=== PATIENT | female | born 1960 | race Caucasian/White ===

== ENCOUNTER → 2017-01-02 | Outpatient (POV) | payer MEDICARE, OTHER, SELFPAY | PROVIDERS: Visit Provider Podiatrist ==

== ENCOUNTER → 2017-01-30 | Outpatient (POV) | payer MEDICARE, OTHER, SELFPAY | PROVIDERS: Visit Provider Podiatrist ==

== ENCOUNTER → 2017-02-10 | Outpatient (CLI) | payer MEDICARE, OTHER, SELFPAY | PROVIDERS: Visit Provider Physician Assistant Medical | DX: K29.70 Gastritis, unspecified, without bleeding (principal) | CPT/HCPCS: 87338 ==

== ENCOUNTER → 2017-03-06 09:12 | Outpatient (REF) | payer MEDICARE, OTHER, SELFPAY ==
[2017-03-06 13:00] LABS: Amphetamine/Metha Screen,Urine Negative ng/mL (<1000); Barbiturates Screen,Urine Negative ng/mL (<200); Benzodiazepines Screen,Urine Negative ng/mL (200); Cannabinoid Screen,Urine Negative ng/mL (<50); Cocaine Screen,Urine Negative ng/g (<300); Methadone Screen,Urine Negative ng/mL (<300); Opiate Screen,Urine Negative ng/mL (<300); Phencyclidine Screen,Urine Negative ng/mL (<25)
[2017-03-22 08:11] LABS: Oxycodone (GC/MS) 667 ng/mL (Cutoff=100)
[2017-03-22 18:28] LABS: Opiates Negative (Cutoff=100); Oxymorphone (GC/MS) 788 ng/mL (Cutoff=100)
== END ==
LOC: LAB 09:12
PROVIDERS: Visit Provider Nurse Practitioner Family
DX: Z79.899 Other long term (current) drug therapy (principal)
CPT/HCPCS: 80305; 80361; G0480

== ENCOUNTER → 2017-03-18 08:38 | Outpatient (CLI) | payer MEDICARE, OTHER, SELFPAY ==
[2017-03-18 09:07] LABS: Alanine Aminotransferase 33 U/L (12-78); Albumin Level 3.9 gm/dL (3.4-5.0); Albumin/Globulin Ratio 0.8 (1.1-1.8); Alkaline Phosphatase 91 U/L (46-116); Bilirubin,Total 0.5 mg/dL (0.2-1.0); Blood Urea Nitrogen 14 mg/dL (7-18); Calcium 9.1 mg/dL (8.5-10.1); Carbon Dioxide 25 mmol/L (21.0-32.0); Chloride 103 mmol/L (98-107); Creatinine,Serum 0.72 mg/dL (0.55-1.02); Estimated Glomerular Filt Rate 84 ml/min (>60); GFR (African American) 102 ML/MIN (>60); Globulin 4.6 gm/dl (1.3-3.2); Glucose 104 mg/dL (74-106); Sodium 138 mmol/L (136-145); Total Protein,Serum 8.5 gm/dL (6.4-8.2)
[2017-03-18 09:10] LABS: Aspartate Amino Transferase 28 U/L (15-37)
--- NOTE | 2017-03-18 09:19 | CT_ITS ---
CT abdomen pelvis wo/w con CLINICAL INDICATION: ITS.REASON: ABDOMINAL PAIN,CHRONIC PANCREATITIS,ABNORMAL PANCREATIC DUCT ORDERING PHYSICIAN: Ulises Dhillon PATIENT AGE: 56 years COMPARISON: MRI 02/05/2017 TECHNIQUE: Axial images obtained with sagittal and coronal reformats. Pre and post enhanced three-phase imaging is performed PROCEDURE: Oral Contrast: None IV Contrast: 75 mL [id number]. FINDINGS: The lung bases are clear. Prior splenectomy. There are few coarse areas of calcification involving the pancreas at the region of the body of the pancreas consistent with chronic pancreatitis. The head of the pancreas is somewhat prominent as noted on the MRI. There are multiple air is seen is present along the head of the pancreas accounting for the abnormal signal intensity on the MRI. Collateral vessels are present in the portal rate. Suspect chronic portal venous thrombosis with varicosities in the periportal area. The superior mesenteric vein is not demonstrated. There has been prior hysterectomy. The liver, adrenal glands, and kidneys have an unremarkable appearance. No intestinal obstruction or free air. Prior hysterectomy. No pelvic mass or abnormal fluid collection or focal inflammatory change apparent. IMPRESSION: 1. There are varicosities in the region of the head of the pancreas accounting for the abnormality noted on MRI. No obvious pancreatic mass. There are scattered foci of calcifications of the body and tail of pancreas consistent with chronic pancreatitis. 2. Prior splenectomy. 3. 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
== END ==
PROVIDERS: Family Provider Emergency Medicine; PCP Emergency Medicine; Visit Provider Physician Assistant Medical
DX: R10.9 Unspecified abdominal pain (principal); K85.90 Acute pancreatitis without necrosis or infection, unspecified
CPT/HCPCS: 36415; 74170; 74178; 80053; Q9967

== ENCOUNTER → 2017-04-29 10:20 | Outpatient (REF) | payer MEDICARE, OTHER, SELFPAY ==
[2017-04-29 14:04] LABS: Amphetamine/Metha Screen,Urine Negative ng/mL (<1000); Barbiturates Screen,Urine Negative ng/mL (<200); Benzodiazepines Screen,Urine Negative ng/mL (200); Cannabinoid Screen,Urine Negative ng/mL (<50); Cocaine Screen,Urine Negative ng/g (<300); Methadone Screen,Urine Negative ng/mL (<300); Opiate Screen,Urine Positive ng/mL (<300); Phencyclidine Screen,Urine Negative ng/mL (<25)
== END ==
LOC: LAB 10:20
PROVIDERS: Visit Provider Emergency Medicine
DX: Z79.899 Other long term (current) drug therapy (principal)
CPT/HCPCS: 80305

== ENCOUNTER → 2017-05-13 09:34 | Outpatient (POV) | payer MEDICARE, OTHER, SELFPAY | PROVIDERS: Family Provider Emergency Medicine; PCP Emergency Medicine; Visit Provider Physician Assistant Medical | DX: Z00.00 Encounter for general adult medical examination without abnormal findings (principal) ==

== ENCOUNTER → 2017-06-01 08:54 | Outpatient (REF) | payer MEDICARE, OTHER, SELFPAY ==
[2017-06-01 13:46] LABS: Amphetamine/Metha Screen,Urine Negative ng/mL (<1000); Barbiturates Screen,Urine Negative ng/mL (<200); Benzodiazepines Screen,Urine Negative ng/mL (200); Cannabinoid Screen,Urine Negative ng/mL (<50); Cocaine Screen,Urine Negative ng/g (<300); Methadone Screen,Urine Negative ng/mL (<300); Opiate Screen,Urine Positive ng/mL (<300); Phencyclidine Screen,Urine Negative ng/mL (<25)
== END ==
LOC: LAB 08:54
PROVIDERS: Visit Provider Emergency Medicine
DX: Z79.899 Other long term (current) drug therapy (principal)
CPT/HCPCS: 80305

== ENCOUNTER → 2017-07-01 11:06 | Outpatient (REF) | payer MEDICARE, OTHER, SELFPAY ==
[2017-07-01 14:05] LABS: Amphetamine/Metha Screen,Urine Negative ng/mL (<1000); Barbiturates Screen,Urine Negative ng/mL (<200); Benzodiazepines Screen,Urine Negative ng/mL (200); Cannabinoid Screen,Urine Negative ng/mL (<50); Cocaine Screen,Urine Negative ng/g (<300); Methadone Screen,Urine Negative ng/mL (<300); Opiate Screen,Urine Negative ng/mL (<300); Phencyclidine Screen,Urine Negative ng/mL (<25)
== END ==
LOC: LAB 11:06
PROVIDERS: Visit Provider Emergency Medicine
DX: M51.16 Intervertebral disc disorders with radiculopathy, lumbar region (principal)
CPT/HCPCS: 80305

== ENCOUNTER → 2017-07-31 10:20 | Outpatient (CLI) | payer MEDICARE, OTHER, SELFPAY ==
[2017-07-31 14:30] LABS: Basophils # 0.1 K/mm3 (0-0.2); Basophils % 0.6 % (0.1-2.0); Eosinophils % 0.5 % (0.1-12.0); Hematocrit 44.8 % (37.0-47.0); Hemoglobin 14.6 g/dL (12.2-16.2); Lymphocytes # 4.9 K/mm3 (0.7-4.5); Lymphocytes % 51.7 K/mm3 (10-50); Mean Corpuscular HGB Conc 32.6 g/dL (31.8-35.4); Mean Corpuscular Hemoglobin 31.5 pg (27.0-31.2); Mean Corpuscular Volume 96.9 fl (81-99); Mean Platelet Volume 8.8 fl (7.4-10.4); Monocytes # 0.7 K/mm3 (0.1-1.0); Monocytes % 7.2 % (1.7-9.3); Neutrophils # 3.8 K/mm3 (1.8-7.8); Platelet Count 391 K/mm3 (142-424); Red Blood Count 4.63 M/mm3 (4.20-5.40); Red Cell Distribution Width 13.1 % (11.5-17.5); White Blood Count 9.5 K/mm3 (4.8-10.8)
[2017-07-31 14:32] LABS: MANUAL DIFFERENTIAL MANUAL DIFFERENTIAL (MANUAL DIFF)
[2017-07-31 14:58] LABS: Alanine Aminotransferase 26 U/L (12-78); Albumin Level 3.8 gm/dL (3.4-5.0); Alkaline Phosphatase 88 U/L (46-116); Anion Gap 11.9 mEq/L (5-15); Aspartate Amino Transferase 21 U/L (15-37); Bilirubin,Total 0.8 mg/dL (0.2-1.0); Blood Urea Nitrogen 15 mg/dL (7-18); Calcium 9.2 mg/dL (8.5-10.1); Carbon Dioxide 28 mmol/L (21.0-32.0); Chloride 106 mmol/L (98-107); Chol/HDL Ratio 5.3 (1-3.5); Cholesterol 200 mg/dL (140-200); Creatinine,Serum 0.71 mg/dL (0.55-1.02); Estimated Glomerular Filt Rate 85 ml/min (>60); GFR (African American) 103 ML/MIN (>60); Globulin 3.8 gm/dl (1.3-3.2); Glucose 94 mg/dL (74-106); HDL Cholesterol 38 mg/dL (29-89); LDL Cholesterol 139 mg/dL (0-130); Potassium 3.9 mmoL/L (3.5-5.1); Sodium 142 mmol/L (136-145); T4 (Thyroxine) 9.6 ug/dl (4.7-13.3); Thyroid Stimulating Hormone 2.29 uIU/ml (0.358-3.740); Total Protein,Serum 7.6 gm/dL (6.4-8.2); Triglycerides 113 mg/dL (30-200); VLDL Cholesterol 23 mg/dL (0-40)
[2017-07-31 15:06] LABS: Lymphocytes % 52 % (10-50); Monocytes % 9 % (2-9); Neutrophils % 38 % (42-76); Platelet Estimate Normal; RBC Morphology Normal; Total Cells Counted 100
[2017-07-31 16:28] LABS: Hemoglobin A1C 5.5 % (0.0-7.0)
[2017-07-31 19:26] LABS: Amphetamine/Metha Screen,Urine Negative ng/mL (<1000); Barbiturates Screen,Urine Negative ng/mL (<200); Benzodiazepines Screen,Urine Negative ng/mL (200); Cannabinoid Screen,Urine Negative ng/mL (<50); Cocaine Screen,Urine Negative ng/g (<300); Methadone Screen,Urine Negative ng/mL (<300); Opiate Screen,Urine Negative ng/mL (<300); Phencyclidine Screen,Urine Negative ng/mL (<25)
== END ==
PROVIDERS: Visit Provider Emergency Medicine
DX: E11.9 Type 2 diabetes mellitus without complications (principal); M51.16 Intervertebral disc disorders with radiculopathy, lumbar region; M54.9 Dorsalgia, unspecified
CPT/HCPCS: 80053; 80061; 80305; 82652; 83036; 84436; 84443; 85007; 85025

== ENCOUNTER → 2017-08-28 10:06 | Outpatient (CLI) | payer MEDICARE, OTHER, SELFPAY ==
[2017-08-28 17:26] LABS: Amphetamine/Metha Screen,Urine Negative ng/mL (<1000); Barbiturates Screen,Urine Negative ng/mL (<200); Benzodiazepines Screen,Urine Negative ng/mL (<200); Cannabinoid Screen,Urine Negative ng/mL (<50); Cocaine Screen,Urine Negative ng/mL (<300); Methadone Screen,Urine Negative ng/mL (<300); Opiate Screen,Urine Negative ng/mL (<300); Phencyclidine Screen,Urine Negative ng/mL (<25)
== END ==
PROVIDERS: Visit Provider Emergency Medicine
DX: M51.16 Intervertebral disc disorders with radiculopathy, lumbar region (principal)
CPT/HCPCS: 80305

== ENCOUNTER → 2017-10-02 10:22 | Outpatient (REF) | payer MEDICARE, OTHER, SELFPAY ==
[2017-10-02 14:26] LABS: Amphetamine/Metha Screen,Urine Negative ng/mL (<1000); Barbiturates Screen,Urine Negative ng/mL (<200); Benzodiazepines Screen,Urine Negative ng/mL (<200); Cannabinoid Screen,Urine Negative ng/mL (<50); Cocaine Screen,Urine Negative ng/mL (<300); Methadone Screen,Urine Negative ng/mL (<300); Opiate Screen,Urine Negative ng/mL (<300); Phencyclidine Screen,Urine Negative ng/mL (<25)
== END ==
LOC: LAB 10:22
PROVIDERS: Visit Provider Emergency Medicine
DX: M54.5 Low back pain (principal)
CPT/HCPCS: 80305

== ENCOUNTER → 2017-11-03 10:17 | Outpatient (REF) | payer MEDICARE, OTHER, SELFPAY ==
[2017-11-03 14:30] LABS: Amphetamine/Metha Screen,Urine Negative ng/mL (<1000); Barbiturates Screen,Urine Negative ng/mL (<200); Benzodiazepines Screen,Urine Negative ng/mL (<200); Cannabinoid Screen,Urine Negative ng/mL (<50); Cocaine Screen,Urine Negative ng/mL (<300); Methadone Screen,Urine Negative ng/mL (<300); Opiate Screen,Urine Negative ng/mL (<300); Phencyclidine Screen,Urine Negative ng/mL (<25)
== END ==
LOC: LAB 10:17
PROVIDERS: Visit Provider Emergency Medicine
DX: Z79.899 Other long term (current) drug therapy (principal)
CPT/HCPCS: 80305

== ENCOUNTER → 2017-12-02 09:42 | Outpatient (REF) | payer MEDICARE, OTHER, SELFPAY ==
[2017-12-02 14:20] LABS: Amphetamine/Metha Screen,Urine Negative ng/mL (<1000); Barbiturates Screen,Urine Negative ng/mL (<200); Benzodiazepines Screen,Urine Negative ng/mL (<200); Cannabinoid Screen,Urine Negative ng/mL (<50); Cocaine Screen,Urine Negative ng/mL (<300); Methadone Screen,Urine Negative ng/mL (<300); Opiate Screen,Urine Negative ng/mL (<300); Phencyclidine Screen,Urine Negative ng/mL (<25)
== END ==
LOC: LAB 09:42
PROVIDERS: Visit Provider Emergency Medicine
DX: Z79.899 Other long term (current) drug therapy (principal)
CPT/HCPCS: 80305

== ENCOUNTER → 2018-01-05 13:30 | Outpatient (CLI) | payer MEDICARE, OTHER, SELFPAY ==
[2018-01-09 06:15] LABS: Oxycodone Positive (.); Oxymorphone Negative (Cutoff=100)
[2018-01-11 11:13] LABS: Oxycodone Confirm 653 ng/mL (Cutoff=100)
== END ==
PROVIDERS: PCP Emergency Medicine; Visit Provider Emergency Medicine
DX: Z79.899 Other long term (current) drug therapy (principal)
CPT/HCPCS: 80365

== ENCOUNTER → 2018-02-03 14:17 | Outpatient (CLI) | payer MEDICARE, OTHER, SELFPAY ==
[2018-02-03 17:20] LABS: Amphetamine/Metha Screen,Urine Negative ng/mL (<1000); Barbiturates Screen,Urine Negative ng/mL (<200); Benzodiazepines Screen,Urine Negative ng/mL (<200); Cannabinoid Screen,Urine Negative ng/mL (<50); Cocaine Screen,Urine Negative ng/mL (<300); Methadone Screen,Urine Negative ng/mL (<300); Opiate Screen,Urine Negative ng/mL (<300); Phencyclidine Screen,Urine Negative ng/mL (<25)
[2018-02-11 08:46] LABS: Oxycodone (GC/MS) 501 ng/mL (Cutoff=100)
[2018-02-12 16:10] LABS: Opiates Negative (Cutoff=100); Oxymorphone (GC/MS) 166 ng/mL (Cutoff=100)
== END ==
PROVIDERS: Visit Provider Emergency Medicine
DX: Z79.899 Other long term (current) drug therapy (principal)
CPT/HCPCS: 80305; 80361; 80365; G0480

== ENCOUNTER → 2018-03-16 13:53 | Outpatient (CLI) | payer MEDICARE, OTHER, SELFPAY ==
--- NOTE | 2018-03-16 13:55 | MR_ITS ---
MR lumbar spine wo con, MR 3-d myelogram/MRCP HISTORY: Left hip and leg pain with numbness and tingling, left buttock pain, prior surgery ITS.REASON: back pain ORDERING PHYSICIAN: Hakan Steinberg PATIENT AGE: 57 years Comparison: 12/15/2014 TECHNIQUE: Standard multiplanar multiecho sequences are performed without contrast. 3-D MIP and myelographic images are also rendered and reviewed FINDINGS: There is normal alignment. Spinal cord ends at the L1 level. T11-L3 has an unremarkable appearance. L3-L4: Minimal bulging disc with small central disc protrusion which is less prominent on today's study than when compared to the previous exam. This is slightly eccentric toward the left with mild facet and ligamentum flavum hypertrophy and mild bilateral foraminal narrowing. No obvious neural impingement L4-L5: Small concentric bulging disc which is slightly eccentric toward the left. There is a small lobular area of increased T2 signal in the left lateral recess and along the posterior aspect of the disc at L4-L5 in the left foraminal region. As mentioned previously this could be due to an area of epidural fibrosis versus a small disc protrusion. Repeat exam without with contrast may be of further value. There are type II endplate changes at L4 inferiorly with some irregularity of the superior endplate of L5. There is left lateral recess narrowing as well as mild to moderate bilateral foraminal narrowing. Facet ligamentum flavum hypertrophy noted at this level as before. There may be a small laminotomy defect on the left at L4-L5. L5-S1: Mild degenerative disc disease with bulging disc and small broad-based central disc protrusion. There is decreased T1 and T2 signal along the anterior left aspect of the canal at this level abutting the left S1 nerve root as previously described and could be due to an area of epidural fibrosis or protruding disc. Slightly more apparent on today's exam compared to the previous study. There is laminotomy defect on the left at this level. IMPRESSION: 1. L3-L4: Minimal bulging disc with small central disc protrusion which is less prominent on today's study than when compared to the previous exam. This is slightly eccentric toward the left with mild facet and ligamentum flavum hypertrophy and mild bilateral foraminal narrowing. No obvious neural impingement 2. L4-L5: Small concentric bulging disc which is slightly eccentric toward the left. There is a small lobular area of increased T2 signal in the left lateral recess and along the posterior aspect of the disc at L4-L5 in the left foraminal region. As mentioned previously this could be due to an area of epidural fibrosis versus a small disc protrusion. Repeat exam without with contrast may be of further value. There are type II endplate changes at L4 inferiorly with some irregularity of the superior endplate of L5. There is left lateral recess narrowing as well as mild to moderate bilateral foraminal narrowing. Facet ligamentum flavum hypertrophy noted at this level as before. There may be a small laminotomy defect on the left at L4-L5. 3. L5-S1: Mild degenerative disc disease with bulging disc and small broad-based central disc protrusion. There is decreased T1 and T2 signal along the anterior left aspect of the canal at this level abutting the left S1 nerve root as previously described and could be due to an area of epidural fibrosis or protruding disc which is slightly more apparent on today's exam compared to the previous study. There is laminotomy defect on the left at this level. Consider repeating exam without with gadolinium enhancement for further evaluation to better determine possibility of epidural fibrosis versus disc material at L4-L5 and L5-S1
== END ==
PROVIDERS: PCP Emergency Medicine; Visit Provider Nurse Practitioner Family
DX: M51.16 Intervertebral disc disorders with radiculopathy, lumbar region (principal); M54.5 Low back pain
CPT/HCPCS: 72148; 76376

== ENCOUNTER → 2018-04-06 13:59 | Outpatient (CLI) | payer MEDICARE, OTHER, SELFPAY ==
[2018-04-06 15:27] LABS: Amphetamine/Metha Screen,Urine Negative ng/mL (<1000); Barbiturates Screen,Urine Negative ng/mL (<200); Benzodiazepines Screen,Urine Negative ng/mL (<200); Cannabinoid Screen,Urine Negative ng/mL (<50); Cocaine Screen,Urine Negative ng/mL (<300); Methadone Screen,Urine Negative ng/mL (<300); Opiate Screen,Urine Positive ng/mL (<300); Phencyclidine Screen,Urine Negative ng/mL (<25)
== END ==
PROVIDERS: Visit Provider Emergency Medicine
DX: Z79.899 Other long term (current) drug therapy (principal)
CPT/HCPCS: 80305

== ENCOUNTER → 2018-05-13 13:23 | Outpatient (POV) | payer MEDICARE, OTHER, SELFPAY | PROVIDERS: Visit Provider Neurological Surgery | DX: Z00.00 Encounter for general adult medical examination without abnormal findings (principal) ==

== ENCOUNTER → 2018-05-24 10:48 | Outpatient (POV) | payer MEDICARE, OTHER, SELFPAY ==
[2018-05-24 11:21] VITALS: BP 118/88; PULSE 78; RESP 18; O2SAT 98
--- NOTE | 2018-05-24 14:00 | HMH.PMCON ---
Assessment and Plan (1) Lumbar disc disease with radiculopathy Current visit: No Status: Chronic Category: Medical Code(s): M51.16 - Intervertebral disc disorders with radiculopathy, lumbar region - Assessment and plan all Dx Assessment and Plan for all problems:: We will set the patient for an L5-S1 lumbar epidural steroid injection. Patient is not on any anticoagulation therapy at this time. Patient has tried and failed conservative measures such as exercises and medications. I will follow-up with the patient after injection reassess her symptoms at that time. Dr. Ventura has reviewed this note and agrees with this plan of care. This note was dictated using voice recognition software and may contain errors or omissions HPI - Data of Consult Consult date: 05/24/18 Requesting Physician: Yolis Sexton APRN Primary Care Provider: Allan Hightower MD - Consult Narrative Reason for consult: Back pain History of present illness: Ms. Rivera is a 57 year old female who presents today for consultation in regards to her low back and leg pain. Patient was seen by Dr. Burns and it was suggested that she try epidural injections prior to considering surgery. Patient rates her pain a 5 out of 10. Patient states that she had pain beginning in January. She has left leg numbness and tingling. Patient does have an MRI showing degenerative changes. Patient has had surgery in the past. She is currently on Percocet from her primary care physician. She is not on any blood thinner and she does not take any insulin. Is interested in epidural injections she is continuing a home stretching program. She is on anti-inflammatories. CC: Yolis Sexton APRN [facility] History I have reviewed the patient's past medical history: Yes Medical History: Reports:: Anxiety, Chronic Obstructive Pulmonary Disease (COPD), Depression, Diabetes Mellitus Type 2, Hyperlipidemia *Have you ever received a pneumonia vaccine?: No *Have you received a flu vaccine this season?: Yes Other Medical History: Reports: HIV Other Surgeries: Yes: Colonoscopy, , EGD, Hysterectomy-Total, Splenectomy, Thyroidectomy Amputation: No Fractures: No - *Social History Smoking Status: Unknown if ever smoked Alcohol Intake: never Alcohol Intake Frequency:: other Substance Use Type: denies use *Occupational Status:: retired Housing: house Household Members: family *Travel in the last 8 weeks: None - Psychiatric History Expresses thoughts of harming self/others: None Suicide Plan Description: No Plan Pschychiatric History:: Reports:: Anxiety, Depression Family Hx:: Heart Attack, Kidney Disease Review of Systems - Review of Systems ROS General: no recent weight change, no fever, no sleep disturbances Respiratory: no cough, no shortness of air, no recurring pulmonary infections Cardiovascular/Peripheral Vascular: No chest pain, No palpitations, no edema, no shortness of breath. Gastrointestinal: no incontinence, normal bowel movements reported Genitourinary: no incontinence Musculoskeletal: Back pain, left leg pain Psychiatric: normal mood/ affect, Neurological: [denies weakness in extremities], [denies balance issues] Meds Home Medications Medication Instructions Recorded Confirmed Type niacin ER 500 mg tablet,extended 1,500 mg PO QHS 03/05/17 04/27/18 History release 24 hr dolutegravir 50 mg tablet 50 mg PO DAILY 30 Days #30 tab 01/05/18 04/27/18 History emtricitabine 200 mg-tenofovir 200 mg PO DAILY 30 Days #30 tab 01/05/18 04/27/18 History alafenamide fumarate 25 mg tablet promethazine 25 mg tablet 25 mg PO QHS 20 Days #60 tab 01/05/18 04/27/18 History diclofenac 1 % topical gel 4 g TOPICAL QID #30 g 02/08/18 04/27/18 Rx urea 40 % topical cream 1 applic TOPICAL BID #60 applic 02/08/18 04/27/18 Rx Blood Sugar Diagnostic [FreeStyle 0 strip .ROUTE .MEDSUPPLY 02/28/18 04/27/18 History Lite Strips] Cholecalciferol (Vitamin D3)
--- NOTE | 2018-05-24 14:03 | P.CONS_ITS ---
Assessment and Plan (1) Lumbar disc disease with radiculopathy Current visit: No Status: Chronic Category: Medical Code(s): M51.16 - Intervertebral disc disorders with radiculopathy, lumbar region - Assessment and plan all Dx Assessment and Plan for all problems:: We will set the patient for an L5-S1 lumbar epidural steroid injection. Patient is not on any anticoagulation therapy at this time. Patient has tried and failed conservative measures such as exercises and medications. I will follow- up with the patient after injection reassess her symptoms at that time. Dr. Ventura has reviewed this note and agrees with this plan of care. This note was dictated using voice recognition software and may contain errors or omissions HPI - Data of Consult Consult date: 05/24/18 Requesting Physician: Yolis Sexton APRN Primary Care Provider: Allan Hightower MD - Consult Narrative Reason for consult: Back pain History of present illness: Ms. Rivera is a 57 year old female who presents today for consultation in regards to her low back and leg pain. Patient was seen by Dr. Burns and it was suggested that she try epidural injections prior to considering surgery. Patient rates her pain a 5 out of 10. Patient states that she had pain beginning in January. She has left leg numbness and tingling. Patient does have an MRI showing degenerative changes. Patient has had surgery in the past. She is currently on Percocet from her primary care physician. She is not on any blood thinner and she does not take any insulin. Is interested in epidural injections she is continuing a home stretching program. She is on anti- inflammatories. CC: Yolis Sexton APRN [facility] History I have reviewed the patient's past medical history: Yes Medical History: Reports:: Anxiety, Chronic Obstructive Pulmonary Disease (COPD), Depression, Diabetes Mellitus Type 2, Hyperlipidemia *Have you ever received a pneumonia vaccine?: No *Have you received a flu vaccine this season?: Yes Other Medical History: Reports: HIV Other Surgeries: Yes: Colonoscopy, , EGD, Hysterectomy-Total, Splenectomy, Thyroidectomy Amputation: No Fractures: No - *Social History Smoking Status: Unknown if ever smoked Alcohol Intake: never Alcohol Intake Frequency:: other Substance Use Type: denies use *Occupational Status:: retired Housing: house Household Members: family *Travel in the last 8 weeks: None - Psychiatric History Expresses thoughts of harming self/others: None Suicide Plan Description: No Plan Pschychiatric History:: Reports:: Anxiety, Depression Family Hx:: Heart Attack, Kidney Disease Review of Systems - Review of Systems ROS General: no recent weight change, no fever, no sleep disturbances Respiratory: no cough, no shortness of air, no recurring pulmonary infections Cardiovascular/Peripheral Vascular: No chest pain, No palpitations, no edema, no shortness of breath. Gastrointestinal: no incontinence, normal bowel movements reported Genitourinary: no incontinence Musculoskeletal: Back pain, left leg pain Psychiatric: normal mood/ affect, Neurological: [denies weakness in extremities], [denies balance issues] Meds Home Medications Medication Instructions Recorded Confirmed Type niacin ER 500 mg tablet,extended 1,500 mg PO QHS 03/05/17 04/27/18 History release 24 hr dolutegravir 50 mg tablet 50 mg PO DAILY 30 Days #30 tab 01/05/18 04/27/18 Rosa richardson
== END ==
PROVIDERS: PCP Emergency Medicine; Visit Provider Clinical Nurse Specialist Family Health
DX: M51.16 Intervertebral disc disorders with radiculopathy, lumbar region (principal)
CPT/HCPCS: 99202

== ENCOUNTER → 2018-06-02 14:13 | Outpatient (CLI) | payer MEDICARE, OTHER, SELFPAY ==
[2018-06-02 15:02] LABS: Amphetamine/Metha Screen,Urine Negative ng/mL (<1000); Barbiturates Screen,Urine Negative ng/mL (<200); Benzodiazepines Screen,Urine Negative ng/mL (<200); Cannabinoid Screen,Urine Negative ng/mL (<50); Cocaine Screen,Urine Negative ng/mL (<300); Methadone Screen,Urine Negative ng/mL (<300); Opiate Screen,Urine Positive ng/mL (<300); Phencyclidine Screen,Urine Negative ng/mL (<25)
== END ==
PROVIDERS: Visit Provider Emergency Medicine
DX: M54.2 Cervicalgia (principal)
CPT/HCPCS: 80305

== ENCOUNTER → 2018-07-06 09:42 | Outpatient (POV) | payer MEDICARE, OTHER, SELFPAY ==
[2018-07-06 09:53] VITALS: BP 139/90; PULSE 75; RESP 18; O2SAT 98; BMI 35.5
--- NOTE | 2018-07-06 10:11 | HMH.PAINSOAP ---
[facility] Pain Management SOAP Note Subjective:: Patient is a pleasant 57-year-old white female who presents today for follow-up after lumbar epidural steroid injection. Patient did extremely well getting 80% relief of her symptoms. She does rate her pain an 8 out of 10 however is more muscular today. She would like to continue her set of 3 epidurals per the recommendation of Dr. Burns. We will move forward with this. Patient is having some muscle cramps we will call her in Zanaflex 4 mg 1 p.o. twice daily. ROS General: no recent weight change, no fever, no sleep disturbances Respiratory: no cough, no shortness of air, no recurring pulmonary infections Cardiovascular/Peripheral Vascular: No chest pain, No palpitations, no edema, no shortness of breath. Gastrointestinal: no incontinence, normal bowel movements reported Genitourinary: no incontinence Musculoskeletal: Back pain, leg pain Psychiatric: normal mood/ affect Neurological: [denies weakness in extremities], [denies balance issues] Objective:: Physical Exam General: Alert and oriented x3, no acute distress, pleasant and cooperative, [on room air] Lungs: Resps E/U, Symmetrical chest expansion, Eyes: PERRL Musculoskeletal: Flexion and extension of lumbar spine somewhat guarded secondary to pain, deep tendon reflexes normal, strength in upper and lower extremities [5/5], [abnormal gait noted] Neurological: speech clear, packager and strapper equal, no gross sensory deficits Assessment:: Degenerative disc disease lumbar spine with lumbar radiculopathy Plan:: We will schedule repeat L4-L5 lumbar epidural steroid injection given the efficacy of this in the past. We will then repeated once more in 4 weeks post. Patient is not on any anticoagulation therapy she is continuing with anti-inflammatories. We will also call in Zanaflex 4 mg 1 p.o. twice daily.. I will follow-up with the patient after her injections and reassess her at that time. She is been instructed to call the office if she has any issues prior to her next appointment. Dr. Ventura has reviewed this note and agrees with this plan of care. This note was dictated using voice recognition software and may contain errors or omissions
== END ==
PROVIDERS: PCP Emergency Medicine; Visit Provider Clinical Nurse Specialist Family Health
DX: M51.16 Intervertebral disc disorders with radiculopathy, lumbar region (principal)
CPT/HCPCS: 99212

== ENCOUNTER 2018-07-23 08:36 | Day surgery (SDC) | payer MEDICARE, OTHER, SELFPAY ==
[2018-07-23 09:05] VITALS: BP 123/68; PULSE 65; RESP 18; TEMP 36.9; O2SAT 95; BMI 35.3
[2018-07-23 09:21] VITALS: BP 149/84; PULSE 69; RESP 18; O2SAT 98
[2018-07-23 09:22] VITALS: BP 150/85; PULSE 70; RESP 18; O2SAT 98
[2018-07-23 09:30] VITALS: BP 124/78; PULSE 70; RESP 18; TEMP 36.6; O2SAT 93
--- NOTE | 2018-07-23 09:41 | HMH.PMPROC ---
- Procedure Date: 07/23/18 Time: 09:41 Anesthesiologist:: Kai Ventura MD Complications:: None Pre-procedure Diagnosis:: Degenerative disc disease of lumbar spine with lumbar radiculopathy symptoms Post-procedure Diagnosis:: Same Indications for Procedure:: This patient is a pleasant 57-year-old white female who we are treating for low back pain with lumbar radicular symptoms. She did very well with her previous lumbar epidural steroid injection. She was 80 to 90% better. Her pain is starting to return. She did have some muscle spasms after her last procedure. She is started Zanaflex 4 mg twice daily which is helping. She presents for repeat lumbar pleural steroid injection under fluoroscopy today. Procedure Details:: Lumbar epidural steroid injection under fluoroscopy Informed consent was obtained and the risk and benefits of the procedure was explained to the patient. The patient was taken to the procedure room. The patient was placed prone on the procedure table. The patient was prepped and draped in sterile fashion. C-arm fluoroscopy was used to view the lumbar spine. Skin and subcutaneous tissues were anesthetized using lidocaine. I placed an 18-gauge epidural needle and advanced into the L4-L5 interspace using fluoroscopic guidance and [id number] to air. After confirmation of needle placement in the epidural space with dye I injected 2 mL of lidocaine 1.5% with Depo-Medrol 80 mg. Patient tolerated the procedure well with no complications. Plan and Disposition:: We will follow-up with her in 2 weeks. We will reevaluate her symptoms at that time. She is scheduled to see Dr. Burns in August.
== END 2018-07-23 09:32 | disposition home or self-care (01) ==
LOC: SC.PAINP 08:37
PROVIDERS: PCP Emergency Medicine; Visit Provider Anesthesiology
DX: M51.16 Intervertebral disc disorders with radiculopathy, lumbar region (principal)
CPT/HCPCS: 62323; J1040; Q9966

== ENCOUNTER → 2018-08-02 11:57 | Outpatient (CLI) | payer MEDICARE, OTHER, SELFPAY ==
[2018-08-02 14:49] LABS: Amphetamine/Metha Screen,Urine Negative ng/mL (<1000); Barbiturates Screen,Urine Negative ng/mL (<200); Benzodiazepines Screen,Urine Negative ng/mL (<200); Cannabinoid Screen,Urine Negative ng/mL (<50); Cocaine Screen,Urine Negative ng/mL (<300); Methadone Screen,Urine Negative ng/mL (<300); Opiate Screen,Urine Negative ng/mL (<300); Phencyclidine Screen,Urine Negative ng/mL (<25)
== END ==
PROVIDERS: Visit Provider Emergency Medicine
DX: Z79.899 Other long term (current) drug therapy (principal); R82.998 Other abnormal findings in urine
CPT/HCPCS: 80305; 87086

== ENCOUNTER → 2018-09-09 12:52 | Outpatient (POV) | payer MEDICARE, OTHER, SELFPAY | PROVIDERS: Visit Provider Neurological Surgery | DX: Z00.00 Encounter for general adult medical examination without abnormal findings (principal) ==

== ENCOUNTER → 2018-09-13 11:02 | Outpatient (CLI) | payer MEDICARE, OTHER, SELFPAY ==
--- NOTE | 2018-09-13 11:05 | XR_ITS ---
XR chest 2V HISTORY: ITS.REASON: cough ORDERING PHYSICIAN: Allan Hightower MD PATIENT AGE: 57 years COMPARISON: 02/28/2018. FINDINGS: The cardiomediastinal silhouette and pulmonary vascularity are within normal limits. Bilaterally there are a few punctate benign calcific granulomas. Lung carbajal are otherwise clear.. There are postoperative clips in the upper abdomen. No acute bony abnormalities. IMPRESSION: No acute abnormality and no significant change.
== END ==
PROVIDERS: PCP Emergency Medicine; Visit Provider Emergency Medicine
DX: R05 Cough (principal)
CPT/HCPCS: 71046

== ENCOUNTER → 2018-10-01 13:54 | Outpatient (CLI) | payer MEDICARE, OTHER, SELFPAY ==
[2018-10-01 14:34] LABS: Amphetamine/Metha Screen,Urine Negative ng/mL (<1000); Barbiturates Screen,Urine Negative ng/mL (<200); Benzodiazepines Screen,Urine Negative ng/mL (<200); Cannabinoid Screen,Urine Negative ng/mL (<50); Cocaine Screen,Urine Negative ng/mL (<300); Methadone Screen,Urine Negative ng/mL (<300); Opiate Screen,Urine Negative ng/mL (<300); Phencyclidine Screen,Urine Negative ng/mL (<25)
[2018-10-07 19:08] LABS: Oxycodone (GC/MS) 490 ng/mL (Cutoff=100)
[2018-10-08 17:59] LABS: Opiates Negative (Cutoff=100); Oxymorphone (GC/MS) 354 ng/mL (Cutoff=100)
== END ==
PROVIDERS: Visit Provider Emergency Medicine
DX: M54.2 Cervicalgia (principal); Z79.899 Other long term (current) drug therapy
CPT/HCPCS: 80305; 80361; 80365; G0480

== ENCOUNTER → 2018-10-05 09:22 | Outpatient (CLI) | payer MEDICARE, OTHER, SELFPAY ==
--- NOTE | 2018-10-05 09:23 | MM_ITS ---
PROCEDURE: MM DIG SCREENING MAMM BI W/CAD CLINICAL INDICATION: screening routine screening mammogram no hormones but no new complaints. Noncontributory family history. Previous stereotactic biopsy left breast noted COMPARISON: [facility] DIG MAMM-SCREEN GILLES from 07/12/2014 [facility] DIG MAMM-SCREEN GILLES from 01/24/2016 [facility] DIG MAMM-DX UNI-LT W/CAD from 07/23/2016 TECHNIQUE: Standard CC and MLO images were obtained. R2 CAD reviewed., additional nipple profile CC and MLO views bilateral FINDINGS: Moderate breast density bilaterally, but no suspicious/dominant mass or suspicious calcifications in either breast Left breast. Clip upper outer quadrant left breast reflecting previous stereotactic biopsy. Scattered calcifications similar to previous study. Follow-up 1 year recommended and encouraged Right breast stable architecture no new areas of concern IMPRESSION: Stable bilateral mammogram. Bilateral follow-up 1 year recommended and encouraged BI-RAD Category: 2 Benign Finding(s) FOLLOW-UP: 1YR 1 Year Follow-up (A letter has been sent to the patient regarding results of the study.) Dictated by: Erick Saxena MD 10/12/2018 12:30 Signed by: <Electronically signed by Erick Saxena MD in [place]> 10/13/2018 13:51
== END ==
PROVIDERS: PCP Emergency Medicine; Visit Provider Emergency Medicine
DX: Z12.31 Encounter for screening mammogram for malignant neoplasm of breast (principal)
CPT/HCPCS: 77067

== ENCOUNTER → 2018-10-13 07:58 | Outpatient (CLI) | payer MEDICARE, OTHER, SELFPAY ==
[2018-10-13 08:58] LABS: Basophils % 0.5 % (0.1-2.0); Eosinophils # 0.1 K/mm3 (0.0-0.4); Eosinophils % 1.7 % (0.1-12.0); Hematocrit 41.1 % (37.0-47.0); Hemoglobin 13.4 g/dL (12.2-16.2); Lymphocytes # 4.3 K/mm3 (0.7-4.5); Lymphocytes % 53.7 % (10-50); Mean Corpuscular HGB Conc 32.6 g/dL (31.8-35.4); Mean Corpuscular Hemoglobin 32.5 pg (27.0-31.2); Mean Corpuscular Volume 99.5 fl (81-99); Mean Platelet Volume 7.9 fl (7.4-10.4); Monocytes # 0.7 K/mm3 (0.1-1.0); Monocytes % 8.5 % (1.7-9.3); Neutrophils # 2.8 K/mm3 (1.8-7.8); Neutrophils % 35.5 % (37.0-80.0); Platelet Count 470 K/mm3 (142-424); Red Blood Count 4.13 M/mm3 (4.20-5.40); Red Cell Distribution Width 13.3 % (11.5-17.5)
[2018-10-13 09:06] LABS: MANUAL DIFFERENTIAL MANUAL DIFFERENTIAL (MANUAL DIFF)
[2018-10-13 09:41] LABS: Blood Urea Nitrogen 17 mg/dL (7-18); Calcium 9.3 mg/dL (8.5-10.1); Carbon Dioxide 28 mmol/L (21.0-32.0); Chloride 107 mmol/L (98-107); Creatinine,Serum 0.89 mg/dL (0.55-1.02); Estimated Glomerular Filt Rate 65 ml/min (>60); GFR (African American) 79 ML/MIN (>60); Glucose 113 mg/dL (74-106); Sodium 143 mmol/L (136-145)
[2018-10-13 12:54] LABS: Lymphocytes % 56 % (10-50); Monocytes % 7 % (2-9); Neutrophils % 37 % (42-76); Platelet Estimate Normal; RBC Morphology Normal; Total Cells Counted 100
[2018-10-13 15:04] LABS: Activated Partial Thrombo Time 25.6 seconds (23.6-34.0); INR 1.03 (0.9-1.1); Prothrombin Time 10.7 seconds (9.4-11.8)
== END ==
PROVIDERS: Visit Provider Neurological Surgery
DX: M79.605 Pain in left leg (principal)
CPT/HCPCS: 36415; 80048; 85007; 85025; 85610; 85730

== ENCOUNTER → 2018-11-09 09:53 | Outpatient (POV) | payer MEDICARE, OTHER, SELFPAY ==
[2018-11-09 10:09] VITALS: BP 150/78; PULSE 61; RESP 18; O2SAT 98; BMI 35.5
--- NOTE | 2018-11-09 12:26 | HMH.PAINSOAP ---
[facility] Pain Management SOAP Note Subjective:: Patient is a pleasant 58-year-old white female who presents today to discuss a neurostimulator. Patient was seen by Dr. Burns who stated that she was not a candidate for surgery and recommended a potential neurostimulator. Patient I also briefly talked about intrathecal therapy however she does not know at this time if she would be able to come off of her Percocet. Patient wants and I discussed about the process of a neurostimulator. Patient thought it was something that could be done today. I discussed with her that we will need a psychological evaluation prior to scheduling. Patient is not on any anticoagulation therapy. Most of her pain is in her low back and legs. Patient got temporary relief from injections however it has not been long-lasting. She rates her pain an 8 out of 10 ROS General: no recent weight change, no fever, no sleep disturbances Respiratory: no cough, no shortness of air, no recurring pulmonary infections Cardiovascular/Peripheral Vascular: No chest pain, No palpitations, no edema, no shortness of breath. Gastrointestinal: no incontinence, normal bowel movements reported Genitourinary: no incontinence Musculoskeletal: Back pain, leg pain Psychiatric: normal mood/ affect Neurological: [denies weakness in extremities], [denies balance issues] Objective:: Physical Exam General: Alert and oriented x3, no acute distress, pleasant and cooperative, [on room air] Lungs: Resps E/U, Symmetrical chest expansion, Eyes: PERRL Musculoskeletal: Flexion and extension of lumbar spine somewhat guarded secondary to pain, deep tendon reflexes normal, strength in upper and lower extremities [5/5], [abnormal gait noted] Neurological: speech clear, cook helper pastry equal, no gross sensory deficits Assessment:: Degenerative disc disease lumbar spine with lumbar radiculopathy Plan:: We will send her for psychological evaluation to determine if she is a candidate for a neurostimulator. Patient is instructed to call the office if she has any issues prior to her next appointment. I will follow-up with her after her evaluation and set her up for spinal cord stimulation trial if she is appropriate. Dr. Ventura has reviewed this note and agrees with this plan of care. This note was dictated using voice recognition software and may contain errors or omissions [facility] History I have reviewed the patient's past medical history: Yes Medical History: Reports:: Anxiety, Cancer, Chronic Obstructive Pulmonary Disease (COPD), Depression, Diabetes Mellitus Type 2, Hyperlipidemia, Hypertension Denies:: Diabetes Mellitus Type 1, MRSA, Seizures *Have you ever received a pneumonia vaccine?: No *Have you received a flu vaccine this season?: No Other Medical History: Reports: HIV Laterality Cases: Other Surgeries: Yes: Cardiac Catheterization, Cholecystectomy, Colonoscopy, , EGD, Hysterectomy-Total, Splenectomy, Thyroidectomy, Other Amputation: No Fractures: No - *Social History Smoking Status: Never smoker Alcohol Intake: never Alcohol Intake Frequency:: other Substance Use Type: denies use *Occupational Status:: disabled Housing: house Household Members: family *Travel in the last 8 weeks: None - Psychiatric History Pschychiatric History:: Reports:: Anxiety, Depression Family Hx:: Heart Attack, Kidney Disease
--- NOTE | 2018-11-09 12:30 | P.CONS_ITS ---
[facility] Pain Management SOAP Note Subjective:: Patient is a pleasant 58-year-old white female who presents today to discuss a neurostimulator. Patient was seen by Dr. Burns who stated that she was not a candidate for surgery and recommended a potential neurostimulator. Patient I also briefly talked about intrathecal therapy however she does not know at this time if she would be able to come off of her Percocet. Patient wants and I discussed about the process of a neurostimulator. Patient thought it was something that could be done today. I discussed with her that we will need a psychological evaluation prior to scheduling. Patient is not on any anticoagulation therapy. Most of her pain is in her low back and legs. Patient got temporary relief from injections however it has not been long-lasting. She rates her pain an 8 out of 10 ROS General: no recent weight change, no fever, no sleep disturbances Respiratory: no cough, no shortness of air, no recurring pulmonary infections Cardiovascular/Peripheral Vascular: No chest pain, No palpitations, no edema, no shortness of breath. Gastrointestinal: no incontinence, normal bowel movements reported Genitourinary: no incontinence Musculoskeletal: Back pain, leg pain Psychiatric: normal mood/ affect Neurological: [denies weakness in extremities], [denies balance issues] Objective:: Physical Exam General: Alert and oriented x3, no acute distress, pleasant and cooperative, [on room air] Lungs: Resps E/U, Symmetrical chest expansion, Eyes: PERRL Musculoskeletal: Flexion and extension of lumbar spine somewhat guarded secondary to pain, deep tendon reflexes normal, strength in upper and lower extremities [5/5], [abnormal gait noted] Neurological: speech clear, electric operator equal, no gross sensory deficits Assessment:: Degenerative disc disease lumbar spine with lumbar radiculopathy Plan:: We will send her for psychological evaluation to determine if she is a candidate for a neurostimulator. Patient is instructed to call the office if she has any issues prior to her next appointment. I will follow-up with her after her evaluation and set her up for spinal cord stimulation trial if she is appropriate. Dr. Ventura has reviewed this note and agrees with this plan of care. This note was dictated using voice recognition software and may contain errors or omissions [facility] History I have reviewed the patient's past medical history: Yes Medical History: Reports:: Anxiety, Cancer, Chronic Obstructive Pulmonary Disease (COPD), Depression, Diabetes Mellitus Type 2, Hyperlipidemia, Hypertension Denies:: Diabetes Mellitus Type 1, MRSA, Seizures *Have you ever received a pneumonia vaccine?: No *Have you received a flu vaccine this season?: No Other Medical History: Reports: HIV Laterality Cases: Other Surgeries: Yes: Cardiac Catheterization, Cholecystectomy, Colonoscopy, C- section, EGD, Hysterectomy-Total, Splenectomy, Thyroidectomy, Other Amputation: No Fractures: No - *Social History Smoking Status: Never smoker Alcohol Intake: never Alcohol Intake Frequency:: other Substance Use Type: denies use *Occupational Status:: disabled Housing: house Household Members: family *Travel in the last 8 weeks: None - Psychiatric History Pschychiatric History:: Reports:: Anxiety, Depression Family Hx:: Heart Attack, Kidney Disease
== END ==
PROVIDERS: PCP Emergency Medicine; Visit Provider Clinical Nurse Specialist Family Health
DX: M51.16 Intervertebral disc disorders with radiculopathy, lumbar region (principal)
CPT/HCPCS: 99212

== ENCOUNTER → 2018-11-26 14:10 | Outpatient (CLI) | payer MEDICARE, OTHER, SELFPAY ==
[2018-11-26 16:16] LABS: Amphetamine/Metha Screen,Urine Negative ng/mL (<1000); Barbiturates Screen,Urine Negative ng/mL (<200); Benzodiazepines Screen,Urine Negative ng/mL (<200); Cannabinoid Screen,Urine Negative ng/mL (<50); Cocaine Screen,Urine Negative ng/mL (<300); Methadone Screen,Urine Negative ng/mL (<300); Opiate Screen,Urine Negative ng/mL (<300); Phencyclidine Screen,Urine Negative ng/mL (<25)
[2018-12-05 19:19] LABS: Oxycodone Positive (.); Oxymorphone Positive (.)
[2018-12-06 00:18] LABS: Oxycodone Confirm 598 ng/mL (Cutoff=100); Oxymorphone Confirm 231 ng/mL (Cutoff=100)
== END ==
PROVIDERS: Visit Provider Emergency Medicine
DX: M54.2 Cervicalgia (principal); Z79.891 Long term (current) use of opiate analgesic
CPT/HCPCS: 80305; 80365

== ENCOUNTER → 2019-01-31 14:52 | Outpatient (CLI) | payer MEDICARE, OTHER, SELFPAY ==
[2019-01-31 16:21] LABS: Anion Gap 17.5 mEq/L (5-15); Blood Urea Nitrogen 26 mg/dL (7-18); Calcium 9.3 mg/dL (8.5-10.1); Carbon Dioxide 24 mmol/L (21.0-32.0); Chloride 106 mmol/L (98-107); Creatinine,Serum 0.86 mg/dL (0.55-1.02); Estimated Glomerular Filt Rate 68 ml/min (>60); GFR (African American) 82 ML/MIN (>60); Glucose 108 mg/dL (74-106); Potassium 4.5 mmoL/L (3.5-5.1); Sodium 143 mmol/L (136-145)
[2019-01-31 19:12] LABS: Amphetamine/Metha Screen,Urine Negative ng/mL (<1000); Barbiturates Screen,Urine Negative ng/mL (<200); Benzodiazepines Screen,Urine Negative ng/mL (<200); Cannabinoid Screen,Urine Negative ng/mL (<50); Cocaine Screen,Urine Negative ng/mL (<300); Methadone Screen,Urine Negative ng/mL (<300); Opiate Screen,Urine Negative ng/mL (<300); Phencyclidine Screen,Urine Negative ng/mL (<25)
[2019-01-31 20:21] LABS: Hemoglobin A1C 5.9 % (0.0-7.0)
[2019-02-02 12:10] LABS: Creatinine, Urine 64.9 mg/dL (Not Estab.); Microalbumin, Urine <3.0 ug/mL (Not Estab.)
[2019-02-10 22:04] LABS: Oxycodone NEGATIVE; Oxycodone Confirm NEGATIVE; Oxymorphone NEGATIVE; Oxymorphone Confirm NEGATIVE
== END ==
PROVIDERS: Visit Provider Emergency Medicine
DX: E11.9 Type 2 diabetes mellitus without complications (principal); M54.2 Cervicalgia; Z79.84 Long term (current) use of oral hypoglycemic drugs; Z79.899 Other long term (current) drug therapy
CPT/HCPCS: 80048; 80305; 80365; 82043; 82570; 83036

== ENCOUNTER → 2019-03-08 08:56 | Outpatient (POV) | payer MEDICARE, OTHER, SELFPAY ==
[2019-03-08 09:20] VITALS: BP 128/74; PULSE 67; RESP 18; O2SAT 98; BMI 35.5
--- NOTE | 2019-03-08 09:35 | HMH.PAINSOAP ---
[facility] Pain Management SOAP Note Subjective:: Patient is a pleasant 58-year-old white female who presents today for follow-up and neurostimulator trial lead removal. Patient is doing extremely well stating that she has 0 pain at this time she is had 90% relief of her symptomology. Patient stimulator was at T7-T8-T9. Patient had extremely good relief with this. Patient was seen by Dr. Burns who states she is not a candidate for serial jury and a curvature to look into a neurostimulator. Patient had an appropriate psychological evaluation. She is not on any anticoagulation therapy. Most of her pain is in her low back and legs. She is tried and failed injection therapy along with medications. Patient's tried and failed anti-inflammatories. She is had over a year of conservative therapy with no real relief. Patient has pain in her bilateral lower extremities along with autonomic changes including swelling and color changes. ROS General: no recent weight change, no fever, no sleep disturbances Respiratory: no cough, no shortness of air, no recurring pulmonary infections Cardiovascular/Peripheral Vascular: No chest pain, No palpitations, no edema, no shortness of breath. Gastrointestinal: no new onset incontinence, normal bowel movements reported Genitourinary: no new onset incontinence Musculoskeletal: Back pain, leg pain Psychiatric: normal mood/ affect Neurological: [denies new onset weakness in extremities], [denies new onset balance issues] Objective:: Physical Exam General: Alert and oriented x3, no acute distress, pleasant and cooperative, [on room air] Lungs: Resps E/U, Symmetrical chest expansion, Eyes: PERRL Musculoskeletal: Flexion and extension of lumbar spine somewhat guarded secondary to pain, deep tendon reflexes normal, strength in upper and lower extremities [5/5], [abnormal gait noted] Neurological: speech clear, greens laborer equal, no gross sensory deficits Assessment:: Degenerative disc disease lumbar spine with lumbar radiculopathy, postlaminectomy syndrome, CRPS type II Plan:: We will plan on a [employer] permanent implant. Patient is instructed to call the office if she has any issues prior to her next appointment. I discussed with her risk and benefits of the procedure along with expectations and realistic goal setting. Dr. Ventura has reviewed this note and agrees with this plan of care. This note was dictated using voice recognition software and may contain errors or omissions [facility] History I have reviewed the patient's past medical history: Yes Medical History: Reports:: Anxiety, Cancer, Chronic Obstructive Pulmonary Disease (COPD), Depression, Diabetes Mellitus Type 2, Hyperlipidemia, Hypertension Denies:: Diabetes Mellitus Type 1, Internal Pacemaker, MRSA, Seizures *Have you ever received a pneumonia vaccine?: Yes *Have you received a flu vaccine this season?: Yes Other Medical History: Reports: HIV. Denies: Blood Transfusion Reaction Laterality Cases: Bilateral: Arthroscopy Shoulder, Carpal Tunnel Release Other Surgeries: Yes: Cardiac Catheterization, Cholecystectomy, Colonoscopy, , EGD, Hysterectomy-Total, Splenectomy, Thyroidectomy, Other. No: Pacemaker Amputation: No Fractures: No - *Social History Smoking Status: Never smoker Alcohol Intake: never Alcohol Intake Frequency:: other Substance Use Type: denies use *Occupational Status:: other Housing: house Household Members: family *Travel in the last 8 weeks: None - Psychiatric History Pschychiatric History:: Reports:: Anxiety, Depression Family Hx:: Coronary Artery Disease, Heart Attack, Hyperlipidemia, Hypertension, Kidney Disease, Stroke
== END ==
PROVIDERS: PCP Emergency Medicine; Visit Provider Clinical Nurse Specialist Family Health
DX: M51.16 Intervertebral disc disorders with radiculopathy, lumbar region (principal); M96.1 Postlaminectomy syndrome, not elsewhere classified; E11.9 Type 2 diabetes mellitus without complications; E78.5 Hyperlipidemia, unspecified; I10 Essential (primary) hypertension; J44.9 Chronic obstructive pulmonary disease, unspecified; F41.9 Anxiety disorder, unspecified
CPT/HCPCS: 99212

== ENCOUNTER → 2019-03-24 08:56 | Outpatient (POV) | payer MEDICARE, OTHER, SELFPAY ==
[2019-03-24 09:17] VITALS: BP 119/67; PULSE 66; RESP 18; O2SAT 99; BMI 35.5
--- NOTE | 2019-03-24 09:31 | HMH.PAINSOAP ---
[facility] Pain Management SOAP Note Subjective:: Patient is a pleasant 58-year-old white female who presents today for follow-up after spinal cord stimulator placement. She is being treated for degenerative disc disease lumbar spine with lumbar radiculopathy symptoms. Patient failed all conservative therapies including injective therapy, physical therapy, oral medications, and nonsurgical candidate. Patient says that she has had some difficulty charging the stimulator since placement. She also says that she accidentally removed the [employer] wound VAC tubing and as a result did contact the company. A underwriting account representative did come out to help the patient with the wound VAC. Patient did have a reaction in the OR to the tape. She is here today and following removal of the wound VAC she does appear to have a rash around the incision site. Patient says she has been itching from head to toe . She says she is gotten little to no relief with itching. She does rate her pain a 7 out of 10 today. She is here to meet with the spinal cord stimulator underwriting account representative to discuss charging of the device. Review of Systems General: No recent weight changes, no fever, no sleep disturbances Respiratory: No cough, no shortness of air, no recurring pulmonary infections Cardiovascular/peripheral vascular: No chest pain, no palpitations, no edema, no shortness of breath Gastrointestinal: No new onset incontinence, normal bowel movements reported Genitourinary: No new onset incontinence Musculoskeletal: Low back pain, bilateral leg pain Psychiatric: Normal mood/affect Neurological: [Denies weakness in extremities], [denies balance issues] Objective:: Physical exam General: Alert and oriented x3, no acute distress, pleasant and cooperative, [on room air] Lungs: Respirations even and unlabored, symmetrical chest expansion Eyes: PERRL Musculoskeletal: Flexion and extension of lumbar spine somewhat guarded secondary to pain, deep tendon reflexes normal, strength in upper and lower extremities [5/5], [abnormal gait noted] Neurological: Speech clear, skilled nursing facilities professional equal, no gross sensory deficit Assessment:: Degenerative disc disease lumbar spine with lumbar radiculopathy symptoms Plan:: We will plan to see the patient back in 2 weeks to remove her sutures. Her incision is well approximated, with sutures intact. She does not have any drainage or edema noted to her incision site. She does have redness with a rash noted to the surrounding skin of her incision site. Patient says she has been itching from head to toe since having the tape on with the wound VAC. Per the spinal cord stimulator underwriting account representative, the patient did have a reaction to some other type: OR. Patient did have to go to the emergency room due to systemic itching over the past week. We will order the patient Vistaril 25 mg 1 tablet p.o. every 8 hours as needed for itching. She did meet with the underwriting account representative who did discuss reprogramming and charging of the device with the patient. We will see her back in the clinic in 2 weeks to reassess her symptoms and remove her sutures. The patient has been instructed to contact the clinic if she has any concerns before next appointment. Dr. Ventura has reviewed this note and agrees with this plan of care. This note was dictated using voice recognition software and make contain errors or omissions. [facility] History I have reviewed the patient's past medical history: Yes Medical History: Reports:: Anxiety, Asthma, Cancer, Chronic Obstructive Pulmonary Disease (COPD), Depression, Diabetes Mellitus Type 2, Gastroesophageal Reflux Disease(GERD), Hyperlipidemia, Hypertension Denies:: Diabetes Mellitus Type 1, Internal Pacemaker, MRSA, Seizures *Have you ever received a pneumonia vaccine?: Yes *Have you received a flu vaccine this season?: Yes Other Medical History: Reports: HIV. Denies: Blood Transfusion Reaction Laterality Cases: Bilateral: Arthroscopy Shoulder, Carpal Tunnel
== END ==
PROVIDERS: PCP Emergency Medicine; Visit Provider Clinical Nurse Specialist Family Health
DX: Z09 Encounter for follow-up examination after completed treatment for conditions other than malignant neoplasm (principal); M51.16 Intervertebral disc disorders with radiculopathy, lumbar region
CPT/HCPCS: 99212

== ENCOUNTER → 2019-04-12 08:41 | Outpatient (POV) | payer MEDICARE, OTHER, SELFPAY ==
[2019-04-12 08:55] VITALS: BP 139/61; PULSE 75; RESP 18; O2SAT 98; BMI 35.2
--- NOTE | 2019-04-12 10:15 | HMH.PAINSOAP ---
[facility] Pain Management SOAP Note Subjective:: Patient is a pleasant 58-year-old white female who presents today for follow-up after neurostimulator placement she is doing extremely well. She rates her pain a 6 out of 10 however most of this is secondary to healing. Overall she is doing well she does not want any changes in her programming. Stitches have been removed she has well approximated incision edges its healing and there is no sign symptoms of infection. ROS General: no recent weight change, no fever, no sleep disturbances Respiratory: no cough, no shortness of air, no recurring pulmonary infections Cardiovascular/Peripheral Vascular: No chest pain, No palpitations, no edema, no shortness of breath. Gastrointestinal: no new onset incontinence, normal bowel movements reported Genitourinary: no new onset incontinence Musculoskeletal: Back pain, leg pain Psychiatric: normal mood/ affect Neurological: [denies new onset weakness in extremities], [denies new onset balance issues] Objective:: Physical Exam General: Alert and oriented x3, no acute distress, pleasant and cooperative, [on room air] Lungs: Resps E/U, Symmetrical chest expansion, Eyes: PERRL Musculoskeletal: Flexion and extension of lumbar spine somewhat guarded secondary to pain, deep tendon reflexes normal, strength in upper and lower extremities [5/5], slightly antalgic gait noted Neurological: speech clear, prevention coordinator equal, no gross sensory deficits Assessment:: Degenerative disc disease lumbar spine with lumbar radiculopathy along with CRPS type II Plan:: We will see the patient back in 1 month reassess her at that time she is been instructed to call the office if she has any issues prior to her next appointment. Dr. Ventura has reviewed this note and agrees with this plan of care. This note was dictated using voice recognition software and may contain errors or omissions [facility] History I have reviewed the patient's past medical history: Yes Medical History: Reports:: Anxiety, Asthma, Cancer, Chronic Obstructive Pulmonary Disease (COPD), Depression, Diabetes Mellitus Type 2, Gastroesophageal Reflux Disease(GERD), Hyperlipidemia, Hypertension Denies:: Diabetes Mellitus Type 1, Internal Pacemaker, MRSA, Seizures *Have you ever received a pneumonia vaccine?: Yes *Have you received a flu vaccine this season?: Yes Other Medical History: Reports: HIV. Denies: Blood Transfusion Reaction Laterality Cases: Bilateral: Arthroscopy Shoulder, Carpal Tunnel Release Other Surgeries: Yes: Cardiac Catheterization, Cholecystectomy, Colonoscopy, , EGD, Hysterectomy-Total, Splenectomy, Thyroidectomy, Other. No: Pacemaker Amputation: No Fractures: No - *Social History Smoking Status: Never smoker Alcohol Intake: never Alcohol Intake Frequency:: other Substance Use Type: denies use *Occupational Status:: other Housing: house Household Members: family *Travel in the last 8 weeks: None - Psychiatric History Pschychiatric History:: Reports:: Anxiety, Depression Family Hx:: Coronary Artery Disease, Heart Attack, Hyperlipidemia, Hypertension, Kidney Disease, Stroke
== END ==
PROVIDERS: PCP Emergency Medicine; Visit Provider Clinical Nurse Specialist Family Health
DX: M51.16 Intervertebral disc disorders with radiculopathy, lumbar region (principal); G57.70 Causalgia of unspecified lower limb
CPT/HCPCS: 99212; 99213

== ENCOUNTER → 2019-05-10 09:12 | Outpatient (POV) | payer MEDICARE, OTHER, SELFPAY ==
[2019-05-10 09:21] VITALS: BP 133/77; PULSE 63; RESP 18; O2SAT 99; BMI 35.5
--- NOTE | 2019-05-10 09:32 | P.CONS_ITS ---
[facility] Pain Management SOAP Note Subjective:: Patient is a pleasant 58-year-old white female who presents today for follow-up. Patient states that she is doing extremely well with her neurostimulator stating that her pain is a 6 out of 10 however this is due to previous surgery on her leg. Patient incisions are well-healed. She states she needs no adjustments. ROS General: no recent weight change, no fever, no sleep disturbances Respiratory: no cough, no shortness of air, no recurring pulmonary infections Cardiovascular/Peripheral Vascular: No chest pain, No palpitations, no edema, no shortness of breath. Gastrointestinal: no new onset incontinence, normal bowel movements reported Genitourinary: no new onset incontinence Musculoskeletal: Back pain, leg pain Psychiatric: normal mood/ affect Neurological: [denies new onset weakness in extremities], [denies new onset balance issues] Objective:: Physical Exam General: Alert and oriented x3, no acute distress, pleasant and cooperative, [on room air] Lungs: Resps E/U, Symmetrical chest expansion, Eyes: PERRL Musculoskeletal: Flexion and extension of lumbar spine somewhat guarded secondary to pain, deep tendon reflexes normal, strength in upper and lower extremities [5/5], [abnormal gait noted] Neurological: speech clear, director surgical equal, no gross sensory deficits Assessment:: Degenerative disc disease lumbar spine lumbar postlaminectomy syndrome Plan:: We will see the patient back in 3 months reassess her symptoms at that time she has been instructed to call the office if she has any issues prior to her next appointment. Dr. Ventura has reviewed this note and agrees with this plan of care. This note was dictated using voice recognition software and may contain errors or omissions [facility] History I have reviewed the patient's past medical history: Yes Medical History: Reports:: Anxiety, Asthma, Cancer, Chronic Obstructive Pulmonary Disease (COPD), Depression, Diabetes Mellitus Type 2, Gastroesophageal Reflux Disease(GERD), Hyperlipidemia, Hypertension Denies:: Diabetes Mellitus Type 1, Internal Pacemaker, MRSA, Seizures *Have you ever received a pneumonia vaccine?: Yes *Have you received a flu vaccine this season?: Yes Other Medical History: Reports: HIV. Denies: Blood Transfusion Reaction Laterality Cases: Bilateral: Arthroscopy Shoulder, Carpal Tunnel Release Other Surgeries: Yes: Cardiac Catheterization, Cholecystectomy, Colonoscopy, C- section, EGD, Hysterectomy-Total, Splenectomy, Thyroidectomy, Other. No: Pacemaker Amputation: No Fractures: No - *Social History Smoking Status: Never smoker Alcohol Intake: never Alcohol Intake Frequency:: other Substance Use Type: denies use *Occupational Status:: other Housing: house Household Members: family *Travel in the last 8 weeks: None - Psychiatric History Pschychiatric History:: Reports:: Anxiety, Depression Family Hx:: Coronary Artery Disease, Heart Attack, Hyperlipidemia, Hypertension, Kidney Disease, Stroke
== END ==
PROVIDERS: PCP Emergency Medicine; Visit Provider Clinical Nurse Specialist Family Health
DX: M51.36 Other intervertebral disc degeneration, lumbar region (principal); M96.1 Postlaminectomy syndrome, not elsewhere classified
CPT/HCPCS: 99212

== ENCOUNTER → 2019-06-21 14:12 | Outpatient (CLI) | payer MEDICARE, OTHER, SELFPAY ==
--- NOTE | 2019-06-21 14:17 | XR_ITS ---
PROCEDURE: XR ANKLE WT BEARING LT MIN 3V CLINICAL INDICATION: Ankle pain COMPARISON: [id number] KNEE-3 VIEWS-LT from 11/06/2015 FTL3 FOOT-LT-3 VIEWS from 12/01/2016 FINDINGS: No fracture or dislocation. The ankle mortise is well preserved and the talar dome has an unremarkable appearance. There is a well-circumscribed lucency through the mid to distal shaft of the tibia. This is etiology indeterminate. IMPRESSION: No acute finding. Small lucent defect of the mid to distal shaft of the tibia at approximately 4 mm etiology indeterminate. Follow-up may confirm stability Dictated by: Vinh Gutierrez MD 06/21/2019 15:17 Electronically signed by Vinh Gutierrez MD in [place] 06/21/2019 15:17
== END ==
PROVIDERS: PCP Emergency Medicine; Visit Provider Podiatrist
DX: M25.572 Pain in left ankle and joints of left foot (principal)
CPT/HCPCS: 73610

== ENCOUNTER → 2019-07-28 14:10 | Outpatient (CLI) | payer MEDICARE, OTHER, SELFPAY ==
--- NOTE | 2019-07-28 14:22 | CT_ITS ---
PROCEDURE: CT ANKLE LT WO CON CLINICAL HISTORY: Soft Tissue Mass Soft tissue mass/swelling along the left lateral distal tib fib COMPARISON: XR ANKLE WT BEARING LT MIN 3V from 06/21/2019 TECHNIQUE: Axial images obtained with sagittal and coronal reformats. All CT scans at the facility use one or more dose reduction, viz: automated exposure control, ma/kV adjustment per patient size (including targeted exams where dose is matched to indication, i.e. head), or iterative reconstruction technique. FINDINGS: A BB is placed along the anterior lateral aspect of the lower leg to vicente an area of palpable concern.. Just deep to this region there is some slight increase in subcutaneous soft tissue density. This is flat like in nature. No discrete mass is evident. This could represent small amount of fluid or could be due to some fibrotic change/scarring. There is no abnormal bony for tree branch at this region. No muscular mass is evident. Incidental note is made of a small bone island in the central aspect of the talus. There is a type 1 os navicularis. IMPRESSION: 1. No discrete mass apparent in the area of palpable concern. There is a flat like area of slight increased density which could be due to some scarring/fibrotic change 2. Otherwise negative Dictated by: Vinh Gutierrez MD 07/28/2019 16:33 Electronically signed by Vinh Gutierrez MD in [place] 07/28/2019 16:33
[2019-07-28 14:34] LABS: Basophils # 0.1 K/mm3 (0-0.2); Basophils % 0.8 % (0.1-2.0); Eosinophils # 0.1 K/mm3 (0.0-0.4); Eosinophils % 1.4 % (0.1-12.0); Hematocrit 44.1 % (37.0-47.0); Hemoglobin 14.8 g/dL (12.2-16.2); Lymphocytes # 3.9 K/mm3 (0.7-4.5); Lymphocytes % 39.4 % (10-50); Mean Corpuscular HGB Conc 33.6 g/dL (31.8-35.4); Mean Corpuscular Hemoglobin 33.5 pg (27.0-31.2); Mean Corpuscular Volume 99.7 fl (81-99); Mean Platelet Volume 7.8 fl (7.4-10.4); Monocytes # 0.6 K/mm3 (0.1-1.0); Monocytes % 5.7 % (1.7-9.3); Neutrophils # 5.1 K/mm3 (1.8-7.8); Neutrophils % 52.6 % (37.0-80.0); Platelet Count 429 K/mm3 (142-424); Red Blood Count 4.42 M/mm3 (4.20-5.40); Red Cell Distribution Width 13.3 % (11.5-17.5); White Blood Count 9.7 K/mm3 (4.8-10.8)
[2019-07-28 15:44] LABS: Alanine Aminotransferase 23 U/L (12-78); Albumin Level 4.7 g/dl (3.5-5.0); Albumin/Globulin Ratio 1.4 (1.1-1.8); Alkaline Phosphatase 87 U/L (38-126); Anion Gap 11.1 mEq/L (5-15); Aspartate Amino Transferase 33 U/L (14-36); Bilirubin,Total 0.5 mg/dl (0.2-1.3); Blood Urea Nitrogen 26 mg/dl (7-17); Calcium 10.3 mg/dl (8.4-10.2); Carbon Dioxide 25 mmol/L (22.0-30.0); Chloride 106 mmol/L (98-107); Estimated Glomerular Filt Rate 74 ml/min (>60); GFR (African American) 89 ML/MIN (>60); Globulin 3.4 g/dL (1.3-3.2); Glucose 102 mg/dl (74-100); Potassium 4.1 mmoL/L (3.5-5.1); Sodium 138 mmol/L (136-145); Total Protein,Serum 8.1 g/dl (6.3-8.2)
[2019-07-28 15:59] LABS: Erythrocyte Sedimentation Rate 23 mm/hr (0-30)
[2019-07-28 16:01] LABS: C-Reactive Protein 2.4 mg/L (0-4)
[2019-07-28 16:41] LABS: Hemoglobin A1C 5.8 % (4.0-6.0)
== END ==
PROVIDERS: PCP Emergency Medicine; Visit Provider Podiatrist
DX: R22.42 Localized swelling, mass and lump, left lower limb (principal); E11.42 Type 2 diabetes mellitus with diabetic polyneuropathy; M79.89 Other specified soft tissue disorders; Z79.84 Long term (current) use of oral hypoglycemic drugs
CPT/HCPCS: 36415; 73700; 80053; 83036; 85025; 85651; 86140

== ENCOUNTER → 2019-10-03 08:41 | Outpatient (POV) | payer MEDICARE, OTHER, SELFPAY ==
--- NOTE | 2019-10-03 10:05 | P.CONS_ITS ---
[facility] Pain Management SOAP Note Subjective:: Patient is a pleasant 58-year-old white female who presents today for follow-up and stimulator reprogram. Patient rates her pain a 10 out of 10 but after programming a 7 out of 10. Her main complaint is muscle spasms in her legs. She was put on tizanidine however that has not been beneficial for her. We will move forward with trying Robaxin. Patient states that she has spasms at least 4 times a day. It makes it very difficult for her to walk. ROS General: no recent weight change, no fever, no sleep disturbances Respiratory: no cough, no shortness of air, no recurring pulmonary infections Cardiovascular/Peripheral Vascular: No chest pain, No palpitations, no edema, no shortness of breath. Gastrointestinal: no new onset incontinence, normal bowel movements reported Genitourinary: no new onset incontinence Musculoskeletal: Bilateral leg cramping Psychiatric: normal mood/ affect Neurological: [denies new onset weakness in extremities], [denies new onset balance issues] Objective:: Physical Exam General: Alert and oriented x3, no acute distress, pleasant and cooperative, [on room air] Lungs: Resps E/U, Symmetrical chest expansion, Eyes: PERRL Musculoskeletal: Flexion and extension of lumbar spine somewhat guarded secondary to pain, deep tendon reflexes normal, strength in upper and lower extremities [5/5], [abnormal gait noted] Neurological: speech clear, affiliate marketing specialist equal, no gross sensory deficits Assessment:: Degenerative disc disease lumbar spine lumbar postlaminectomy syndrome, muscle spasms Plan:: Patient was reprogrammed by the [employer] manufacturers service representative. We will start her on Robaxin 500 mg as needed up to 3 times a day. Patient is been to follow-up in 1 month and be reassessed. She has been instructed to call the office if she has any issues prior to her next appointment. Dr. Ventura has reviewed this note and agrees with this plan of care. This note was dictated using voice recognition software and may contain errors or omissions [facility] History I have reviewed the patient's past medical history: Yes Medical History: Reports:: Anxiety, Asthma, Cancer, Chronic Obstructive Pulmonary Disease (COPD), Depression, Diabetes Mellitus Type 2, Gastroesophageal Reflux Disease(GERD), Hyperlipidemia, Hypertension Denies:: Diabetes Mellitus Type 1, Internal Pacemaker, MRSA, Seizures *Have you ever received a pneumonia vaccine?: No *Have you received a flu vaccine this season?: Yes Other Medical History: Reports: HIV. Denies: Blood Transfusion Reaction Laterality Cases: Bilateral: Arthroscopy Shoulder, Carpal Tunnel Release Other Surgeries: Yes: Cardiac Catheterization, Cholecystectomy, Colonoscopy, C- section, EGD, Hysterectomy-Total, Splenectomy, Thyroidectomy, Other. No: Pacemaker Amputation: No Fractures: No - *Social History Smoking Status: Never smoker Alcohol Intake: never Alcohol Intake Frequency:: other Substance Use Type: denies use *Occupational Status:: other Housing: house Household Members: family *Travel in the last 8 weeks: None - Psychiatric History Pschychiatric History:: Reports:: Anxiety, Depression Family Hx:: Coronary Artery Disease, Heart Attack, Hyperlipidemia, Hypertension, Kidney Disease, Stroke
== END ==
PROVIDERS: PCP Emergency Medicine; Visit Provider Clinical Nurse Specialist Family Health
DX: M51.36 Other intervertebral disc degeneration, lumbar region (principal); M96.1 Postlaminectomy syndrome, not elsewhere classified; M62.838 Other muscle spasm
CPT/HCPCS: 99212

== ENCOUNTER 2019-10-08 11:52 | Emergency (ER) | payer MEDICARE, OTHER, SELFPAY ==
[2019-10-08 11:53] VITALS: BP 154/68; PULSE 72; RESP 18; O2SAT 94
[2019-10-08 12:00] VITALS: BP 154/68; PULSE 73; RESP 17; TEMP 37.1; O2SAT 94; BMI 35.9
--- NOTE | 2019-10-08 12:00 | HMH.EDGENADL ---
ED Disposition Clinical Impression: Lumbar radiculopathy Low back pain with sciatica Qualifiers: Chronicity: acute Back pain laterality: left Sciatica laterality: sciatica of left side Qualified Code(s): M54.42 - Lumbago with sciatica, left side Disposition: Home, Self-Care Condition on Discharge: Good Instructions: DI for Back Pain With Sciatica, DI for Lumbar Radiculopathy Additional Instructions: Continue Percocet for pain. Prednisone as prescribed. Follow-up with Dr. Hightower next week, call Thursday. Prescriptions: predniSONE [Prednisone 20mg Tab] 20 mg PO BID #10 tab Transmission Status: Received by [facility] Referrals: Allan Hightower MD [Primary Care Provider] - - Critical Care Critical Care Time: No Attestation: On , the high probability of a clinically significant, sudden or life threatening deterioration of the following system(s) required my full and direct attention, intervention and personal management. The time I documented below is in addition to time spent performing reported procedures but includes the following listed in this critical care notation. Medical Decision Making - [place] Inquiry Pt receiving controlled substance: No Vital Signs: 10/08/19 11:53 10/08/19 12:00 10/08/19 12:19 Temperature 98.7 F 98 F Temperature Source Oral Oral Pulse Rate 85 Pulse Rate [Right Radial] 72 73 Respiratory Rate 18 17 16 Blood Pressure 154/87 H Blood Pressure [Right Arm] 154/68 H 154/68 H Blood Pressure Mean [Right Arm] 96 96 Blood Pressure Position Sitting 02 Sat by Pulse Oximetry 94 L 94 L Oxygen Delivery Method Room Air Room Air Room Air Orders (Tests/Meds): ED MEDICATIONS Discontinued Medications Generic Name Dose Route Start Last Admin Trade Name Freq PRN Reason Stop Dose Admin Dexamethasone Sodium Phosphate 10 mg 10/08/19 12:09 10/08/19 12:13 Decadron 4mg/Ml 1ml Vial IM 10/08/19 12:10 10 mg ONCE ONE Administration General Adult HPI - General Stated complaint: back and leg pain Time Seen by Provider: 10/08/19 12:00 - History of Present Illness HPI narrative: States that she has had pain from her left buttock all the way down her left leg to her foot for 2 weeks. She has a history of lumbar disc disease, status post 2 back surgeries and has had a nerve stimulator since February. She sees Dr. Ventura for pain management. She says that she is was seen in pain management office a week ago Thursday and told them about the symptoms because she thought maybe her nerve stimulator had come out of place. They told her her nerve stimulator was fine. She says her nerve stimulator has not really done anything for her pain since she had a placed in February. She says that she is on Percocet 10 mg for chronic pain and it also does not help. She has a sensation of numbness along the same distribution as her pain. No loss of bowel or bladder control. She says that she also sees Dr. Burns for surgery. She says that he has told her that she has scar tissue pressing on a nerve in her back. She does have a prior history of sciatica. - Related Data Home Medications Medication Instructions Recorded Confirmed niacin 500 mg tablet,extended 1,500 mg PO QHS 03/05/17 09/29/19 release 24 hr dolutegravir 50 mg tablet 50 mg PO DAILY 30 Days #30 tab 01/05/18 09/29/19 emtricitabine 200 mg-tenofovir 200 mg PO DAILY 30 Days #30 tab 01/05/18 09/29/19 alafenamide fumarate 25 mg tablet promethazine 25 mg tablet 25 mg PO QHS 20 Days #60 tab 01/05/18 09/29/19 tizanidine 4 mg tablet 4 mg PO BID #60 tab 08/02/18 09/29/19 pantoprazole 40 mg tablet,delayed 1 tab PO DAILY #30 tab 01/13/19 09/29/19 release hydroxyzine HCl 25 mg tablet 25 mg PO TID PRN 03/25/19 09/29/19 albuterol sulfate 90 mcg/actuation INHALATION 06/21/19 09/29/19 aerosol inhaler Previous Rx's Medication Instructions Recorded Cetirizine HCl [All Day Allergy 10 mg PO DAILY #7 tab 03/23/19
[2019-10-08 12:19] VITALS: BP 154/87; PULSE 85; RESP 16; TEMP 36.6; O2SAT 97
== END 2019-10-08 12:21 | disposition home or self-care (01) ==
LOC: ER 12:11
PROVIDERS: Emergency Provider Emergency Medicine; PCP Emergency Medicine
DX: M54.16 Radiculopathy, lumbar region (principal); M54.42 Lumbago with sciatica, left side; K21.9 Gastro-esophageal reflux disease without esophagitis; E78.5 Hyperlipidemia, unspecified; I10 Essential (primary) hypertension; F41.8 Other specified anxiety disorders; E11.9 Type 2 diabetes mellitus without complications; J44.9 Chronic obstructive pulmonary disease, unspecified; Z88.1 Allergy status to other antibiotic agents; Z88.5 Allergy status to narcotic agent; Z91.040 Latex allergy status; Z79.899 Other long term (current) drug therapy
CPT/HCPCS: 96372; 99282

== ENCOUNTER → 2019-11-03 09:05 | Outpatient (POV) | payer MEDICARE, OTHER, SELFPAY ==
--- NOTE | 2019-11-03 09:42 | HMH.PAINSOAP ---
[facility] Pain Management SOAP Note Subjective:: Patient is a pleasant 58-year-old white female who presents today for follow-up. She is being treated for chronic low back pain with lumbar radiculopathy symptoms. Patient's last visit, she was started on Robaxin. She is taken tendon splinting in the past, however, it did not give her any relief at that time. She does say Robaxin is not working. She says she felt like she got more relief with tizanidine. She says she is having worsening spasms in her legs. She says she has sharp shooting-like pains as well. She says that she does not know if her new [employer] spinal cord stimulator is working appropriately. She does not want to undergo any change out at this time. She and I did discuss a change out of the system if she continues to have worsening pain. Pain is 6 out of 10 today. Review of Systems General: No recent weight changes, no fever, no sleep disturbances Respiratory: No cough, no shortness of air, no recurring pulmonary infections Cardiovascular/peripheral vascular: No chest pain, no palpitations, no edema, no shortness of breath Gastrointestinal: No new onset incontinence, normal bowel movements reported Genitourinary: No new onset incontinence Musculoskeletal: Low back pain, bilateral lower extremity pain with muscle spasms and bilateral legs Psychiatric: Normal mood/affect Neurological: [Denies weakness in extremities], [denies balance issues] Objective:: Physical exam General: Alert and oriented x3, no acute distress, pleasant and cooperative, [on room air] Lungs: Respirations even and unlabored, symmetrical chest expansion Eyes: PERRL Musculoskeletal: Flexion and extension of lumbar spine somewhat guarded secondary to pain, deep tendon reflexes normal, strength in upper and lower extremities [5/5], [abnormal gait noted] Neurological: Speech clear, cardiac rn equal, no gross sensory deficit Assessment:: Degenerative disc disease lumbar spine with lumbar radiculopathy symptoms, postlaminectomy syndrome lumbar spine, muscle spasms bilateral legs Plan:: We will stop the Robaxin and start the patient back on tizanidine milligrams 1 tablet p.o. 3 times daily. We will see her back in the clinic in a month to reassess her symptoms. She has been instructed to contact clinic if she has any concerns before next appointment. The patient and I specifically discussed risk factors for COVID19. These risks include, but are not limited to age greater than 60, heart or lung disease, diabetes, immunosuppression, and travel. We also discussed NSAIDs may worsen COVID19 infection or symptoms. Patient should not use NSAIDs to treat COVID19 signs or symptoms. Patient was also informed that any type of corticosteroid of any form (oral or injection) will decrease the patient's immune system response and may increase the likelihood of COVID19 infection [address] symptoms[address] Ventura has reviewed this note and agrees with this plan of care. This note was dictated using voice recognition software and make contain errors or omissions. [facility] History I have reviewed the patient's past medical history: Yes Medical History: Reports:: Anxiety, Asthma, Cancer, Chronic Obstructive Pulmonary Disease (COPD), Depression, Diabetes Mellitus Type 2, Gastroesophageal Reflux Disease(GERD), Hyperlipidemia, Hypertension Denies:: Diabetes Mellitus Type 1, Internal Pacemaker, MRSA, Seizures *Have you ever received a pneumonia vaccine?: No *Have you received a flu vaccine this season?: Yes Other Medical History: Reports: HIV. Denies: Blood Transfusion Reaction Laterality Cases: Bilateral: Arthroscopy Shoulder, Carpal Tunnel Release Other Surgeries: Yes: Cardiac Catheterization, Cholecystectomy, Colonoscopy, , EGD, Hysterectomy-Total, Splenectomy, Thyroidectomy, Other. No: Pacemaker Amputation: No Fractures: No - *Social History Smoking Status: Never smoker Alcohol Intake: never Alcohol Intake Frequency:: other
[2019-11-03 09:51] VITALS: BP 155/81; PULSE 59; RESP 18; TEMP 36.8; O2SAT 98; BMI 35.5
== END ==
PROVIDERS: PCP Emergency Medicine; Visit Provider Clinical Nurse Specialist Family Health
DX: M51.16 Intervertebral disc disorders with radiculopathy, lumbar region (principal); M96.1 Postlaminectomy syndrome, not elsewhere classified; M62.838 Other muscle spasm
CPT/HCPCS: 99212

== ENCOUNTER → 2019-12-01 08:33 | Outpatient (POV) | payer MEDICARE, OTHER, SELFPAY ==
[2019-12-01 09:08] VITALS: BP 132/88; PULSE 74; RESP 18; TEMP 36.8; O2SAT 99; BMI 34.9
--- NOTE | 2019-12-01 09:26 | HMH.PAINSOAP ---
[facility] Pain Management SOAP Note Subjective:: Patient is a 59-year-old white female who presents today for follow-up. She has been treated for chronic low back pain with lumbar radiculopathy symptoms. Patient primarily has pain to her lower extremities. She does have a Medtronic spinal cord stimulator. Patient previously thought that she had a new Q [employer] spinal cord stimulator. She is currently having sharp shooting-like pains down her lower extremities and spasms in her legs. At her last visit we did stop her Robaxin and she was started on tizanidine. Patient says she is having difficulty charging her device and it feels like the device is fallen out of her back . She says that it does not work at all and she was not even sure that it was still in her back. She is requesting a change out of the system because it is no longer functional for her pain. Patient does rate her pain a 8 out of 10 today. Review of Systems General: No recent weight changes, no fever, no sleep disturbances Respiratory: No cough, no shortness of air, no recurring pulmonary infections Cardiovascular/peripheral vascular: No chest pain, no palpitations, no edema, no shortness of breath Gastrointestinal: No new onset incontinence, normal bowel movements reported Genitourinary: No new onset incontinence Musculoskeletal: Low back pain, bilateral lower extremity shooting pains Psychiatric: Normal mood/affect Neurological: [Denies weakness in extremities], [denies balance issues] Objective:: Physical exam General: Alert and oriented x3, no acute distress, pleasant and cooperative, [on room air] Lungs: Respirations even and unlabored, symmetrical chest expansion Eyes: PERRL Musculoskeletal: Flexion and extension of lumbar spine somewhat guarded secondary to pain, deep tendon reflexes normal, strength in upper and lower extremities [5/5], [abnormal gait noted] Neurological: Speech clear, hoop puncher equal, no gross sensory deficit Assessment:: Degenerative disc disease lumbar spine with lumbar radiculopathy symptoms, malfunctioning spinal cord stimulator Plan:: Unfortunately, the patient spinal cord stimulator is no longer functioning. We will schedule her for a change out of the system to a [employer] stimulator system. I did discuss this with Dr. JORDY Tim. He does feel that the system is no longer working for the patient and she would benefit from a change out of the system. We will schedule her for change out. Patient does report that she had a severe latex reaction at her last visit. She had a head to toe rash. In previous notes, was concerns of a reaction to the vancomycin. Patient reports that she is not on any anticoagulation therapy. We will see her back in the clinic after her change out of her stimulator. She has been instructed to contact clinic if she has any concerns for next appointment. The patient and I specifically discussed risk factors for COVID19. These risks include, but are not limited to age greater than 60, heart or lung disease, diabetes, immunosuppression, and travel. We also discussed NSAIDs may worsen COVID19 infection or symptoms. Patient should not use NSAIDs to treat COVID19 signs or symptoms. Patient was also informed that any type of corticosteroid of any form (oral or injection) will decrease the patient's immune system response and may increase the likelihood of COVID19 [address] Ventura has reviewed this note and agrees with this plan of care. This note was dictated using voice recognition software and make contain errors or omissions. [facility] History I have reviewed the patient's past medical history: Yes Medical History: Reports:: Anxiety, Asthma, Cancer, Chronic Obstructive Pulmonary Disease (COPD), Depression, Diabetes Mellitus Type 2, Gastroesophageal Reflux Disease(GERD), Hyperlipidemia, Hypertension Denies:: Diabetes Mellitus Type 1, Internal Pacemaker, MRSA, Seizures *Have you ever received a pneumo
== END ==
PROVIDERS: PCP Emergency Medicine; Visit Provider Clinical Nurse Specialist Family Health
DX: M51.16 Intervertebral disc disorders with radiculopathy, lumbar region (principal); T85.113A Breakdown (mechanical) of implanted electronic neurostimulator, generator, initial encounter
CPT/HCPCS: 99212

== ENCOUNTER → 2019-12-01 09:21 | Outpatient (CLI) | payer MEDICARE, OTHER, SELFPAY ==
--- NOTE | 2019-12-01 09:22 | MM_ITS ---
PROCEDURE: MM DIG SCREENING MAMM BI W/CAD Digital Breast Tomosynthesis Included CLINICAL INDICATION: yearly exam There is no personal or family history of breast cancer. There has been a previous biopsy left breast for benign disease. COMPARISON: MG DMSB DIG MAMM-SCREEN GILLES from 01/24/2016 MG DMDXUL DIG MAMM-DX UNI-LT W/CAD from 07/23/2016 MG MM DIG SCREENING MAMM BI W/CAD from 10/05/2018 TECHNIQUE: Standard CC and MLO images and 3D Tomosynthesis was obtained. R2 CAD reviewed. FINDINGS: Moderate diffuse fibroglandular densities are seen in the central portions of both breasts. There are couple of benign-appearing calcifications in each breast. There is a biopsy clip left breast. There is no suspicious lesion in either breast and no suspicious microcalcifications. IMPRESSION: Moderate breast density with no suspicious lesions seen BI-RAD Category: 2 Benign Finding(s) FOLLOW-UP: 1YR 1 Year Follow-up (A letter has been sent to the patient regarding results of the study.) Dictated by: Dr. Zechariah Rosario MD 12/06/2019 08:17 Dr. Zechariah Rosario MD in [place] 12/06/2019 08:17
== END ==
PROVIDERS: PCP Emergency Medicine; Visit Provider Physician Assistant
DX: Z12.31 Encounter for screening mammogram for malignant neoplasm of breast (principal)
CPT/HCPCS: 77063; 77067; 99212

== ENCOUNTER → 2020-01-09 09:01 | Outpatient (CLI) | payer MEDICARE, OTHER, SELFPAY ==
[2020-01-09 10:03] LABS: Basophils # 0.1 K/mm3 (0-0.2); Eosinophils # 0.1 K/mm3 (0.0-0.4); Eosinophils % 1.7 % (0.1-12.0); Hematocrit 45.7 % (37.0-47.0); Hemoglobin 15.3 g/dL (12.2-16.2); Lymphocytes # 3.2 K/mm3 (0.7-4.5); Lymphocytes % 43.4 % (10-50); Mean Corpuscular HGB Conc 33.6 g/dL (31.8-35.4); Mean Corpuscular Hemoglobin 33.3 pg (27.0-31.2); Mean Corpuscular Volume 99.2 fl (81-99); Mean Platelet Volume 9.2 fl (7.4-10.4); Monocytes # 0.6 K/mm3 (0.1-1.0); Monocytes % 7.5 % (1.7-9.3); Neutrophils # 3.4 K/mm3 (1.8-7.8); Neutrophils % 46.4 % (37.0-80.0); Platelet Count 485 K/mm3 (142-424); Red Cell Distribution Width 13.8 % (11.5-17.5); White Blood Count 7.3 K/mm3 (4.8-10.8)
[2020-01-09 11:50] LABS: Anion Gap 12.5 mEq/L (5-15); Blood Urea Nitrogen 16 mg/dl (7-17); Carbon Dioxide 27 mmol/L (22.0-30.0); Chloride 107 mmol/L (98-107); Estimated Glomerular Filt Rate 86 ml/min (>60); GFR (African American) 104 ML/MIN (>60); Glucose 105 mg/dl (74-100); Potassium 4.5 mmoL/L (3.5-5.1); Sodium 142 mmol/L (136-145)
[2020-01-09 14:28] LABS: Coronavirus 19 IgG Antibody Negative (Negative); Coronavirus 19 IgM Antibody Negative (Negative)
== END ==
PROVIDERS: PCP Emergency Medicine; Visit Provider Anesthesiology
DX: Z01.818 Encounter for other preprocedural examination (principal); M51.36 Other intervertebral disc degeneration, lumbar region
CPT/HCPCS: 36415; 80048; 85025; 86328

== ENCOUNTER 2020-01-11 11:31 | Day surgery (SDC) | payer MEDICARE, OTHER, SELFPAY ==
[2020-01-09 13:28] VITALS: BMI 35.7
[2020-01-11 12:28] VITALS: BP 153/73; PULSE 69; RESP 18; TEMP 37.1; O2SAT 94
[2020-01-11 12:48] LABS: POC Glucose,Bedside 90 (70-110)
--- NOTE | 2020-01-11 13:13 | HMH.PMCON ---
Assessment and Plan - Assessment and plan all Dx Assessment and Plan for all problems:: Impression-malfunctioning pain stimulator system Plan-removal and replacement of pain stimulator generator HPI - Data of Consult Patient: known to practice within the last 3 years Consult date: 01/11/20 Requesting Physician: Kai Ventrua MD Primary Care Provider: Allan Hightower MD - Consult Narrative History of present illness: Ms. Rivera is a 59 year old female who presents for she had one placed 11 months ago but is now malfunctioning and needs to be replaced with a [employer] system. CC: Kai Ventura MD Generative disc disease of the lumbar spine with radiculopathy [facility] History Medical History: Reports:: Anxiety, Asthma, Cancer (uterus), Chronic Obstructive Pulmonary Disease (COPD), Depression, Gastroesophageal Reflux Disease(GERD), Hyperlipidemia, Hypertension Denies:: Diabetes Mellitus Type 1, Diabetes Mellitus Type 2, Internal Pacemaker, MRSA, Seizures *Have you ever received a pneumonia vaccine?: Yes *Have you received a flu vaccine this season?: Yes Other Medical History: Reports: HIV. Denies: Blood Transfusion Reaction Comment:: Illnesses-history of closed head injury, arthritis, diabetes mellitus, hyperlipidemia, hypertension, depression, HIV positive, hep C positive Laterality Cases: Bilateral: Arthroscopy Hip, Arthroscopy Shoulder, Carpal Tunnel Release Other Surgeries: Yes: Cardiac Catheterization, Cholecystectomy, Colonoscopy, , EGD, Hysterectomy-Total, Splenectomy, Thyroidectomy, Other. No: Pacemaker Amputation: No Fractures: No Comment: Operations, bilateral shoulder surgery, bilateral carpal tunnel surgery, neuro stim implant - *Social History Last grade of school completed: 11th or 12th Smoking Status: Never smoker Alcohol Intake: never Alcohol Intake Frequency:: other Substance Use Type: former substance user *Occupational Status:: disabled Housing: house Household Members: family *Travel in the last 8 weeks: None - Psychiatric History Pschychiatric History:: Reports:: Anxiety, Depression Family Hx:: Coronary Artery Disease, Heart Attack, Hyperlipidemia, Hypertension, Kidney Disease, Stroke Review of Systems - Review of Systems Review of systems:: pertinent systems reviewed and negative unless documented below Meds Home Medications Medication Instructions Recorded Confirmed Type niacin 500 mg tablet,extended 1,500 mg PO QHS 03/05/17 01/11/20 History release 24 hr dolutegravir 50 mg tablet 50 mg PO DAILY 30 Days #30 tab 01/05/18 01/11/20 History emtricitabine 200 mg-tenofovir 200 mg PO DAILY 30 Days #30 tab 01/05/18 01/11/20 History alafenamide fumarate 25 mg tablet pantoprazole 40 mg tablet,delayed 1 tab PO DAILY #30 tab 01/13/19 01/11/20 History release hydroxyzine HCl 25 mg tablet 25 mg PO TID PRN 03/25/19 01/11/20 History albuterol sulfate 90 mcg/actuation 1 mcg INHALATION DAILY 06/21/19 01/11/20 History aerosol inhaler diclofenac sodium 1 % topical gel 4 g TOPICAL QID #30 g 07/11/19 01/11/20 Rx urea 40 % topical cream 1 applic TOPICAL BID #60 applic 07/11/19 01/11/20 Rx Methocarbamol [Robaxin 500mg Tab*] 500 mg PO TID PRN #90 tab 10/03/19 01/11/20 Rx albuterol sulfate 90 mcg/actuation 2 puff INHALATION Q6H PRN #8.5 g 12/09/19 01/11/20 Rx aerosol inhaler budesonide-formoterol HFA 80 2 puff INHALATION BID #10.2 g 12/09/19 01/11/20 Rx mcg-4.5 mcg/actuation aerosol inhaler cholecalciferol (vitamin D3) 25 25 mcg PO DAILY #90 cap 12/09/19 01/11/20 Rx mcg (1,000 unit) capsule ergocalciferol (vitamin D2) 1,250 1,250 mcg PO QWEEK #12 cap 12/09/19 01/11/20 Rx mcg (50,000 unit) capsule fenofibrate 54 mg tablet 54 mg PO DAILY #90 tab 12/09/19 01/11/20 Rx metformin 500 mg tablet 500 mg PO BID #180 tab 12/09/19 01/11/20 Rx oxycodone-acetaminophen 10 mg-325 1 tab PO QID PRN #120 tab 12/26/19 01/11/20 Rx mg tablet Acyclovir [Zovirax 400mg tablet] 400 mg PO TI
--- NOTE | 2020-01-11 14:29 | HMH.OPNOTE ---
Date of procedure: 01/11/20 Pre-op Diagnosis:: Malfunctioning pain stimulator system, degenerative disc disease of the lumbar spine Post-op Diagnosis:: Same Procedure performed:: Removal and replacement of pain stimulator generator Surgeon:: Kyle Najera MD WEB PROJECT MANAGER:: Himanshu Alcaraz, Nathan Laurent, Zac Enriquez, Brennan Barboza, Other Anesthesia: MAC Estimated blood loss (mL): 10 Operative findings:: Not applicable Operative note:: Once adequate IV sedation was obtained utilizing anesthesia the patient was placed prone on the operating table and her back and flank regions were prepped and draped in sterile fashion. Paraspinal incision opened and the old generator leads were removed through this incision without difficulty.. Likewise the old right flank incision was opened and the old generator and removed without difficulty. At this point through the parous spinal incision Dr. Petersen placed 2 epidural leads in the epidural space where he wanted them to be placed.. These were then fixed the paraspinal fascia with fixation devices and 2-0 Prolene sutures. Utilizing the tunneling device the leads were passed from the paraspinal incision to the pocket incision. Both incisions irrigated with antibiotic solution. Leads fix the generator which was placed in the pocket. Leads noted to be functioning properly. At this point the subcutaneous tissues were closed with interrupted stitches of 2-0 Vicryl and the skin closed with erupted stitches of 4-0 nylon. Wound VAC dressings and a binder applied to the wound. Patient taught procedure well was taken recovery room in stable condition. Upon recovery the patient will be discharged home will follow-up 1 week for removal of the wound VAC dressings and in 2 weeks for removal of the sutures. Antibiotic ointment x1 week per protocol. The patient tolerated the procedure well Condition: stable Disposition: PACU Complications:: None
--- NOTE | 2020-01-11 16:26 | HMH.OPNOTE ---
Date of procedure: 01/11/20 Pre-op Diagnosis:: Degenerative disc disease of lumbar spine with lumbar radiculopathy symptoms and malfunctioning spinal cord stimulator system Post-op Diagnosis:: Same Procedure performed:: Replacement spinal cord stimulator system because of malfunction Surgeon:: Kai Ventura MD DIRECTOR OF VOCATIONAL GUIDANCE:: Himanshu Alcaraz Anesthesia: MAC Estimated blood loss (mL): 5 Clinical Note:: The patient is a pleasant 59-year-old white female who we are treating for low back pain with lumbar radiculopathy symptoms. She has a Medtronic spinal cord stimulator system in place which initially was working very well now she is having shooting pains down her legs. This is only while the stimulator is on. The stimulator has been reprogrammed multiple times. Patient also is having difficulty charging her device. She does want her spinal cord stimulator replaced. We will replace it with a [employer] system will place the leads and generator today. Operative findings:: None Operative note:: Informed consent was obtained and the risk and benefits of the procedure was explained to the patient. Patient was taken to the procedure room. The back was prepped using ChloraPrep. Dr. Barry explanted the existing Medtronic spinal cord stimulator leads. I placed a 17-gauge epidural needle and advanced into the L2-L3 interspace. After confirmation of needle placement in the epidural space stimulating lead was inserted and advanced to the T7-T8 vertebral body. Lead placement is checked in AP and lateral views. A second needle was inserted and advanced into the L1-L2 interspace. After confirmation of needle placement in the epidural space a stimulating lead was inserted and advanced with some difficulty again to the T7-T8 vertebral body. Leads were checked in AP and lateral views. The needles were removed. The leads were secured to the fascia with anchoring devices and 2-0 Prolene. I tunneled the leads from the back to the generator pocket and attached the leads to the generator. Impedances were checked and found to be okay. Both incisions were irrigated with bacitracin solution. Both incisions were then closed with 2-0 Vicryl followed by 4-0 nylon. A wound VAC was placed over both incisions. Patient was placed in an abdominal binder and taken recovery in stable condition. The patient tolerated the procedure well with no complications. Patient was programmed by the [facility] regional sales representative she was placed on a paresthesia free fast program. Patient was discharged home neurologically intact with good relief of pain symptoms. Plan and disposition: We will follow-up with this patient in 1 week for wound check and reprogramming. We will follow-up in 2 weeks for suture removal. If patient has any problems or questions she is to call us back in the pain clinic. We will also not place her on Bactrim postoperatively as she had an allergy to Bactrim at her last operation. Condition: stable Disposition: PACU Complications:: None
[2020-01-11 16:40] VITALS: BP 176/113; PULSE 88; RESP 16; TEMP 37.1; O2SAT 93
[2020-01-11 16:55] VITALS: BP 149/80; PULSE 77; RESP 16; O2SAT 94
[2020-01-11 17:10] VITALS: BP 152/78; PULSE 77; RESP 16; O2SAT 95
[2020-01-11 17:32] VITALS: BP 158/91; PULSE 77; RESP 16; O2SAT 96
== END 2020-01-11 17:36 | disposition home or self-care (01) ==
LOC: OR 11:33
PROVIDERS: PCP Emergency Medicine; Visit Provider Anesthesiology
DX: T85.192A Other mechanical complication of implanted electronic neurostimulator of spinal cord electrode (lead), initial encounter (principal); M51.16 Intervertebral disc disorders with radiculopathy, lumbar region; E11.9 Type 2 diabetes mellitus without complications; I10 Essential (primary) hypertension; E78.5 Hyperlipidemia, unspecified; Z88.0 Allergy status to penicillin; Z88.1 Allergy status to other antibiotic agents
CPT/HCPCS: 63663; 63688; 82962; 96374; C1778; C1820

== ENCOUNTER → 2020-01-20 10:18 | Outpatient (POV) | payer MEDICARE, OTHER, SELFPAY ==
[2020-01-20 10:30] VITALS: BP 165/82; PULSE 62; RESP 20; TEMP 36.5; O2SAT 93; BMI 35.7
--- NOTE | 2020-01-20 12:08 | P.CONS_ITS ---
[facility] Pain Management SOAP Note Subjective:: Patient is a pleasant 59-year-old white female who we are treating for low back pain with lumbar radicular symptoms. She is 1 week status post replacement of her spinal cord stimulator. She was recently switched over to a [employer] spinal cord stimulator system which is working very well for her. This is much better than the previous [employer] system which was malfunctioning. Her incisions are healing very nicely. She has been reprogrammed today. However overall she is doing very well with her pain relief. Objective:: Alert and oriented x3 no acute distress. Patient does have an antalgic gait. Motor strength of lower extremities is 5/5. There is no gross sensory deficit. Incisions have healed very nicely. Sutures are still in place. The wound VAC was removed today. Assessment:: Degenerative disc disease of lumbar spine with lumbar radiculopathy symptoms and 1 week status post replacement of spinal cord stimulator system Plan:: We will follow-up with her in 1 week for suture removal. If she has any problems or questions or needs further reprogramming she is to call us back in the pain clinic. [facility] History Medical History: Reports:: Anxiety, Asthma, Cancer (uterus), Chronic Obstructive Pulmonary Disease (COPD), Depression, Gastroesophageal Reflux Disease(GERD), Hyperlipidemia, Hypertension Denies:: Diabetes Mellitus Type 1, Diabetes Mellitus Type 2, Internal Pacemaker, MRSA, Seizures *Have you ever received a pneumonia vaccine?: Yes *Have you received a flu vaccine this season?: Yes Other Medical History: Reports: HIV. Denies: Blood Transfusion Reaction Laterality Cases: Bilateral: Arthroscopy Hip, Arthroscopy Shoulder, Carpal Tunnel Release Other Surgeries: Yes: Cardiac Catheterization, Cholecystectomy, Colonoscopy, C- section, EGD, Hysterectomy-Total, Splenectomy, Thyroidectomy, Other. No: Pacemaker Amputation: No Fractures: No - *Social History Smoking Status: Never smoker Alcohol Intake: never Alcohol Intake Frequency:: other Substance Use Type: former substance user *Occupational Status:: unemployed Housing: house Household Members: family *Travel in the last 8 weeks: None - Psychiatric History Pschychiatric History:: Reports:: Anxiety, Depression Family Hx:: Coronary Artery Disease, Heart Attack, Hyperlipidemia, Hypertension, Kidney Disease, Stroke
== END ==
PROVIDERS: PCP Emergency Medicine; Visit Provider Anesthesiology
DX: M51.16 Intervertebral disc disorders with radiculopathy, lumbar region (principal); Z09 Encounter for follow-up examination after completed treatment for conditions other than malignant neoplasm; Z96.82 Presence of neurostimulator
CPT/HCPCS: 99212

== ENCOUNTER → 2020-02-02 08:09 | Outpatient (POV) | payer MEDICARE, OTHER, SELFPAY ==
--- NOTE | 2020-02-02 08:34 | HMH.PAINSOAP ---
[facility] Pain Management SOAP Note Subjective:: Patient is a pleasant 59-year-old white female who we are treating for low back pain with lumbar radiculopathy. She is status post 2 weeks spinal cord stimulator replacement. Her sutures have been removed. Her incisions have healed well. Glue and Steri-Strips were applied and aftercare instructions given to the patient. Patient states that she likes this neurostimulator much better than her previous one. Patient rates her pain a 7 out of 10 however she states that she is much more active and able to do her daily activity. Patient does have some muscle cramps she has been on Flexeril before she would like a refill of this.\ ROS General: no recent weight change, no fever, no sleep disturbances Respiratory: no cough, no shortness of air, no recurring pulmonary infections Cardiovascular/Peripheral Vascular: No chest pain, No palpitations, no edema, no shortness of breath. Gastrointestinal: no new onset incontinence, normal bowel movements reported Genitourinary: no new onset incontinence Musculoskeletal: Back pain, leg pain Psychiatric: normal mood/ affect Neurological: [denies new onset weakness in extremities], [denies new onset balance issues] Objective:: Physical Exam General: Alert and oriented x3, no acute distress, pleasant and cooperative, [on room air] Lungs: Resps E/U, Symmetrical chest expansion, Eyes: PERRL Musculoskeletal: Flexion and extension of lumbar spine somewhat guarded secondary to pain, deep tendon reflexes normal, strength in upper and lower extremities [5/5], [abnormal gait noted] Neurological: speech clear, excel vba developer equal, no gross sensory deficits Assessment:: Degenerative disc disease lumbar spine lumbar radiculopathy, status post neurostimulator placement Plan:: We will start her on Flexeril 10 mg 1 p.o. 3 times daily. She is had this in the past with good relief. We will also see her back in 1 month reassess her at that time. If she is doing well we can see her every 3 months. She has been instructed to call the office if she has any issues prior to her next appointment. Dr. Ventura has reviewed this note and agrees with this plan of care. This note was dictated using voice recognition software and may contain errors or omissions [facility] History I have reviewed the patient's past medical history: Yes Medical History: Reports:: Anxiety, Asthma, Cancer (uterus), Chronic Obstructive Pulmonary Disease (COPD), Depression, Gastroesophageal Reflux Disease(GERD), Hyperlipidemia, Hypertension Denies:: Diabetes Mellitus Type 1, Diabetes Mellitus Type 2, Internal Pacemaker, MRSA, Seizures *Have you ever received a pneumonia vaccine?: Yes *Have you received a flu vaccine this season?: Yes Other Medical History: Reports: HIV. Denies: Blood Transfusion Reaction Laterality Cases: Bilateral: Arthroscopy Hip, Arthroscopy Shoulder, Carpal Tunnel Release Other Surgeries: Yes: Cardiac Catheterization, Cholecystectomy, Colonoscopy, , EGD, Hysterectomy-Total, Splenectomy, Thyroidectomy, Other. No: Pacemaker Amputation: No Fractures: No - *Social History Smoking Status: Never smoker Alcohol Intake: never Alcohol Intake Frequency:: other Substance Use Type: former substance user *Occupational Status:: unemployed Housing: house Household Members: family *Travel in the last 8 weeks: None - Psychiatric History Pschychiatric History:: Reports:: Anxiety, Depression Family Hx:: Coronary Artery Disease, Heart Attack, Hyperlipidemia, Hypertension, Kidney Disease, Stroke
[2020-02-02 09:13] VITALS: BP 133/77; PULSE 82; RESP 18; TEMP 36.8; O2SAT 98; BMI 35.5
== END ==
PROVIDERS: PCP Emergency Medicine; Visit Provider Clinical Nurse Specialist Family Health
DX: M51.16 Intervertebral disc disorders with radiculopathy, lumbar region (principal); Z96.82 Presence of neurostimulator
CPT/HCPCS: 99212

== ENCOUNTER → 2020-02-10 12:15 | Outpatient (CLI) | payer MEDICARE, OTHER, SELFPAY ==
--- NOTE | 2020-02-10 12:18 | XR_ITS ---
PROCEDURE: XR KNEE LT 3V CLINICAL INDICATION: pt fell Posttraumatic pain COMPARISON: CR KNEE3R KNEE-3 VIEWS-RT from 11/06/2015 CR KNEE3L KNEE-3 VIEWS-LT from 11/06/2015 CR [id number] XR knee LT 3V from 12/19/2017 CR [id number] XR knee LT 3V from 02/28/2018 FINDINGS: Status post prior tibial plateau fracture repair with a lateral tibial bone plate with multiple screws with sclerosis of the proximal tibia laterally. Mild osteoarthritic changes are present at the knee joint and at the tibial fibular joint. No acute fracture or dislocation. IMPRESSION: Postsurgical and osteoarthritic changes, no acute finding Dictated by: Vinh Gutierrez MD 02/10/2020 13:56 Vinh Gutierrez MD in [place] 02/10/2020 13:56
== END ==
PROVIDERS: PCP Emergency Medicine; Visit Provider Emergency Medicine
DX: W19.XXXA Unspecified fall, initial encounter (principal); M25.562 Pain in left knee
CPT/HCPCS: 73562

== ENCOUNTER → 2020-03-01 08:17 | Outpatient (POV) | payer MEDICARE, OTHER, SELFPAY ==
--- NOTE | 2020-03-01 08:38 | P.CONS_ITS ---
[facility] Pain Management SOAP Note Subjective:: Patient is a pleasant 59-year-old white female who presents today for follow-up. She has a [employer] neurostimulator. It is been doing quite well for her however her tank charger has not been working. She has been in contact with the energy conservation representative. She has not heard back yet. I discussed with her that I will also reach out to the energy conservation representative to ensure that the patient receives a new tank charger. Overall doing well she does rate her pain an 8 out of 10 however when she is using her stimulator it goes down to a 5 out of 10. Patient is on Percocet from her primary care physician. She would like to start decreasing this. ROS General: no recent weight change, no fever, no sleep disturbances Respiratory: no cough, no shortness of air, no recurring pulmonary infections Cardiovascular/Peripheral Vascular: No chest pain, No palpitations, no edema, no shortness of breath. Gastrointestinal: no new onset incontinence, normal bowel movements reported Genitourinary: no new onset incontinence Musculoskeletal: Back pain, leg pain Psychiatric: normal mood/ affect Neurological: [denies new onset weakness in extremities], [denies new onset balance issues] Objective:: Physical Exam General: Alert and oriented x3, no acute distress, pleasant and cooperative, [on room air] Lungs: Resps E/U, Symmetrical chest expansion, Eyes: PERRL Musculoskeletal: Flexion and extension of lumbar spine somewhat guarded secondary to pain, deep tendon reflexes normal, strength in upper and lower extremities [5/5], [abnormal gait noted] Neurological: speech clear, underground production foreperson equal, no gross sensory deficits Assessment:: Degenerative disc disease lumbar spine lumbar radiculopathy Plan:: We will follow up with the patient in several months reassess her symptoms at that time. I have contacted the energy conservation representative to get the patient a new tank charger. Patient's been instructed to call the office if she has any issues prior to her next appointment. Dr. Ventura has reviewed this note and agrees with this plan of care. This note was dictated using voice recognition software and may contain errors or omissions [facility] History I have reviewed the patient's past medical history: Yes Medical History: Reports:: Anxiety, Asthma, Cancer, Chronic Obstructive Pulmonary Disease (COPD), Depression, Diabetes Mellitus Type 2, Gastroesophageal Reflux Disease(GERD), Hyperlipidemia, Hypertension Denies:: Diabetes Mellitus Type 1, Internal Pacemaker, MRSA, Seizures *Have you ever received a pneumonia vaccine?: Yes *Have you received a flu vaccine this season?: Yes Other Medical History: Reports: HIV. Denies: Blood Transfusion Reaction Laterality Cases: Bilateral: Arthroscopy Hip, Arthroscopy Shoulder, Carpal Tunnel Release Other Surgeries: Yes: Cardiac Catheterization, Cholecystectomy, Colonoscopy, C- section, EGD, Hysterectomy-Total, Splenectomy, Thyroidectomy, Other. No: Pacemaker Amputation: No Fractures: No - *Social History Smoking Status: Never smoker Alcohol Intake: never Alcohol Intake Frequency:: other Substance Use Type: former substance user *Occupational Status:: other Housing: house Household Members: family *Travel in the last 8 weeks: None - Psychiatric History Pschychiatric History:: Reports:: Anxiety, Depression Family Hx:: Coronary Artery Disease, Heart Attack, Hyperlipidemia, Hypertension, Kidney Disease, Stroke
[2020-03-01 08:51] VITALS: BP 135/88; PULSE 85; RESP 18; TEMP 36.8; O2SAT 98; BMI 35.7
== END ==
PROVIDERS: Visit Provider Clinical Nurse Specialist Family Health
DX: M51.16 Intervertebral disc disorders with radiculopathy, lumbar region (principal)
CPT/HCPCS: 99212; G0463

== ENCOUNTER 2020-03-12 15:28 | Emergency (ER) | payer MEDICARE, OTHER, SELFPAY ==
[2020-03-12 15:29] VITALS: BP 173/80; RESP 16; TEMP 36.9; O2SAT 98; BMI 35.7
--- NOTE | 2020-03-12 15:46 | XR_ITS ---
PROCEDURE: XR CHEST PORTABLE CLINICAL HISTORY: cough COMPARISON: CR CXR2 CHEST-AP VIEW ONLY from 09/11/2013 CR CXR2 CHEST-AP VIEW ONLY from 06/14/2015 CR CXR2V XR chest 2V from 02/28/2018 FINDINGS: The cardiomediastinal silhouette and pulmonary vascularity are within normal limits. The lungs are clear without infiltrates, suspicious nodules, or pleural effusions. No acute bony abnormalities. IMPRESSION: No acute findings. Dictated by: Vinh Gutierrez MD 03/12/2020 17:16 Vinh Guiterrez MD in [facility] 03/12/2020 17:16
--- NOTE | 2020-03-12 15:46 | CT_ITS ---
PROCEDURE: CT HEAD/BRAIN WO CON CLINICAL INDICATION: headache COMPARISON: CT HEADWO CT head/brain wo con from 12/19/2017 TECHNIQUE: Axial images obtained. All CT scans at the facility use one or more dose reduction, viz: automated exposure control, ma/kV adjustment per patient size (including targeted exams where dose is matched to indication, i.e. head), or iterative reconstruction technique. FINDINGS: No midline shift, mass effect, intracranial hemorrhage, hydrocephalus, or extra-axial fluid collection is evident. The calvarium has an unremarkable appearance. There is opacification left mastoid sinus. No sinus air-fluid level. IMPRESSION: No acute intracranial finding Left mastoid sinus Dictated by: Vinh Gutierrez MD 03/12/2020 16:59 Vinh Gutierrez MD in [facility] 03/12/2020 16:59
--- NOTE | 2020-03-12 16:35 | PC.NURSE ---
pt gone to rad
[2020-03-12 17:29] VITALS: BP 154/81; PULSE 81; O2SAT 96
[2020-03-12 17:30] VITALS: BP 171/78; PULSE 84; O2SAT 95
[2020-03-12 17:33] LABS: Basophils % 0.4 % (0.1-2.0); Eosinophils # 0.1 K/mm3 (0.0-0.4); Eosinophils % 1.1 % (0.1-12.0); Hemoglobin 15.7 g/dL (12.2-16.2); Lymphocytes # 1.5 K/mm3 (0.7-4.5); Mean Corpuscular HGB Conc 34.1 g/dL (31.8-35.4); Mean Corpuscular Hemoglobin 33.4 pg (27.0-31.2); Mean Platelet Volume 7.9 fl (7.4-10.4); Monocytes # 0.2 K/mm3 (0.1-1.0); Monocytes % 2.5 % (1.7-9.3); Platelet Count 363 K/mm3 (142-424); Red Blood Count 4.69 M/mm3 (4.20-5.40); Red Cell Distribution Width 13.3 % (11.5-17.5); White Blood Count 6.7 K/mm3 (4.8-10.8)
[2020-03-12 17:37] LABS: Chloride 106 mmol/L (98-107); Sodium 139 mmol/L (136-145)
[2020-03-12 17:39] LABS: Alanine Aminotransferase 28 U/L (12-78); Aspartate Amino Transferase 38 U/L (14-36); Blood Urea Nitrogen 14 mg/dl (7-17); Creatinine Clearance Estimated 115 mL/min (50-200); Estimated Glomerular Filt Rate 86 ml/min (>60); GFR (African American) 104 ML/MIN (>60)
[2020-03-12 17:40] LABS: Albumin Level 4.7 g/dl (3.5-5.0); Albumin/Globulin Ratio 1.2 (1.1-1.8); Alkaline Phosphatase 111 U/L (38-126); Bilirubin,Total 0.6 mg/dl (0.2-1.3); Calcium 9.7 mg/dl (8.4-10.2); Carbon Dioxide 25 mmol/L (22.0-30.0); Glucose 141 mg/dl (74-100); Total Protein,Serum 8.7 g/dl (6.3-8.2)
[2020-03-12 17:53] LABS: Troponin I < 0.01 ng/ml (0.00-0.034)
--- NOTE | 2020-03-12 17:59 | HMH.EDGENADL ---
ED Disposition Clinical Impression: Hypertension Qualifiers: Hypertension type: essential hypertension Qualified Code(s): I10 - Essential (primary) hypertension Headache Qualifiers: Headache type: tension-type Headache chronicity pattern: acute headache Intractability: not intractable Qualified Code(s): G44.209 - Tension-type headache, unspecified, not intractable Disposition: Home, Self-Care Condition on Discharge: Good Instructions: DI for Migraine Prescriptions: hydroCHLOROthiazide [HCTZ 12.5mg cap] 12.5 mg PO DAILY #10 cap Transmission Status: Pending to [facility] Referrals: Allan Hightower MD [Primary Care Provider] - - Critical Care Critical Care Time: No Attestation: On 03/12/20, the high probability of a clinically significant, sudden or life threatening deterioration of the following system(s) required my full and direct attention, intervention and personal management. The time I documented below is in addition to time spent performing reported procedures but includes the following listed in this critical care notation. Medical Decision Making - Medical Records Medical records reviewed: Yes: I reviewed the patient's medical records. - [place] Inquiry Pt receiving controlled substance: No Vital Signs: 03/12/20 15:29 03/12/20 17:29 03/12/20 17:30 Temperature 98.5 F Temperature Source Oral Pulse Rate [Right Radial] 81 84 Respiratory Rate 16 Blood Pressure [Right Arm] 173/80 H 154/81 H 171/78 H Blood Pressure Mean [Right Arm] 111 105 109 Blood Pressure Source [Right Arm] Automatic Cuff Automatic Cuff Automatic Cuff Blood Pressure Position [Right Arm] Sitting Sitting Sitting 02 Sat by Pulse Oximetry 98 96 95 Oxygen Delivery Method Room Air Room Air Room Air - Lab Data Lab Results 03/12/20 17:25: WBC 6.7, RBC 4.69, Hgb 15.7, Hct 46.0, MCV 98.0, MCH 33.4 H, MCHC 34.1, RDW 13.3, Plt Count 363, MPV 7.9, Neut % (Auto) 74.0, Lymph % (Auto) 22.0, [place] % (Auto) 2.5, Eos % (Auto) 1.1, Baso % (Auto) 0.4, Neut # (Auto) 5.0, Lymph # (Auto) 1.5, [place] # (Auto) 0.2, Eos # (Auto) 0.1, Baso # (Auto) 0.0 03/12/20 17:25: Sodium 139, Potassium 4.0, Chloride 106, Carbon Dioxide 25, Anion Gap 12.0, BUN 14, Creatinine 0.70, Estimated Creat Clear 115, Estimated GFR 86, Est GFR ( Amer) 104, Glucose 141 H, Calcium 9.7, Total Bilirubin 0.6, AST 38 H, ALT 28, Alkaline Phosphatase 111, Troponin I < 0.01, Total Protein 8.7 H, Albumin 4.7, Globulin 4.0 H, Albumin/Globulin Ratio 1.2, TSH 0.45 L Result diagrams: 03/12/20 17:25 03/12/20 17:25 Orders (Tests/Meds): ED MEDICATIONS Discontinued Medications Generic Name Dose Route Start Last Admin Trade Name Freq PRN Reason Stop Dose Admin Labetalol HCl 10 mg 03/12/20 17:59 Labetalol 5mg/Ml 20ml Mdv IV 03/12/20 18:00 ONCE ONE ORDERS Category Date Time Status Troponin I Q3H Lab 03/12/20 19:00 Ordered Troponin I Q3H Lab 03/12/20 22:00 Ordered - Radiology Data #1 Image(s): Chest Image Reviewed: Yes I reviewed the patient's radiology results, Yes I discussed the image results w/the radiologist, Yes I have reviewed radiologist's interpretation Preliminary Findings: Normal/NAD - CT Data CT Scan: Head Time Received: 18:[address] Reviewed: Yes: I have reviewed the patient's CT results, I have viewed the radiologist's interpretation Preliminary Findings: Normal/NAD - Reevaluation(s) Time: 18:33 Reevaluation #1: On reevaluation, the patient is feeling much better. Blood pressure is improved. I will place her on a short course of antihypertensives. Patient needs to follow-up with her PCP in 24 hours. Given strict return precautions. Verbalized understanding. Medical Decision Narrative: 59-year-old female presented to the emergency department with headache. Patient appears to be hypertensive. She states that she has no history of high blood pressure. Neurologic exam is normal. Work-up initiated. [facility]era
[2020-03-12 18:11] LABS: Thyroid Stimulating Hormone 0.45 uIU/mL (0.465-4.68)
[2020-03-12 19:25] VITALS: BP 171/78; PULSE 84; RESP 16; TEMP 36.9; O2SAT 95
== END 2020-03-12 19:27 | disposition home or self-care (01) ==
PROVIDERS: Emergency Provider Emergency Medicine; PCP Emergency Medicine
DX: G44.209 Tension-type headache, unspecified, not intractable (principal); I10 Essential (primary) hypertension; E11.9 Type 2 diabetes mellitus without complications; K21.9 Gastro-esophageal reflux disease without esophagitis; J44.9 Chronic obstructive pulmonary disease, unspecified; E78.5 Hyperlipidemia, unspecified; Z79.899 Other long term (current) drug therapy; Z91.040 Latex allergy status; Z88.5 Allergy status to narcotic agent
CPT/HCPCS: 70450; 71045; 80053; 84443; 84484; 85025; 99283

== ENCOUNTER → 2020-04-16 13:54 | Outpatient (CLI) | payer MEDICARE, OTHER, SELFPAY ==
[2020-04-16 16:18] LABS: Amphetamine/Metha Screen,Urine Negative ng/ml (<1000); Barbiturates Screen,Urine Negative ng/ml (<200)
[2020-04-16 16:19] LABS: Benzodiazepines Screen,Urine Negative ng/ml (<200)
[2020-04-16 16:20] LABS: Cannabinoid Screen,Urine Negative ng/ml (<50); Cocaine Screen,Urine Negative ng/ml (<300)
[2020-04-16 16:21] LABS: Methadone Screen,Urine Negative ng/ml (<300)
[2020-04-16 16:22] LABS: Opiate Screen,Urine Negative ng/ml (<300); Phencyclidine Screen,Urine Negative ng/ml (<25)
== END ==
PROVIDERS: Visit Provider Emergency Medicine
DX: M54.16 Radiculopathy, lumbar region (principal)
CPT/HCPCS: 80305

== ENCOUNTER → 2020-05-31 08:03 | Outpatient (POV) | payer MEDICARE, OTHER, SELFPAY ==
[2020-05-31 08:32] VITALS: BP 156/78; PULSE 102; RESP 20; TEMP 36.7; O2SAT 98; BMI 35.5
--- NOTE | 2020-05-31 08:44 | P.CONS_ITS ---
[facility] Pain Management SOAP Note Subjective:: Patient is a pleasant 59-year-old white female who presents today for follow-up. Patient rates her pain an 8 out of 10 she has a [employer] neurostimulator. She is doing well however she has not been reprogrammed. Patient and I discussed the need for reprogramming with the guest service representative. O caro patient is doing well she is healed well from her surgery. ROS General: no recent weight change, no fever, no sleep disturbances Respiratory: no cough, no shortness of air, no recurring pulmonary infections Cardiovascular/Peripheral Vascular: No chest pain, No palpitations, no edema, no shortness of breath. Gastrointestinal: no new onset incontinence, normal bowel movements reported Genitourinary: no new onset incontinence Musculoskeletal: Back pain, leg pain Psychiatric: normal mood/ affect Neurological: [denies new onset weakness in extremities], [denies new onset balance issues] Objective:: Physical Exam General: Alert and oriented x3, no acute distress, pleasant and cooperative, [on room air] Lungs: Resps E/U, Symmetrical chest expansion, Eyes: PERRL Musculoskeletal: Flexion and extension of lumbar spine somewhat guarded secondary to pain, deep tendon reflexes normal, strength in upper and lower extremities [5/5], [abnormal gait noted] Neurological: speech clear, quarter seamer equal, no gross sensory deficits Assessment:: Degenerative disc disease lumbar spine lumbar radiculopathy and back pain Plan:: We will follow up with the patient in several months reassess her symptoms at that time. Patient does need a refill on her methocarbamol. We will move forward with that. Patient is instructed to call the office if she has any issues prior to next appointment. Swimmer for [employer] has been reached out to you and will contact the patient. Dr. Ventura has reviewed this note and agrees with this plan of care. This note was dictated using voice recognition software and may contain errors or omissions [facility] History I have reviewed the patient's past medical history: Yes Medical History: Reports:: Anxiety, Asthma, Cancer, Chronic Obstructive Pulmonary Disease (COPD), Depression, Diabetes Mellitus Type 2, Gastroesophageal Reflux Disease(GERD), Hyperlipidemia, Hypertension Denies:: Diabetes Mellitus Type 1, Internal Pacemaker, MRSA, Seizures *Have you ever received a pneumonia vaccine?: Yes *Have you received a flu vaccine this season?: Yes Other Medical History: Reports: HIV. Denies: Blood Transfusion Reaction Laterality Cases: Bilateral: Arthroscopy Hip, Arthroscopy Shoulder, Carpal Tunnel Release Other Surgeries: Yes: Cardiac Catheterization, Cholecystectomy, Colonoscopy, C- section, EGD, Hysterectomy-Total, Splenectomy, Thyroidectomy, Other. No: Pacemaker Amputation: No Fractures: No - *Social History Smoking Status: Never smoker Alcohol Intake: never Alcohol Intake Frequency:: other Substance Use Type: former substance user *Occupational Status:: unemployed Housing: house Household Members: family *Travel in the last 8 weeks: None - Psychiatric History Pschychiatric History:: Reports:: Anxiety, Depression Family Hx:: Coronary Artery Disease, Heart Attack, Hyperlipidemia, Hypertension, Kidney Disease, Stroke
== END ==
PROVIDERS: Visit Provider Clinical Nurse Specialist Family Health
DX: M51.16 Intervertebral disc disorders with radiculopathy, lumbar region (principal)
CPT/HCPCS: 99212; G0463

== ENCOUNTER → 2020-06-13 14:15 | Outpatient (CLI) | payer MEDICARE, OTHER, SELFPAY ==
[2020-06-13 15:02] LABS: Amphetamine/Metha Screen,Urine Negative ng/ml (<1000); Barbiturates Screen,Urine Negative ng/ml (<200)
[2020-06-13 15:06] LABS: Benzodiazepines Screen,Urine Negative ng/ml (<200); Cannabinoid Screen,Urine Negative ng/ml (<50)
[2020-06-13 15:07] LABS: Cocaine Screen,Urine Negative ng/ml (<300); Methadone Screen,Urine Negative ng/ml (<300)
[2020-06-13 15:08] LABS: Opiate Screen,Urine Negative ng/ml (<300)
[2020-06-13 15:09] LABS: Phencyclidine Screen,Urine Negative ng/ml (<25)
== END ==
PROVIDERS: Visit Provider Emergency Medicine
DX: M54.16 Radiculopathy, lumbar region (principal)
CPT/HCPCS: 80305

== ENCOUNTER → 2020-07-05 10:47 | Outpatient (CLI) | payer MEDICARE, OTHER, SELFPAY ==
--- NOTE | 2020-07-05 10:52 | XR_ITS ---
PROCEDURE: XR ANKLE WT BEARING LT MIN 3V CLINICAL INDICATION: left ankle pain COMPARISON: CR XR ANKLE WT BEARING LT MIN 3V from 06/21/2019 FINDINGS: No fracture or dislocation. Focal lucent lesion in the distal tibial diaphysis is again noted, demonstrates no interval change. Mild generalized osteopenia is noted. The ankle mortise is congruent and the lateral clear space is preserved. Other findings: Calcaneal spurring is noted at the Achilles tendon insertion and the plantar fascia origin. No significant soft tissue swelling is noted. IMPRESSION: No acute findings. Unchanged lucent lesion in the left distal tibial diaphysis, likely a benign lesion. Dictated by: Nichole Cai 07/05/2020 14:17 Nichole Cai in [facility] 07/05/2020 14:17
== END ==
PROVIDERS: PCP Emergency Medicine; Visit Provider Podiatrist
DX: M25.579 Pain in unspecified ankle and joints of unspecified foot (principal)
CPT/HCPCS: 73610

== ENCOUNTER → 2020-08-13 13:44 | Outpatient (CLI) | payer MEDICARE, OTHER, SELFPAY ==
[2020-08-13 14:25] LABS: Amphetamine/Metha Screen,Urine Negative ng/ml (<1000)
[2020-08-13 14:26] LABS: Barbiturates Screen,Urine Negative ng/ml (<200); Benzodiazepines Screen,Urine Negative ng/ml (<200)
[2020-08-13 14:27] LABS: Cocaine Screen,Urine Negative ng/ml (<300)
[2020-08-13 14:28] LABS: Methadone Screen,Urine Negative ng/ml (<300)
[2020-08-13 14:29] LABS: Opiate Screen,Urine Negative ng/ml (<300); Phencyclidine Screen,Urine Negative ng/ml (<25)
[2020-08-13 14:41] LABS: Cannabinoid Screen,Urine Negative ng/ml (<50)
== END ==
PROVIDERS: Visit Provider Emergency Medicine
DX: M54.16 Radiculopathy, lumbar region (principal)
CPT/HCPCS: 80305

== ENCOUNTER → 2020-09-06 08:21 | Outpatient (POV) | payer MEDICARE, OTHER, SELFPAY ==
--- NOTE | 2020-09-06 08:33 | P.CONS_ITS ---
[facility] Pain Management SOAP Note Subjective:: Patient is a pleasant 59-year-old white female who presents today for follow-up. She is being treated for degenerative disc disease lumbar spine with lumbar radiculopathy symptoms and chronic low back pain. She is managed with a [employer] spinal cord stimulator. Patient's pain is a 6 out of 10. This is her baseline. She says she is doing well overall. She says that she had planned on meeting with the spinal cord stimulator chemical sales representative, however, she says she hit a button on her computer programmer analyst, and the pain is better . She is requesting refill on her tizanidine today. Overall she is doing well. Review of Systems General: No recent weight changes, no fever, no sleep disturbances Respiratory: No cough, no shortness of air, no recurring pulmonary infections Cardiovascular/peripheral vascular: No chest pain, no palpitations, no edema, no shortness of breath Gastrointestinal: No new onset incontinence, normal bowel movements reported Genitourinary: No new onset incontinence Musculoskeletal: Intermittent low back pain Psychiatric: Normal mood/affect Neurological: [Denies weakness in extremities], [denies balance issues] Objective:: Physical exam General: Alert and oriented x3, no acute distress, pleasant and cooperative, [on room air] Lungs: Respirations even and unlabored, symmetrical chest expansion Eyes: PERRL Musculoskeletal: Flexion and extension of [] lumbar spine somewhat guarded secondary to pain, deep tendon reflexes normal, strength in upper and lower extremities [5/5], [abnormal gait noted] Neurological: Speech clear, distribution systems serviceperson equal, no gross sensory deficit Assessment:: Degenerative disc disease lumbar spine with lumbar radiculopathy symptoms Plan:: Patient is doing well. She is not having any pain today. We will refill the patient's tizanidine 4 mg 1 tablet p.o. twice daily. We will see the patient back in 3 months for reevaluation of symptoms. Patient has been instructed to contact the clinic with any concerns before the next appointment. Dr. Ventura has reviewed this note and agrees with this plan of care. This note was dictated using voice recognition software and make contain errors or omissions. [facility] History I have reviewed the patient's past medical history: Yes Medical History: Reports:: Anxiety, Asthma, Cancer, Chronic Obstructive Pulmonary Disease (COPD), Depression, Diabetes Mellitus Type 2, Gastroesophageal Reflux Disease(GERD), Hyperlipidemia, Hypertension Denies:: Diabetes Mellitus Type 1, Internal Pacemaker, MRSA, Seizures *Have you ever received a pneumonia vaccine?: Yes *Have you received a flu vaccine this season?: Yes Other Medical History: Reports: HIV. Denies: Blood Transfusion Reaction Laterality Cases: Bilateral: Arthroscopy Hip, Arthroscopy Shoulder, Carpal Tunnel Release Other Surgeries: Yes: Cardiac Catheterization, Cholecystectomy, Colonoscopy, C- section, EGD, Hysterectomy-Total, Splenectomy, Thyroidectomy, Other. No: Pacemaker Amputation: No Fractures: No - *Social History Smoking Status: Never smoker Alcohol Intake: never Alcohol Intake Frequency:: other Substance Use Type: former substance user *Occupational Status:: unemployed Housing: house Household Members: family *Travel in the last 8 weeks: None - Psychiatric History Pschychiatric History:: Reports:: Anxiety, Depression Family Hx:: Coronary Artery Disease, Heart Attack, Hyperlipidemia, Hypertension, Kidney Disease, Stroke
[2020-09-06 08:47] VITALS: BP 155/80; PULSE 70; RESP 18; O2SAT 96; BMI 34.9
== END ==
PROVIDERS: Visit Provider Clinical Nurse Specialist Family Health
DX: M51.16 Intervertebral disc disorders with radiculopathy, lumbar region (principal)
CPT/HCPCS: 99212; G0463

== ENCOUNTER → 2020-10-10 13:41 | Outpatient (CLI) | payer MEDICARE, OTHER, SELFPAY ==
[2020-10-10 15:14] LABS: Amphetamine/Metha Screen,Urine Negative ng/ml (<1000)
[2020-10-10 15:15] LABS: Barbiturates Screen,Urine Negative ng/ml (<200)
[2020-10-10 15:16] LABS: Benzodiazepines Screen,Urine Negative ng/ml (<200); Cannabinoid Screen,Urine Negative ng/ml (<50)
[2020-10-10 15:17] LABS: Cocaine Screen,Urine Negative ng/ml (<300); Methadone Screen,Urine Negative ng/ml (<300)
[2020-10-10 15:18] LABS: Opiate Screen,Urine Negative ng/ml (<300)
[2020-10-10 15:19] LABS: Phencyclidine Screen,Urine Negative ng/ml (<25)
== END ==
PROVIDERS: Visit Provider Emergency Medicine
DX: M54.16 Radiculopathy, lumbar region (principal)
CPT/HCPCS: 80305

== ENCOUNTER 2020-11-06 14:24 | Emergency (ER) | payer MEDICARE, OTHER, SELFPAY ==
[2020-11-06 14:25] VITALS: BP 131/70; PULSE 65; RESP 18; TEMP 36.8; O2SAT 95; BMI 35.5
--- NOTE | 2020-11-06 14:30 | XR_ITS ---
PROCEDURE: XR ANKLE LT MIN 3V CLINICAL INDICATION: pain COMPARISON: CR XR ANKLE WT BEARING LT MIN 3V from 06/21/2019 CR XR ANKLE WT BEARING LT MIN 3V from 07/05/2020 FINDINGS: No fracture or dislocation. No lytic or blastic change. There is normal mineralization. The joint spaces are well-preserved. No significant degenerative/arthritic changes. No erosive changes evident. Other findings:None. IMPRESSION: No acute findings. Dictated by: Vinh Gutierrez MD 11/06/2020 15:10 Vinh Gutierrez MD in [facility] 11/06/2020 15:10
--- NOTE | 2020-11-06 14:59 | HMH.EDGENADL ---
ED Disposition Clinical Impression: Ankle sprain Qualifiers: Encounter type: initial encounter Involved ligament of ankle: other ligament Laterality: left Qualified Code(s): S93.492A - Sprain of other ligament of left ankle, initial encounter Disposition: Home, Self-Care Condition on Discharge: Good Referrals: Allan Hightower MD [Primary Care Provider] - 3 days Time of Disposition: 15:03 - Critical Care Critical Care Time: No Attestation: On , the high probability of a clinically significant, sudden or life threatening deterioration of the following system(s) required my full and direct attention, intervention and personal management. The time I documented below is in addition to time spent performing reported procedures but includes the following listed in this critical care notation. Medical Decision Making - Medical Records Medical records reviewed: Yes: I reviewed the patient's medical records. - [place] Inquiry Pt receiving controlled substance: No Orders (Tests/Meds): ORDERS Category Date Time Status Ankle XR - Left minimum 3 Views [XR ankle LT min 3V] Exams 11/06/20 14:30 Taken Stat - Radiology Data #1 Image(s): Ankle Image Reviewed: Yes I reviewed the patient's radiology image Preliminary Findings: Normal/NAD Medical Decision Narrative: 60yo F evaluated for left ankle pain. Patient no acute distress on initial evaluation. Patient ambulated into the emergency department in flip-flops. X-rays are obtained and show no acute finding on my wet read. Patient is minimally tender to palpate. There is no significant bruising or swelling. Counseled to continue with weightbearing and activity as tolerated. Wear good supportive shoes. Follow-up PCP in 1 to 2 days. General Adult HPI - General Stated complaint: AO [id number] left ankle, home injury Time Seen by Provider: 11/06/20 14:59 Mode of Arrival: Ambulatory - History of Present Illness HPI narrative: 60yo F presents the emergency department secondary to left ankle pain. Patient reports she twisted her ankle on Thursday. Reports she has had numerous ankle injuries but no surgery to the left ankle in the past. Patient has been tolerating weightbearing since that time but states it is tender. No other injury reported. - Related Data Home Medications Medication Instructions Recorded Confirmed Fenofibrate [Tricor 54mg tablet] 54 mg PO DAILY 01/09/20 10/10/20 Nystatin 1 applic TOPICAL BID 05/31/20 10/10/20 methocarbamoL [Methocarbamol 500mg 500 mg PO BID 05/31/20 10/10/20 Tablet] cimetidine 300 mg tablet 300 mg PO tab 09/10/20 10/10/20 tizanidine 4 mg capsule 4 mg PO BID PRN cap 10/10/20 10/10/20 Previous Rx's Medication Instructions Recorded diclofenac sodium 1 % topical gel 4 g TOPICAL QID #30 g 03/12/20 mupirocin 2 % topical ointment 1 applic TOPICAL BID #22 g 06/13/20 budesonide-formoterol HFA 80 See Rx Instructions .ROUTE 07/30/20 mcg-4.5 mcg/actuation aerosol .COMPLEX #10.2 g inhaler hydrochlorothiazide 12.5 mg capsule See Rx Instructions .ROUTE 08/02/20 .COMPLEX #90 cap metformin 500 mg tablet 500 mg PO BID #180 tab 08/22/20 blood sugar diagnostic See Rx Instructions .ROUTE 09/04/20 .COMPLEX #100 each pravastatin 40 mg tablet See Rx Instructions .ROUTE 09/04/20 .COMPLEX #90 tab meloxicam 7.5 mg tablet 7.5 mg PO ONCE 90 Days #90 tab 09/10/20 amlodipine 5 mg tablet See Rx Instructions .ROUTE 09/13/20 .COMPLEX #90 tab oxycodone-acetaminophen 10 mg-325 1 tab PO QID PRN #120 tab 10/10/20 mg tablet albuterol sulfate 90 mcg/actuation See Rx Instructions .ROUTE 11/02/20 aerosol inhaler .COMPLEX #8.5 g cholecalciferol (vitamin D3) 25 See Rx Instructions .ROUTE 11/02/20 mcg (1,000 unit) tablet .COMPLEX #30 cap rizatriptan 5 mg disintegrating See Rx Instructions .ROUTE 11/02/20 tablet .COMPLEX #18 tab sertraline 100 mg tablet See Rx Instructions .ROUTE 11/02/20 .COMPLEX #60 tab Allergies Allerg
[2020-11-06 15:57] VITALS: BP 131/70; PULSE 65; RESP 18; TEMP 36.8; O2SAT 95
[2020-11-06 15:58] VITALS: BP 131/79; PULSE 87; RESP 18; TEMP 36.9; O2SAT 98
== END 2020-11-06 16:01 | disposition home or self-care (01) ==
PROVIDERS: Emergency Provider Family Medicine; PCP Emergency Medicine
DX: S93.492A Sprain of other ligament of left ankle, initial encounter (principal); F41.8 Other specified anxiety disorders; K21.9 Gastro-esophageal reflux disease without esophagitis; E78.5 Hyperlipidemia, unspecified; I10 Essential (primary) hypertension; Z79.899 Other long term (current) drug therapy
CPT/HCPCS: 73610; 99282

== ENCOUNTER → 2020-12-12 09:22 | Outpatient (CLI) | payer MEDICARE, OTHER, SELFPAY ==
[2020-12-12 10:43] LABS: Uric Acid 4.5 mg/dl (2.5-6.2)
== END ==
PROVIDERS: Visit Provider Nurse Practitioner
DX: M10.9 Gout, unspecified (principal)
CPT/HCPCS: 36415; 84550

== ENCOUNTER → 2021-02-04 16:33 | Outpatient (CLI) | payer MEDICARE, OTHER, SELFPAY ==
[2021-02-04 17:01] LABS: Basophils # 0.1 K/mm3 (0-0.2); Basophils % 0.8 % (0.1-2.0); Eosinophils # 0.1 K/mm3 (0.0-0.4); Eosinophils % 1.1 % (0.1-12.0); Hematocrit 44.6 % (37.0-47.0); Hemoglobin 14.6 g/dL (12.2-16.2); Lymphocytes # 3.1 K/mm3 (0.7-4.5); Lymphocytes % 38.8 % (10-50); Mean Corpuscular HGB Conc 32.6 g/dL (31.8-35.4); Mean Corpuscular Hemoglobin 33.2 pg (27.0-31.2); Mean Corpuscular Volume 101.6 fl (81-99); Mean Platelet Volume 9.6 fl (7.4-10.4); Monocytes # 0.7 K/mm3 (0.1-1.0); Monocytes % 8.3 % (1.7-9.3); Platelet Count 512 K/mm3 (142-424); Red Blood Count 4.39 M/mm3 (4.20-5.40); Red Cell Distribution Width 12.9 % (11.5-17.5); White Blood Count 7.9 K/mm3 (4.8-10.8)
[2021-02-04 17:24] LABS: Chloride 106 mmol/L (98-107); Potassium 4.2 mmoL/L (3.5-5.1); Sodium 141 mmol/L (136-145)
[2021-02-04 17:26] LABS: Alanine Aminotransferase 25 U/L (12-78); Aspartate Amino Transferase 36 U/L (14-36); Blood Urea Nitrogen 17 mg/dl (7-17); Estimated Glomerular Filt Rate 102 ml/min (>60); GFR (African American) 124 ML/MIN (>60)
[2021-02-04 17:27] LABS: Albumin Level 4.2 g/dl (3.5-5.0); Albumin/Globulin Ratio 1.4 (1.1-1.8); Alkaline Phosphatase 79 U/L (38-126); Anion Gap 12.2 mEq/L (5-15); Bilirubin,Total 0.4 mg/dl (0.2-1.3); Calcium 9.3 mg/dl (8.4-10.2); Carbon Dioxide 27 mmol/L (22.0-30.0); Chol/HDL Ratio 6.2 (1-3.5); Cholesterol 192 mg/dl (140-200); Globulin 3.1 g/dL (1.3-3.2); Glucose 109 mg/dl (74-100); HDL Cholesterol 31 mg/dl (40-60); Total Protein,Serum 7.3 g/dl (6.3-8.2); Triglycerides 317 mg/dl (30-150); VLDL Cholesterol 63 mg/dL (0-40)
[2021-02-04 17:38] LABS: Direct LDL Cholesterol 92.41 mg/dL (100-129)
[2021-02-04 17:40] LABS: Free T4 (Free Thyroxine) 1.39 ng/dl (0.78-2.19)
[2021-02-04 17:41] LABS: 25-OH Vitamin D, Total 34.2 ng/mL (30-100)
[2021-02-04 17:58] LABS: Thyroid Stimulating Hormone 2.02 uIU/mL (0.465-4.68)
[2021-02-04 18:01] LABS: Hemoglobin A1C 5.4 % (4.0-6.0)
[2021-02-04 18:08] LABS: Amphetamine/Metha Screen,Urine Negative ng/ml (<1000)
[2021-02-04 18:09] LABS: Benzodiazepines Screen,Urine Negative ng/ml (<200); Cannabinoid Screen,Urine Negative ng/ml (<50)
[2021-02-04 18:10] LABS: Barbiturates Screen,Urine Negative ng/ml (<200)
[2021-02-04 18:11] LABS: Cocaine Screen,Urine Negative ng/ml (<300); Methadone Screen,Urine Negative ng/ml (<300)
[2021-02-04 18:12] LABS: Opiate Screen,Urine Negative ng/ml (<300); Phencyclidine Screen,Urine Negative ng/ml (<25)
== END ==
PROVIDERS: Visit Provider Emergency Medicine
DX: E11.42 Type 2 diabetes mellitus with diabetic polyneuropathy (principal); E55.9 Vitamin D deficiency, unspecified; M54.16 Radiculopathy, lumbar region; Z79.84 Long term (current) use of oral hypoglycemic drugs
CPT/HCPCS: 80053; 80061; 80305; 82306; 83036; 84439; 84443; 85025

== ENCOUNTER → 2021-04-05 16:28 | Outpatient (CLI) | payer MEDICARE, OTHER, SELFPAY ==
[2021-04-05 14:06] LABS: Amphetamine/Metha Screen,Urine Negative ng/ml (<1000); Barbiturates Screen,Urine Negative ng/ml (<200)
[2021-04-05 14:07] LABS: Benzodiazepines Screen,Urine Negative ng/ml (<200)
[2021-04-05 14:08] LABS: Cannabinoid Screen,Urine Negative ng/ml (<50)
[2021-04-05 14:09] LABS: Cocaine Screen,Urine Negative ng/ml (<300)
[2021-04-05 14:10] LABS: Methadone Screen,Urine Negative ng/ml (<300); Opiate Screen,Urine Negative ng/ml (<300)
[2021-04-05 14:12] LABS: Phencyclidine Screen,Urine Negative ng/ml (<25)
== END ==
PROVIDERS: Visit Provider Emergency Medicine
DX: M54.16 Radiculopathy, lumbar region (principal)
CPT/HCPCS: 80305

== ENCOUNTER 2021-04-24 06:40 | Inpatient (IN) | payer MEDICARE, OTHER, SELFPAY ==
[2021-04-24] VITALS (16 sets, daily range): BP systolic 101–131; BP diastolic 30–88; PULSE 72–110; RESP 16–30; TEMP 36.8–38.6; O2SAT 86–98; BMI 27.8; BMI 35.8
[2021-04-24 06:56] LABS: Coronavirus 19, PCR Not Detected (NotDetected); Influenza A, PCR Not Detected (NotDetected); Influenza B, PCR Not Detected (NotDetected)
--- NOTE | 2021-04-24 06:56 | XR_ITS ---
FINAL REPORT CLINICAL HISTORY: cough, FEVER COMPARISON: March 12, 2020 FINDINGS: PA and lateral views of the chest were obtained. The heart is normal in size. The mediastinum is unremarkable. There are bilateral pulmonary opacities consistent with pneumonia. No pneumothorax is identified. A spinal stimulator device is present. There is moderate degenerative change of the thoracic spine. IMPRESSION: Bilateral pneumonia. Reviewed, Interpreted and Dictated by Paul Padilla III, MD Transcribed by Noble Knight Authenticated by Paul Padilla III, MD on 04/24/2021 08:06:26 AM [facility]
--- NOTE | 2021-04-24 07:16 | HMH.EDURI ---
ED Disposition Clinical Impression: CAP (community acquired pneumonia) Qualifiers: Laterality: unspecified laterality Qualified Code(s): J18.9 - Pneumonia, unspecified organism Disposition: Admitted As Inpatient Condition on Discharge: Serious - Critical Care Critical Care Time: No Attestation: On 04/24/21, the high probability of a clinically significant, sudden or life threatening deterioration of the following system(s) required my full and direct attention, intervention and personal management. The time I documented below is in addition to time spent performing reported procedures but includes the following listed in this critical care notation. Medical Decision Making - Medical Records Medical records reviewed: Yes: I reviewed the patient's medical records. - [place] Inquiry Pt receiving controlled substance: No Vital Signs: 04/24/21 06:42 04/24/21 06:49 04/24/21 07:01 Temperature 101.4 F H Temperature Source Oral Pulse Rate 97 H 92 H Pulse Rate [Left Radial] 98 H Respiratory Rate 20 Blood Pressure 114/76 121/30 L Blood Pressure [Right Arm] 114/76 Blood Pressure Mean 89 60 Blood Pressure Mean [Right Arm] 88 Blood Pressure Source [Right Arm] Automatic Cuff Blood Pressure Position [Right Arm] Sitting 02 Sat by Pulse Oximetry 90 L 88 L 88 L Oxygen Delivery Method Room Air Oxygen Flow Rate (LPM) 04/24/21 07:15 04/24/21 08:06 Temperature 99.4 F Temperature Source Oral Pulse Rate 97 H 103 H Pulse Rate [Left Radial] Respiratory Rate 30 H Blood Pressure Blood Pressure [Right Arm] Blood Pressure Mean Blood Pressure Mean [Right Arm] Blood Pressure Source [Right Arm] Blood Pressure Position [Right Arm] 02 Sat by Pulse Oximetry 93 L 93 L Oxygen Delivery Method Room Air Nasal Cannula Oxygen Flow Rate (LPM) 4 - Lab Data Lab results reviewed: Yes: I reviewed the patient's lab results. Lab Results 04/24/21 06:50: SARS-CoV-2 (PCR) Not detected, Influenza A Untype (PCR) Not detected, Influenza Type B (PCR) Not detected Orders (Tests/Meds): ED MEDICATIONS Generic Name Dose Route Start Last Admin Trade Name Freq PRN Reason Stop Dose Admin Albuterol/Ipratropium 3 ml 04/24/21 13:00 Ipratropium/Albuterol 3 Ml Neb IH 05/24/21 12:59 TIDRT GENNARO Sodium Chloride 1,000 mls @ 100 mls/hr 04/24/21 08:30 Sod Chlor 0.9% 1000ml Bag IV 05/24/21 08:29 .Q10H [facility] Ceftriaxone Sodium 1 gm/ 50 mls @ 100 mls/hr 04/24/21 08:30 Sodium Chloride IV 05/08/21 08:29 Q24H [facility] Doxycycline Hyclate 100 mg/ 250 mls @ 166.667 mls/hr 04/24/21 08:30 Sodium Chloride IV 05/08/21 08:29 Q12H [facility] Methylprednisolone Sodium Succinate 40 mg 04/24/21 08:30 Methylprednisolone Sod Succ 40mg Vial IV 05/24/21 08:29 Q8H [facility] Sodium Chloride 3 ml 04/24/21 08:27 Sodium Chloride 3% 15ml [facility] 05/24/21 08:26 ONCE PRN INDUCE SPUTUM COLLECTION Discontinued Medications Generic Name Dose Route Start Last Admin Trade Name Freq PRN Reason Stop Dose Admin Acetaminophen 1,000 mg 04/24/21 07:02 04/24/21 07:04 Acetaminophen 500mg Tab PO 04/24/21 07:03 1,000 mg ONCE ONE Administration Albuterol/Ipratropium 3 ml 04/24/21 07:00 04/24/21 07:16 Ipratropium/Albuterol 3 Ml [facility] 04/24/21 07:01 3 ml ONCE ONE Administration Albuterol/Ipratropium 3 ml 04/24/21 07:54 04/24/21 07:55 Ipratropium/Albuterol 3 Ml [facility] 04/24/21 07:55 3 ml ONCE ONE Administration ORDERS Category Date Time Status CBC [Complete Blood Count Auto Diff] Stat Lab 04/24/21 08:14 Ordered CMP [Comprehensive Metabolic Panel] Stat Lab 04/24/21 08:14 Ordered Lactic Acid Stat Lab 04/24/21 08:16 Ordered Blood Culture Stat Micro 04/24/21 08:15 Ordered Sputum Culture & Gram Stain Stat Micro 04/24/21 08:27 Ordered URI/Sore Throat HPI - General Chief Complaint: Nausea/Vomiting/Diarrhea Stated Complaint: nausea,cough,body ache
--- NOTE | 2021-04-24 07:40 | PC.NURSE ---
PT WITH HYPERTUSSIVE VOMITING.
--- NOTE | 2021-04-24 07:56 | PC.NURSE ---
RESP AT BEDSIDE GIVING DUO-NEB TX O2 SATS 96%
[2021-04-24 08:47] LABS: Basophils # 0.2 K/mm3 (0-0.2); Basophils % 1.9 % (0.1-2.0); Eosinophils # 0.2 K/mm3 (0.0-0.4); Eosinophils % 1.8 % (0.1-12.0); Hematocrit 44.3 % (37.0-47.0); Hemoglobin 14.1 g/dL (12.2-16.2); Lymphocytes # 4.1 K/mm3 (0.7-4.5); Lymphocytes % 33.2 % (10-50); Mean Corpuscular HGB Conc 31.9 g/dL (31.8-35.4); Mean Corpuscular Hemoglobin 33.2 pg (27.0-31.2); Mean Corpuscular Volume 104.1 fl (81-99); Mean Platelet Volume 8.7 fl (7.4-10.4); Monocytes # 0.9 K/mm3 (0.1-1.0); Monocytes % 7.2 % (1.7-9.3); Neutrophils # 6.9 K/mm3 (1.8-7.8); Neutrophils % 55.8 % (37.0-80.0); Platelet Count 364 K/mm3 (142-424); Red Blood Count 4.26 M/mm3 (4.20-5.40); Red Cell Distribution Width 13.2 % (11.5-17.5); White Blood Count 12.3 K/mm3 (4.8-10.8)
[2021-04-24 09:14] LABS: Lactic Acid 1.5 mmol/L (0.7-2.1)
[2021-04-24 09:30] LABS: Chloride 101 mmol/L (98-107); Sodium 134 mmol/L (136-145)
[2021-04-24 09:31] LABS: Potassium 3.1 mmoL/L (3.5-5.1)
[2021-04-24 09:33] LABS: Alanine Aminotransferase 27 U/L (12-78); Alkaline Phosphatase 93 U/L (38-126); Anion Gap 13.1 mEq/L (5-15); Aspartate Amino Transferase 46 U/L (14-36); Bilirubin,Total 0.5 mg/dl (0.2-1.3); Blood Urea Nitrogen 13 mg/dl (7-17); Carbon Dioxide 23 mmol/L (22.0-30.0); Creatinine Clearance Estimated 113 mL/min (50-200); Estimated Glomerular Filt Rate 86 ml/min (>60); GFR (African American) 104 ML/MIN (>60)
[2021-04-24 09:34] LABS: Albumin/Globulin Ratio 1.1 (1.1-1.8); Calcium 7.9 mg/dl (8.4-10.2); Globulin 3.5 g/dL (1.3-3.2); Glucose 115 mg/dl (74-100); Total Protein,Serum 7.5 g/dl (6.3-8.2)
--- NOTE | 2021-04-24 10:11 | HMH.HP ---
*Admission Date: 04/24/21 *Chief complaint: sob *History of present illness: this patient presented to the ed this am with progressive sob and prod cough over the last few days despite otc meds - pt was found in the ed with low o2 sat and abn cxr and was admitted for eval and treatment [facility] History I have reviewed the patient's past medical history: Yes Medical History: Reports:: Anxiety, Asthma, Cancer, Chronic Obstructive Pulmonary Disease (COPD), Depression, Diabetes Mellitus Type 2, Gastroesophageal Reflux Disease(GERD), Hyperlipidemia, Hypertension Denies:: Diabetes Mellitus Type 1, Internal Pacemaker, MRSA, Seizures *Have you ever received a pneumonia vaccine?: Yes *Have you received a flu vaccine this season?: Yes Other Medical History: Reports: HIV. Denies: Blood Transfusion Reaction Laterality Cases: Bilateral: Arthroscopy Hip, Arthroscopy Shoulder, Carpal Tunnel Release Other Surgeries: Yes: Cardiac Catheterization, Cholecystectomy, Colonoscopy, , EGD, Hysterectomy-Total, Splenectomy, Thyroidectomy, Other. No: Pacemaker Amputation: No Fractures: No - *Social History Smoking Status: Never smoker Alcohol Intake: never Alcohol Intake Frequency:: other Substance Use Type: denies use *Occupational Status:: unemployed Housing: house Household Members: family *Travel in the last 8 weeks: None - Psychiatric History Pschychiatric History:: Reports:: Anxiety, Depression Family Hx:: Coronary Artery Disease, Heart Attack, Hyperlipidemia, Hypertension, Kidney Disease, Stroke Review of Systems - Review of Systems Review of systems:: pertinent systems reviewed and negative unless documented below - Constitutional Reports fatigue, Reports fever(s), Reports malaise - Eyes Denies change in vision - ENT Denies dizziness - *Cardiovascular Reports shortness of breath, Denies chest pain at rest - *Respiratory Reports cough, Reports shortness of breath, Reports wheezing, Denies coughing up blood, Denies pain with cough - *Gastrointestinal Denies abdominal pain - *Genitourinary Denies blood in urine - *Musculoskeletal Denies joint pain - Integumentary/Breasts Denies rash - *Neurologic Denies headache(s) - Psychiatric Denies behavioral changes Meds Home Medications Medication Instructions Recorded Confirmed Type Fenofibrate [Tricor 54mg tablet] 54 mg PO DAILY 01/09/20 04/24/21 History diclofenac sodium 1 % topical gel 4 g TOPICAL QID #30 g 03/12/20 04/24/21 Rx Nystatin 1 applic TOPICAL BID 05/31/20 04/24/21 History methocarbamoL [Methocarbamol 500mg 500 mg PO BID 05/31/20 04/24/21 History Tablet] cimetidine 300 mg tablet 300 mg PO DAILY tab 09/10/20 04/24/21 History tizanidine 4 mg capsule 4 mg PO BID PRN cap 10/10/20 04/24/21 History dolutegravir 50 mg tablet 50 mg PO DAILY tab 03/13/21 04/24/21 History emtricitabine 200 mg-tenofovir 1 tab PO DAILY tab 03/13/21 04/24/21 History alafenamide fumarate 25 mg tablet iqlwwc-argkmxtu-vvxqeot 1 cap PO DAILY 03/13/21 04/24/21 History 36,000-114,000-180,000 unit capsule,delay rel pantoprazole 40 mg tablet,delayed 40 mg PO DAILY tab 03/13/21 04/24/21 History release promethazine 25 mg tablet 25 mg PO Q6HP PRN tab 03/13/21 04/24/21 History oxycodone-acetaminophen 10 mg-325 1 tab PO QID PRN #120 tab 04/05/21 04/24/21 Rx mg tablet opbynhhjbxquyld-nsuxxskjgrsbood-HP 5 ml PO Q8H PRN 7 Days #105 ml 04/22/21 04/24/21 Rx 2 mg-30 mg-10 mg/5 mL oral syrup Albuterol Sulfate [Albuterol 2 puffs IH Q6 PRN 04/24/21 04/24/21 History Sulfate Hfa] Amlodipine Besylate 5 mg PO DAILY 04/24/21 04/24/21 History Benzonatate [Benzonatate 100mg 100 mg PO TID 04/24/21 04/24/21 History cap] Blood Sugar Diagnostic [FreeStyle See Rx Instructions .ROUTE .COMPLEX 04/24/21 04/24/21 History Lite Strips] Budesonide/Formoterol Fumarate 2 puffs IH BID 04/24/21 04/24/21 History [Budesonide-Formoterol 80-4.5] Cholecalciferol (Vitamin D3) 1
--- NOTE | 2021-04-24 10:11 | PC.NURSE ---
REPORT CALLED TO FLOOR
--- NOTE | 2021-04-24 11:55 | HMH.PHAVTE ---
[facility] Pharmacy VTE Monitoring - Patient Demographics Admission date: 04/24/21 Report Date: 04/24/21 Time: 11:56 Allergies/Adverse Reactions: Patient Allergies vancomycin Allergy (Intermediate, Verified 04/05/21 08:58) Redness of Skin morphine Allergy (Mild, Verified 04/05/21 08:58) Itching aspirin Allergy (Unknown, Verified 04/05/21 08:58) Unknown allergy reaction azithromycin [From ZITHROMAX Z-VINCENT] Allergy (Unknown, Verified 04/05/21 08:58) Unknown allergy reaction diphenhydramine [From BENADRYL] Allergy (Unknown, Verified 04/05/21 08:58) Unknown allergy reaction ibuprofen [IBUPROFEN] Allergy (Unknown, Verified 04/05/21 08:58) Unknown allergy reaction latex [LATEX] Allergy (Unknown, Verified 04/05/21 08:58) Unknown allergy reaction levofloxacin [From LEVAQUIN] Allergy (Unknown, Verified 04/05/21 08:58) Unknown allergy reaction shellfish derived Allergy (Verified 04/05/21 08:58) Unknown allergy reaction sulfamethoxazole [From Bactrim] Allergy (Verified 04/05/21 08:58) Rash trimethoprim [From Bactrim] Allergy (Verified 04/05/21 08:58) tape Allergy (Uncoded 04/05/21 08:58) Redness of Skin Height: 1.52 m Weight: 83.121 kg Patient Problems: Current Active Problems (Last Updated 18 @ 08:18 by OMA Grover) CAP (community acquired pneumonia) (Acute) - VTE Risk Labs: VTE Related Lab Results Hgb 14.1 g/dL (12.2-16.2) 04/24/21 08:30 Hct 44.3 % (37.0-47.0) 04/24/21 08:30 Plt Count 364 K/mm3 (142-424) 04/24/21 08:30 BUN 13 mg/dl (7-17) 04/24/21 09:14 Creatinine 0.70 mg/dl (0.52-1.04) 04/24/21 09:14 Estimated Creat Clear 113 mL/min (50-200) 04/24/21 09:14 Was VTE Risk Assessment Performed: Yes VTE Score: 3 VTE Risk Level: Low Risk Clinical Trial Participant: No - Prophylaxis VTE Prophylaxis Ordered?: Yes Types of VTE Prophylaxis: TEDS Knee High
--- NOTE | 2021-04-24 16:35 | PC.NURSE ---
[address] Hightower about pt requesting pain meds and meds for cough. new orders pt home oxycodone 10/325 qid prn mod pain, robitussin dm 10ml q6h prn cough
[2021-04-24 20:41] LABS: POC Glucose,Bedside 170 (70-110)
--- NOTE | 2021-04-24 21:00 | PC.NURSE ---
pt asked RN to check fsbs, fsbs 170 but no insulin or meds ordered, pt stated take metformin in the mornings daily, don't take insulin ; pt also asked about home med tizanidine, but tizanidine not ordered either notified MD Gail swanson that pt's home tizanidine and metformin are not ordered, stated to order tizanidine 4mg PO BID and metformin 500mg PO in the am, will do so and continue to monitor
--- NOTE | 2021-04-24 21:58 | PC.NURSE ---
pt stated have spinal stimulator, but no remote asked pt if family could possibly bring to her and pt stated if stay here longer than another day I'll ask them to bring it
[2021-04-25] VITALS (9 sets, daily range): BP systolic 100–128; BP diastolic 48–69; PULSE 67–85; RESP 17–24; TEMP 36.5–36.7; O2SAT 88–92; BMI 36.9; BMI 36.8
[2021-04-25 05:43] LABS: POC Glucose,Bedside 176 (70-110)
[2021-04-25 06:51] LABS: Basophils # 0.1 K/mm3 (0-0.2); Basophils % 0.7 % (0.1-2.0); Eosinophils % 0.3 % (0.1-12.0); Hematocrit 42.1 % (37.0-47.0); Hemoglobin 13.2 g/dL (12.2-16.2); Lymphocytes % 22.2 % (10-50); Mean Corpuscular HGB Conc 31.4 g/dL (31.8-35.4); Mean Corpuscular Hemoglobin 33.2 pg (27.0-31.2); Mean Corpuscular Volume 105.7 fl (81-99); Mean Platelet Volume 8.4 fl (7.4-10.4); Monocytes # 0.4 K/mm3 (0.1-1.0); Monocytes % 4.3 % (1.7-9.3); Neutrophils # 6.4 K/mm3 (1.8-7.8); Neutrophils % 72.5 % (37.0-80.0); Platelet Count 370 K/mm3 (142-424); Red Blood Count 3.99 M/mm3 (4.20-5.40); Red Cell Distribution Width 13.3 % (11.5-17.5); White Blood Count 8.8 K/mm3 (4.8-10.8)
[2021-04-25 07:01] LABS: Anion Gap 14.3 mEq/L (5-15); Blood Urea Nitrogen 15 mg/dl (7-17); Carbon Dioxide 23 mmol/L (22.0-30.0); Chloride 109 mmol/L (98-107); Creatinine Clearance Estimated 163 mL/min (50-200); Estimated Glomerular Filt Rate 126 ml/min (>60); GFR (African American) 153 ML/MIN (>60); Glucose 161 mg/dl (74-100); Potassium 4.3 mmoL/L (3.5-5.1); Sodium 142 mmol/L (136-145)
--- NOTE | 2021-04-25 08:11 | HMH.PHAINT ---
Home med rec complete
--- NOTE | 2021-04-25 09:13 | HMH.PULMCON ---
*Admission Date: 04/24/21 *Reason for consult:: Acute hypoxic respiratory failure, community-acquired pneumonia *History of present illness: Ms. Rivera is a 60-year-old female no significant smoking history, current diagnosis of mild intermittent asthma on albuterol on as-needed basis, HIV on ART compliance with her medications presented to the hospital worsening respiratory distress found to be hypoxic and chest x-ray showed bilateral airspace disease pulmonary was called for further management. [facility] History Medical History: Reports:: Anxiety, Asthma, Cancer, Chronic Obstructive Pulmonary Disease (COPD), Depression, Diabetes Mellitus Type 2, Gastroesophageal Reflux Disease(GERD), Hyperlipidemia, Hypertension Denies:: Diabetes Mellitus Type 1, Internal Pacemaker, MRSA, Seizures *Have you ever received a pneumonia vaccine?: Yes *Have you received a flu vaccine this season?: No Other Medical History: Reports: HIV, Thyroid Disease. Denies: Blood Transfusion Reaction Laterality Cases: Bilateral: Arthroscopy Hip, Arthroscopy Shoulder, Carpal Tunnel Release Other Surgeries: Yes: Cardiac Catheterization, Cholecystectomy, Colonoscopy, , EGD, Hysterectomy-Total, Splenectomy, Thyroidectomy, Other. No: Pacemaker Amputation: No Fractures: No - *Social History Last grade of school completed: 11th or 12th Smoking Status: Never smoker Alcohol Intake: never Alcohol Intake Frequency:: other Substance Use Type: denies use *Occupational Status:: disabled Housing: house Household Members: family *Travel in the last 8 weeks: None - Psychiatric History Pschychiatric History:: Reports:: Anxiety, Depression Family Hx:: Coronary Artery Disease, Heart Attack, Hyperlipidemia, Hypertension, Kidney Disease, Stroke ROS - Cons Reports body ache(s), Reports chills, Reports fatigue, Reports fever(s) - Eyes Denies change in vision - ENT Denies nasal congestion, Denies nasal discharge - Card Reports shortness of breath, Reports shortness of breath with activity - Resp Respiratory: Reports chest congestion, Reports cough, Reports dyspnea on exertion, Reports excessive phlegm production, Denies coughing up blood, Denies pain on inspiration, Reports cough with sputum production, Reports wheezing - GI Gastrointestingal: Reports: abdominal pain, diarrhea, dyspepsia - [place] Musculoskeletal: Reports back pain - Psych Reports thoughts of hurting/killing others, Reports thoughts of hurting/killing yourself Meds Home Medications Medication Instructions Recorded Confirmed Type Fenofibrate [Tricor 54mg tablet] 54 mg PO DAILY 11/16/20 03/02/22 History diclofenac sodium 1 % topical gel 4 g TOPICAL QID #30 g 03/12/20 04/24/21 Rx Nystatin 1 applic TOPICAL BID 05/31/20 04/24/21 History methocarbamoL [Methocarbamol 500mg 500 mg PO BID 05/31/20 04/24/21 History Tablet] cimetidine 300 mg tablet 300 mg PO DAILY tab 09/10/20 04/24/21 History tizanidine 4 mg capsule 4 mg PO BID PRN cap 10/10/20 04/24/21 History dolutegravir 50 mg tablet 50 mg PO DAILY tab 03/13/21 04/24/21 History emtricitabine 200 mg-tenofovir 1 tab PO DAILY tab 03/13/21 04/24/21 History alafenamide fumarate 25 mg tablet vuwvvn-unmnuemf-invyrib 9 cap PO DAILY 03/13/21 04/25/21 History 36,000-114,000-180,000 unit capsule,delay rel pantoprazole 40 mg tablet,delayed 40 mg PO DAILY tab 03/13/21 04/24/21 History release promethazine 25 mg tablet 25 mg PO Q6HP PRN tab 03/13/21 04/24/21 History oxycodone-acetaminophen 10 mg-325 1 tab PO QID PRN #120 tab 04/05/21 04/24/21 Rx mg tablet xcfskybmslxotdf-azjndngfgrqhbzu-AD 5 ml PO Q8H PRN 7 Days #105 ml 04/22/21 04/24/21 Rx 2 mg-30 mg-10 mg/5 mL oral syrup Albuterol Sulfate [Albuterol 2 puffs IH Q6 PRN 04/24/21 04/24/21 History Sulfate Hfa] Amlodipine Besylate 5 mg PO DAILY 04/24/21 04/24/21 History Blood Sugar Diagnostic [FreeStyle See Rx Instructions .ROUTE .COMPLEX 04/24/21 04/24/21 History Lite Strips] Radha
--- NOTE | 2021-04-25 09:34 | HMH.ACPN2 ---
Internal Medicine - PN: Subj *Date: 04/25/21 *Time: 10:46 Interval history: 60-year-old female patient sitting up in bed respirations easy even, she denies any respiratory distress during the night. Current oxygenation status 88% on 4 L per nasal cannula. She reports she does not have any history of breathing difficulties and is not on home O2 Exam Vital signs and Labs for Last 24 Hours: Temp Pulse Resp BP Pulse Ox 97.7 F 85 24 128/63 88 L 04/25/21 08:00 04/25/21 08:00 04/25/21 08:00 04/25/21 08:00 04/25/21 08:00 Laboratory Results - last 24 hr 04/24/21 09:14: Sodium 134 L, Potassium 3.1 L, Chloride 101, Carbon Dioxide 23, Anion Gap 13.1, BUN 13, Creatinine 0.70, Estimated Creat Clear 113, Estimated GFR 86, Est GFR ( Amer) 104, Glucose 115 H, Calcium 7.9 L, Total Bilirubin 0.5, AST 46 H, ALT 27, Alkaline Phosphatase 93, Total Protein 7.5, Albumin 4.0, Globulin 3.5 H, Albumin/Globulin Ratio 1.1 04/24/21 20:30: POC Glucose 170 H 04/25/21 05:35: POC Glucose 176 H 04/25/21 06:17: WBC 8.8 D, RBC 3.99 L, Hgb 13.2, Hct 42.1, MCV 105.7 H, MCH 33.2 H, MCHC 31.4 L, RDW 13.3, Plt Count 370, MPV 8.4, Neut % (Auto) 72.5, Lymph % (Auto) 22.2, Schuyler % (Auto) 4.3, Eos % (Auto) 0.3, Baso % (Auto) 0.7, Neut # (Auto) 6.4, Lymph # (Auto) 2.0, Schuyler # (Auto) 0.4, Eos # (Auto) 0.0, Baso # (Auto) 0.1 04/25/21 06:17: Sodium 142, Potassium 4.3 D, Chloride 109 H, Carbon Dioxide 23, Anion Gap 14.3, BUN 15, Creatinine 0.50 L D, Estimated Creat Clear 163, Estimated GFR 126, Est GFR ( Amer) 153 D, Glucose 161 H D, Calcium 9.0, Magnesium 2.0 I & O for Last 24 hours: Intake & Output 04/22/21 04/23/21 04/24/21 04/25/21 23:59 23:59 23:59 23:59 Intake Total 960 / 1200 2405 / 2405 Output Total 0 / 0 Balance 960 / 1200 2405 / 2405 Weight 183 lb 4 oz 188 lb 3.2 oz - Constitutional no acute distress - *Routine HEENT Exam Head: Present: normocephalic Eye: Present: EOMI ENT: Present: mucous membranes moist - *Routine Neck Exam Present: trachea midline. Absent: tracheal deviation - *Routine Respiratory Exam Present: decreased breath sounds, wheezes. Absent: accessory muscle use - *Routine Cardiovascular Exam Present: RRR, murmur - *Routine Abdominal Exam Present: soft, normoactive bowel sounds. Absent: tenderness, firm - *Routine Extremities Exam Present: full ROM, pulses intact. Absent: cyanosis, clubbing - *Routine Skin Exam Present: intact, dry, warm. Absent: cyanosis, erythema - *Routine Neurological Exam Present: alert, oriented X3. Absent: motor deficit, altered mental status - Routine Psychiatric Exam Present: normal affect, normal thought process. Absent: visual hallucinations Assessment and Plan (1) SIRS (systemic inflammatory response syndrome) Status: Acute Category: Medical Code(s): R65.10 - Systemic inflammatory response syndrome (SIRS) of non-infectious origin without acute organ dysfunction (2) CAP (community acquired pneumonia) Status: Acute Qualifiers: Qualified Code(s): J18.9 - Pneumonia, unspecified organism Category: Medical Code(s): J18.9 - Pneumonia, unspecified organism (3) Lumbar radiculopathy Status: Acute Category: Medical Code(s): M54.16 - Radiculopathy, lumbar region (4) Type 2 diabetes mellitus with diabetic polyneuropathy, without long-term current use of insulin Status: Acute Category: Medical Code(s): E11.42 - Type 2 diabetes mellitus with diabetic polyneuropathy (5) Obesity (BMI 30-39.9) Status: Acute Category: Medical Code(s): E66.9 - Obesity, unspecified - Assessment and plan all Dx Assessment and Plan for all problems:: Dr. Hightower, all orders per Dr. Hightower: 1. Pulmonology consulted 2. Continue to wean O2 as tolerated
[2021-04-25 16:31] LABS: POC Glucose,Bedside 133 (70-110)
[2021-04-25 21:09] LABS: POC Glucose,Bedside 154 (70-110)
[2021-04-26] VITALS: BP 116/55; PULSE 93; RESP 18; TEMP 36.4; O2SAT 93
--- NOTE | 2021-04-26 01:17 | PC.NURSE ---
Addendum entered by Maylin Dubon RN 04/26/21 05:34: Patient is awake and denies any suicidal ideation. Patient remains in suicide precautions at this time until MD rounds. Addendum entered by Maylin Dubon RN 04/26/21 04:28: Patient has continued to rest. Addendum entered by Maylin Dubon RN 04/26/21 01:33: [place] Guide is aware at 0100 Patient's PCP is also aware. Original Note: Patient was made 1:1 at 0100. This RN found in Dr. Cline's report on 04/25/21 that the patient reports thoughts of killing/hurting others and/or herself. Patient has not voiced any concerns to this RN. Patient has been asleep since around 2330.
[2021-04-26 04:00] VITALS: BP 126/69; PULSE 84; RESP 18; TEMP 36.4; O2SAT 91
[2021-04-26 05:00] VITALS: BMI 37.3
[2021-04-26 06:14] LABS: POC Glucose,Bedside 131 (70-110)
[2021-04-26 06:15] VITALS: PULSE 89; O2SAT 92
[2021-04-26 06:55] LABS: Basophils # 0.1 K/mm3 (0-0.2); Basophils % 0.5 % (0.1-2.0); Eosinophils # 0.1 K/mm3 (0.0-0.4); Eosinophils % 0.3 % (0.1-12.0); Hematocrit 42.1 % (37.0-47.0); Hemoglobin 13.2 g/dL (12.2-16.2); Lymphocytes # 2.3 K/mm3 (0.7-4.5); Lymphocytes % 15.7 % (10-50); Mean Corpuscular HGB Conc 31.3 g/dL (31.8-35.4); Mean Corpuscular Hemoglobin 32.7 pg (27.0-31.2); Mean Corpuscular Volume 104.6 fl (81-99); Mean Platelet Volume 8.9 fl (7.4-10.4); Monocytes # 0.7 K/mm3 (0.1-1.0); Monocytes % 4.7 % (1.7-9.3); Neutrophils # 11.6 K/mm3 (1.8-7.8); Neutrophils % 78.8 % (37.0-80.0); Platelet Count 442 K/mm3 (142-424); Red Blood Count 4.03 M/mm3 (4.20-5.40); Red Cell Distribution Width 13.5 % (11.5-17.5); White Blood Count 14.7 K/mm3 (4.8-10.8)
[2021-04-26 07:00] LABS: Anion Gap 11.3 mEq/L (5-15); Blood Urea Nitrogen 20 mg/dl (7-17); Carbon Dioxide 28 mmol/L (22.0-30.0); Chloride 104 mmol/L (98-107); Creatinine Clearance Estimated 165 mL/min (50-200); Estimated Glomerular Filt Rate 126 ml/min (>60); GFR (African American) 153 ML/MIN (>60); Glucose 133 mg/dl (74-100); Potassium 4.3 mmoL/L (3.5-5.1); Sodium 139 mmol/L (136-145)
[2021-04-26 08:00] VITALS: O2SAT 85
--- NOTE | 2021-04-26 08:45 | PC.NURSE ---
Patient denies any thoughts of hurting oneself or others and states shes never had thoughts.
--- NOTE | 2021-04-26 09:06 | HMH.PULMPN ---
Internal Medicine - PN: Subj *Date: 04/26/21 *Time: 12:20 Interval history: No acute respiratory events overnight. Patient admits continued improvement in her symptoms. Exam - Constitutional Constitutional:: Present: no acute distress, comfortable - HENMT Exam HENMT: Present: normocephalic, atraumatic - Eye Exam Eyes:: Present: normal appearance both eyes and related structures - Neck Exam Neck:: Present: normal visual inspection - Respiratory Exam Respiratory:: Present: able to speak in complete sentences, no respiratory distress, wheezing. Absent: crackles - Cardiovascular Exam Cardiac:: Present: S1, S2 - GI Exam GI:: Present: soft - Skin Exam Skin: Present: warm - Neurological Exam Neurological: Present: alert, awake, normal cognition - Extremities Exam Extremities: Present: no cyanosis, no clubbing, no edema - Psychiatric Exam Psychiatric: Present: normal affect, affect normal, normal mood. Absent: no homicidal ideation, no suicidal ideation Assessment and Plan (1) SIRS (systemic inflammatory response syndrome) Status: Acute Category: Medical Code(s): R65.10 - Systemic inflammatory response syndrome (SIRS) of non-infectious origin without acute organ dysfunction (2) CAP (community acquired pneumonia) Status: Acute Qualifiers: Laterality: unspecified laterality Qualified Code(s): J18.9 - Pneumonia, unspecified organism Category: Medical Code(s): J18.9 - Pneumonia, unspecified organism (3) Lumbar radiculopathy Status: Acute Category: Medical Code(s): M54.16 - Radiculopathy, lumbar region (4) Type 2 diabetes mellitus with diabetic polyneuropathy, without long-term current use of insulin Status: Acute Category: Medical Code(s): E11.42 - Type 2 diabetes mellitus with diabetic polyneuropathy (5) Obesity (BMI 30-39.9) Status: Acute Category: Medical Code(s): E66.9 - Obesity, unspecified - Assessment and plan all Dx Assessment and Plan for all problems:: #Community-acquired pneumonia: 60-year-old female no significant smoking history. Carries a diagnosis of asthma using albuterol as needed. History of HIV currently on ART patient reported most recent CD4 count at 1400. Presented with worsening respiratory status for the last 1 week followed by cough subjective fevers and chills. No known sick contacts. Mild leukocytosis on admission, improving. Flu and COVID-19 PCR negative. Chest x-ray left lingular and right lower lobe infiltrates along with increased vascular congestion. Patient was initiated on ceftriaxone and doxycycline on admission along with IV sreroids and nebs. Even though patient has a history of HIV, her CD4 count is within normal limits, we will continue to monitor her clinical improvement with current therapy. We will hold off on bronchoscopy at this point of time. Interval Update: This patient is not having any suicidal or homicidal ideations. Worsening leukocytosis, neutrophilic, afebrile with improving respiratory status. Can be from steroids. Auscultation improved, still have mild expiratory wheeze though improved. Oxygen status improved, weaned to 2 L nasal cannula. Plan: -Sputum induction with sputum culture. Blood cultures pending. -Continue ceftriaxone and doxycycline x5 days, can be weaned to Cedinir to complete total of 5-day course. -DuoNebs every 6 hours along with budesonide every 12 scheduled, on Advair 250 daily along with DuoNebs every 6 hours as needed prior to discharge. Patient need to have nebulization machine arranged prior to her discharge. Wean methylprednisolone to prednisone 40 mg daily for a total of 5 days. Thank you for involving pulmonary in this patient care. Follow the patient in pulmonary clinic in 4 to 6 weeks with a full PFT and a 6-minute walk testing.
--- NOTE | 2021-04-26 09:31 | HMH.DCSUM ---
General - General Admission date:: 04/24/21 Discharge date: 04/26/21 HPI HPI: this patient presented to the ed this am with progressive sob and prod cough over the last few days despite otc meds - pt was found in the ed with low o2 sat and abn cxr and was admitted for eval and treatment Hospital Course Hospital Course: Abnormal Lab Results 04/25/21 16:12: POC Glucose 133 H 04/25/21 20:48: POC Glucose 154 H 04/26/21 06:00: POC Glucose 131 H 04/26/21 06:13: WBC 14.7 H D, RBC 4.03 L, MCV 104.6 H, MCH 32.7 H, MCHC 31.3 L, Plt Count 442 H, Neut # (Auto) 11.6 H 04/26/21 06:13: BUN 20 H D, Creatinine 0.50 L, Glucose 133 H Microbiology 04/24/21 08:51 Blood - Central Blood Culture - Preliminary NO GROWTH AFTER 48 HOURS 04/24/21 08:51 Blood - Central Blood Culture - Preliminary NO GROWTH AFTER 48 HOURS Ordering Physician: Allan Hightower MD Date of Service: 04/24/21 Procedure(s): XR chest 2V Accession Number(s): [id number] cc: Allan Hightower MD; Paul Padilla MD~ FINAL REPORT CLINICAL HISTORY: cough, FEVER COMPARISON: March 12, 2020 FINDINGS: PA and lateral views of the chest were obtained. The heart is normal in size. The mediastinum is unremarkable. There are bilateral pulmonary opacities consistent with pneumonia. No pneumothorax is identified. A spinal stimulator device is present. There is moderate degenerative change of the thoracic spine. IMPRESSION: Bilateral pneumonia. pulm consult: Assessment and plan all Dx Assessment and Plan for all problems:: #Community-acquired pneumonia: 60-year-old female no significant smoking history. Carries a diagnosis of asthma using albuterol as needed. History of HIV currently on ART patient reported most recent CD4 count at 1400. Presented with worsening respiratory status for the last 1 week followed by cough subjective fevers and chills. No known sick contacts. Mild leukocytosis on admission, improving. Flu and COVID-19 PCR negative. Chest x-ray left lingular and right lower lobe infiltrates along with increased vascular congestion. Patient was initiated on ceftriaxone and doxycycline on admission along with IV sreroids and nebs. Even though patient has a history of HIV, her CD4 count is within normal limits, we will continue to monitor her clinical improvement with current therapy. We will hold off on bronchoscopy at this point of time. Interval Update: This patient is not having any suicidal or homicidal ideations. Worsening leukocytosis, neutrophilic. Plan: -Sputum induction with sputum culture. Blood cultures pending. -Continue ceftriaxone and doxycycline x5 days -DuoNebs every 6 hours along with budesonide every 12 scheduled -Continue IV methylprednisolone 40 every 8 hours -Discontinue maintenance fluids pulm consult:Assessment and plan all Dx Assessment and Plan for all problems:: #Community-acquired pneumonia: 60-year-old female no significant smoking history. Carries a diagnosis of asthma using albuterol as needed. History of HIV currently on ART patient reported most recent CD4 count at 1400. Presented with worsening respiratory status for the last 1 week followed by cough subjective fevers and chills. No known sick contacts. Mild leukocytosis on admission, improving. Flu and COVID-19 PCR negative. Chest x-ray left lingular and right lower lobe infiltrates along with increased vascular congestion. Patient was initiated on ceftriaxone and doxycycline on admission along with IV sreroids and nebs. Even though patient has a history of HIV, her CD4 count is within normal limits, we will continue to monitor her clinical improvement with current therapy. We will hold off on bronchoscopy at this point of time. Plan: -Sputum induction with sputum culture. Blood cultures pending. -Continue ceftriaxone and doxycycline x5 days -DuoNebs every 6 hours along with budesonide every 12
--- NOTE | 2021-04-26 10:05 | PC.NURSE ---
RESP CARE NOTE: Oxygen decreased to [address] Cline, will continue to monitor.
[2021-04-26 11:40] LABS: POC Glucose,Bedside 144 (70-110)
--- NOTE | 2021-04-26 12:08 | PC.NURSE ---
Pt aware of discharge and stated her boyfriend would pick her up but, he wouldn't be here until after 1600 as he works nightshift 1700 to 0500.
[2021-04-26 13:06] VITALS: PULSE 81; PULSE 82; O2SAT 92
--- NOTE | 2021-04-29 14:39 | CARE MANAGER ---
Spoke with patient regarding post-discharge needs and follow-up. Patient states she is fine, has her meds and has no discharge needs.
== END 2021-04-26 14:19 | disposition home or self-care (01) | DRG 975 ==
LOC: ER 06:58 → 2ND 08:31
PROVIDERS: Nurse Practitioner Family; Admitting Provider Emergency Medicine; Emergency Provider Emergency Medicine; PCP Emergency Medicine; Visit Provider Emergency Medicine
DX: J18.9 Pneumonia, unspecified organism (principal); B20 Human immunodeficiency virus [HIV] disease; J44.0 Chronic obstructive pulmonary disease with (acute) lower respiratory infection; F41.9 Anxiety disorder, unspecified; F32.A Depression, unspecified; K21.9 Gastro-esophageal reflux disease without esophagitis; E78.5 Hyperlipidemia, unspecified; Z20.822 Contact with and (suspected) exposure to COVID-19; I10 Essential (primary) hypertension; Z79.84 Long term (current) use of oral hypoglycemic drugs; E11.42 Type 2 diabetes mellitus with diabetic polyneuropathy; E66.9 Obesity, unspecified; Z85.9 Personal history of malignant neoplasm, unspecified; M54.16 Radiculopathy, lumbar region; Z68.37 Body mass index [BMI] 37.0-37.9, adult
CPT/HCPCS: 36415; 71046; 80048; 80053; 82962; 83605; 83735; 85025; 87040; 94640; 94760; 94761; 96365; 96367; 96375; 96376; 99285; C9803; J0696; J2405; U0003; U0005

== ENCOUNTER → 2021-05-28 15:36 | Outpatient (CLI) | payer MEDICARE, OTHER, SELFPAY ==
--- NOTE | 2021-05-28 15:43 | XR_ITS ---
FINAL REPORT CLINICAL HISTORY: SOB FINDINGS: Two views of the chest were obtained. The heart size and pulmonary vascularity are within normal limits. The mediastinum is normal. No acute pulmonary abnormality is identified. There is no pneumothorax. The bony thorax is intact. A spinal stimulator is noted. IMPRESSION: No active cardiopulmonary disease. Reviewed, Interpreted and Dictated by Paul Padilla III, MD Transcribed by Gunjan Wyman Authenticated by Paul Padilla III, MD on 05/28/2021 04:23:34 PM [facility]
== END ==
PROVIDERS: PCP Emergency Medicine; Visit Provider Internal Medicine Pulmonary Disease
DX: R06.02 Shortness of breath (principal)
CPT/HCPCS: 71046

== ENCOUNTER → 2021-06-12 08:38 | Outpatient (CLI) | payer MEDICARE, OTHER, SELFPAY | PROVIDERS: PCP Emergency Medicine; Visit Provider Internal Medicine Pulmonary Disease | DX: R06.00 Dyspnea, unspecified (principal) | CPT/HCPCS: 94762 ==

== ENCOUNTER → 2021-07-03 16:00 | Outpatient (CLI) | payer MEDICARE, OTHER, SELFPAY ==
[2021-07-03 13:36] LABS: Benzodiazepines Screen,Urine Negative ng/ml (<200)
[2021-07-03 13:37] LABS: Amphetamine/Metha Screen,Urine Negative ng/ml (<1000); Barbiturates Screen,Urine Negative ng/ml (<200)
[2021-07-03 13:38] LABS: Cannabinoid Screen,Urine Negative ng/ml (<50); Cocaine Screen,Urine Negative ng/ml (<300)
[2021-07-03 13:39] LABS: Methadone Screen,Urine Negative ng/ml (<300)
[2021-07-03 13:40] LABS: Opiate Screen,Urine Negative ng/ml (<300); Phencyclidine Screen,Urine Negative ng/ml (<25)
== END ==
PROVIDERS: Visit Provider Emergency Medicine
DX: M54.16 Radiculopathy, lumbar region (principal)
CPT/HCPCS: 80305

== ENCOUNTER → 2021-07-11 09:58 | Outpatient (CLI) | payer MEDICARE, OTHER, SELFPAY ==
[2021-07-11 10:35] VITALS: PULSE 67
[2021-07-11 14:10] LABS: Basophils # 0.1 K/mm3 (0-0.2); Basophils % 1.1 % (0.1-2.0); Eosinophils # 0.1 K/mm3 (0.0-0.4); Eosinophils % 1.4 % (0.1-12.0); Hematocrit 45.3 % (37.0-47.0); Hemoglobin 15.1 g/dL (12.2-16.2); Lymphocytes % 34.1 % (10-50); Mean Corpuscular HGB Conc 33.4 g/dL (31.8-35.4); Mean Corpuscular Hemoglobin 33.6 pg (27.0-31.2); Mean Corpuscular Volume 100.5 fl (81-99); Mean Platelet Volume 9.4 fl (7.4-10.4); Monocytes # 0.7 K/mm3 (0.1-1.0); Monocytes % 7.5 % (1.7-9.3); Neutrophils % 55.9 % (37.0-80.0); Platelet Count 463 K/mm3 (142-424); Red Cell Distribution Width 13.7 % (11.5-17.5); White Blood Count 8.9 K/mm3 (4.8-10.8)
[2021-07-19 22:26] LABS: D001-IgE D pteronyssinus <0.10 kU/L (Class 0); D002-IgE D farinae <0.10 kU/L (Class 0); E001-IgE Cat Dander <0.10 kU/L (Class 0); E005-IgE Dog Dander <0.10 kU/L (Class 0); E072-IgE Mouse Urine <0.10 kU/L (Class 0); G002-IgE Bermuda Grass <0.10 kU/L (Class 0); G006-IgE Timothy Grass <0.10 kU/L (Class 0); I006-IgE Cockroach, German <0.10 kU/L (Class 0); Immunoglobulin E, Total 43 IU/mL (6-495); M001-IgE Penicillium chrysogen <0.10 kU/L (Class 0); M002-IgE Cladosporium herbarum <0.10 kU/L (Class 0); M003-IgE Aspergillus fumigatus <0.10 kU/L (Class 0); M006-IgE Alternaria alternata <0.10 kU/L (Class 0); T001-IgE Maple/Box Elder <0.10 kU/L (Class 0); T003-IgE Common Silver Birch <0.10 kU/L (Class 0); T006-IgE Cedar, Mountain <0.10 kU/L (Class 0); T007-IgE Oak, White <0.10 kU/L (Class 0); T008-IgE Elm, American <0.10 kU/L (Class 0); T010-IgE Walnut <0.10 kU/L (Class 0); T011-IgE Maple Leaf Sycamore <0.10 kU/L (Class 0); T014-IgE Cottonwood <0.10 kU/L (Class 0); T015-IgE Ash, White <0.10 kU/L (Class 0); T022-IgE Pecan, Hickory <0.10 kU/L (Class 0); T070-IgE White Mulberry <0.10 kU/L (Class 0); W001-IgE Ragweed, Short <0.10 kU/L (Class 0); W011-IgE Thistle, Russian <0.10 kU/L (Class 0); W014-IgE Pigweed, Common <0.10 kU/L (Class 0); W018-IgE Sheep Sorrel <0.10 kU/L (Class 0)
== END ==
PROVIDERS: PCP Emergency Medicine; Visit Provider Internal Medicine Pulmonary Disease
DX: R06.00 Dyspnea, unspecified (principal); J45.909 Unspecified asthma, uncomplicated
CPT/HCPCS: 36415; 82785; 85025; 86003; 94060; 94618; 94640; 94727; 94729

== ENCOUNTER → 2021-08-27 08:01 | Outpatient (CLI) | payer MEDICARE, OTHER, SELFPAY ==
--- NOTE | 2021-08-27 08:09 | XR_ITS ---
FINAL REPORT CLINICAL HISTORY: pain, OA COMPARISON: November 06, 2020 FINDINGS: LEFT ANKLE: Three weight-bearing views of the left ankle were obtained. There is no acute fracture or dislocation. There is mild degenerative change there are small calcaneal spurs. There is no soft tissue abnormality. IMPRESSION: Mild degenerative change. Reviewed, Interpreted and Dictated by Paul Padilla III, MD Transcribed by Chantel Chen Authenticated and [facility]
--- NOTE | 2021-08-27 08:09 | XR_ITS ---
FINAL REPORT CLINICAL HISTORY: PAIN, OA FINDINGS: LEFT FOOT Three weight-bearing views of the left foot demonstrate no acute fracture or dislocation. There is mild degenerative change. The visualized joint spaces are normally aligned. There are small calcaneal spurs. The soft tissues are unremarkable. IMPRESSION: Mild degenerative change. Reviewed, Interpreted and Dictated by Paul Paidlla III, MD Transcribed by Chantel Chen Authenticated and [facility]
== END ==
PROVIDERS: PCP Emergency Medicine; Visit Provider Podiatrist
DX: M25.572 Pain in left ankle and joints of left foot; M79.672 Pain in left foot
CPT/HCPCS: 73610; 73630

== ENCOUNTER → 2021-08-30 13:52 | Outpatient (CLI) | payer MEDICARE, OTHER, SELFPAY ==
[2021-08-30 14:03] LABS: Amphetamine/Metha Screen,Urine Negative ng/ml (<1000)
[2021-08-30 14:04] LABS: Barbiturates Screen,Urine Negative ng/ml (<200)
[2021-08-30 14:05] LABS: Benzodiazepines Screen,Urine Negative ng/ml (<200); Cannabinoid Screen,Urine Negative ng/ml (<50)
[2021-08-30 14:06] LABS: Cocaine Screen,Urine Negative ng/ml (<300)
[2021-08-30 14:07] LABS: Methadone Screen,Urine Negative ng/ml (<300); Opiate Screen,Urine Negative ng/ml (<300)
[2021-08-30 14:08] LABS: Phencyclidine Screen,Urine Negative ng/ml (<25)
== END ==
PROVIDERS: PCP Emergency Medicine; Visit Provider Emergency Medicine
DX: G89.29 Other chronic pain (principal)
CPT/HCPCS: 80305

== ENCOUNTER → 2021-09-02 07:35 | Outpatient (CLI) | payer MEDICARE, OTHER, SELFPAY ==
--- NOTE | 2021-09-02 07:35 | CT_ITS ---
FINAL REPORT TECHNIQUE: Axial imaging of the left foot was obtained without contrast. Reformatted images were also obtained and reviewed. This study was performed with techniques to keep radiation doses as low as reasonably achievable (ALARA). Individualized dose reduction techniques using automated exposure control or adjustment of mA and/or kV according to the patient's size were employed. CLINICAL HISTORY: left foot pain, stress fx evaluation FINDINGS: There is no acute fracture or dislocation. A small Giovanni deformity is noted. There is a tiny plantar spur. Soft tissues are unremarkable. IMPRESSION: No acute bony abnormality. MRI would be more sensitive for evaluation of marrow edema. Reviewed, Interpreted and Dictated by Jefe Park MD Transcribed by Fidelina Chery Authenticated and [facility]
== END ==
PROVIDERS: PCP Emergency Medicine; Visit Provider Podiatrist
DX: M84.375A Stress fracture, left foot, initial encounter for fracture (principal)
CPT/HCPCS: 73700

== ENCOUNTER → 2021-09-25 07:52 | Outpatient (CLI) | payer MEDICARE, OTHER, SELFPAY ==
--- NOTE | 2021-09-25 07:53 | MM_ITS ---
PROCEDURE INFORMATION: Exam: MG Bilateral Screening 3D Mammography Exam date and time: 09/25/2021 7:58 AM Age: 60 years old Clinical indication: Screening examination TECHNIQUE: Imaging protocol: Bilateral Screening tomosynthesis and 2D mammography including computer-aided detection (CAD) when performed. COMPARISON: 1. MG MM DIG SCREENING MAMM BI W/CAD 12/01/2019 9:24 AM 2. MG MM DIG SCREENING MAMM BI W/CAD 10/05/2018 9:53 AM FINDINGS: MAMMOGRAPHY: Breast composition: The breasts are heterogeneously dense, which may obscure small masses. Mass: None. Architectural distortion: None. Calcifications: No suspicious calcifications. Asymmetric density: None. Skin thickening: None. Axillary adenopathy: None. IMPRESSION: No mammographic evidence of malignancy. Annual screening is recommended unless otherwise clinically indicated. ASSESSMENT: BI-RADS Category 1: Negative
== END ==
PROVIDERS: PCP Emergency Medicine; Visit Provider Emergency Medicine
DX: Z12.31 Encounter for screening mammogram for malignant neoplasm of breast (principal)
CPT/HCPCS: 77063; 77067

== ENCOUNTER → 2021-10-07 08:00 | Outpatient (CLI) | payer MEDICARE, OTHER, SELFPAY ==
--- NOTE | 2021-10-07 08:06 | XR_ITS ---
FINAL REPORT CLINICAL HISTORY: fracture follow up-- xrays weight bearing COMPARISON: August 27, 2021 FINDINGS: LEFT FOOT Three views of the left foot demonstrate in irregularity of the proximal aspect of the 4th and 5th proximal phalanges which are new since the prior exam. The visualized joint spaces are normally aligned. There is mild degenerative change. The soft tissues are unremarkable. IMPRESSION: Irregularity of the proximal 4th and 5th phalanges, new from the prior, a nondisplaced fracture not excluded. Reviewed, Interpreted and Dictated by Paul Padilla III, MD Transcribed by Chantel Chen Authenticated and [facility]
== END ==
PROVIDERS: PCP Emergency Medicine; Visit Provider Podiatrist
DX: M84.375A Stress fracture, left foot, initial encounter for fracture (principal)
CPT/HCPCS: 73630

== ENCOUNTER → 2021-10-29 08:19 | Outpatient (CLI) | payer MEDICARE, OTHER, SELFPAY ==
[2021-10-29 19:02] LABS: Basophils # 0.1 K/mm3 (0-0.2); Eosinophils # 0.2 K/mm3 (0.0-0.4); Hematocrit 45.2 % (37.0-47.0); Hemoglobin 13.7 g/dL (12.2-16.2); Lymphocytes # 3.1 K/mm3 (0.7-4.5); Lymphocytes % 37.8 % (10-50); Mean Corpuscular HGB Conc 30.4 g/dL (31.8-35.4); Mean Corpuscular Hemoglobin 32.5 pg (27.0-31.2); Mean Platelet Volume 9.8 fl (7.4-10.4); Monocytes # 0.8 K/mm3 (0.1-1.0); Monocytes % 9.9 % (1.7-9.3); Neutrophils % 49.2 % (37.0-80.0); Platelet Count 491 K/mm3 (142-424); Red Blood Count 4.22 M/mm3 (4.20-5.40); Red Cell Distribution Width 13.6 % (11.5-17.5); White Blood Count 8.2 K/mm3 (4.8-10.8)
[2021-10-29 19:34] LABS: Hemoglobin A1C 5.6 % (4.0-6.0)
[2021-10-29 20:59] LABS: Amphetamine/Metha Screen,Urine Negative ng/ml (<1000)
[2021-10-29 21:00] LABS: Barbiturates Screen,Urine Negative ng/ml (<200); Benzodiazepines Screen,Urine Negative ng/ml (<200)
[2021-10-29 21:01] LABS: Alanine Aminotransferase 29 U/L (12-78); Albumin Level 4.1 g/dl (3.5-5.0); Albumin/Globulin Ratio 1.4 (1.1-1.8); Alkaline Phosphatase 90 U/L (38-126); Anion Gap 12.9 mEq/L (5-15); Aspartate Amino Transferase 42 U/L (14-36); Bilirubin,Total 0.2 mg/dl (0.2-1.3); Blood Urea Nitrogen 12 mg/dl (7-17); Calcium 9.3 mg/dl (8.4-10.2); Cannabinoid Screen,Urine Negative ng/ml (<50); Carbon Dioxide 27 mmol/L (22.0-30.0); Chloride 105 mmol/L (98-107); Chol/HDL Ratio 6.3 (1-3.5); Cholesterol 184 mg/dl (140-200); Cocaine Screen,Urine Negative ng/ml (<300); Estimated Glomerular Filt Rate 102 ml/min (>60); GFR (African American) 123 ML/MIN (>60); Globulin 2.9 g/dL (1.3-3.2); Glucose 112 mg/dl (74-100); HDL Cholesterol 29 mg/dl (40-60); Potassium 3.9 mmoL/L (3.5-5.1); Sodium 141 mmol/L (136-145); Triglycerides 271 mg/dl (30-150); VLDL Cholesterol 54 mg/dL (0-40)
[2021-10-29 21:02] LABS: Methadone Screen,Urine Negative ng/ml (<300)
[2021-10-29 21:03] LABS: Opiate Screen,Urine Negative ng/ml (<300); Phencyclidine Screen,Urine Negative ng/ml (<25)
[2021-10-29 21:17] LABS: 25-OH Vitamin D, Total 39.8 ng/mL (30-100)
[2021-10-29 21:18] LABS: Free T4 (Free Thyroxine) 1.38 ng/dl (0.78-2.19)
[2021-10-29 21:32] LABS: Thyroid Stimulating Hormone 1.75 uIU/mL (0.465-4.68)
[2021-10-31 08:24] LABS: Direct LDL Cholesterol 95 mg/dL (100-129)
== END ==
PROVIDERS: PCP Emergency Medicine; Visit Provider Emergency Medicine
DX: E11.42 Type 2 diabetes mellitus with diabetic polyneuropathy (principal); E55.9 Vitamin D deficiency, unspecified; M54.16 Radiculopathy, lumbar region; Z79.84 Long term (current) use of oral hypoglycemic drugs; Z79.899 Other long term (current) drug therapy
CPT/HCPCS: 80053; 80061; 80305; 82306; 83036; 84439; 84443; 85025

== ENCOUNTER → 2021-10-31 11:40 | Outpatient (CLI) | payer MEDICARE, OTHER, SELFPAY ==
--- NOTE | 2021-10-31 | CA_ITS ---
APPROVED REPORT Exam: Pharmacologic Technologist: Janet Serrano, Ht: 5 ft 0 in Wt: 195 lbs BSA: 1.85 m2 HR: 60 bpm BP: 169/86 mmHg Indications: SOB Medical History Medications: Amlodipine,,,,, Lorazepam,,,,, Pravastatin,,,,, Metformin,,,,, Pantoprazole,,,,, HCTZ,,,,, PERCOCET,,,,, SyMBICORT,,,,, Albuterol,,,,, Montelukast,,,,, FeNOfibrate,,,,, Meclizine,,,,, Stress Test Details Test: LEXISCAN Reason for pharmacologic stress test: physical limitation. HR Resting HR: 35 bpm Max Heart Rate (APMHR): 160 bpm Max HR Achieved: 66 bpm Target HR (85% APMHR): 136 bpm % of APMHR: 41 Recovery HR: 70 bpm BP Resting BP: 169/86 mmHg Max BP: 169/86 mmHg Recovery BP: 154.0/82.0 mmHg ECG Resting ECG: NSR, low voltage QRS Clinical Exercise duration: 04:00 min Highest Stage Achieved: Exercise capacity: 1.0 METs Stress ECG Conclusion Symptoms: mild soa, lead & stomach discomfort. No CP. Arrhythmias/Ectopy: None. ST-T Changes: No significant changes. Conclusion: Unremarkable Lexiscan stress. Myoview images reported separately. Test Summary REST . . . . . . . Resting REST 04:04 . . 35 . 169/ 86 . . Stage 1 01:00 . . 56 . . . . Stage 2 01:00 . . 23 . . . . Stage 3 01:00 . . . . 151/ 78 . . Stage 4 01:00 . . . . 148/ 83 . Stop exercise at 04:00 RECOVERY 01:00 . . 31 . 159/ 78 . . RECOVERY 02:00 . . . . 159/ 78 . . RECOVERY 03:00 . . . . 154/ 82 . . RECOVERY 03:17 . . . . 154/ 82 . . Electronically signed by : Tre Estrella MD 11/01/2021 09:49:11
--- NOTE | 2021-10-31 11:40 | NM_ITS ---
APPROVED REPORT Exam: Nuclear Stress Test Indication: DM., HYPERLIPIDEMIA, OBESITY, FM HX., SOB, ABN EKG Patient Location: Outpatient Stress Tech: Janet Ramires [place] Tech:ISABEL Martin RT(R)(N) Ht: 5 ft 0 in Wt: 195 lbs Bra Size: 42H HR: 35 bpm BP: 169/86 mmHg BSA: 1.85 m2 TID: 1.24 History: DM., HYPERLIPIDEMIA, OBESITY, FM HX., SOB, ABN EKG Procedure: Patient received a 0.4 mg of intravenous Lexiscan, resting heart rate 35 bpm, resting blood pressure 169/86 mmHg, with Lexiscan maximum heart rate achived was 56 bpm which is Less than 85 % of the maximum predicted heart rate and blood pressure was 151/78 mmHg. With Lexiscan, patient denied any complaint of chest pain. Electrocardiogram Resting electrocardiogram shows sinus rhythm, with Lexiscan less than 1.[address] segment depression noted from the baseline EKG. The EKG portion of the Lexiscan is nondiagnostic. Cardiac Stress and Resting SPECT Images: Cardiac Stress and Resting SPECT images were obtained using technetium 99m Myoview 31.3 mCi stress and 9.80 mCi at rest. Gated SPECT analysis of segmental wall motion and calculation of the ejection fraction also done. Cardiac stress and rest SPECT images show uniform myocardial activity without segmental perfusion abnormality, computer derived ejection fraction is over 65% with no regional wall motion abnormality, right ventricle is normal size and contractility. Conclusion: 1. The EKG portion of the Lexiscan is nondiagnostic. 2. No scintigraphic evidence of reversible ischemia seen, computer derived ejection fraction is over 65% with no regional wall motion abnormality, right ventricle is normal size and contractility. 3. Normal Lexiscan Myoview study. Electronically signed by : Tre Estrella MD 11/01/2021 09:56:59
--- NOTE | 2021-10-31 12:31 | CA_ITS ---
APPROVED REPORT EXAM: Comprehensive 2D, Doppler, and color-flow Echocardiogram Weaver Dobby Loom: April Chen RVT Ht: 5 ft 0 in Wt: 195lbs BSA: 1.85 BP: 132/64 mmHg Indications: SOA,HTN,HLD,HIV,ABN EKG,PRIOR HX CRACK COCAINE USE 2D Dimensions LVOT 2.03 cm (M/F) 1.5-2.5 LA Volume 41.80 mL LA Volume Index 22.71 mL/m2 (M/F) 16-34 M-Mode Dimensions RVDd 3.18 cm (0.9-2.6) LA Diam 4.29 cm (1.9-4.0) LVDd 4.22 cm (3.5-5.7) Ao Diam 2.90 cm (2.0-3.7) LVDs 2.53 cm (3.5-5.7) IVSd 1.29 cm (0.6-1.1) PWd 1.17 cm (0.6-1.1) EF (Teich) 71.10% FS 40.00% EDV (Teich) 79.50 mL TAPSE 1.96 (<1.7) ESV (Teich) 23.00 mL LV Diastology E Decel Time 223.00 (160-240 msec) E/A Ratio 1.3 MED E' 6.50 (< 7 cm/sec) E'/MED E' Ratio 15.14 (>14) LAT E' 9.70 (<10 cm/sec) E/LAT E' Ratio 10.14 (>14) Aortic Valve AO Peak GR. 8.00 mmHg Mitral Valve MV E Max Jose. 98.00 (40-130 cm/s) MV A Velocity 73.00 (40-130 cm/s) E/A Ratio 1.36 MV Decel. Time 223.00 (160-240 ms) MV PHT 65.00 ms Pulmonary Valve PV Peak Velocity 85.00 (50-150 cm/s) Tricuspid Valve TR P. Velocity 262.00 cm/s RAP Estimate 10.00 mmHg RVSP 37.40 mmHg Left Ventricle Left atrium is mildly enlarged, left ventricle is normal size mild concentric left ventricular hypertrophy, estimated ejection fraction 55% with no regional wall motion abnormality, diastolic parameters are inconclusive. Right Ventricle Right atrium and right ventricle mildly enlarged with normal contractility. Aortic Valve Aortic valve is minimally thickened and fibrosed there is no aortic stenosis or aortic insufficiency. Mitral Valve Mitral valve is grossly normal, there is trace mitral regurgitation. Tricuspid Valve Tricuspid valve grossly normal, there is trace tricuspid regurgitation, tricuspid regurgitation jet velocity is inadequate for calculation of the right ventricular systolic pressure. Pulmonic Valve Pulmonic valve is poorly visualized. Great Vessels Aortic root is normal size. Inferior vena cava is mildly dilated without significant inspiratory collapse. Pericardium No significant pericardial effusion noted. Conclusion 1. Mild biatrial enlargement, normal left ventricular size, mild concentric left ventricular hypertrophy, estimated ejection fraction 55% with no regional wall motion abnormality, diastolic parameters are inconclusive. 2. Mildly enlarged right ventricle with normal contractility. 3. Trace mitral and tricuspid regurgitation. 4. No significant pericardial effusion noted. 5. Inferior vena cava is mildly dilated without significant inspiratory collapse. Electronically signed by : Tre Estrella MD 11/01/2021 10:57:14
== END ==
PROVIDERS: PCP Emergency Medicine; Visit Provider Nurse Practitioner Family
DX: R06.02 Shortness of breath (principal); I45.2 Bifascicular block
CPT/HCPCS: 78452; 93017; 93306; A9502; J2785

== ENCOUNTER → 2021-11-21 09:30 | Outpatient (POV) | payer MEDICARE, OTHER, SELFPAY ==
--- NOTE | 2021-11-21 10:20 | EXP.PAIN.SOA ---
[facility] Pain Management SOAP Note Subjective:: Patient is a pleasant 61-year-old female who presents today for follow-up and medication refill. We are currently treating the patient for degenerative disc disease lumbar spine with lumbar radiculopathy symptoms, chronic low back pain. Patient rates her pain today an 8 out of 10 and states pain is primarily in her low back that radiates into her lower extremities. Patient is currently managed with a [employer] spinal cord stimulator. Patient states that this device has been a life saver and has provided significant improvement of her pain symptoms. Patient denies the need for any reprogramming at this time. She states she has been able to increase her activity and ADLs with this device. Patient is prescribed tizanidine 4 mg. Patient denies any side effects from this medication. She states this medication significantly improves her symptoms. She is requesting a refill at today's date. She is also prescribed Percocet 10 mg 4 times a day and lorazepam 0.5 mg once a day by Dr. Hightower's office. She is also prescribed phenobarbital 64.[address] Matthew Etienne's office. Patient denies any side effects from this medications. She states this medications does adequately help manage her pain symptoms. Her [place] is [phone]. It has been reviewed and appropriate. Review of Systems: General: No recent weight changes, no fever, no sleep disturbances Respiratory: No cough, no shortness of air, no recurring pulmonary infections Cardiovascular/peripheral vascular: No chest pain, no palpitations, no edema, no shortness of breath Gastrointestinal: No new onset incontinence, normal bowel movements reported Genitourinary: No new onset incontinence Musculoskeletal: Low back pain, leg pain Psychiatric: [Normal mood/affect] Neurological: [Denies weakness in extremities], [denies balance issues] Objective:: Physical Exam: General: Alert and oriented x3, no acute distress, pleasant and cooperative Lungs: Respirations even and unlabored, symmetrical chest expansion Eyes: PERRL Musculoskeletal: Flexion and extension of lumbar [spine] somewhat guarded secondary to pain, [antalgic gait noted] Neurological: Speech clear, no gross sensory deficit Assessment:: Degenerative disc disease of lumbar spine with lumbar radiculopathy symptoms, chronic low back pain Plan:: Patient continues to have significant pain in her low back that radiates into her lower extremities however the patient states she is doing well with her current medication regimen. I will refill the patient's tizanidine and provide a 6-month prescription of this medication. We will follow-up with the patient in 6 months. Patient will return to clinic in 6 months for reevaluation of symptoms and medication refill. Patient has been advised of risks of oversedation with the prescribed medication. Narcan has been offered to the patient in the event of oversedation. Patient has been advised that a family member should also be educated regarding administration of Narcan. Patient has been instructed to contact the clinic with any concerns before the next appointment. Dr. Ventura has reviewed this note and agrees with this plan of care. This note was dictated using voice recognition software and make contain errors or omissions. [facility] Medical History Cervicalgia Closed head injury Crack cocaine use Degenerative arthritis Diabetes HIV (human immunodeficiency virus infection) Hyperlipidemia Hypertension Lumbar disc disease with radiculopathy Lumbar radiculopathy, chronic Vitamin D deficiency (~08/11/17) Social History Smoking Status: Never smoker alcohol intake: never substance use type: denies use current occupational status: disabled Travel in the last 8 weeks: None household members: family housing: house caffeine: Yes
[2021-11-21 10:56] VITALS: BP 135/78; PULSE 64; RESP 18; TEMP 36.4; O2SAT 95; BMI 36.9
== END | disposition home or self-care (01) ==
PROVIDERS: PCP Emergency Medicine; Visit Provider Nurse Practitioner Family
DX: M51.16 Intervertebral disc disorders with radiculopathy, lumbar region (principal); Z79.899 Other long term (current) drug therapy
CPT/HCPCS: 99212; G0463

== ENCOUNTER → 2022-01-24 16:33 | Outpatient (CLI) | payer MEDICARE, OTHER, SELFPAY ==
[2022-01-24 18:46] LABS: Barbiturates Screen,Urine Negative ng/ml (<200)
[2022-01-24 18:47] LABS: Amphetamine/Metha Screen,Urine Negative ng/ml (<1000); Benzodiazepines Screen,Urine Negative ng/ml (<200)
[2022-01-24 18:48] LABS: Cannabinoid Screen,Urine Negative ng/ml (<50); Cocaine Screen,Urine Negative ng/ml (<300)
[2022-01-24 18:49] LABS: Methadone Screen,Urine Negative ng/ml (<300)
[2022-01-24 18:50] LABS: Opiate Screen,Urine Negative ng/ml (<300); Phencyclidine Screen,Urine Negative ng/ml (<25)
== END ==
PROVIDERS: PCP Emergency Medicine; Visit Provider Emergency Medicine
DX: M51.16 Intervertebral disc disorders with radiculopathy, lumbar region (principal)
CPT/HCPCS: 80305

== ENCOUNTER → 2022-03-24 08:45 | Outpatient (CLI) | payer MEDICARE, OTHER, SELFPAY ==
[2022-03-24 15:05] LABS: Amphetamine/Metha Screen,Urine Negative ng/ml (<1000); Barbiturates Screen,Urine Negative ng/ml (<200)
[2022-03-24 15:06] LABS: Benzodiazepines Screen,Urine Negative ng/ml (<200)
[2022-03-24 15:07] LABS: Cannabinoid Screen,Urine Negative ng/ml (<50); Cocaine Screen,Urine Negative ng/ml (<300)
[2022-03-24 15:08] LABS: Methadone Screen,Urine Negative ng/ml (<300)
[2022-03-24 15:09] LABS: Opiate Screen,Urine Negative ng/ml (<300); Phencyclidine Screen,Urine Negative ng/ml (<25)
== END ==
PROVIDERS: PCP Emergency Medicine; Visit Provider Emergency Medicine
DX: M51.16 Intervertebral disc disorders with radiculopathy, lumbar region (principal)
CPT/HCPCS: 80305

== ENCOUNTER → 2022-04-15 08:52 | Outpatient (CLI) | payer MEDICARE, OTHER, SELFPAY ==
--- NOTE | 2022-04-15 08:57 | XR_ITS ---
FINAL REPORT CLINICAL HISTORY: foot pain, fx 5 yrs ago but not found until October 2021 FINDINGS: 3 views of the left foot were obtained. There is no acute fracture or dislocation. There is a probable chronic fracture of the 3rd proximal phalanx. There is a small calcaneal enthesophyte. There are mild degenerative changes. IMPRESSION: Mild degenerative change. Reviewed, Interpreted and Dictated by Paul Padilla III, MD Transcribed by Noble Knight Authenticated and [facility]
== END ==
PROVIDERS: PCP Emergency Medicine; Visit Provider Podiatrist
DX: M84.375A Stress fracture, left foot, initial encounter for fracture; M79.672 Pain in left foot
CPT/HCPCS: 73630

== ENCOUNTER → 2022-04-28 19:51 | Outpatient (CLI) | payer MEDICARE, OTHER, SELFPAY | PROVIDERS: PCP Emergency Medicine; Visit Provider Internal Medicine Pulmonary Disease | DX: G47.36 Sleep related hypoventilation in conditions classified elsewhere (principal); G47.33 Obstructive sleep apnea (adult) (pediatric); J44.9 Chronic obstructive pulmonary disease, unspecified | CPT/HCPCS: 95810 ==

== ENCOUNTER → 2022-05-26 08:21 | Outpatient (CLI) | payer MEDICARE, OTHER, SELFPAY ==
[2022-05-26 14:46] LABS: Amphetamine/Metha Screen,Urine Negative ng/ml (<1000); Benzodiazepines Screen,Urine Negative ng/ml (<200)
[2022-05-26 14:47] LABS: Barbiturates Screen,Urine Negative ng/ml (<200)
[2022-05-26 14:48] LABS: Cannabinoid Screen,Urine Negative ng/ml (<50); Cocaine Screen,Urine Negative ng/ml (<300)
[2022-05-26 14:49] LABS: Methadone Screen,Urine Negative ng/ml (<300)
[2022-05-26 14:50] LABS: Opiate Screen,Urine Negative ng/ml (<300); Phencyclidine Screen,Urine Negative ng/ml (<25)
== END ==
PROVIDERS: PCP Emergency Medicine; Visit Provider Emergency Medicine
DX: M51.16 Intervertebral disc disorders with radiculopathy, lumbar region (principal)
CPT/HCPCS: 80305

== ENCOUNTER 2022-06-09 10:00 | Outpatient (RCR) | payer MEDICARE, OTHER, SELFPAY ==
--- NOTE | 2022-06-02 08:59 | HMH.OTOPEV ---
OT Inpatient Evaluation Rehab OT Outpatient Eval Start: 06/02/22 08:44 Freq: Status: Active Protocol: Document 06/02/22 08:44 DAOAPOORVA (Rec: 06/02/22 08:55 DAOAPOORVA [id number]) E-signed By Clarice Mccarthy, OT Outpatient Therapy Subjective History Subjective History 61 year old female referred to skilled OP OT services for left shld pain. 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 Patient unable to provide the accurate timeline of when the shld were repaired . She stated, Oh its been a while ago 5-10 years ago. No x-ray taken of the left shld at this time. Chief Complaint Pain,Weakness Symptom Type Ache Symptoms Relieved By Nothing Symptoms Aggravated By Physical Activity Prior Functional Limitations None Current Functional Limitations Reaching,Lifting,Recreation Activity Level of pain today (0-10) 7 Pain scale - at its best (0-10) 7 Pain scale - at its worst (0-10) 8 Shoulder/Elbow Eval Shoulder Objective Measurements Shoulder ROM Left Shoulder Abduction Active Range of 85 Motion (degrees) Shoulder Flexion Active Range of Motion 100 (degrees) Query Text: Shoulder External Rotation Active Range 38 of Motion (degrees) Shoulder Internal Rotation Active Range 50 of Motion (degrees) pain with active ROM shoulder exam left standard Shoulder MMT Shoulder Abduction Strength Grade 3- Fair- Shoulder Extension Strength Grade 3- Fair- Shoulder Flexion Strength Grade 3- Fair- Shoulder Horizontal Abduction Strength 3 Fair Grade Shoulder Horizontal Adduction Strength 3- Fair- Grade Infraspinatus/Teres Minor Strength Grade 3- Fair- Shoulder External Rotation Strength 3- Fair- Grade Shoulder Internal Rotation Strength 3- Fair- Grade Shoulder Special Tests impingement sign present shoulder exam left standard Shoulder Empty Can (Supraspinatus) Test Positive Left Shoulder Rankin-Alejo Impingement Positive Left Test Elbow Objective Measurements OT Outpatient Assessment Impairments Problems/Impairments Impaired Range of Motion, Impaired Strength,Subjective C
== END 2022-06-09 10:05 | disposition home or self-care (01) ==
LOC: OT 10:00
PROVIDERS: PCP Emergency Medicine; Visit Provider Emergency Medicine
DX: M25.512 Pain in left shoulder (principal)
CPT/HCPCS: 97010; 97110; 97140; 97165; 97530

== ENCOUNTER → 2022-07-22 14:51 | Outpatient (CLI) | payer MEDICARE, OTHER, SELFPAY ==
[2022-07-22 15:48] LABS: Amphetamine/Metha Screen,Urine Negative ng/ml (<1000); Benzodiazepines Screen,Urine Negative ng/ml (<200)
[2022-07-22 15:49] LABS: Barbiturates Screen,Urine Negative ng/ml (<200); Methadone Screen,Urine Negative ng/ml (<300)
[2022-07-22 15:50] LABS: Cannabinoid Screen,Urine Negative ng/ml (<50)
[2022-07-22 15:51] LABS: Cocaine Screen,Urine Negative ng/ml (<300); Opiate Screen,Urine Negative ng/ml (<300)
[2022-07-22 15:52] LABS: Phencyclidine Screen,Urine Negative ng/ml (<25)
== END ==
PROVIDERS: PCP Emergency Medicine; Visit Provider Emergency Medicine
DX: R30.0 Dysuria (principal); M51.16 Intervertebral disc disorders with radiculopathy, lumbar region; B95.7 Other staphylococcus as the cause of diseases classified elsewhere
CPT/HCPCS: 80305; 87086; 87088; 87186

== ENCOUNTER → 2022-08-08 13:04 | Outpatient (CLI) | payer MEDICARE, OTHER, SELFPAY | PROVIDERS: PCP Emergency Medicine; Visit Provider Emergency Medicine | DX: R30.9 Painful micturition, unspecified (principal) | CPT/HCPCS: 87086 ==

== ENCOUNTER 2022-08-15 09:00 | Outpatient (RCR) | payer MEDICARE, OTHER, SELFPAY ==
--- NOTE | 2022-08-01 11:45 | HMH.PTOPWND ---
Rehab Outpt Wound Evaluation Rehab OP Wound Evaluation Start: 08/01/22 10:50 Freq: Status: Active Protocol: Document 08/01/22 11:29 PHOSAMMI (Rec: 08/01/22 11:45 PHORNE [id number]) E-signed By Reece Velez, PT Subjective/History History History This is the initial PT eval for Светлана Rivera, 61 yowf who presents with c/o L foot swelling and pain x ~ 1-2 yrs with insidious onset of symptoms. She reports she has a L foot fx present for ~ 5 yrs. SHe reports she receives injections in her L foot about every three months. which help her pain, but she continues to have chronic swelling. She reports she wears a cam walker at all times when she is up. She has PMH of CHI, OA, DM, HIV, HLD, HTN, DDD, Implanted lumbar stimulator, , CCY, LEYLA, splenectomy, L knee ORIF. Subjective Subjective Pt presents with L LE 1+ pitting edema this date, 0/4 TTP noted. Pain in the L foot rated at 6/10 and fairly constant. No numbness or tingling currently, but some intermittently. Lymphedema Eval Classification of Lymphedema Secondary Lymphedema Yes Stemmer's sign Stemmer's Sign no Stage of Lymphedema Lymphedema stages Stage II (Pitting edema, increased fibrosis w/ decreased pitting) Skin Changes Dry Skin Yes Brittle Uneven Nails Yes Discoloration of Skin Yes Other Changes Yes Pain Scale Pain Scale (0-10) 6 Affected Extremities Areas Affected by Lymphedema/Edema Left Lower Extremity Lower Extremity Measurements Left MTP Measurement (cm) 21.6 Heel Measurement (cm) 30.5 10 cm Proximal to Lateral Malleoli 21.3 Measurement (cm) 20 cm Proximal to Lateral Malleoli 33.0 Measurement (cm) 30 cm Proximal to Lateral Malleoli 35.3 Measurement (cm) 40 cm Proximal to Lateral Malleoli 41.2 Measurement (cm) 50 cm Proximal to Lateral Malleoli 50.1 Measurement (cm) 60 cm Proximal to La
== END 2022-08-15 09:05 | disposition home or self-care (01) ==
LOC: PT 09:00
PROVIDERS: PCP Emergency Medicine; Visit Provider Podiatrist
DX: M19.072 Primary osteoarthritis, left ankle and foot (principal); M79.671 Pain in right foot; M79.672 Pain in left foot; R60.0 Localized edema
CPT/HCPCS: 97140; 97163; 97760

== ENCOUNTER 2022-09-02 00:03 | Emergency (ER) | payer MEDICARE, OTHER, SELFPAY ==
[2022-09-02 00:05] VITALS: BP 101/58; PULSE 81; RESP 18; TEMP 36.6; O2SAT 96; BMI 36.1
[2022-09-02 00:31] LABS: Basophils # 0.1 K/mm3 (0-0.2); Basophils % 0.8 % (0.1-2.0); Eosinophils # 0.2 K/mm3 (0.0-0.4); Eosinophils % 2.2 % (0.1-12.0); Hematocrit 44.1 % (37.0-47.0); Hemoglobin 14.3 g/dL (12.2-16.2); Lymphocytes # 4.3 K/mm3 (0.7-4.5); Lymphocytes % 41.7 % (10-50); Mean Corpuscular HGB Conc 32.3 g/dL (31.8-35.4); Mean Corpuscular Hemoglobin 31.7 pg (27.0-31.2); Mean Corpuscular Volume 98.1 fl (81-99); Mean Platelet Volume 7.9 fl (7.4-10.4); Monocytes # 0.6 K/mm3 (0.1-1.0); Monocytes % 5.8 % (1.7-9.3); Neutrophils # 5.1 K/mm3 (1.8-7.8); Neutrophils % 49.5 % (37.0-80.0); Platelet Count 376 K/mm3 (142-424); Red Cell Distribution Width 13.3 % (11.5-17.5); White Blood Count 10.3 K/mm3 (4.8-10.8)
[2022-09-02 00:32] LABS: Chloride 104 mmol/L (98-107); Sodium 140 mmol/L (136-145)
[2022-09-02 00:33] LABS: Potassium 3.4 mmoL/L (3.5-5.1)
[2022-09-02 00:35] LABS: Alanine Aminotransferase 31 U/L (12-78); Albumin Level 4.2 g/dl (3.5-5.0); Albumin/Globulin Ratio 1.2 (1.1-1.8); Alkaline Phosphatase 96 U/L (38-126); Anion Gap 11.4 mEq/L (5-15); Aspartate Amino Transferase 41 U/L (14-36); Bilirubin,Total 0.4 mg/dl (0.2-1.3); Blood Urea Nitrogen 12 mg/dl (7-17); Carbon Dioxide 28 mmol/L (22.0-30.0); Creatinine Clearance Estimated 132 mL/min (50-200); Estimated Glomerular Filt Rate 102 ml/min (>60); GFR (African American) 123 ML/MIN (>60); Globulin 3.4 g/dL (1.3-3.2); Total Protein,Serum 7.6 g/dl (6.3-8.2)
[2022-09-02 00:36] LABS: Calcium 8.9 mg/dl (8.4-10.2); Glucose 156 mg/dl (74-100)
--- NOTE | 2022-09-02 00:38 | HMH.EDSKAF ---
Discharge Plan Disposition Patient Disposition: Home, Self-Care Prescriptions Prescriptions: New clindamycin HCl 300 mg capsule 300 mg PO Q8H 10 Days Qty: 30 0RF terbinafine HCl 250 mg tablet 250 mg PO DAILY 28 Days Qty: 28 0RF fluconazole [Diflucan] 100 mg tablet 100 mg PO DAILY 5 Days Qty: 5 0RF No Action propranolol 10 mg tablet 10 mg PO DAILY lorazepam [Ativan] 0.5 mg tablet 0.5 mg PO QHS Qty: 30 1RF oxycodone-acetaminophen [Percocet] 10-325 mg tablet 1 tab PO QID Qty: 120 0RF nystatin 100,000 unit/gram cream 1 applic topical BID PRN (Reason: rash) Qty: 30 2RF nystatin 100,000 unit/gram powder 1 applic topical BID PRN (Reason: rash) Qty: 30 2RF Tivicay 50 mg tablet 50 mg PO HS pantoprazole 40 mg tablet,delayed release (DR/EC) 40 mg PO DAILY Creon 36,000-114,000- 180,000 unit capsule,delayed release(DR/EC) 2 cap PO AC Rx Instructions: Take 2 caps by mouth with meals and 1 cap by mouth with snacks fluticasone propion-salmeterol [Advair Diskus] 500-50 mcg/dose blister with device 1 inh IH BID Qty: 180 3RF ipratropium-albuterol 0.5 mg-3 mg(2.5 mg base)/3 mL solution for nebulization 3 ml INHALATION Q6H PRN (Reason: shortness of breath or wheezing) Qty: 180 3RF montelukast 10 mg tablet 10 mg PO DAILY 90 Days Qty: 90 3RF Spiriva Respimat 2.5 mcg/actuation mist 2 inh inhalation DAILY 90 Days Qty: 4 3RF Descovy 200-25 mg tablet PO meloxicam 7.5 mg tablet 7.5 mg PO DAILY 90 Days Qty: 90 2RF diclofenac sodium 1 % gel 4 g TOPICAL QID 90 Days Qty: 100 2RF Rx Instructions: apply to single knee, ankle, foot; gently massage into area; for foot includes sole/toes/top of foot albuterol sulfate 90 mcg/actuation HFA aerosol inhaler 2 inh INHALATION Q6H PRN (Reason: shortness of breath or wheezing) 90 Days Qty: 8.5 3RF amlodipine 5 mg tablet See Rx Instructions .ROUTE .COMPLEX Qty: 90 0RF Dose Instruction: TAKE 1 TABLET BY MOUTH DAILY Rx Instructions: TAKE 1 TABLET BY MOUTH DAILY benzonatate 200 mg capsule 200 mg PO TID PRN (Reason: cough) Qty: 30 2RF guaifenesin [Mucinex] 600 mg tablet extended release 12hr 600 mg PO Q12H Qty: 60 1RF cholecalciferol (vitamin D3) 25 mcg (1,000 unit) tablet See Rx Instructions .ROUTE .COMPLEX Qty: 30 2RF Dose Instruction: TAKE 1 TABLET BY MOUTH DAILY WITH MEALS Rx Instructions: TAKE 1 TABLET BY MOUTH DAILY WITH MEALS hydrochlorothiazide 12.5 mg capsule See Rx Instructions .ROUTE .COMPLEX Qty: 30 2RF Dose Instruction: TAKE 1 CAPSULE BY MOUTH EVERY DAY Rx Instructions: TAKE 1 CAPSULE BY MOUTH EVERY DAY rizatriptan 5 mg tablet,disintegrating See Rx Instructions .ROUTE .COMPLEX Qty: 30 2RF Dose Instruction: DISSOLVE 1 TABLET IN MOUTH ONCE A DAY NEEDED FOR MIGRAINES Rx Instructions: DISSOLVE 1 TABLET IN MOUTH ONCE A DAY NEEDED FOR MIGRAINES metformin 500 mg tablet See Rx Instructions .ROUTE .COMPLEX Qty: 180 0RF Dose Instruction: TAKE 1 TABLET BY MOUTH TWO TIMES A DAY Rx Instructions: TAKE 1 TABLET BY MOUTH TWO TIMES A DAY minocycline 100 mg tablet 100 mg PO BID Qty: 60 0RF nystatin 100,000 unit/gram cream 1 applic topical DAILY Qty: 30 0RF sertraline 100 mg tablet See Rx Instructions .ROUTE .COMPLEX Qty: 60 0RF Dose Instruction: TAKE 2 TABLETS BY MOUTH EVERY DAY FOR DEPRESSION Rx Instructions: TAKE 2 TABLETS BY MOUTH EVERY DAY FOR DEPRESSION (DME) FreeStyle Lite Strips Strip See Rx Instructions .ROUTE .COMPLEX Qty: 100 0RF Dose Instruction: TEST THREE TIMES A DAY Rx Instructions: TEST THREE TIMES A DAY pravastatin 40 mg tablet See Rx Instructions .ROUTE .COMPLEX Qty: 90 0RF Dose Instruction: TAKE 1 TABLET BY MOUTH AT BEDTIME FOR CHOLESTEROL Rx Instructions: TAKE 1 TABLET BY MOUTH AT BEDTIME FOR C
[2022-09-02 00:58] VITALS: BP 110/75; PULSE 85; RESP 18; TEMP 36.6; O2SAT 97
[2022-09-02 01:09] LABS: Hemoglobin A1C 5.8 % (4.0-6.0)
== END 2022-09-02 01:03 | disposition home or self-care (01) ==
PROVIDERS: Emergency Provider Emergency Medicine; PCP Emergency Medicine
DX: L03.311 Cellulitis of abdominal wall (principal); E11.9 Type 2 diabetes mellitus without complications; E78.5 Hyperlipidemia, unspecified; I10 Essential (primary) hypertension; M51.16 Intervertebral disc disorders with radiculopathy, lumbar region; J45.40 Moderate persistent asthma, uncomplicated; Z21 Asymptomatic human immunodeficiency virus [HIV] infection status; Z87.891 Personal history of nicotine dependence
CPT/HCPCS: 80053; 83036; 85025; 99283; 99284

== ENCOUNTER → 2022-10-02 07:11 | Outpatient (CLI) | payer MEDICARE, OTHER, SELFPAY | PROVIDERS: PCP Emergency Medicine; Visit Provider Internal Medicine Pulmonary Disease | DX: R06.09 Other forms of dyspnea (principal) | CPT/HCPCS: 94060; 94618 ==

== ENCOUNTER → 2022-11-12 08:41 | Outpatient (CLI) | payer MEDICARE, OTHER, SELFPAY ==
[2022-11-12 09:17] LABS: Opiate Screen,Urine Negative ng/ml (<300); Phencyclidine Screen,Urine Negative ng/ml (<25)
[2022-11-12 09:20] LABS: Amphetamine/Metha Screen,Urine Negative ng/ml (<1000)
[2022-11-12 09:21] LABS: Barbiturates Screen,Urine Negative ng/ml (<200); Benzodiazepines Screen,Urine Negative ng/ml (<200)
[2022-11-12 09:22] LABS: Cannabinoid Screen,Urine Negative ng/ml (<50); Cocaine Screen,Urine Negative ng/ml (<300)
[2022-11-12 09:23] LABS: Methadone Screen,Urine Negative ng/ml (<300)
[2022-11-12 10:40] LABS: Iron 74 ug/dL (37-170)
[2022-11-12 10:50] LABS: Total Iron Binding Capacity 281 ug/dL (265-497)
[2022-11-12 11:17] LABS: Ferritin 130 ng/ml (11.1-264)
== END ==
PROVIDERS: PCP Emergency Medicine; Visit Provider Nurse Practitioner Family
DX: Z79.84 Long term (current) use of oral hypoglycemic drugs; E11.42 Type 2 diabetes mellitus with diabetic polyneuropathy; Z79.899 Other long term (current) drug therapy
CPT/HCPCS: 80305; 82728; 83540; 83550

== ENCOUNTER → 2023-01-09 23:00 | Outpatient (CLI) | payer MEDICARE, OTHER, SELFPAY ==
[2023-01-09 17:53] LABS: Influenza A, PCR Not Detected (NotDetected); Influenza B, PCR Not Detected (NotDetected)
[2023-01-09 18:35] LABS: Amphetamine/Metha Screen,Urine Negative ng/ml (<1000)
[2023-01-09 18:36] LABS: Barbiturates Screen,Urine Negative ng/ml (<200)
[2023-01-09 18:37] LABS: Benzodiazepines Screen,Urine Negative ng/ml (<200); Cannabinoid Screen,Urine Negative ng/ml (<50)
[2023-01-09 18:38] LABS: Cocaine Screen,Urine Negative ng/ml (<300)
[2023-01-09 18:39] LABS: Methadone Screen,Urine Negative ng/ml (<300); Opiate Screen,Urine Positive ng/ml (<300)
[2023-01-09 18:42] LABS: Phencyclidine Screen,Urine Negative ng/ml (<25)
[2023-01-09 18:57] LABS: Coronavirus 19, PCR Detected (NotDetected)
== END ==
PROVIDERS: PCP Emergency Medicine; Visit Provider Emergency Medicine
DX: M51.16 Intervertebral disc disorders with radiculopathy, lumbar region; U07.1 COVID-19; Z79.899 Other long term (current) drug therapy
CPT/HCPCS: 80305; 87636

== ENCOUNTER → 2023-01-29 07:29 | Outpatient (CLI) | payer MEDICARE, OTHER, SELFPAY ==
[2023-01-29 18:07] LABS: Influenza A, PCR Not Detected (NotDetected); Influenza B, PCR Not Detected (NotDetected)
[2023-01-29 18:26] LABS: Amphetamine/Metha Screen,Urine Negative ng/ml (<1000)
[2023-01-29 18:27] LABS: Barbiturates Screen,Urine Negative ng/ml (<200); Benzodiazepines Screen,Urine Negative ng/ml (<200)
[2023-01-29 18:28] LABS: Cannabinoid Screen,Urine Negative ng/ml (<50); Cocaine Screen,Urine Negative ng/ml (<300)
[2023-01-29 18:29] LABS: Methadone Screen,Urine Negative ng/ml (<300)
[2023-01-29 18:30] LABS: Opiate Screen,Urine Negative ng/ml (<300); Phencyclidine Screen,Urine Negative ng/ml (<25)
[2023-01-29 23:13] LABS: Coronavirus 19, PCR Detected (NotDetected)
== END ==
PROVIDERS: PCP Family Medicine; Visit Provider Family Medicine
DX: Z79.899 Other long term (current) drug therapy; U07.1 COVID-19; J02.9 Acute pharyngitis, unspecified; R52 Pain, unspecified
CPT/HCPCS: 80305; 87636

== ENCOUNTER → 2023-01-30 11:42 | Outpatient (CLI) | payer MEDICARE, OTHER, SELFPAY ==
[2023-02-05 08:19] LABS: Alprazolam Negative (Cutoff=100); Benzodiazepines Positive ng/mL (Cutoff=100); Clonazepam Negative (Cutoff=100); Flurazepam Negative (Cutoff=100); Lorazepam Positive (.); Midazolam Negative (Cutoff=100); Opiates Negative ng/mL (Cutoff=100); Temazepam Negative (Cutoff=100); Triazolam Negative (Cutoff=100)
== END ==
LOC: LAB.DROPOF 02-18 11:43
PROVIDERS: PCP Family Medicine; Visit Provider Family Medicine
DX: Z79.899 Other long term (current) drug therapy (principal); M51.16 Intervertebral disc disorders with radiculopathy, lumbar region
CPT/HCPCS: 80346; 80361; G0480

== ENCOUNTER 2023-02-26 09:09 | Outpatient (CLI) | payer MEDICARE, OTHER, SELFPAY ==
--- NOTE | 2023-02-26 09:16 | XR_ITS ---
FINAL REPORT CLINICAL HISTORY: left shoulder pain COMPARISON: None FINDINGS: LEFT SHOULDER: 3 views of the left shoulder were obtained. There is no acute fracture or dislocation. There is mild AC and mild glenohumeral joint degenerative change. There is no soft tissue abnormality. IMPRESSION: Mild degenerative change without acute bony abnormality. Reviewed, Interpreted and Dictated by Paul Padilla III, MD Transcribed by Dari Estrada Authenticated and [facility]
== END 2023-02-26 23:59 ==
LOC: RAD 09:11
PROVIDERS: PCP Internal Medicine; Visit Provider Orthopaedic Surgery
DX: M25.512 Pain in left shoulder (principal)
CPT/HCPCS: 73030

== ENCOUNTER 2023-03-09 13:02 | Outpatient (CLI) | payer MEDICARE, OTHER, SELFPAY ==
[2023-03-09 14:43] LABS: Barbiturates Screen,Urine Negative ng/ml (<200); Benzodiazepines Screen,Urine Negative ng/ml (<200)
[2023-03-09 14:45] LABS: Cocaine Screen,Urine Negative ng/ml (<300); Methadone Screen,Urine Negative ng/ml (<300)
[2023-03-09 14:46] LABS: Opiate Screen,Urine Negative ng/ml (<300); Phencyclidine Screen,Urine Negative ng/ml (<25)
[2023-03-09 14:55] LABS: Amphetamine/Metha Screen,Urine Negative ng/ml (<1000)
[2023-03-09 14:58] LABS: Cannabinoid Screen,Urine Negative ng/ml (<50)
[2023-03-14 12:41] LABS: Alprazolam Negative (Cutoff=100); Benzodiazepines Positive ng/mL (Cutoff=100); Clonazepam Negative (Cutoff=100); Flurazepam Negative (Cutoff=100); Lorazepam Positive (.); Midazolam Negative (Cutoff=100); Opiates Negative (Cutoff=100); Oxycodone (GC/MS) 256 ng/mL (Cutoff=100); Temazepam Negative (Cutoff=100); Triazolam Negative (Cutoff=100)
== END 2023-03-09 23:59 ==
LOC: LAB.DROPOF 13:02
PROVIDERS: PCP Family Medicine; Visit Provider Family Medicine
DX: Z79.899 Other long term (current) drug therapy (principal)
CPT/HCPCS: 80307; 80346; 80361; 80365; G0480

== ENCOUNTER 2023-03-25 08:36 | Outpatient (CLI) | payer MEDICARE, OTHER, SELFPAY ==
--- NOTE | 2023-03-25 08:37 | MM_ITS ---
PROCEDURE INFORMATION: Exam: MG Bilateral Screening 3D Mammography Exam date and time: 03/25/2023 9:35 AM Age: 62 years old Clinical indication: Screening mammogram TECHNIQUE: Imaging protocol: Bilateral Screening tomosynthesis and 2D mammography including computer-aided detection (CAD) when performed. COMPARISON: 1. MG MM DIG SCREENING MAMM BI W/CAD 09/25/2021 7:58 AM 2. MG MM DIG SCREENING MAMM BI W/CAD 12/01/2019 9:24 AM 3. MG MM DIG SCREENING MAMM BI W/CAD 10/05/2018 9:53 AM 4. MG DMDXUL DIG MAMM-DX UNI-LT W/CAD 07/23/2016 1:20 PM FINDINGS: MAMMOGRAPHY: Breast composition: The breast is heterogeneously dense, which may obscure small masses. Mass: None. Architectural distortion: No new or suspicious architectural distortion. Calcifications: No new or suspicious calcifications are present Asymmetric density: No new or suspicious asymmetric density is present Skin thickening: None. Axillary adenopathy: None. IMPRESSION: No mammographic evidence of malignancy. Recommend annual screening mammography unless otherwise clinically indicated. ASSESSMENT: BI-RADS category 1: Negative
== END 2023-03-25 23:59 ==
LOC: RAD 08:37
PROVIDERS: Visit Provider Family Medicine
DX: Z12.31 Encounter for screening mammogram for malignant neoplasm of breast (principal)
CPT/HCPCS: 77063; 77067

== ENCOUNTER 2023-04-08 08:46 | Outpatient (CLI) | payer MEDICARE, OTHER, SELFPAY ==
[2023-04-08 08:51] LABS: MANUAL DIFFERENTIAL MANUAL DIFFERENTIAL (MANUAL DIFF)
[2023-04-08 09:25] LABS: Basophils % 0.4 % (0.1-2.0); Eosinophils # 0.1 K/mm3 (0.0-0.4); Eosinophils % 1.2 % (0.1-12.0); Hemoglobin 15.1 g/dL (12.2-16.2); Lymphocytes # 3.5 K/mm3 (0.7-4.5); Lymphocytes % 36.4 % (10-50); Mean Corpuscular HGB Conc 32.9 g/dL (31.8-35.4); Mean Corpuscular Hemoglobin 33.1 pg (27.0-31.2); Mean Corpuscular Volume 100.6 fl (81-99); Mean Platelet Volume 8.1 fl (7.4-10.4); Monocytes # 0.5 K/mm3 (0.1-1.0); Neutrophils # 5.5 K/mm3 (1.8-7.8); Platelet Count 350 K/mm3 (142-424); Red Blood Count 4.57 M/mm3 (4.20-5.40); Red Cell Distribution Width 13.6 % (11.5-17.5); White Blood Count 9.6 K/mm3 (4.8-10.8)
[2023-04-08 09:54] LABS: Chloride 106 mmol/L (98-107); Potassium 3.5 mmoL/L (3.5-5.1); Sodium 140 mmol/L (136-145)
[2023-04-08 09:56] LABS: Alanine Aminotransferase 29 U/L (12-78); Alkaline Phosphatase 71 U/L (38-126); Aspartate Amino Transferase 36 U/L (14-36); Bilirubin,Total 0.4 mg/dl (0.2-1.3); Blood Urea Nitrogen 17 mg/dl (7-17); Estimated Glomerular Filt Rate 102 ml/min (>60); GFR (African American) 123 ML/MIN (>60)
[2023-04-08 09:57] LABS: Albumin/Globulin Ratio 1.3 (1.1-1.8); Anion Gap 7.5 mEq/L (5-15); Calcium 9.2 mg/dl (8.4-10.2); Carbon Dioxide 30 mmol/L (22.0-30.0); Cholesterol 218 mg/dl (140-200); Glucose 105 mg/dl (74-100); HDL Cholesterol 31 mg/dl (40-60); Triglycerides 295 mg/dl (30-150); VLDL Cholesterol 59 mg/dL (0-40)
[2023-04-08 10:13] LABS: Free T4 (Free Thyroxine) 1.02 ng/dl (0.78-2.19)
[2023-04-08 10:14] LABS: Direct LDL Cholesterol 105.02 mg/dL (100-129)
[2023-04-08 10:28] LABS: Thyroid Stimulating Hormone 1.24 uIU/mL (0.465-4.68)
[2023-04-08 13:10] LABS: Eosinophils % 1 % (0-3); Lymphocytes % 44 % (10-50); Monocytes % 5 % (2-9); Neutrophils % 50 % (42-76); Total Cells Counted 100
[2023-04-08 13:18] LABS: Anisocytosis 1+; Macrocytosis 1+; Platelet Estimate Normal; Spherocytes 1+
[2023-04-09 11:13] LABS: Thyroid Peroxidase Antibodies <9 IU/mL (0-34)
[2023-04-11 11:13] LABS: Thyroid Stimulating Immunoglob <0.10 IU/L (0.00-0.55)
== END 2023-04-08 23:59 ==
PROVIDERS: PCP Internal Medicine; Visit Provider Nurse Practitioner
DX: E89.0 Postprocedural hypothyroidism (principal); H66.006 Acute suppurative otitis media without spontaneous rupture of ear drum, recurrent, bilateral; Z79.899 Other long term (current) drug therapy
CPT/HCPCS: 36415; 80053; 80061; 84439; 84443; 84445; 85007; 85014; 85018; 85048; 85049; 86376

== ENCOUNTER 2023-05-28 09:51 | Emergency (ER) | payer MEDICARE, OTHER, SELFPAY ==
[2023-05-28 09:53] VITALS: BP 155/95; PULSE 85; RESP 18; TEMP 36.5; O2SAT 97; BMI 38.0
[2023-05-28 10:01] VITALS: BP 192/97; PULSE 74; O2SAT 94
--- NOTE | 2023-05-28 10:41 | XR_ITS ---
FINAL REPORT CLINICAL HISTORY: Acute cough, shortness of air COMPARISON: 05/28/2021 FINDINGS: Two views of the chest were obtained. The heart size and pulmonary vascularity are within normal limits. The mediastinum is normal. No acute pulmonary abnormality is identified. There is no pneumothorax. Moderate degenerative changes are seen in the thoracic spine. A thoracic spinal stimulator is noted. IMPRESSION: No active cardiopulmonary disease. Reviewed, Interpreted and Dictated by Paul Padilla III, MD Transcribed by Antoinette Sharif Authenticated and [facility]
--- NOTE | 2023-05-28 10:43 | HMH.EDGENADL ---
Discharge Plan Disposition Patient Disposition: Home, Self-Care Chief Complaint: Upper Respiratory Infection Prescriptions Prescriptions: No Action propranolol 10 mg tablet 10 mg PO DAILY cimetidine 300 mg tablet 300 mg PO HS Biktarvy 50-200-25 mg tablet PO nystatin 100,000 unit/gram powder 1 applic topical BID PRN (Reason: rash) Qty: 30 2RF pantoprazole 40 mg tablet,delayed release (DR/EC) 40 mg PO DAILY Creon 36,000-114,000- 180,000 unit capsule,delayed release(DR/EC) 2 cap PO AC Rx Instructions: Take 2 caps by mouth with meals and 1 cap by mouth with snacks meloxicam 7.5 mg tablet 7.5 mg PO DAILY 90 Days Qty: 90 2RF albuterol sulfate 90 mcg/actuation HFA aerosol inhaler 2 inh INHALATION Q6H PRN (Reason: shortness of breath or wheezing) 90 Days Qty: 8.5 3RF fluticasone propion-salmeterol [Advair Diskus] 500-50 mcg/dose blister with device 1 inh IH BID Qty: 180 3RF ipratropium-albuterol 0.5 mg-3 mg(2.5 mg base)/3 mL solution for nebulization 3 ml INHALATION Q6H PRN (Reason: shortness of breath or wheezing) Qty: 180 3RF Spiriva Respimat 2.5 mcg/actuation mist 2 inh inhalation DAILY 90 Days Qty: 4 3RF montelukast 10 mg tablet 10 mg PO QPM 90 Days Qty: 90 2RF lidocaine HCl 10 mg/mL (1 %) solution 10 mg IJ ONCE Qty: 1 0RF triamcinolone acetonide [Kenalog] 40 mg/mL suspension 40 mg IJ ONCE Qty: 1 0RF hydrochlorothiazide 12.5 mg capsule 12.5 mg PO DAILY Qty: 90 2RF Vraylar 1.5 mg capsule 1.5 mg PO DAILY Qty: 30 2RF fluticasone propionate [Flonase Allergy Relief] 50 mcg/actuation spray,suspension 1 spray intranasal DAILY PRN (Reason: nasal congestion) Qty: 16 0RF Rx Instructions: administer into each nostril oxycodone-acetaminophen [Percocet] 10-325 mg tablet 1 tab PO QID Qty: 120 0RF meclizine 25 mg tablet See Rx Instructions .ROUTE .COMPLEX Qty: 90 0RF Dose Instruction: TAKE ONE (1) TABLET THREE TIMES DAILY NEEDED FOR DIZZINESS. Rx Instructions: TAKE ONE (1) TABLET THREE TIMES DAILY NEEDED FOR DIZZINESS. terbinafine HCl 250 mg tablet 250 mg PO DAILY Qty: 14 0RF diclofenac sodium [Aspercreme Arthritis Pain] 1 % gel See Rx Instructions .ROUTE .COMPLEX Qty: 100 3RF Dose Instruction: APPLY 4 GRAMS TOPICALLY FOUR TIMES A DAY FOR PAIN. APPLY AND GENTLY MASSAGE INTO AREA. MAY APPLY TO SINGLE KNEE, ANKLE, FOOT (SOLE/TOES/TOP OF FOOT). Rx Instructions: APPLY 4 GRAMS TOPICALLY FOUR TIMES A DAY FOR PAIN. APPLY AND GENTLY MASSAGE INTO AREA. MAY APPLY TO SINGLE KNEE, ANKLE, FOOT (SOLE/TOES/TOP OF FOOT). sertraline 100 mg tablet See Rx Instructions .ROUTE .COMPLEX Qty: 60 0RF Dose Instruction: TAKE 2 TABLETS BY MOUTH EVERY DAY FOR DEPRESSION Rx Instructions: TAKE 2 TABLETS BY MOUTH EVERY DAY FOR DEPRESSION guaifenesin [Mucinex] 600 mg tablet extended release 12hr 600 mg PO Q12H Qty: 60 1RF amlodipine 5 mg tablet See Rx Instructions .ROUTE .COMPLEX Qty: 90 0RF Dose Instruction: TAKE 1 TABLET BY MOUTH DAILY Rx Instructions: TAKE 1 TABLET BY MOUTH DAILY pravastatin 40 mg tablet See Rx Instructions .ROUTE .COMPLEX Qty: 90 0RF Dose Instruction: TAKE 1 TABLET BY MOUTH AT BEDTIME FOR CHOLESTEROL Rx Instructions: TAKE 1 TABLET BY MOUTH AT BEDTIME FOR CHOLESTEROL tizanidine 4 mg tablet 4 mg PO BID PRN (Reason: muscle spasticity) Qty: 60 1RF rizatriptan 5 mg tablet,disintegrating See Rx Instructions .ROUTE .COMPLEX Qty: 30 1RF Dose Instruction: DISSOLVE 1 TABLET IN MOUTH DAILY NEEDED FOR MIGRAINES Rx Instructions: DISSOLVE 1 TABLET IN MOUTH DAILY NEEDED FOR MIGRAINES (DME) FreeStyle Lite Strips Strip See Rx Instructions .ROUTE .COMPLEX Qty: 100 3RF Dose Instruction: TEST THREE TIMES A DAY Rx Instructions: TEST THREE TIMES A DAY metformin 500 mg tablet See Rx Instructions .ROUTE .COMPLEX Qty: 180 0RF Dose Instruction: TAKE 1 TABLET BY MOUTH TWO TIMES A DAY Rx Instructions: TAKE 1 TABLET BY MOUTH TWO TIMES A DAY prednisone 20 mg tablet 20 mg PO BID Qty: 10 0RF Rx Instructions: administer with food or milk doxycycline hyclate 100 mg tablet 100 mg PO BID Qty: 20 0RF methylprednisolone [Medrol (Truong)] 4 mg tablets,dose pack See Rx Instructions PO PER PKG DIR Qty: 21 0RF Rx Instructions: PO PER PKG DIR cefdinir 300 mg capsule 300 mg PO BID 10 Days Qty: 20 0RF cholecalciferol (vitamin D3) 25 mcg (1,000 unit) tablet See Rx Instructions .ROUTE .COMPLEX Qty: 30 0RF Dose Instruction: TAKE 1 TABLET BY MOUTH DAILY WITH FOOD Rx Instructions: TAKE 1 TABLET BY MOUTH DAILY WITH FOOD hydrocortisone 28 GM cream with perineal applicator 1 applicatio * BID PRN (Reason: Hemorrhoids) Rx Instructions: 1 application RI BID PRN alendronate 70 mg tablet 70 mg PO WEEKLY clobetasol [Temovate] 0.05 % ointment 1 applic TP BID Referrals Follow up/Referrals: Hiram Serna DO [Primary Care Provider] - See instructions Activity Restrictions/Add. Instructions Additional Instructions/Restrictions: At this time it was felt you are safe to be discharged home. If new or worsening symptoms please do not hesitate to return the emergency department. Please follow-up with your family doctor within the next few days for repeat evaluation. Clinical Impressions Clinical Impression: COVID-19, Back pain Discharge ED Provider: Ankit Giles General Adult HPI General Chief complaint: Upper Respiratory Infection Stated complaint: stim shocking in back, sore throat Time Seen by Provider: 05/28/23 10:00 Mode of Arrival: Ambulatory Source of Information: Patient Limitations: No Limitations Description of Symptoms (Recalled from ER Triage Doc. by RN): c/o her stimulator that she has had for 2 years, 3 days ago started shocking her causing it hard to breath, cough, sore throat from drainage, and green mucus since Thursday, seen RADIOLOGICAL DEFENSE OFFICER who gave her antibiotic and steroids but symptoms are getting worse than better History of Present Illness HPI narrative: Patient is 62-year-old female with multiple comorbidities including HIV with undetectable viral load, asthma, nocturnal hypoxemia who presents emergency department for evaluation of cough and back pain. With expected cough, onset was acute, over the last few days, productive with associated shortness of breath. No chest pain. With the specter back pain she has a spinal stimulator and had multiple lumbosacral surgeries and feels as if there is a shocking sensation that is intermittently going up her lower back. She called Dr. Ventura's office who stated that she had to get a hold of the medical field representative of the spinal stimulator prior to their evaluation. No incontinence, no gait difficulty. Related Data Home Medications Medication Instructions Recorded Confirmed cllzci-[id number]-[id number] 2 cap PO AC DIGESTION 03/13/21 05/21/23 36,000-114,000-180,000 unit capsule,delay rel (Creon) pantoprazole 40 mg tablet,delayed 40 mg PO DAILY GERD 03/13/21 05/21/23 release hydrocortisone 2.5 % topical cream 1 applicatio * BID PRN Hemorrhoids 04/25/21 05/21/23 with perineal applicator propranolol 10 mg tablet 10 mg PO DAILY BLOOD PRESSURE 06/12/21 05/21/23 clobetasol 0.05 % topical ointment 1 applic topical BID Skin condition 11/21/21 05/21/23 (Temovate) alendronate 70 mg tablet 70 mg PO WEEKLY Osteoporosis 09/16/22 05/21/23 bictegravir 50 mg-emtricitabine tab PO 11/12/22 05/21/23 200 mg-tenofovir alafenam 25 mg tablet (Biktarvy) cimetidine 300 mg tablet 300 mg PO HS 11/12/22 05/21/23 Previous Rx's Medication Instructions Recorded meloxicam 7.5 mg tablet 7.5 mg PO DAILY 3 months #90 tabs 04/15/22 nystatin 100,000 unit/gram topical 1 applic topical BID PRN rash #30 08/18/22 powder grams meclizine 25 mg tablet See Rx Instructions .Route 12/09/22 .COMPLEX #90 tabs terbinafine HCl 250 mg tablet 250 mg PO DAILY #14 tabs 01/05/23 diclofenac sodium 1 % topical gel See Rx Instructions .Route 02/09/23 (Aspercreme Arthritis Pain) .COMPLEX #100 grams sertraline 100 mg tablet See Rx Instructions .Route 02/13/23 .COMPLEX #60 tabs guaifenesin 600 mg tablet, 600 mg PO Q12H #60 tabs 03/06/23 extended release 12 hr (Mucinex) amlodipine 5 mg tablet See Rx Instructions .Route 03/30/23 .COMPLEX #90 tabs pravastatin 40 mg tablet See Rx Instructions .Route 03/30/23 .COMPLEX #90 tabs tizanidine 4 mg tablet 4 mg PO BID PRN muscle spasticity 03/30/23 #60 tabs rizatriptan 5 mg disintegrating See Rx Instructions .Route 04/02/23 tablet .COMPLEX #30 tabs FreeStyle Lite Strips (blood sugar #100 ea 04/03/23 diagnostic) cariprazine 1.5 mg capsule 1.5 mg PO DAILY MDD #30 caps 04/06/23 (Vraylar) hydrochlorothiazide 12.5 mg capsule 12.5 mg PO DAILY #90 caps 04/06/23 albuterol sulfate 90 mcg/actuation 2 inh inhalation Q6H PRN shortness 04/09/23 aerosol inhaler of breath or wheezing 90 days #8.5 grams fluticasone 500 mcg-salmeterol 50 1 inh inhalation BID #180 ea 04/09/23 mcg/dose blistr powdr for inhalation (Advair Diskus) ipratropium 0.5 mg-albuterol 3 mg 3 ml inhalation Q6H PRN shortness 04/09/23 (2.5 mg base)/3 mL nebulization of breath or wheezing #180 mL soln montelukast 10 mg tablet 10 mg PO QPM 90 days #90 tabs 04/09/23 tiotropium bromide 2.5 2 inh inhalation DAILY 90 days #4 04/09/23 mcg/actuation mist for inhalation grams (Spiriva Respimat) metformin 500 mg tablet See Rx Instructions .Route 05/11/23 .COMPLEX #180 tabs fluticasone propionate 50 1 spray intranasal DAILY PRN nasal 05/21/23 mcg/actuation nasal congestion #16 grams spray,suspension (Flonase Allergy Relief) oxycodone-acetaminophen 10 mg-325 1 tab PO QID #120 tabs 05/21/23 mg tablet (Percocet) cefdinir 300 mg capsule 300 mg PO BID 10 days #20 caps 05/25/23 doxycycline hyclate 100 mg tablet 100 mg PO BID #20 tabs 05/25/23 methylprednisolone 4 mg tablets in See Rx Instructions PO PER PKG DIR 05/25/23 a dose pack (Medrol (Truong)) #21 tabs prednisone 20 mg tablet 20 mg PO BID #10 tabs 05/25/23 cholecalciferol (vitamin D3) 25 See Rx Instructions .Route 05/26/23 mcg (1,000 unit) tablet .COMPLEX #30 caps Allergies Allergy/AdvReac Type Severity Reaction Status Date / Time vancomycin Allergy Intermediate Redness of Verified 05/21/23 08:55 Skin morphine Allergy Mild Itching Verified 05/21/23 08:55 aspirin Allergy Unknown Unknown Verified 05/21/23 08:55 allergy reaction azithromycin Allergy Unknown Unknown Verified 05/21/23 08:55 [From ZITHROMAX Z-TRUONG] allergy reaction diphenhydramine Allergy Unknown Unknown Verified 05/21/23 08:55 [From BENADRYL] allergy reaction ibuprofen [IBUPROFEN] Allergy Unknown Unknown Verified 05/21/23 08:55 allergy reaction latex [LATEX] Allergy Unknown Unknown Verified 05/21/23 08:55 allergy reaction levofloxacin [From LEVAQUIN] Allergy Unknown Unknown Verified 05/21/23 08:55 allergy reaction shellfish derived Allergy Unknown Verified 05/21/23 08:55 allergy reaction sulfamethoxazole Allergy Rash Verified 05/21/23 08:55 [From Bactrim] trimethoprim [From Bactrim] Allergy Unknown Verified 05/21/23 08:55 allergy reaction tape Allergy Redness of Uncoded 05/21/23 08:55 Skin PFSH PFSH Disclaimer: The information contained in this section may have been updated after the patient was seen, as this information can be updated by other users. Medical History (Updated 05/28/23 @ 11:58 by Ankit Giles MD) Chronic respiratory failure with hypoxia Yeast dermatitis Recurrent acute suppurative otitis media of both ears Ear infection Vomiting Bronchitis Left shoulder pain Nocturnal hypoxia Moderate persistent asthma Dyspnea on exertion Nocturnal hypoxemia Crack cocaine use Hyperlipidemia HIV (human immunodeficiency virus infection) Hypertension Lumbar radiculopathy, chronic Lumbar radiculopathy Lumbar disc disease with radiculopathy Degenerative arthritis Cervicalgia Closed head injury Vitamin D deficiency (~08/11/17) Diabetes Surgical History History of thyroidectomy History of left knee surgery History of section History of splenectomy History of hysterectomy History of colonoscopy History of cholecystectomy History of carpal tunnel release History of arthroscopy of shoulder Status post arthroscopy of hip Family History Other Cancer Coronary artery disease Diabetes Heart attack Hyperlipidemia Hypertension Kidney disease Stroke Thyroid disorder Social History Smoking Status: Never smoker alcohol intake: never substance use type: denies use current occupational status: disabled Travel in the last 8 weeks: None household members: family housing: house caffeine: Yes ROS Obtained: Yes Systems reviewed as appropriate & no additional complaints except as documented Physical Exam General General appearance: alert and in no apparent distress Head Head exam: atraumatic and normocephalic Eye Eye exam: Present PERRL and EOMI ENT ENT exam: Present mucous membranes moist Neck Neck exam: Present normal inspection Chest Chest inspection: Present normal inspection and symmetric chest wall rise Respiratory Respiratory exam: Present other (Decreased air movement throughout); Absent respiratory distress Cardiovascular Cardiovascular exam: Present regular rate and normal rhythm Abdominal Exam Abdominal exam: Present soft; Absent tenderness Extremities Exam Extremities exam: Present normal inspection Back Exam Back exam: Present other (Well-healed surgical scar, no significant midline tenderness, palpable spinal stimulator.) Neurological Exam Neurological exam: Present alert; Absent motor sensory deficit Psychiatric Psychiatric exam: Present normal affect Skin Skin exam: Present warm and dry Medical Decision Making [place] Inquiry Pt receiving controlled substance: No Vital Signs: 05/28/23 09:53 05/28/23 10:01 05/28/23 11:01 Temperature 97.7 F Temperature Source Oral Pulse Rate 74 72 Pulse Rate [Left Radial] 85 Respiratory Rate 18 Blood Pressure 192/97 H 160/85 H Blood Pressure [Right Arm] 155/95 H Blood Pressure Mean 128 119 Blood Pressure Mean [Right Arm] 115 Blood Pressure Source [Right Arm] Automatic Cuff Blood Pressure Position [Right Arm] Sitting 02 Sat by Pulse Oximetry 97 94 L 94 L Oxygen Delivery Method Room Air Room Air Room Air 05/28/23 11:31 Temperature Temperature Source Pulse Rate 80 Pulse Rate [Left Radial] Respiratory Rate Blood Pressure 93/68 L Blood Pressure [Right Arm] Blood Pressure Mean 76 Blood Pressure Mean [Right Arm] Blood Pressure Source [Right Arm] Blood Pressure Position [Right Arm] 02 Sat by Pulse Oximetry 93 L Oxygen Delivery Method Lab Data Lab Results 05/28/23 10:49: SARS-CoV-2 (PCR) Detected A, Influenza A Untype (PCR) Not detected, Influenza Type B (PCR) Not detected 05/28/23 10:58: WBC 13.8 H, RBC 4.81, Hgb 16.1, Hct 49.7 H, MCV 103.3 H, MCH 33.4 H, MCHC 32.3, RDW 13.7, Plt Count 459 H, MPV 8.1, Neut % (Auto) 53.5, Lymph % (Auto) 36.9, [place] % (Auto) 7.5, Eos % (Auto) 1.2, Baso % (Auto) 0.9, Neut # (Auto) 7.4, Lymph # (Auto) 5.1 H, [place] # (Auto) 1.0, Eos # (Auto) 0.2, Baso # (Auto) 0.1, Sodium 139, Potassium 4.3, Chloride 106, Carbon Dioxide 29, Anion Gap 8.3, BUN 20 H, Creatinine 0.60, Estimated Creat Clear 82, Estimated GFR 102, Est GFR ( Amer) 123, Glucose 111 H, Calcium 9.3, Total Bilirubin 0.7, AST 42 H, ALT 25, Alkaline Phosphatase 69, Troponin I < 0.01, Total Protein 8.3 H, Albumin 4.5, Globulin 3.8 H, Albumin/Globulin Ratio 1.2 05/28/23 10:58 05/28/23 10:58 Orders (Tests/Meds): ED MEDICATIONS Discontinued Medications Generic Name Dose Route Start Last Admin Trade Name Freq PRN Reason Stop Dose Admin Albuterol/Ipratropium 3 ml 05/28/23 10:41 05/28/23 10:45 Ipratropium/Albuterol 3 Ml [facility] 05/28/23 10:42 3 ml ONCE ONE Administration Methylprednisolone Sodium Succinate 125 mg 05/28/23 10:41 05/28/23 10:45 Methylprednisolone Sod Succ 125mg Vial IV 05/28/23 10:42 125 mg ONCE ONE Administration ORDERS Category Date Time Status CXR 2 view (NOT portable) [XR chest 2V] Stat Exams 05/28/23 10:41 Taken CBC w/Auto Diff [Complete Blood Count Auto Diff] Stat Lab 05/28/23 10:58 Completed CMP [Comprehensive Metabolic Panel] Stat Lab 05/28/23 10:58 Completed Rapid PCR Covid and Flu A/B Stat Lab 05/28/23 10:49 Completed Trop I [Troponin I] Stat Lab 05/28/23 10:58 Completed Troponin I Q3H Lab 05/28/23 13:45 Ordered Troponin I Q3H Lab 05/28/23 16:45 Ordered EKG Request [ECG Request] Stat Y 05/28/23 10:42 Ordered ECG Data Tracing #1: Independently interpreted by me, rate 66, rhythm is regular, axis normal, no ST elevation in anatomical contiguous leads, QTc 408. HEART Score History (anamnesis): Slightly suspicious ECG: Normal Age: 45-65 years Risk factors: 3 or more risk factors Troponin: </= normal limit HEART Score: 3 Medical Decision Narrative: In summary patient is a 62-year-old female past medical history described above who presents emergency department for evaluation of cough, shortness of breath, back pain. With respect to cough and shortness of breath differential includes pneumonia, viral infection, atypical ACS, among others. With respect to back pain patient has no acute neurologic deficits, no concern for spinal cord compression syndrome, no significant midline tenderness or other red flag signs therefore outpatient workup is appropriate with respect to her spinal stimulator. Workup conducted in the ED will be done with hematologic labs, two-view chest x-ray, EKG, troponin. Initial interventions include DuoNeb, methylprednisolone. Workup reviewed by me, hematologic labs remarkable for elevated white blood cell count with lymphocytosis. COVID positive. No JANESSA or critical electrolyte abnormality, initial troponin undetectably low. Patient has no worsening oxygen requirement from baseline has appropriate for outpatient management. Patient was given return precautions. Critical Care Critical Care Time Critical Care Time: No
[2023-05-28] MEDS: METHYLPREDNISOLONE SOD SUCC 125MG VIAL 125 MG IV (10:45)
[2023-05-28] MEDS: IPRATROPIUM/ALBUTEROL 3 ML NEB IH (10:45)
--- NOTE | 2023-05-28 10:48 | ECG_ITS ---
APPROVED REPORT Exam: Resting ECG HR:66 bpm ECG Measurements Heart Rate 66 AXES VT 157 P 68 QRSd 88 QRS 15 QT 394 T 41 QTc 408 Conclusion SINUS RHYTHM MINIMAL ST DEPRESSION [0.025+ mV ST DEPRESSION] BORDERLINE ECG Electronically signed by : LUIS GRUBBS, 05/28/2023 15:13:45
--- NOTE | 2023-05-28 10:50 | PC.NURSE ---
covid/flu swab sent to lab
[2023-05-28 10:52] LABS: Influenza A, PCR Not Detected (NotDetected); Influenza B, PCR Not Detected (NotDetected)
[2023-05-28 11:01] VITALS: BP 160/85; PULSE 72; O2SAT 94
[2023-05-28 11:05] LABS: Basophils # 0.1 K/mm3 (0-0.2); Basophils % 0.9 % (0.1-2.0); Eosinophils # 0.2 K/mm3 (0.0-0.4); Eosinophils % 1.2 % (0.1-12.0); Hematocrit 49.7 % (37.0-47.0); Hemoglobin 16.1 g/dL (12.2-16.2); Lymphocytes # 5.1 K/mm3 (0.7-4.5); Lymphocytes % 36.9 % (10-50); Mean Corpuscular HGB Conc 32.3 g/dL (31.8-35.4); Mean Corpuscular Hemoglobin 33.4 pg (27.0-31.2); Mean Corpuscular Volume 103.3 fl (81-99); Mean Platelet Volume 8.1 fl (7.4-10.4); Monocytes % 7.5 % (1.7-9.3); Neutrophils # 7.4 K/mm3 (1.8-7.8); Neutrophils % 53.5 % (37.0-80.0); Platelet Count 459 K/mm3 (142-424); Red Blood Count 4.81 M/mm3 (4.20-5.40); Red Cell Distribution Width 13.7 % (11.5-17.5); White Blood Count 13.8 K/mm3 (4.8-10.8)
[2023-05-28 11:21] LABS: Alanine Aminotransferase 25 U/L (12-78); Albumin Level 4.5 g/dl (3.5-5.0); Albumin/Globulin Ratio 1.2 (1.1-1.8); Alkaline Phosphatase 69 U/L (38-126); Anion Gap 8.3 mEq/L (5-15); Aspartate Amino Transferase 42 U/L (14-36); Bilirubin,Total 0.7 mg/dl (0.2-1.3); Blood Urea Nitrogen 20 mg/dl (7-17); Calcium 9.3 mg/dl (8.4-10.2); Carbon Dioxide 29 mmol/L (22.0-30.0); Chloride 106 mmol/L (98-107); Creatinine Clearance Estimated 82 mL/min (50-200); Estimated Glomerular Filt Rate 102 ml/min (>60); GFR (African American) 123 ML/MIN (>60); Globulin 3.8 g/dL (1.3-3.2); Glucose 111 mg/dl (74-100); Potassium 4.3 mmoL/L (3.5-5.1); Sodium 139 mmol/L (136-145); Total Protein,Serum 8.3 g/dl (6.3-8.2)
[2023-05-28 11:31] VITALS: BP 93/68; PULSE 80; O2SAT 93
[2023-05-28 11:41] LABS: Coronavirus 19, PCR Detected (NotDetected)
--- NOTE | 2023-05-28 11:50 | PC.NURSE ---
TV TURNED ON PER PT REQUEST. CALL LIGHT WITHIN REACH. BED IN LOWEST POSITION. PROVIDED WITH WARM BLANKET.
[2023-05-28 11:51] LABS: Troponin I < 0.01 ng/ml (0.00-0.034)
[2023-05-28 12:16] VITALS: BP 93/68; PULSE 65; RESP 20; TEMP 36.5; O2SAT 94
== END 2023-05-28 12:17 | disposition home or self-care (01) ==
PROVIDERS: Emergency Provider Emergency Medicine; PCP Internal Medicine
DX: U07.1 COVID-19 (principal); M54.9 Dorsalgia, unspecified; B20 Human immunodeficiency virus [HIV] disease; E11.9 Type 2 diabetes mellitus without complications; I10 Essential (primary) hypertension; E78.5 Hyperlipidemia, unspecified; Z79.84 Long term (current) use of oral hypoglycemic drugs
CPT/HCPCS: 71046; 80053; 84484; 85025; 87636; 93005; 96374; 99284

== ENCOUNTER 2023-06-02 09:48 | Outpatient (POV) | payer MEDICARE, OTHER, SELFPAY | END 2023-06-02 23:59 | disposition home or self-care (01) | LOC: SC 09:49 | PROVIDERS: PCP Internal Medicine; Visit Provider Specialist/Technologist | DX: Z00.00 Encounter for general adult medical examination without abnormal findings (principal) ==

== ENCOUNTER 2023-07-05 10:47 | Emergency (ER) | payer MEDICARE, OTHER, SELFPAY ==
[2023-07-05] VITALS (8 sets, daily range): BP systolic 134–168; BP diastolic 62–79; PULSE 53–65; RESP 14–23; TEMP 36.6; O2SAT 91–97; BMI 37.0; BMI 35.2
--- NOTE | 2023-07-05 10:47 | ECG_ITS ---
APPROVED REPORT Exam: Resting ECG HR:55 bpm ECG Measurements Heart Rate 55 AXES IL 145 P 45 QRSd 84 QRS 0 QT 423 T 8 QTc 413 Conclusion SINUS BRADYCARDIA LOW QRS VOLTAGE IN PRECORDIAL LEADS [QRS DEFLECTION < 1.0 mV IN CHEST LEADS] MINIMAL ST DEPRESSION [0.025+ mV ST DEPRESSION] BORDERLINE ECG UNCONFIRMED REPORT Electronically signed by : Main Marmolejo, 07/05/2023 15:19:41
--- NOTE | 2023-07-05 11:12 | XR_ITS ---
PROCEDURE INFORMATION: Exam: XR Chest Exam date and time: 07/05/2023 11:24 AM Age: 62 years old Clinical indication: Pain; Chest pressure; Prior surgery; Surgery date: 6+ months; Surgery type: Back stimulator TECHNIQUE: Imaging protocol: Radiologic exam of the chest. Views: 2 views. COMPARISON: CR XR CHEST 2V 05/28/2023 11:11 AM FINDINGS: Lungs: No evidence of pneumonia or interstitial edema. Pleural spaces: Unremarkable. No pleural effusion. No pneumothorax. Heart/Mediastinum: Unremarkable. No cardiomegaly. Bones/joints: Epidural leads projected in the midthoracic spine. Chronic appearing compression deformities in midthoracic vertebral bodies IMPRESSION: No evidence of pneumonia or interstitial edema.
--- NOTE | 2023-07-05 11:14 | PC.NURSE ---
Dr. Marmolejo at bedside
[2023-07-05 11:20] LABS: Basophils # 0.1 K/mm3 (0-0.2); Basophils % 0.9 % (0.1-2.0); Eosinophils # 0.1 K/mm3 (0.0-0.4); Eosinophils % 1.1 % (0.1-12.0); Hematocrit 44.3 % (37.0-47.0); Hemoglobin 14.4 g/dL (12.2-16.2); Mean Corpuscular HGB Conc 32.6 g/dL (31.8-35.4); Mean Corpuscular Hemoglobin 33.3 pg (27.0-31.2); Mean Corpuscular Volume 102.3 fl (81-99); Mean Platelet Volume 7.8 fl (7.4-10.4); Monocytes # 0.7 K/mm3 (0.1-1.0); Monocytes % 5.6 % (1.7-9.3); Neutrophils # 7.2 K/mm3 (1.8-7.8); Neutrophils % 59.6 % (37.0-80.0); Platelet Count 340 K/mm3 (142-424); Red Blood Count 4.33 M/mm3 (4.20-5.40); Red Cell Distribution Width 14.1 % (11.5-17.5); White Blood Count 12.1 K/mm3 (4.8-10.8)
--- NOTE | 2023-07-05 11:24 | ED_ITS ---
Discharge Plan Disposition Patient Disposition: Home, Self-Care Prescriptions Prescriptions: No Action propranolol 10 mg tablet 10 mg PO DAILY cimetidine 300 mg tablet 300 mg PO HS Biktarvy 50-200-25 mg tablet PO nystatin 100,000 unit/gram powder 1 applic topical BID PRN (Reason: rash) Qty: 30 2RF pantoprazole 40 mg tablet,delayed release (DR/EC) 40 mg PO DAILY Creon 36,000-114,000- 180,000 unit capsule,delayed release(DR/EC) 2 cap PO AC Rx Instructions: Take 2 caps by mouth with meals and 1 cap by mouth with snacks meloxicam 7.5 mg tablet 7.5 mg PO DAILY 90 Days Qty: 90 2RF albuterol sulfate 90 mcg/actuation HFA aerosol inhaler 2 inh INHALATION Q6H PRN (Reason: shortness of breath or wheezing) 90 Days Qty: 8.5 3RF fluticasone propion-salmeterol [Advair Diskus] 500-50 mcg/dose blister with device 1 inh IH BID Qty: 180 3RF ipratropium-albuterol 0.5 mg-3 mg(2.5 mg base)/3 mL solution for nebulization 3 ml INHALATION Q6H PRN (Reason: shortness of breath or wheezing) Qty: 180 3RF Spiriva Respimat 2.5 mcg/actuation mist 2 inh inhalation DAILY 90 Days Qty: 4 3RF montelukast 10 mg tablet 10 mg PO QPM 90 Days Qty: 90 2RF lidocaine HCl 10 mg/mL (1 %) solution 10 mg IJ ONCE Qty: 1 0RF triamcinolone acetonide [Kenalog] 40 mg/mL suspension 40 mg IJ ONCE Qty: 1 0RF ofloxacin 0.3 % drops 10 drp otic (ear) DAILY Qty: 10 0RF fluconazole 150 mg tablet 150 mg PO ONCE Qty: 1 0RF miconazole nitrate [Desenex] 2 % powder 1 applic topical BID Qty: 85 1RF meclizine 25 mg tablet See Rx Instructions .ROUTE .COMPLEX Qty: 90 0RF Dose Instruction: TAKE ONE (1) TABLET THREE TIMES DAILY NEEDED FOR DIZZINESS. Rx Instructions: TAKE ONE (1) TABLET THREE TIMES DAILY NEEDED FOR DIZZINESS. terbinafine HCl 250 mg tablet 250 mg PO DAILY Qty: 14 0RF sertraline 100 mg tablet See Rx Instructions .ROUTE .COMPLEX Qty: 60 0RF Dose Instruction: TAKE 2 TABLETS BY MOUTH EVERY DAY FOR DEPRESSION Rx Instructions: TAKE 2 TABLETS BY MOUTH EVERY DAY FOR DEPRESSION guaifenesin [Mucinex] 600 mg tablet extended release 12hr 600 mg PO Q12H Qty: 60 1RF amlodipine 5 mg tablet See Rx Instructions .ROUTE .COMPLEX Qty: 90 0RF Dose Instruction: TAKE 1 TABLET BY MOUTH DAILY Rx Instructions: TAKE 1 TABLET BY MOUTH DAILY prednisone 20 mg tablet 20 mg PO BID Qty: 10 0RF Rx Instructions: administer with food or milk doxycycline hyclate 100 mg tablet 100 mg PO BID Qty: 20 0RF methylprednisolone [Medrol (Truong)] 4 mg tablets,dose pack See Rx Instructions PO PER PKG DIR Qty: 21 0RF Rx Instructions: PO PER PKG DIR cefdinir 300 mg capsule 300 mg PO BID 10 Days Qty: 20 0RF cholecalciferol (vitamin D3) 25 mcg (1,000 unit) tablet See Rx Instructions .ROUTE .COMPLEX Qty: 30 1RF Dose Instruction: TAKE 1 TABLET BY MOUTH DAILY WITH FOOD Rx Instructions: TAKE 1 TABLET BY MOUTH DAILY WITH FOOD rizatriptan 5 mg tablet,disintegrating See Rx Instructions .ROUTE .COMPLEX Qty: 30 1RF Dose Instruction: DISSOLVE 1 TABLET IN MOUTH DAILY NEEDED FOR MIGRAINES Rx Instructions: DISSOLVE 1 TABLET IN MOUTH DAILY NEEDED FOR MIGRAINES tizanidine 4 mg tablet See Rx Instructions .ROUTE .COMPLEX Qty: 60 1RF Dose Instruction: TAKE 1 TABLET TWO TIMES A DAY NEEDED FOR MUSCLE SPASTICITY Rx Instructions: TAKE 1 TABLET TWO TIMES A DAY NEEDED FOR MUSCLE SPASTICITY diclofenac sodium 1 % gel See Rx Instructions .ROUTE .COMPLEX Qty: 100 3RF Dose Instruction: APPLY 4 GRAMS TOPICALLY FOUR TIMES A DAY FOR PAIN. APPLY AND GENTLY MASSAGE INTO AREA. MAY APPLY TO SINGLE KNEE, ANKLE, FOOT (SOLE/TOES/TOP OF FOOT). Rx Instructions: APPLY 4 GRAMS TOPICALLY FOUR TIMES A DAY FOR PAIN. APPLY AND GENTLY MASSAGE INTO AREA. MAY APPLY TO SINGLE KNEE, ANKLE, FOOT (SOLE/TOES/TOP OF FOOT). oxycodone-acetaminophen [Percocet] 10-325 mg tablet 1 tab PO QID Qty: 120 0RF Vraylar 1.5 mg capsule 1.5 mg PO DAILY Qty: 90 2RF fluticasone propionate [Flonase Allergy Relief] 50 mcg/actuation spray,suspension 1 spray intranasal DAILY PRN (Reason: nasal congestion) Qty: 16 0RF Rx Instructions: administer into each nostril (DME) FreeStyle Lite Strips Strip See Rx Instructions .ROUTE .COMPLEX Qty: 100 3RF Dose Instruction: TEST THREE TIMES A DAY Rx Instructions: TEST THREE TIMES A DAY hydrochlorothiazide 12.5 mg capsule 12.5 mg PO DAILY Qty: 90 2RF metformin 500 mg tablet See Rx Instructions .ROUTE .COMPLEX Qty: 180 0RF Dose Instruction: TAKE 1 TABLET BY MOUTH TWO TIMES A DAY Rx Instructions: TAKE 1 TABLET BY MOUTH TWO TIMES A DAY pravastatin 40 mg tablet See Rx Instructions .ROUTE .COMPLEX Qty: 90 0RF Dose Instruction: TAKE 1 TABLET BY MOUTH AT BEDTIME FOR CHOLESTEROL Rx Instructions: TAKE 1 TABLET BY MOUTH AT BEDTIME FOR CHOLESTEROL benzonatate 200 mg capsule 200 mg PO TID PRN (Reason: cough) Qty: 15 0RF hydrocortisone 28 GM cream with perineal applicator 1 applicatio * BID PRN (Reason: Hemorrhoids) Rx Instructions: 1 application AR BID PRN alendronate 70 mg tablet 70 mg PO WEEKLY clobetasol [Temovate] 0.05 % ointment 1 applic TP BID Referrals Follow up/Referrals: Hiram Serna DO [Primary Care Provider] - See instructions Ramirez Dai MD [Staff Physician] - See instructions Clinical Impressions Clinical Impression: Migraine, Chest pain Discharge ED Provider: Jun Marmolejo HPI General Chief Complaint: Chest Pain Stated Complaint: chest pain Time Seen by Provider: 07/05/23 11:10 Mode of Arrival: Ambulatory Source of Information: Patient Limitations: No Limitations Description of Symptoms (Recalled from ER Triage Doc. by RN): pt presents to ED with c/o chest pressur doe right side of chest, and headache. symptoms ongoing for the past 3-4 days History of Present Illness HPI narrative: Patient is a 62-year-old female present today with multiple complaints including headache and chest pain. She states her chest pain is been going on for the last week and has been exertional in nature substernal nonradiating no dyspnea or diaphoresis associated with this. No lower extremity swelling hemoptysis history of DVT or PE. She has no history of coronary artery disease to her knowledge. Additionally she states she has had a headache that has been chronic and is persistent at the moment. She has been wearing glasses for the last few days as she has some photophobia. No neck stiffness or fevers. She does have a history of HIV states has been very well-controlled since 2007 when she was first diagnosed who has had an undetectable viral load and normal CD4 count since that time she is closely followed by [facility]. Related Data Home Medications Medication Instructions Recorded Confirmed rifmyr-yvdxhltt-fforqzo 2 cap PO AC DIGESTION 03/13/21 06/09/23 36,000-114,000-180,000 unit capsule,delay rel (Creon) pantoprazole 40 mg tablet,delayed 40 mg PO DAILY GERD 03/13/21 06/09/23 release hydrocortisone 2.5 % topical cream 1 applicatio * BID PRN Hemorrhoids 04/25/21 06/09/23 with perineal applicator propranolol 10 mg tablet 10 mg PO DAILY BLOOD PRESSURE 06/12/21 06/09/23 clobetasol 0.05 % topical ointment 1 applic topical BID Skin condition 11/21/21 06/09/23 (Temovate) alendronate 70 mg tablet 70 mg PO WEEKLY Osteoporosis 09/16/22 06/09/23 bictegravir 50 mg-emtricitabine tab PO 11/12/22 06/09/23 200 mg-tenofovir alafenam 25 mg tablet (Biktarvy) cimetidine 300 mg tablet 300 mg PO HS 11/12/22 06/09/23 Previous Rx's Medication Instructions Recorded meloxicam 7.5 mg tablet 7.5 mg PO DAILY 3 months #90 tabs 04/15/22 nystatin 100,000 unit/gram topical 1 applic topical BID PRN rash #30 08/18/22 powder grams meclizine 25 mg tablet See Rx Instructions .Route 12/09/22 .COMPLEX #90 tabs terbinafine HCl 250 mg tablet 250 mg PO DAILY #14 tabs 01/05/23 sertraline 100 mg tablet See Rx Instructions .Route 02/13/23 .COMPLEX #60 tabs guaifenesin 600 mg tablet, 600 mg PO Q12H #60 tabs 03/06/23 extended release 12 hr (Mucinex) amlodipine 5 mg tablet See Rx Instructions .Route 03/30/23 .COMPLEX #90 tabs albuterol sulfate 90 mcg/actuation 2 inh inhalation Q6H PRN shortness 04/09/23 aerosol inhaler of breath or wheezing 90 days #8.5 grams fluticasone 500 mcg-salmeterol 50 1 inh inhalation BID #180 ea 04/09/23 mcg/dose blistr powdr for inhalation (Advair Diskus) ipratropium 0.5 mg-albuterol 3 mg 3 ml inhalation Q6H PRN shortness 04/09/23 (2.5 mg base)/3 mL nebulization of breath or wheezing #180 mL soln montelukast 10 mg tablet 10 mg PO QPM 90 days #90 tabs 04/09/23 tiotropium bromide 2.5 2 inh inhalation DAILY 90 days #4 04/09/23 mcg/actuation mist for inhalation grams (Spiriva Respimat) cefdinir 300 mg capsule 300 mg PO BID 10 days #20 caps 05/25/23 doxycycline hyclate 100 mg tablet 100 mg PO BID #20 tabs 05/25/23 methylprednisolone 4 mg tablets in See Rx Instructions PO PER PKG DIR 05/25/23 a dose pack (Medrol (Truong)) #21 tabs prednisone 20 mg tablet 20 mg PO BID #10 tabs 05/25/23 benzonatate 200 mg capsule 200 mg PO TID PRN cough #15 caps 05/28/23 fluconazole 150 mg tablet 150 mg PO ONCE #1 tab 06/02/23 miconazole nitrate 2 % topical 1 applic topical BID #85 grams 06/02/23 powder (Desenex) ofloxacin 0.3 % ear drops 10 drp otic (ear) DAILY #10 mL 06/02/23 cholecalciferol (vitamin D3) 25 See Rx Instructions .Route 06/24/23 mcg (1,000 unit) tablet .COMPLEX #30 caps diclofenac sodium 1 % topical gel See Rx Instructions .Route 06/24/23 .COMPLEX #100 grams oxycodone-acetaminophen 10 mg-325 1 tab PO QID #120 tabs 06/24/23 mg tablet (Percocet) rizatriptan 5 mg disintegrating See Rx Instructions .Route 06/24/23 tablet .COMPLEX #30 tabs tizanidine 4 mg tablet See Rx Instructions .Route 06/24/23 .COMPLEX #60 tabs cariprazine 1.5 mg capsule 1.5 mg PO DAILY MDD #90 caps 06/25/23 (Vraylar) FreeStyle Lite Strips (blood sugar #100 ea 06/29/23 diagnostic) fluticasone propionate 50 1 spray intranasal DAILY PRN nasal 06/29/23 mcg/actuation nasal congestion #16 grams spray,suspension (Flonase Allergy Relief) hydrochlorothiazide 12.5 mg capsule 12.5 mg PO DAILY #90 caps 06/29/23 metformin 500 mg tablet See Rx Instructions .Route 06/29/23 .COMPLEX #180 tabs pravastatin 40 mg tablet See Rx Instructions .Route 06/29/23 .COMPLEX #90 tabs Allergies Allergy/AdvReac Type Severity Reaction Status Date / Time vancomycin Allergy Intermediate Redness of Verified 06/09/23 08:27 Skin morphine Allergy Mild Itching Verified 06/09/23 08:27 aspirin Allergy Unknown Unknown Verified 06/09/23 08:27 allergy reaction azithromycin Allergy Unknown Unknown Verified 06/09/23 08:27 [From ZITHROMAX Z-TRUONG] allergy reaction diphenhydramine Allergy Unknown Unknown Verified 06/09/23 08:27 [From BENADRYL] allergy reaction ibuprofen [IBUPROFEN] Allergy Unknown Unknown Verified 06/09/23 08:27 allergy reaction latex [LATEX] Allergy Unknown Unknown Verified 06/09/23 08:27 allergy reaction levofloxacin [From LEVAQUIN] Allergy Unknown Unknown Verified 06/09/23 08:27 allergy reaction shellfish derived Allergy Unknown Verified 06/09/23 08:27 allergy reaction sulfamethoxazole Allergy Rash Verified 06/09/23 08:27 [From Bactrim] trimethoprim [From Bactrim] Allergy Unknown Verified 06/09/23 08:27 allergy reaction tape Allergy Redness of Uncoded 06/04/23 09:17 Skin PFSH PFSH Disclaimer: The information contained in this section may have been updated after the patient was seen, as this information can be updated by other users. 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 follow-up with benefits specialist, oxygen dependent Moderate persistent asthma Dyspnea on exertion Nocturnal hypoxemia Crack cocaine use Hyperlipidemia HIV (human immunodeficiency virus infection) Hypertension Lumbar radiculopathy, chronic Lumbar radiculopathy Lumbar disc disease with radiculopathy Degenerative arthritis Cervicalgia Closed head injury Vitamin D deficiency (~08/11/17) Diabetes Surgical History History of thyroidectomy History of left knee surgery History of section History of splenectomy History of hysterectomy History of colonoscopy History of cholecystectomy History of carpal tunnel release History of arthroscopy of shoulder Status post arthroscopy of hip Family History Other Cancer Coronary artery disease Diabetes Heart attack Hyperlipidemia Hypertension Kidney disease Stroke Thyroid disorder Social History Smoking Status: Current every day smoker alcohol intake: never substance use type: denies use current occupational status: disabled Travel in the last 8 weeks: None household members: family housing: house caffeine: Yes ROS Obtained: Yes All systems reviewed & no additional complaints except as documented Physical Exam General General appearance: in no apparent distress and other (Wearing sunglasses) Respiratory Respiratory exam: Present normal lung sounds bilaterally; Absent respiratory distress Cardiovascular Cardiovascular exam: Present regular rate and normal rhythm Abdominal Exam Abdominal exam: Present soft; Absent distention or tenderness Neurological Exam Neurological exam: Present alert, oriented X3, CN II-XII intact and normal gait; Absent motor sensory deficit HEART Score HEART Score HEART Score assessment performed?: Yes History (anamnesis): Moderately suspicious ECG: Non-specific disturbance Age: 45-65 years Risk factors: 3 or more risk factors Troponin: </= normal limit HEART Score: 5 Critical Care Critical Care Time Critical Care Time: No Medical Decision Making Fortino Inquiry Pt receiving controlled substance: No Vital Signs Vital Signs: 07/05/23 10:51 07/05/23 11:05 07/05/23 12:01 Temperature 97.9 F Temperature Source Oral Pulse Rate 53 L 57 L Pulse Rate [Left Radial] 61 Respiratory Rate 15 14 Blood Pressure 149/72 H Blood Pressure [Right Arm] 168/79 H Blood Pressure Mean [Right Arm] 108 02 Sat by Pulse Oximetry 95 93 L Oxygen Delivery Method Room Air 07/05/23 12:30 07/05/23 13:00 07/05/23 13:30 Temperature Temperature Source Pulse Rate 58 L 60 65 Pulse Rate [Left Radial] Respiratory Rate 21 21 21 Blood Pressure 134/62 160/76 H 150/74 H Blood Pressure [Right Arm] Blood Pressure Mean [Right Arm] 02 Sat by Pulse Oximetry 93 L 95 91 L Oxygen Delivery Method Room Air Room Air 07/05/23 14:00 Temperature Temperature Source Pulse Rate 62 Pulse Rate [Left Radial] Respiratory Rate 23 Blood Pressure 146/67 H Blood Pressure [Right Arm] Blood Pressure Mean [Right Arm] 02 Sat by Pulse Oximetry 93 L Oxygen Delivery Method Lab Data Lab results reviewed: Yes I reviewed the patient's lab results. Labs: Lab Results 07/05/23 10:58: WBC 12.1 H, RBC 4.33, Hgb 14.4, Hct 44.3, MCV 102.3 H, MCH 33.3 H, MCHC 32.6, RDW 14.1, Plt Count 340, MPV 7.8, Neut % (Auto) 59.6, Lymph % (Auto) 33.0, Potter % (Auto) 5.6, Eos % (Auto) 1.1, Baso % (Auto) 0.9, Neut # (Auto) 7.2, Lymph # (Auto) 4.0, Potter # (Auto) 0.7, Eos # (Auto) 0.1, Baso # (Auto) 0.1, D-Dimer 0.88 H, Sodium 140, Potassium 4.3, Chloride 104, Carbon Dioxide 28, Anion Gap 12.3, BUN 21 H, Creatinine 0.60, Estimated Creat Clear 76, Estimated GFR 102, Est GFR ( Amer) 123, Glucose 100, Calcium 9.5, Total Bilirubin 0.9, AST 32, ALT 26, Alkaline Phosphatase 68, Troponin I < 0.01, Total Protein 6.5, Albumin 3.7, Globulin 2.8, Albumin/Globulin Ratio 1.3 07/05/23 13:59: Troponin I < 0.01 07/05/23 10:58 07/05/23 10:58 Response Orders (Tests/Meds): ED MEDICATIONS Generic Name Dose Route Start Last Admin Trade Name Freq PRN Reason Stop Dose Admin Sodium Chloride 10 ml 07/05/23 11:13 Sodium Chloride 0.9% 10ml Flush Syringe IV 08/04/23 11:12 NEEDED PRN Maintain IV Site Discontinued Medications Generic Name Dose Route Start Last Admin Trade Name Blanche PRN Reason Stop Dose Admin Acetaminophen 1,000 mg 07/05/23 11:18 07/05/23 11:36 Acetaminophen 1,000mg/100ml Vial IV 07/05/23 11:19 1,000 mg ONCE ONE Administration Lactated Ringer's 1,000 mls @ 999 mls/hr 07/05/23 11:30 07/05/23 11:36 Lactated Ringer's 1000 Ml Bag IV 07/05/23 12:30 999 mls/hr .Q1H1M GENNARO Administration Prochlorperazine Edisylate 10 mg 07/05/23 11:18 07/05/23 11:34 Prochlorperazine 10mg/2ml Vial IV 07/05/23 11:19 10 mg ONCE ONE Administration ORDERS Category Date Time Status XR chest 2V Stat Exams 07/05/23 11:12 Completed Complete Blood Count Auto Diff Stat Lab 07/05/23 10:58 Completed Comprehensive Metabolic Panel Stat Lab 07/05/23 10:58 Completed D-Dimer Stat Lab 07/05/23 10:58 Completed Troponin I Q3H Lab 07/05/23 13:59 Completed Troponin I Q3H Lab 07/05/23 17:15 Ordered Troponin I Stat Lab 07/05/23 10:58 Completed ECG Data Tracing #1: Attestation: I reviewed this ECG and interpreted as documented below: ECG Narrative: Ventricular to 55 sinus bradycardia no acute ischemic changes noted there is no significant axis deviation there is low voltage QRS leads in the precordial aspects no significant conduction abnormalities noted MDM Narrative Medical Decision Narrative: Patient with above history and physical presented with chest pain and headache. From a headache standpoint her neurologic exam is normal it has been chronic she has a history of migraines we will treat with a migraine cocktail. I am not concerned about any space-occupying lesion subarachnoid hemorrhage meningitis etc. From a chest pain standpoint is little more concerning she has had some exertional symptoms but is very stable at the moment. EKG is nonischemic we will get serial troponins and reassess. Reassessment 2:47 PM serial troponins are negative D-dimer less than 1.0 utilizing years criteria this is not consistent with a pulmonary embolism. Her headache is much improved serial neurologic and cardiovascular exams are normal. Chest pain has been resolved the entirety after migraine cocktail as well. She is stable for outpatient close follow-up with cardiology will call for next available appointment she is understanding of this. She was discharged in stable condition.
[2023-07-05 11:27] LABS: Alanine Aminotransferase 26 U/L (12-78); Albumin Level 3.7 g/dl (3.5-5.0); Albumin/Globulin Ratio 1.3 (1.1-1.8); Alkaline Phosphatase 68 U/L (38-126); Anion Gap 12.3 mEq/L (5-15); Aspartate Amino Transferase 32 U/L (14-36); Bilirubin,Total 0.9 mg/dl (0.2-1.3); Blood Urea Nitrogen 21 mg/dl (7-17); Calcium 9.5 mg/dl (8.4-10.2); Carbon Dioxide 28 mmol/L (22.0-30.0); Chloride 104 mmol/L (98-107); Creatinine Clearance Estimated 76 mL/min (50-200); Estimated Glomerular Filt Rate 102 ml/min (>60); GFR (African American) 123 ML/MIN (>60); Globulin 2.8 g/dL (1.3-3.2); Glucose 100 mg/dl (74-100); Potassium 4.3 mmoL/L (3.5-5.1); Sodium 140 mmol/L (136-145); Total Protein,Serum 6.5 g/dl (6.3-8.2)
--- NOTE | 2023-07-05 11:33 | PC.NURSE ---
patient gone to XRay at this time.
[2023-07-05] MEDS: PROCHLORPERAZINE 10MG/2ML VIAL 10 MG IV (11:34)
[2023-07-05 11:35] LABS: D-Dimer 0.88 ug/mL (0.0-0.5)
[2023-07-05] MEDS: LACTATED RINGERS 1000ML 1,000 ML 999 ML IV (11:36)
[2023-07-05] MEDS: ACETAMINOPHEN 1,000MG/100ML VIAL 1000 MG IV (11:36)
--- NOTE | 2023-07-05 11:37 | PC.NURSE ---
patient back in room at this time
[2023-07-05 11:46] LABS: Troponin I < 0.01 ng/ml (0.00-0.034)
--- NOTE | 2023-07-05 13:21 | PC.NURSE ---
Assisted PT with to the bathroom. PT is back in bed.
[2023-07-05 14:37] LABS: Troponin I < 0.01 ng/ml (0.00-0.034)
== END 2023-07-05 14:58 | disposition home or self-care (01) ==
PROVIDERS: Emergency Provider Student in an Organized Health Care Education/Training Program; PCP Internal Medicine
DX: G43.909 Migraine, unspecified, not intractable, without status migrainosus (principal); R07.89 Other chest pain; R00.1 Bradycardia, unspecified; B20 Human immunodeficiency virus [HIV] disease; E11.9 Type 2 diabetes mellitus without complications; I10 Essential (primary) hypertension; E78.5 Hyperlipidemia, unspecified; F17.210 Nicotine dependence, cigarettes, uncomplicated; Z79.84 Long term (current) use of oral hypoglycemic drugs
CPT/HCPCS: 71046; 80053; 84484; 85025; 85378; 93005; 96361; 96374; 96375; 99285; J0131

== ENCOUNTER 2023-07-13 08:12 | Outpatient (POV) | payer MEDICARE, OTHER, SELFPAY ==
--- NOTE | 2023-07-13 08:48 | A.OFFVIS_ITS ---
[facility] Pain Management SOAP Note Subjective:: Patient is a pleasant 62-year-old female who presents today for follow-up. Today she rates her pain a 8 out of 10. Patient denies any recent injury or fall. She does state that she is having extreme pain in her low back all along the left side that goes down into her buttocks and down to her left foot. She does describe this as a constant sharp sensation that feels like a needle stabbing her and some numbness and tingling. Patient states this is been going on for the last month or longer. Patient does state the pain is interfering with her ability to perform activities of daily living such as cooking and cleaning. Patient has had injections in the past that have really helps and she is interested in doing this now. Patient has been prescribed tizanidine in the past and states that sometimes the muscle relaxers would help. Patient does state currently nothing seems to be giving him any relief. She is prescribed Percocet and lorazepam from an outside provider. Patient does have a wavecatch spinal cord stimulator in place and states that the programming is doing well however it just does not seem to be helping this area pain. Her Fortino has been reviewed and is appropriate. Review of Systems: General: No recent weight changes, no fever, no sleep disturbances Respiratory: No cough, no shortness of air, no recurring pulmonary infections Cardiovascular/peripheral vascular: No chest pain, no palpitations, no edema, no shortness of breath Gastrointestinal: No new onset incontinence, normal bowel movements reported Genitourinary: No new onset incontinence Musculoskeletal: Low back pain, left leg pain Psychiatric: [Normal mood/affect] Neurological: [Denies weakness in extremities], [denies balance issues] Objective:: Physical Exam: General: Alert and oriented x3, no acute distress, pleasant and cooperative Lungs: Respirations even and unlabored, symmetrical chest expansion Eyes: PERRL Musculoskeletal: Flexion and extension of lumbar [spine] somewhat guarded secondary to pain, [antalgic gait noted] positive left leg raise with decreased sensation to light touch and decreased reflexes Neurological: Speech clear, no gross sensory deficit Assessment:: Degenerative disc disease of lumbar spine with lumbar radiculopathy symptoms, left leg pain Plan:: Patient is experiencing worsening pain in her low back with radiating symptoms of numbness and tingling down into her left leg. Patient did have limited range of motion of her lumbar spine with a positive left leg raise and decreased sensation to light touch and decreased reflexes during today's visit. I have discussed with patient that she may benefit from a left transforaminal epidural steroid injection. Risk and benefits were discussed with patient and she would like to proceed forward with this plan of care. Patient is not on any blood thinners. Patient has tried and failed conservative therapies such as oral medication, heat and ice, topicals, continued at home exercising and stretching for longer than 6 weeks. Patient's medication interactions have a couple of severe warnings with causing edema we will discontinue this medication and send in a prescription of baclofen 5 mg twice daily. Patient will be scheduled for a left transforaminal epidural steroid injection L4-L5 and L5-S1 under fluoroscopy. Patient has been instructed to contact the clinic with any concerns before the next appointment. Dr. Ventura has reviewed this note and agrees with this plan of care. This note was dictated using voice recognition software and make contain errors or omissions. [facility] Disclaimer: The information contained in this section may have been updated after the patient was seen, as this information can be updated by other users. 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 follow-up with electrical maintenance supervisor, oxygen dependent Moderate persistent asthma Dyspnea on exertion Nocturnal hypoxemia Crack cocaine use Hyperlipidemia HIV (human immunodeficiency virus infection) Hypertension Lumbar radiculopathy, chronic Lumbar radiculopathy Lumbar disc disease with radiculopathy Degenerative arthritis Cervicalgia Closed head injury Vitamin D deficiency (~08/11/17) Diabetes Surgical History History of thyroidectomy History of left knee surgery History of section History of splenectomy History of hysterectomy History of colonoscopy History of cholecystectomy History of carpal tunnel release History of arthroscopy of shoulder Status post arthroscopy of hip Family History Other Cancer Coronary artery disease Diabetes Heart attack Hyperlipidemia Hypertension Kidney disease Stroke Thyroid disorder Social History Smoking Status: Current every day smoker alcohol intake: never substance use type: denies use current occupational status: disabled Travel in the last 8 weeks: None household members: family housing: house caffeine: Yes
[2023-07-13 09:06] VITALS: BP 127/59; PULSE 55; RESP 20; O2SAT 94; BMI 36.1
== END 2023-07-13 23:59 | disposition home or self-care (01) ==
PROVIDERS: PCP Internal Medicine; Visit Provider Nurse Practitioner Family
DX: M51.16 Intervertebral disc disorders with radiculopathy, lumbar region (principal); M79.605 Pain in left leg
CPT/HCPCS: 99212; G0463

== ENCOUNTER 2023-08-04 07:16 | Day surgery (SDC) | payer MEDICARE, OTHER, SELFPAY ==
[2023-08-04 08:17] VITALS: BP 100/69; PULSE 68; RESP 18; TEMP 36.5; O2SAT 91; BMI 37.3
--- NOTE | 2023-08-04 08:51 | EXP.PAIN.PRO ---
Procedure Date: 08/04/23 Time: 08:30 Anesthesiologist:: Tomás Patterson CRNA Complications:: None Pre-procedure Diagnosis:: Degenerative disc lumbar spine multilevels. Lumbar radiculopathy. Lumbar spondylosis. Multilevel lumbar facet arthropathy. Post-procedure Diagnosis:: Same. Indications for Procedure:: Patient is a very pleasant 62-year-old female comes our clinic today for left L4-5, L5-S1 transforaminal epidural steroid injection. Patient reports low lumbar back pain left greater than right. Left hip and leg radicular symptoms to the foot. She rates her pain 8/10. Procedure Details:: Details of the procedure were explained to the patient. The patient was taken the procedure room placed in the prone position. The area of the lumbar spine was cleansed using chlorhexidine as a cleansing solution. At this time using fluoroscopy guidance markers were placed on the left lateral border of the L4 and L5 vertebral body. The skin and subcutaneous tissue was anesthetized using 1% lidocaine and 25-gauge needle. At this time using a 22-gauge 3-1/2 inch spinal needle the left upper one third of the L4-5 foramen was accessed. The same was done at the left L5-S1 foramen. Needle positions were confirmed and a lateral view using fluoroscopy and contrast dye. At this time 1 cc of 1% lidocaine +20 mg of Depo-Medrol was injected at each level after negative aspiration. [place] were removed. Band-Aid applied. Patient tolerated the procedure without difficulty. There are no complications. Plan and Disposition:: Patient was discharged without incident.
[2023-08-04 08:55] VITALS: BP 124/54; PULSE 58; RESP 18; O2SAT 94
[2023-08-04] MEDS: LIDOCAINE 1% 5ML PF VIAL 5 ML (08:55)
[2023-08-04 08:56] VITALS: BP 122/71; PULSE 54; RESP 20; O2SAT 91
[2023-08-04 08:57] VITALS: BP 124/54; PULSE 58; RESP 18; O2SAT 94
== END 2023-08-04 08:57 | disposition home or self-care (01) ==
PROVIDERS: PCP Internal Medicine; Visit Provider Nurse Anesthetist, Certified Registered
DX: M51.16 Intervertebral disc disorders with radiculopathy, lumbar region (principal); M47.26 Other spondylosis with radiculopathy, lumbar region
CPT/HCPCS: 64483; 64484; J1010

== ENCOUNTER 2023-08-11 09:22 | Outpatient (CLI) | payer MEDICARE, OTHER, SELFPAY ==
--- NOTE | 2023-08-11 09:22 | CT_ITS ---
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 A noncontrast coronary calcium scan was performed. A CT attenuation threshold of 130 Hounsfield units (HU) was used for the detection of calcium in contiguous voxels of 1 sq mm in area to be counted as individual lesions. Bolus tracking in the ascending aorta with a threshold of 180 HU was performed. Immediately afterwards, ECG synchronized cardiac CT was then performed from the cardiac base to apex using retrospective gating with ECG tube current modulation. A total of 85 mL of Isovue 370 mg/mL contrast medium was administered at 5 mL/sec followed by a saline flush using a biphasic injection protocol. A tube voltage of 120 KVp was used. The patient received the following medications prior to the cardiac CT. 5 mg of intravenous metoprolol 0.8 mg of sublingual nitroglycerin The average heart rate at the time of acquisition was 51 bpm and regular. Image Reconstruction Transaxial images were reconstructed at 0.67 mm slide thickness. Data was reviewed interactively on an advanced workstation capable of 2 and 3-dimensional displays in all conventional reconstruction formats, including multiplanar reformations, maximum intensity projections, curved multiplanar reformations, and volume rendered reconstructions. When applicable, selected routine images describing the relevant coronary anatomy and pathology were saved and sent to PACS. Complications None Technical Quality Overall image quality was good. Coronary artery opacification was adequate. Total DLP (Dose-Length Product) is 1187.0 mGy-cm. The reported value represents the total of one or more individual components during the CT acquisition of this date and at this time, and as such, the same value may appear in more than one CT report depending on the interpreting/reporting physicians. COMPARISON None FINDINGS CT Coronary Calcium Scoring LMA (Left Main Artery) = 0 LAD (Left Anterior Descending) = 0 LCX (Left Coronary Circumflex) = 0 RCA (Right Coronary Artery) = 0 Total Calcium Score = 0 using the AJ-130 method. The interpretation of the calcium heart score is based on the following continuum*: 0 = no calcified plaque detected (risk of coronary artery disease is very low ??? less than 5%) 1-10 = calcium detected in extremely minimal levels (risk of coronary diseases is still low ??? less than 10%) 11-100 = mild levels of plaque detected with certainty (mild or minimal narrowing of heart arteries is likely) 101-400 = definite,at least moderate levels of plaque detected (relatively high risk of a heart attack within 3-5 years) >401-999 = extensive levels of plaque detected (high risk of heart attack, high levels of vascular disease are present, high likelihood of at least one significant coronary narrowing) *The calcium heart score quantifies the burden of coronary calcification/plaque in the coronary arteries. The calcium heart score is not able to evaluate the presence or burden of non-calcified (i.e. soft) plaque. There is no identifiable calcification in the aortic valve, mitral annulus or mitral valve, pericardium, or myocardium. Coronary CT Angiography The coronary arterial system is left dominant. Quantitative Stenosis Grading: Left Main (LM): The left main originates normally from the left sinus of Valsalva. The LM bifurcates into the left anterior descending artery and left circumflex artery. The LM is patent with no evidence of atherosclerosis. Left Anterior Descending (LAD) and Diagonal Branches: The LAD gives off 2 diagonal branch(es). The LAD and its branches are patent with no evidence of atherosclerosis. There is no evidence of LAD-myocardial bridge. Left Circumflex (LCX) and Obtuse Marginals (OM): The LCX gives off 2 Obtuse Marginal (OM) branch(es). The LCX and its branches are patent with no evidence of atherosclerosis. Right Coronary Artery (RCA): The RCA originates normally from the right sinus of Valsalva. The RCA is a small caliber vessel. The RCA and its branches are patent with no evidence of atherosclerosis. Non-Coronary Cardiac Findings: Analysis of the left ventricular (LV) structure and function was performed after 3-D reconstruction of the LV from axial images, with user-corrected automatic contouring for assessment of LV volumes and user-defined reconstruction from oblique planes for measurement of 3-D cardiac structure and function. -The left ventricle systolic function is normal. -There is no left atrial appendage filling defect. Two right pulmonary veins and two left pulmonary veins drain normally into the left atrium. -No pericardial thickening or calcification. -Central and branch pulmonary arteries in the [id number] are unremarkable. -Thoracic aorta within the visualized thoracic aortic-branches in the [id number] is unremarkable. Extracardiac Structures No significant extra-cardiac findings. Note, however, that this study is focused on the cardiac findings. IMPRESSION -No coronary calcification with an Agatston score = 0 using the AJ-130 method. -No evidence of significant flow-limiting atherosclerosis of the coronary arteries. -No evidence of coronary anomalies or myocardial bridges. -CAD-RADS 0. Management recommendations per ACC/AHA guidelines*, as clinically appropriate. *Recommendations: CAD RADS 0: Reassurance. Consider non-atherosclerotic causes of chest pain. CAD RADS 1: Consider non-atherosclerotic causes of chest pain. Consider preventive therapy and risk factor modification. CAD RADS 2: Consider non-atherosclerotic causes of chest pain. Consider preventive therapy and risk factor modification, particularly for patients with nonobstructive plaque in multiple segments. CAD RADS 3: Consider further functional testing. Consider symptom-guided anti-ischemic and preventive pharmacotherapy as well as risk factor modification per published guideline statements. CAD RADS 4A: Consider further functional testing or invasive coronary angiography with revascularization per published guideline statements. Consider symptom-guided anti-ischemic and preventive pharmacotherapy as well as risk factor modification per published guideline statements. CAD RADS 4B: Invasive coronary angiography recommended with revascularization per published guideline statements. Consider symptom-guided anti-ischemic and preventive pharmacotherapy as well as risk factor modification per published guideline statements. CAD RADS 5: Consider invasive angiography and/or viability assessment with revascularization per published guideline statements. Consider symptom-guided anti-ischemic and preventive pharmacotherapy as well as risk factor modification per published guideline statements. CRITICAL RESULT None COMMUNICATION Per this written report The coronary and cardiac findings of this CCTA were reviewed, reported, and signed by Felipe Vera MD (Cinema Or Theatre Manager) Conclusion Electronically signed by : Analia Vera MD 08/12/2023 13:09:48
[2023-08-11 09:46] VITALS: BMI 37.3
[2023-08-11 09:59] VITALS: BP 166/88; PULSE 58; RESP 16; TEMP 36.6; O2SAT 93
[2023-08-11 10:15] LABS: POC Glucose,Bedside 93 (70-110)
[2023-08-11 10:23] LABS: Chloride 105 mmol/L (98-107); Potassium 3.8 mmoL/L (3.5-5.1); Sodium 139 mmol/L (136-145)
[2023-08-11 10:26] LABS: Anion Gap 8.8 mEq/L (5-15); Blood Urea Nitrogen 14 mg/dl (7-17); Calcium 9.2 mg/dl (8.4-10.2); Carbon Dioxide 29 mmol/L (22.0-30.0); Creatinine Clearance Estimated 81 mL/min (50-200); Estimated Glomerular Filt Rate 102 ml/min (>60); GFR (African American) 123 ML/MIN (>60); Glucose 96 mg/dl (74-100)
[2023-08-11 10:41] VITALS: BP 196/102; PULSE 58; RESP 16; TEMP 36.7; O2SAT 93
[2023-08-11] MEDS: NITROGLYCERIN 0.4MG SL TABLET 0.8 MG SL (10:41)
[2023-08-11 10:44] VITALS: BP 184/96; PULSE 63; RESP 16; O2SAT 91
[2023-08-11] MEDS: METOPROLOL TARTRATE 5MG/5ML VIAL *IVABRADINE+METOPROLOL REGIMINE 5 MG IV (10:44)
[2023-08-11 10:47] VITALS: BP 171/96; PULSE 60; RESP 16; O2SAT 92
[2023-08-11] MEDS: SODIUM CHLORIDE 0.9% 10ML SYR (RAD ONLY) 10 ML IV (10:57)
[2023-08-11] MEDS: 0.9 % SODIUM CHLORIDE 50 ML VIAL IV (10:57)
[2023-08-11] MEDS: IOPAMIDOL-370 (76%);100ML BOTTLE 85 ML IV (10:57)
[2023-08-11 11:00] VITALS: BP 150/78; PULSE 61; RESP 16; O2SAT 92
== END 2023-08-11 11:03 | disposition home or self-care (01) ==
PROVIDERS: PCP Family Medicine; Visit Provider Family Medicine
DX: R07.9 Chest pain, unspecified (principal); I20.89 Other forms of angina pectoris; A52.0 Cardiovascular and cerebrovascular syphilis; E11.42 Type 2 diabetes mellitus with diabetic polyneuropathy; R53.83 Other fatigue; R06.09 Other forms of dyspnea; Z79.84 Long term (current) use of oral hypoglycemic drugs
CPT/HCPCS: 75574; 80048; 82962; Q9967

== ENCOUNTER 2023-08-31 10:26 | Day surgery (SDC) | payer MEDICARE, OTHER, SELFPAY ==
[2023-08-25 09:57] VITALS: BMI 37.3
--- NOTE | 2023-08-31 10:41 | ECG_ITS ---
APPROVED REPORT Exam: Resting ECG HR:58 bpm ECG Measurements Heart Rate 58 AXES AK 169 P 23 QRSd 80 QRS -13 QT 426 T -11 QTc 422 Conclusion SINUS BRADYCARDIA LOW QRS VOLTAGE IN PRECORDIAL LEADs Borderline left axis deviation Poor R wave progression ABNORMAL ECG UNCONFIRMED REPORT Electronically signed by : Nathan Reynolds MD 09/02/2023 08:34:00
[2023-08-31] MEDS: LACTATED RINGERS 1000ML 1,000 ML 25 ML IV (10:47)
[2023-08-31 10:48] VITALS: BP 114/70; PULSE 58; RESP 18; TEMP 36.3; O2SAT 90
[2023-08-31 11:01] LABS: POC Glucose,Bedside 104 (70-110)
--- NOTE | 2023-08-31 11:03 | EXP.ANES.CKL ---
[facility] Disclaimer: The information contained in this section may have been updated after the patient was seen, as this information can be updated by other users. 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, oxygen dependent Moderate persistent asthma Dyspnea on exertion Nocturnal hypoxemia Crack cocaine use Hyperlipidemia HIV (human immunodeficiency virus infection) Hypertension Lumbar radiculopathy, chronic Lumbar radiculopathy Lumbar disc disease with radiculopathy Degenerative arthritis Cervicalgia Closed head injury Vitamin D deficiency (~08/11/17) Diabetes Surgical History History of thyroidectomy History of left knee surgery History of section History of splenectomy History of hysterectomy History of colonoscopy History of cholecystectomy History of carpal tunnel release History of arthroscopy of shoulder Status post arthroscopy of hip Family History Other Cancer Coronary artery disease Diabetes Heart attack Hyperlipidemia Hypertension Kidney disease Stroke Thyroid disorder Social History Smoking Status: Former smoker alcohol intake: never substance use type: denies use current occupational status: disabled Travel in the last 8 weeks: None household members: family housing: house caffeine: Yes [facility] Anesthesia Checklist Patient Identification Patient Identification: Arm Band Structural Data Admitted From: Home Planned Operative Procedure/s: Left Tympanoplasty with Cartilage Graft Consent for Planned Operative Procedure(s) Verified: Yes Verified Documents: Surgical Consent and History and Physical NPO Status Verified Time NPO: 00:00 Additional verifications Anesthesia Reactions: No Hx Blood Transfusions: Yes Blood Transfusion Reaction: No Airway Assessment Mallampati Score:: Class II C-Spine Mobility Assessed: Yes TMJ Mobility Assessed: Yes Dentition: Edentulous Neurological Assessment Level of Consciousness: Awake, Alert and Appropriate Anesthesia Plan Anesthesia Risk discussed: Yes Anesthesia Plan: Verified ASA Class: III Anesthesia Type: General
--- NOTE | 2023-08-31 12:02 | SUR.PREOP ---
Procedure cancelled today d/t responsible alliance party not showing up. Jeanna garcia RN spoke with pt about this and is cancelling for today. Office notified and rescheduled for September. IV removed, pt dressed and escorted out of preop. Pt understands and was apologizing.
== END 2023-08-31 12:24 | disposition home or self-care (01) ==
LOC: OR 10:28
PROVIDERS: PCP Family Medicine; Visit Provider Otolaryngology
DX: H72.822 Total perforations of tympanic membrane, left ear (principal); H91.90 Unspecified hearing loss, unspecified ear; Z53.8 Procedure and treatment not carried out for other reasons; E11.8 Type 2 diabetes mellitus with unspecified complications; Z79.84 Long term (current) use of oral hypoglycemic drugs
CPT/HCPCS: 82962; 93005; 96372; J7120

== ENCOUNTER 2023-10-05 09:27 | Day surgery (SDC) | payer MEDICARE, OTHER, SELFPAY ==
[2023-10-05] VITALS (11 sets, daily range): BP systolic 129–166; BP diastolic 62–94; PULSE 60–75; RESP 14–20; TEMP 36.3–37; O2SAT 91–94; BMI 35.9
[2023-10-05] MEDS: LACTATED RINGERS 1000ML 1,000 ML 100 ML IV (10:05)
[2023-10-05 10:12] LABS: POC Glucose,Bedside 106 (70-110)
[2023-10-05] MEDS: LIDOCAINE 1% W/EPI 1:100,000 20ML VIAL 20 ML (12:55)
[2023-10-05] MEDS: EPINEPHrine 1 MG/ML AMPUL (12:55)
[2023-10-05] MEDS: CIPRO 0.3%-DEX 0.1% OTIC SUSP 7.5ML 7.5 ML OT (12:55)
--- NOTE | 2023-10-05 12:56 | EXP.ANES.CKL ---
[facility] Disclaimer: The information contained in this section may have been updated after the patient was seen, as this information can be updated by other users. 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, oxygen dependent Moderate persistent asthma Dyspnea on exertion Nocturnal hypoxemia Crack cocaine use Hyperlipidemia HIV (human immunodeficiency virus infection) Hypertension Lumbar radiculopathy, chronic Lumbar radiculopathy Lumbar disc disease with radiculopathy Degenerative arthritis Cervicalgia Closed head injury Vitamin D deficiency (~08/11/17) Diabetes Surgical History History of thyroidectomy History of left knee surgery History of section History of splenectomy History of hysterectomy History of colonoscopy History of cholecystectomy History of carpal tunnel release History of arthroscopy of shoulder Status post arthroscopy of hip Family History Other Cancer Coronary artery disease Diabetes Heart attack Hyperlipidemia Hypertension Kidney disease Stroke Thyroid disorder Social History Smoking Status: Former smoker alcohol intake: never substance use type: denies use current occupational status: disabled Travel in the last 8 weeks: None household members: family housing: house caffeine: Yes [facility] Anesthesia Checklist Patient Identification Patient Identification: Arm Band Structural Data Admitted From: Home Planned Operative Procedure/s: Left Tympanoplasty with Cartilage Graft Consent for Planned Operative Procedure(s) Verified: Yes Verified Documents: Surgical Consent and History and Physical NPO Status Verified Time NPO: 00:00 Additional verifications Anesthesia Reactions: No Hx Blood Transfusions: Yes Blood Transfusion Reaction: No Airway Assessment Mallampati Score:: Class II C-Spine Mobility Assessed: Yes TMJ Mobility Assessed: Yes Dentition: Edentulous Neurological Assessment Level of Consciousness: Awake, Alert and Appropriate Anesthesia Plan Anesthesia Risk discussed: Yes Anesthesia Plan: Verified ASA Class: III Anesthesia Type: General
--- NOTE | 2023-10-05 13:05 | EXP.OP.NOTE ---
Date of procedure: 10/05/23 Pre-op Diagnosis:: Left tympanic membrane perforation Conductive hearing loss secondary to above Post-op Diagnosis:: Same Procedure performed:: 1. Left tympanoplasty 2. Phelps of tragus cartilage graft through separate incision Surgeon:: Will Larson III, MD Dispatcher Tugboat(s):: None ELECTRICAL CONTROLS DESIGNER:: Zac Enirquez Anesthesia: GETA Estimated blood loss (mL): 5 Operative findings:: Central portion of atelectasis with central perforation left tympanic membrane Operative note:: The patient was brought to the operating room placed under general endotracheal anesthesia with an LMA device. The left ear was then prepared and draped in the usual sterile fashion. After inspection microscopically it was evident that she did have a central perforation with a large area of atelectasis and surrounding tympanosclerosis. I preinjected the ear canal and the tragal area with 1% lidocaine with epinephrine solution. Under microscopic guidance I then remove the atelectatic portion of the drum with a large central perforation. I think created to tympanic meatal flap and elevated from posteriorly to anteriorly identifying the chorda tympani nerve and the preserving it in its natural position. The annulus was elevated along with the area of tympanosclerosis posteriorly. The ossicular chain was evaluated noted to be intact although somewhat stiffened. Made a separate incision at the edge of the tragus cartilage. I elevated the mucosal surfaces off of the perichondrium of the cartilage and removed a small disc of cartilage along with the perichondrium. The perichondrium was then stripped from the cartilage and pressed for later use. The cartilage was then cut using the cartilage cutter to width of 0.3 mm. This was set aside and used for later. Gelfoam was then placed in the middle ear space to help elevate the graft. The perichondrial graft was then placed as an underlay technique I then used one of the cut pieces of cartilage to help bolster the graft this was placed under the perichondrium. The tympanomeatal flap is then returned to its natural position. Gelfoam was placed lateral to this followed by Gelfoam with Ciprodex drops. Mupirocin ointment is then placed in the distal portion of the canal. The tragal cartilage incision was closed using a 5-0 fast-absorbing gut suture. The patient was awakened in the operating table and taken to the recovery room in good condition Condition: stable Disposition: PACU Complications:: None
--- NOTE | 2023-10-05 13:12 | EXP.ANES.I ---
[facility] Anesthesia Record Part I Anesthesia Record I Intake, IV Amount: 1,100 Hydration: Adequate Estimated blood loss (mL): 0 Urine output (mL): 0 Blood Products used (#): none Blood Pressure: 166/94 SaO2: 91 Pulse Rate: 69 Airway Patency: Patent Respiratory Rate: 16 Temperature: 98.6 F Patient is:: Drowsy and Stable Stable to PACU at:: 13:05
[2023-10-05 13:18] LABS: POC Glucose,Bedside 108 (70-110)
--- NOTE | 2023-10-06 08:03 | P.PNANES_ITS ---
[facility] Anesthesia Record Part II Anesthesia Record Part II Discharge Time: 13:35 Destination: Surgical Day Care (OP Surgery) PACU nurse assessment reviewed?: Yes Patient Condition:: Good Anesthesia Complications:: None Swallowing reflex intact?: Yes Airway Patency: Patent Cyanosis?: No Blood Pressure: 143/87 SaO2: 94 Respiratory Rate: 18 Pulse Rate: 70 Temperature: 97.3 F Mental Status: Alert & Oriented Pain level:: 0 Nausea and/or vomitting:: None Intake, IV Amount: 0 Hydration: Adequate
[2023-10-06 08:05] VITALS: BP 143/87; PULSE 70; RESP 18; TEMP 36.3; O2SAT 94
== END 2023-10-05 14:55 | disposition home or self-care (01) ==
PROVIDERS: PCP Internal Medicine; Visit Provider Otolaryngology
PROC: (CPT 21235; principal; 2023-10-05 11:30)
DX: H72.02 Central perforation of tympanic membrane, left ear (principal); H90.2 Conductive hearing loss, unspecified
CPT/HCPCS: 21235; 69631; 82962; J1100; J2250; J2405; J3010; J7120

== ENCOUNTER 2023-12-02 15:19 | Emergency (ER) | payer MEDICARE, OTHER, SELFPAY ==
[2023-12-02 15:21] VITALS: BP 136/82; PULSE 73; RESP 18; TEMP 36.8; O2SAT 94; BMI 37.5
--- NOTE | 2023-12-02 15:26 | HMH.EDGENADL ---
Discharge Plan Disposition Patient Disposition: Home, Self-Care Condition: Good Prescriptions Prescriptions: New lidocaine 5 % adhesive patch,medicated 1 patch topical DAILY Qty: 30 0RF Rx Instructions: leave on most painful area for up to 12 hrs No Action propranolol 10 mg tablet 10 mg PO DAILY Biktarvy 50-200-25 mg tablet 1 tab PO DIRECTED Movantik 25 mg tablet 25 mg PO DAILY Zenpep 40,000-126,000- 168,000 unit capsule,delayed release(DR/EC) 1 cap PO DAILY nystatin 100,000 unit/gram powder 1 applic topical QID Qty: 60 0RF pantoprazole 40 mg tablet,delayed release (DR/EC) 40 mg PO DAILY albuterol sulfate 90 mcg/actuation HFA aerosol inhaler 2 inh INHALATION Q6H PRN (Reason: shortness of breath or wheezing) 90 Days Qty: 8.5 3RF fluticasone propion-salmeterol [Advair Diskus] 500-50 mcg/dose blister with device 1 inh IH BID Qty: 180 3RF ipratropium-albuterol 0.5 mg-3 mg(2.5 mg base)/3 mL solution for nebulization 3 ml INHALATION Q6H PRN (Reason: shortness of breath or wheezing) Qty: 180 3RF Spiriva Respimat 2.5 mcg/actuation mist 2 inh inhalation DAILY 90 Days Qty: 4 3RF montelukast 10 mg tablet 10 mg PO QPM 90 Days Qty: 90 2RF miconazole nitrate [Desenex] 2 % powder 1 applic topical BID Qty: 85 1RF oxycodone-acetaminophen [Percocet] 10-325 mg tablet 1 tab PO QID Qty: 120 0RF sertraline 100 mg tablet See Rx Instructions .ROUTE .COMPLEX Qty: 60 0RF Dose Instruction: TAKE 2 TABLETS BY MOUTH EVERY DAY FOR DEPRESSION Rx Instructions: TAKE 2 TABLETS BY MOUTH EVERY DAY FOR DEPRESSION fluticasone propionate [Flonase Allergy Relief] 50 mcg/actuation spray,suspension 1 spray intranasal DAILY PRN (Reason: nasal congestion) Qty: 16 0RF Rx Instructions: administer into each nostril (DME) FreeStyle Lite Strips Strip See Rx Instructions .ROUTE .COMPLEX Qty: 100 3RF Dose Instruction: TEST THREE TIMES A DAY Rx Instructions: TEST THREE TIMES A DAY hydrochlorothiazide 12.5 mg capsule 12.5 mg PO DAILY Qty: 90 2RF pravastatin 40 mg tablet See Rx Instructions .ROUTE .COMPLEX Qty: 90 0RF Dose Instruction: TAKE 1 TABLET BY MOUTH AT BEDTIME FOR CHOLESTEROL Rx Instructions: TAKE 1 TABLET BY MOUTH AT BEDTIME FOR CHOLESTEROL metformin 500 mg tablet See Rx Instructions .ROUTE .COMPLEX Qty: 180 2RF Dose Instruction: TAKE 1 TABLET BY MOUTH TWO TIMES A DAY Rx Instructions: TAKE 1 TABLET BY MOUTH TWO TIMES A DAY amlodipine 5 mg tablet See Rx Instructions .ROUTE .COMPLEX Qty: 90 2RF Dose Instruction: TAKE 1 TABLET BY MOUTH DAILY Rx Instructions: TAKE 1 TABLET BY MOUTH DAILY tizanidine 4 mg tablet See Rx Instructions .ROUTE .COMPLEX Qty: 60 5RF Dose Instruction: TAKE 1 TABLET TWO TIMES A DAY NEEDED FOR MUSCLE SPASTICITY Rx Instructions: TAKE 1 TABLET TWO TIMES A DAY NEEDED FOR MUSCLE SPASTICITY rizatriptan 5 mg tablet,disintegrating See Rx Instructions .ROUTE .COMPLEX Qty: 30 4RF Dose Instruction: DISSOLVE 1 TABLET IN MOUTH DAILY NEEDED FOR MIGRAINES Rx Instructions: DISSOLVE 1 TABLET IN MOUTH DAILY NEEDED FOR MIGRAINES cholecalciferol (vitamin D3) 25 mcg (1,000 unit) tablet See Rx Instructions .ROUTE .COMPLEX Qty: 30 4RF Dose Instruction: TAKE 1 TABLET BY MOUTH DAILY WITH FOOD Rx Instructions: TAKE 1 TABLET BY MOUTH DAILY WITH FOOD guaifenesin [Mucus Relief ER] 600 mg tablet extended release 12hr See Rx Instructions .ROUTE .COMPLEX Qty: 60 2RF Dose Instruction: TAKE 1 TABLET BY MOUTH EVERY 12 HOURS Rx Instructions: TAKE 1 TABLET BY MOUTH EVERY 12 HOURS diclofenac sodium 1 % gel See Rx Instructions .ROUTE .COMPLEX Qty: 100 3RF Dose Instruction: APPLY 4 GRAMS TOPICALLY FOUR TIMES A DAY FOR PAIN. APPLY AND GENTLY MASSAGE INTO AREA. MAY APPLY TO SINGLE KNEE, ANKLE, FOOT (SOLE/TOES/TOP OF FOOT). Rx Instructions: APPLY 4 GRAMS TOPICALLY FOUR TIMES A DAY FOR PAIN. APPLY AND GENTLY MASSAGE INTO AREA. MAY APPLY TO SINGLE KNEE, ANKLE, FOOT (SOLE/TOES/TOP OF FOOT). tobramycin-dexamethasone [TobraDex] 0.3-0.1 % drops,suspension 4 drp ophthalmic (eye) Q6H 7 Days Qty: 10 0RF Rx Instructions: Use 4 drops in left ear twice daily for 7 days. Begin use 1 week after surgical date. hydrocortisone 28 GM cream with perineal applicator 1 applicatio * BID PRN (Reason: Hemorrhoids) Rx Instructions: 1 application CA BID PRN Referrals Follow up/Referrals: Alyssa Castillo APRN [Primary Care Provider] - See instructions Activity Restrictions/Add. Instructions Additional Instructions/Restrictions: Follow-up with your PCP for any worsening signs or symptoms or return to ER as needed. Clinical Impressions Clinical Impression: Rib pain on right side Print Language Print Language: [place] Discharge ED Provider: Grey Duarte General Adult HPI <OMA Smith - Last Filed: 12/02/23 20:52> General Chief complaint: PAIN Stated complaint: Pain in R back area x 1 month- no accident Time Seen by Provider: 12/02/23 15:25 History of Present Illness HPI narrative: Patient presents for evaluation of rib pain. Patient gives a 1 month history of continuous but waxing and waning right lower axillary rib pain. It is very focal in 1 location. Sitting makes it worse but there is no association with food and patient is status postcholecystectomy. She denies any fever chills hemoptysis hematochezia melena nausea vomiting diarrhea shortness of breath dyspnea or known injury. Related Data Home Medications ?Medication ?Instructions ?Recorded ?Confirmed pantoprazole 40 mg tablet,delayed 40 mg PO DAILY GERD 03/13/21 11/25/23 release hydrocortisone 2.5 % topical cream 1 applicatio * BID PRN Hemorrhoids 04/25/21 11/25/23 with perineal applicator propranolol 10 mg tablet 10 mg PO DAILY BLOOD PRESSURE 06/12/21 11/25/23 bictegravir 50 mg-emtricitabine 1 tab PO DIRECTED . 11/12/22 11/25/23 200 mg-tenofovir alafenam 25 mg tablet (Biktarvy) naloxegol 25 mg tablet (Movantik) 25 mg PO DAILY 07/29/23 11/25/23 sihipa-[id number]-[id number] 1 cap PO DAILY 09/28/23 11/25/23 40,000-126,000-168,000 unit capsule, delay rel (Zenpep) Previous Rx's ?Medication ?Instructions ?Recorded sertraline 100 mg tablet See Rx Instructions .Route 12/22/23 .COMPLEX #60 tabs albuterol sulfate 90 mcg/actuation 2 inh inhalation Q6H PRN shortness 04/09/23 aerosol inhaler of breath or wheezing 90 days #8.5 grams fluticasone 500 mcg-salmeterol 50 1 inh inhalation BID #180 ea 04/09/23 mcg/dose blistr powdr for inhalation (Advair Diskus) ipratropium 0.5 mg-albuterol 3 mg 3 ml inhalation Q6H PRN shortness 04/09/23 (2.5 mg base)/3 mL nebulization of breath or wheezing #180 mL soln montelukast 10 mg tablet 10 mg PO QPM 90 days #90 tabs 04/09/23 tiotropium bromide 2.5 2 inh inhalation DAILY 90 days #4 04/09/23 mcg/actuation mist for inhalation grams (Spiriva Respimat) miconazole nitrate 2 % topical 1 applic topical BID #85 grams 06/02/23 powder (Desenex) FreeStyle Lite Strips (blood sugar #100 ea 06/29/23 diagnostic) fluticasone propionate 50 1 spray intranasal DAILY PRN nasal 06/29/23 mcg/actuation nasal congestion #16 grams spray,suspension (Flonase Allergy Relief) hydrochlorothiazide 12.5 mg capsule 12.5 mg PO DAILY #90 caps 06/29/23 pravastatin 40 mg tablet See Rx Instructions .Route 06/29/23 .COMPLEX #90 tabs nystatin 100,000 unit/gram topical 1 applic topical QID #60 grams 09/28/23 powder tobramycin 0.3 %-dexamethasone 0.1 4 drp ophthalmic (eye) Q6H 7 days 10/05/23 % eye drops,suspension (TobraDex) #10 mL amlodipine 5 mg tablet See Rx Instructions .Route 10/15/23 .COMPLEX #90 tabs cholecalciferol (vitamin D3) 25 See Rx Instructions .Route 10/15/23 mcg (1,000 unit) tablet .COMPLEX #30 caps guaifenesin 600 mg tablet, See Rx Instructions .Route 10/15/23 extended release 12 hr (Mucus .COMPLEX #60 tabs Relief ER) metformin 500 mg tablet See Rx Instructions .Route 10/15/23 .COMPLEX #180 tabs rizatriptan 5 mg disintegrating See Rx Instructions .Route 10/15/23 tablet .COMPLEX #30 tabs tizanidine 4 mg tablet See Rx Instructions .Route 10/15/23 .COMPLEX #60 tabs diclofenac sodium 1 % topical gel See Rx Instructions .Route 10/21/23 .COMPLEX #100 grams oxycodone-acetaminophen 10 mg-325 1 tab PO QID #120 tabs 11/25/23 mg tablet (Percocet) lidocaine 5 % topical patch 1 patch topical DAILY #30 ea 12/02/23 Allergies Allergy/AdvReac Type Severity Reaction Status Date / Time vancomycin Allergy Intermediate Redness of Verified 11/25/23 08:59 Skin morphine Allergy Mild Itching Verified 11/25/23 08:59 aspirin Allergy Unknown Unknown Verified 11/25/23 08:59 allergy reaction azithromycin Allergy Unknown Unknown Verified 11/25/23 08:59 [From ZITHROMAX Z-VINCENT] allergy reaction diphenhydramine Allergy Unknown Unknown Verified 11/25/23 08:59 [From BENADRYL] allergy reaction ibuprofen [IBUPROFEN] Allergy Unknown Unknown Verified 11/25/23 08:59 allergy reaction levofloxacin [From LEVAQUIN] Allergy Unknown Unknown Verified 11/25/23 08:59 allergy reaction adhesive tape Allergy Redness of Verified 11/25/23 08:59 Skin sulfamethoxazole Allergy Rash Verified 11/25/23 08:59 [From Bactrim] trimethoprim [From Bactrim] Allergy Unknown Verified 11/25/23 08:59 allergy reaction PFSH <OMA Smith - Last Filed: 12/02/23 20:52> [facility] Disclaimer: The information contained in this section may have been updated after the patient was seen, as this information can be updated by other users. 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, oxygen dependent Moderate persistent asthma Dyspnea on exertion Nocturnal hypoxemia Crack cocaine use Hyperlipidemia HIV (human immunodeficiency virus infection) Hypertension Lumbar radiculopathy, chronic Lumbar radiculopathy Lumbar disc disease with radiculopathy Degenerative arthritis Cervicalgia Closed head injury Vitamin D deficiency (~08/11/17) Diabetes Surgical History Status post tympanoplasty left ear History of thyroidectomy History of left knee surgery History of section History of splenectomy History of hysterectomy History of colonoscopy History of cholecystectomy History of carpal tunnel release History of arthroscopy of shoulder Status post arthroscopy of hip Family History Other Cancer Coronary artery disease Diabetes Heart attack Hyperlipidemia Hypertension Kidney disease Stroke Thyroid disorder Social History Smoking Status: Never smoker alcohol intake: never substance use type: denies use current occupational status: disabled Travel in the last 8 weeks: None household members: family housing: house caffeine: Yes Other Medical History Have you received the Flu Vaccine for this season: No Have you received the Pneumonia Vaccine: No <OMA Smith - Last Filed: 12/02/23 20:52> ROS Obtained: Yes Systems reviewed as appropriate & no additional complaints except as documented Physical Exam <OMA Smith - Last Filed: 12/02/23 20:52> General General appearance: alert and in no apparent distress Respiratory Respiratory exam: Present normal lung sounds bilaterally Cardiovascular Cardiovascular exam: Present regular rate Neurological Exam Neurological exam: Present alert and oriented X3 Medical Decision Making <OMA Smith - Last Filed: 12/02/23 20:52> Medical Records Medical records reviewed: Yes I reviewed the patient's medical records. Screening: Per USPSTF and CDC recommendations, given the prevalence of disease in our region, it is our hospital?s policy to screen for HIV and viral Hepatitis for all patients aged 18 and over and those with ongoing risk factors. [place] Inquiry Pt receiving controlled substance: No Vital Signs: 12/02/23 15:21 12/02/23 16:00 12/02/23 16:30 Temperature 98.3 F Temperature Source Oral Pulse Rate 70 60 Pulse Rate [Left Radial] 73 Respiratory Rate 18 Blood Pressure 132/58 L 120/66 Blood Pressure [Right Arm] 136/82 Blood Pressure Mean 84 Blood Pressure Mean [Right Arm] 100 Blood Pressure Source Blood Pressure Source [Right Arm] Automatic Cuff Blood Pressure Position Blood Pressure Position [Right Arm] Sitting 02 Sat by Pulse Oximetry 94 L 92 L 91 L Oxygen Delivery Method Room Air 12/02/23 17:10 Temperature 98.3 F Temperature Source Oral Pulse Rate 60 Pulse Rate [Left Radial] Respiratory Rate 18 Blood Pressure 120/66 Blood Pressure [Right Arm] Blood Pressure Mean Blood Pressure Mean [Right Arm] Blood Pressure Source Automatic Cuff Blood Pressure Source [Right Arm] Blood Pressure Position Sitting Blood Pressure Position [Right Arm] 02 Sat by Pulse Oximetry Oxygen Delivery Method Room Air Lab Data Lab results reviewed: Yes I reviewed the patient's lab results. Lab Results 12/02/23 15:55: WBC 10.2, RBC 4.61, Hgb 15.4, Hct 44.8, MCV 97.1, MCH 33.5 H, MCHC 34.5, RDW 13.4, Plt Count 397, MPV 8.1, Neut % (Auto) 53.5, Lymph % (Auto) 34.7, [place] % (Auto) 8.3, Eos % (Auto) 2.1, Baso % (Auto) 1.4, Neut # (Auto) 5.5, Lymph # (Auto) 3.6, [place] # (Auto) 0.8, Eos # (Auto) 0.2, Baso # (Auto) 0.1, Sodium 139, Potassium 3.8, Chloride 101, Carbon Dioxide 29, Anion Gap 12.8, BUN 13, Creatinine 0.80, Estimated Creat Clear 80, Estimated GFR 73, Est GFR ( Amer) 88, Glucose 108 H, Calcium 9.2, Total Bilirubin 0.8, AST 41 H, ALT 27, Alkaline Phosphatase 75, NT-Pro-B Natriuret Pep 378 H, Total Protein 8.0, Albumin 4.5, Globulin 3.5 H, Albumin/Globulin Ratio 1.3, HIV 1&2 Antibody Rapid Preliminary reactive 12/02/23 15:55 12/02/23 15:55 Orders (Tests/Meds): ED MEDICATIONS Discontinued Medications Generic Name Dose Route Start Last Admin Trade Name Freq PRN Reason Stop Dose Admin Acetaminophen 1,000 mg 12/02/23 15:31 12/02/23 16:04 Acetaminophen 500mg Tab PO 12/02/23 15:32 1,000 mg ONCE ONE Administration Ketorolac Tromethamine 15 mg 12/02/23 15:31 12/02/23 16:04 Ketorolac 30mg/Ml Vial IV 12/02/23 15:32 15 mg ONCE ONE Administration Lidocaine 1 each 12/02/23 16:58 12/02/23 17:09 Lidocaine 5% Transdermal Patch TP 12/02/23 16:59 1 each ONCE ONE Administration ORDERS Category Date Time Status XR ribs RT min 3V w CXR1V Stat Exams 12/02/23 15:29 Completed BNP [NT Pro Brain Natriuretic Pep.] Stat Lab 12/02/23 15:55 Completed CBC w/Auto Diff [Complete Blood Count Auto Diff] Stat Lab 12/02/23 15:55 Completed CMP [Comprehensive Metabolic Panel] Stat Lab 12/02/23 15:55 Completed HIV (1&2) Antibody Rapid Stat Lab 12/02/23 15:55 Completed Hep C Ab with Reflex to RNA Stat Lab 12/02/23 15:55 Received Medical Decision Narrative: In summary patient is a 63-year-old female who presents to the emergency department for evaluation of right rib pain. Patient is hemodynamically stable upon arrival, afebrile. Physical exam is remarkable for focal point tender area in the right lower axillary aspect of the lower right ribs. It appears to be right over the costochondral junction of said rib. Area was marked by myself with an ink pen. No bony deformity ecchymosis edema erythema noted.. Differential diagnosis includes costochondral separation versus costochondral arthritis versus possible fracture although no known trauma etc. Initial workup will be conducted with rib films with chest and hematologic labs. Initial interventions include Tylenol and Lidoderm patch. Initial workup reviewed by me shows no evidence of acute fracture and normal chest x-ray and her hematologic labs are nonactionable. Upon repeat evaluation patient had modest improvement after initial intervention. Given this patient is appropriate for discharge with prescription for Lidoderm patches and strict return precautions. <Grey Duarte MD - Last Filed: 12/03/23 14:02> Vital Signs: 12/02/23 15:21 12/02/23 16:00 12/02/23 16:30 Temperature 98.3 F Temperature Source Oral Pulse Rate 70 60 Pulse Rate [Left Radial] 73 Respiratory Rate 18 Blood Pressure 132/58 L 120/66 Blood Pressure [Right Arm] 136/82 Blood Pressure Mean 84 Blood Pressure Mean [Right Arm] 100 Blood Pressure Source Blood Pressure Source [Right Arm] Automatic Cuff Blood Pressure Position Blood Pressure Position [Right Arm] Sitting 02 Sat by Pulse Oximetry 94 L 92 L 91 L Oxygen Delivery Method Room Air 12/02/23 17:10 Temperature 98.3 F Temperature Source Oral Pulse Rate 60 Pulse Rate [Left Radial] Respiratory Rate 18 Blood Pressure 120/66 Blood Pressure [Right Arm] Blood Pressure Mean Blood Pressure Mean [Right Arm] Blood Pressure Source Automatic Cuff Blood Pressure Source [Right Arm] Blood Pressure Position Sitting Blood Pressure Position [Right Arm] 02 Sat by Pulse Oximetry Oxygen Delivery Method Room Air Lab Data Lab Results 12/02/23 15:55: WBC 10.2, RBC 4.61, Hgb 15.4, Hct 44.8, MCV 97.1, MCH 33.5 H, MCHC 34.5, RDW 13.4, Plt Count 397, MPV 8.1, Neut % (Auto) 53.5, Lymph % (Auto) 34.7, [place] % (Auto) 8.3, Eos % (Auto) 2.1, Baso % (Auto) 1.4, Neut # (Auto) 5.5, Lymph # (Auto) 3.6, [place] # (Auto) 0.8, Eos # (Auto) 0.2, Baso # (Auto) 0.1, Sodium 139, Potassium 3.8, Chloride 101, Carbon Dioxide 29, Anion Gap 12.8, BUN 13, Creatinine 0.80, Estimated Creat Clear 80, Estimated GFR 73, Est GFR ( Amer) 88, Glucose 108 H, Calcium 9.2, Total Bilirubin 0.8, AST 41 H, ALT 27, Alkaline Phosphatase 75, NT-Pro-B Natriuret Pep 378 H, Total Protein 8.0, Albumin 4.5, Globulin 3.5 H, Albumin/Globulin Ratio 1.3, HIV 1&2 Antibody Rapid Preliminary reactive Orders (Tests/Meds): ED MEDICATIONS Discontinued Medications Generic Name Dose Route Start Last Admin Trade Name Freq PRN Reason Stop Dose Admin Acetaminophen 1,000 mg 12/02/23 15:31 12/02/23 16:04 Acetaminophen 500mg Tab PO 12/02/23 15:32 1,000 mg ONCE ONE Administration Ketorolac Tromethamine 15 mg 12/02/23 15:31 12/02/23 16:04 Ketorolac 30mg/Ml Vial IV 12/02/23 15:32 15 mg ONCE ONE Administration Lidocaine 1 each 12/02/23 16:58 12/02/23 17:09 Lidocaine 5% Transdermal Patch TP 12/02/23 16:59 1 each ONCE ONE Administration ORDERS Category Date Time Status XR ribs RT min 3V w CXR1V Stat Exams 12/02/23 15:29 Completed BNP [NT Pro Brain Natriuretic Pep.] Stat Lab 12/02/23 15:55 Completed CBC w/Auto Diff [Complete Blood Count Auto Diff] Stat Lab 12/02/23 15:55 Completed CMP [Comprehensive Metabolic Panel] Stat Lab 12/02/23 15:55 Completed HIV (1&2) Antibody Rapid Stat Lab 12/02/23 15:55 Completed Hep C Ab with Reflex to RNA Stat Lab 12/02/23 15:55 Received Medical Decision Narrative: In summary patient is a 63-year-old female who presents to the emergency department for evaluation of right rib pain. Patient is hemodynamically stable upon arrival, afebrile. Physical exam is remarkable for focal point tender area in the right lower axillary aspect of the lower right ribs. It appears to be right over the costochondral junction of said rib. Area was marked by myself with an ink pen. No bony deformity ecchymosis edema erythema noted.. Differential diagnosis includes costochondral separation versus costochondral arthritis versus possible fracture although no known trauma etc. Initial workup will be conducted with rib films with chest and hematologic labs. Initial interventions include Tylenol and Lidoderm patch. Initial workup reviewed by me shows no evidence of acute fracture and normal chest x-ray and her hematologic labs are nonactionable. Upon repeat evaluation patient had modest improvement after initial intervention. Given this patient is appropriate for discharge with prescription for Lidoderm patches and strict return precautions. I was consulted by the [facility], and we discussed the complexity of the problems being addressed.I approved the treatment and management plan for this patient?s care in the Emergency Department, thus performing a substantive portion of the medical decision making.Signed, Grey Duarte MD Critical Care <OMA Smith - Last Filed: 12/02/23 20:52> Critical Care Time Critical Care Time: No
--- NOTE | 2023-12-02 15:29 | XR_ITS ---
FINAL REPORT CLINICAL HISTORY: Right rib pain, atraumatic FINDINGS: RIGHT RIBS WITH CHEST A single PA view of the chest and three views of the right ribs were obtained. The heart and mediastinum within normal limits. The lungs are clear. There is no pneumothorax. There is no acute displaced rib fracture. IMPRESSION: No acute cardiopulmonary process or displaced rib fracture. Reviewed, Interpreted and Dictated by Paul Padilla III, MD Transcribed by Antoinette Sharif Authenticated and . [facility]
[2023-12-02 16:00] VITALS: BP 132/58; PULSE 70; O2SAT 92
[2023-12-02] MEDS: ACETAMINOPHEN 500MG TAB 1000 MG PO (16:04)
[2023-12-02] MEDS: KETOROLAC 30MG/ML VIAL 15 MG IV (16:04)
[2023-12-02 16:06] LABS: Basophils # 0.1 K/mm3 (0-0.2); Basophils % 1.4 % (0.1-2.0); Eosinophils # 0.2 K/mm3 (0.0-0.4); Eosinophils % 2.1 % (0.1-12.0); Hematocrit 44.8 % (37.0-47.0); Hemoglobin 15.4 g/dL (12.2-16.2); Lymphocytes # 3.6 K/mm3 (0.7-4.5); Lymphocytes % 34.7 % (10-50); Mean Corpuscular HGB Conc 34.5 g/dL (31.8-35.4); Mean Corpuscular Hemoglobin 33.5 pg (27.0-31.2); Mean Corpuscular Volume 97.1 fl (81-99); Mean Platelet Volume 8.1 fl (7.4-10.4); Monocytes # 0.8 K/mm3 (0.1-1.0); Monocytes % 8.3 % (1.7-9.3); Neutrophils # 5.5 K/mm3 (1.8-7.8); Neutrophils % 53.5 % (37.0-80.0); Platelet Count 397 K/mm3 (142-424); Red Blood Count 4.61 M/mm3 (4.20-5.40); Red Cell Distribution Width 13.4 % (11.5-17.5); White Blood Count 10.2 K/mm3 (4.8-10.8)
[2023-12-02 16:11] LABS: Albumin Level 4.5 g/dl (3.5-5.0); Chloride 101 mmol/L (98-107); Potassium 3.8 mmoL/L (3.5-5.1)
[2023-12-02 16:14] LABS: Alanine Aminotransferase 27 U/L (12-78); Alkaline Phosphatase 75 U/L (38-126); Aspartate Amino Transferase 41 U/L (14-36); Bilirubin,Total 0.8 mg/dl (0.2-1.3); Blood Urea Nitrogen 13 mg/dl (7-17); Carbon Dioxide 29 mmol/L (22.0-30.0); Creatinine Clearance Estimated 80 mL/min (50-200); Estimated Glomerular Filt Rate 73 ml/min (>60); GFR (African American) 88 ML/MIN (>60)
[2023-12-02 16:15] LABS: Calcium 9.2 mg/dl (8.4-10.2); Glucose 108 mg/dl (74-100)
[2023-12-02 16:23] LABS: NT Pro Brain Natriuretic Pep. 378 pg/mL (0-125)
[2023-12-02 16:30] VITALS: BP 120/66; PULSE 60; O2SAT 91
[2023-12-02 16:36] LABS: Anion Gap 12.8 mEq/L (5-15); Sodium 139 mmol/L (136-145)
[2023-12-02] MEDS: LIDOCAINE 5% TRANSDERMAL PATCH 1 EACH TP (17:09)
[2023-12-02 17:10] VITALS: BP 120/66; PULSE 60; RESP 18; TEMP 36.8; O2SAT 94
[2023-12-02 17:14] LABS: Albumin/Globulin Ratio 1.3 (1.1-1.8); Globulin 3.5 g/dL (1.3-3.2)
[2023-12-04 08:22] LABS: HCV Ab Non Reactive (Non Reactive)
[2023-12-07 17:10] LABS: HIV 1 Ab Reactive (Non Reactive); HIV 2 Ab Non Reactive (Non Reactive); HIV Screen 4th Generation wRfx Preliminary Reactive (Non Reactive); HIV-1 Ab CHG YES; HIV-2 Ab CHG YES; Interpretation: HIV-1 Positive (.)
== END 2023-12-02 17:11 | disposition home or self-care (01) ==
PROVIDERS: Physician Assistant; Emergency Provider Emergency Medicine; PCP Family Medicine
DX: R07.82 Intercostal pain (principal); R07.81 Pleurodynia
CPT/HCPCS: 71101; 80053; 83880; 85025; 86701; 86702; 86703; 86803; 87389; 96374; 99283; G0432; J1885

== ENCOUNTER 2024-04-01 14:45 | Outpatient (POV) | payer MEDICARE, OTHER, SELFPAY ==
[2024-04-01 15:16] VITALS: BP 121/72; PULSE 75; RESP 16; O2SAT 92; BMI 37.5
--- NOTE | 2024-04-01 15:34 | A.OFFVIS_ITS ---
[facility] Disclaimer: The information contained in this section may have been updated after the patient was seen, as this information can be updated by other users. Medical History (Updated 04/01/24 @ 15:35 by Pauline Kan APRN) Rib pain on right side Yeast infection of the skin Fatigue Atypical angina Chest pain Back pain COVID-19 Dyspnea Headache Hearing loss Total perforation of left tympanic membrane Chronic respiratory failure with hypoxia Yeast dermatitis Recurrent acute suppurative otitis media of both ears Ear infection Vomiting Bronchitis Left shoulder pain Nocturnal hypoxia Moderate persistent asthma Dyspnea on exertion Nocturnal hypoxemia Crack cocaine use Hyperlipidemia HIV (human immunodeficiency virus infection) Hypertension Lumbar radiculopathy, chronic Lumbar radiculopathy Lumbar disc disease with radiculopathy Degenerative arthritis Cervicalgia Closed head injury Vitamin D deficiency (~08/11/17) Diabetes Surgical History History of thyroidectomy History of hysterectomy Status post tympanoplasty History of left knee surgery History of section History of splenectomy History of hysterectomy History of colonoscopy History of cholecystectomy History of carpal tunnel release History of arthroscopy of shoulder Status post arthroscopy of hip Family History Other Cancer Coronary artery disease Diabetes Heart attack Hyperlipidemia Hypertension Kidney disease Stroke Thyroid disorder Social History Smoking Status: Never smoker alcohol intake: never substance use type: denies use current occupational status: other Travel in the last 8 weeks: None household members: family housing: house caffeine: Yes Have you lived/traveled outside [place] in past 30 days?: No Contact w/someone who lives/traveled outside [place] past 30 days?: No Exposure to someone with infectious disease in past 14 days?: No Do you have a fever (greater than 100.4 F or 38 C)?: No Have you tested positive for COVID-19: No Exposed to someone with COVID-19 in past 14 days?: No Do you have a sore throat?: No Do you have a cough?: No Do you have any weakness?: No Do you have any diarrhea?: No Are you experiencing any unusual bleeding?: No Do you have any muscle aches/pain?: No Do you have any abdominal pain?: No Are you experiencing loss of taste or smell?: No PM Subjective & Objective Subjective Subjective:: Patient is a pleasant 63-year-old female who presents today for worsening pain. She does rate her pain today an 8 out of 10. She denies any new trauma or injury. Patient states that she still having the low back pain that does go into her lower extremity. Patient was to meet with [employer] maintenance representative today and did already talk to her however the device is not even charging. It does appear as the device is at its end-of-life. She states that she would like to get this replaced because it really did make a difference in her prior pain areas as well as the fact that she has a possible rotator cuff tear on her shoulder that she does need to have an MRI but has been unable to due to the older device not being MRI compatible. Patient is currently managed with Percocet and lorazepam from an outside provider. Her Fortino has been reviewed and is appropriate. Review of Systems: General: No recent weight changes, no fever, no sleep disturbances Respiratory: No cough, no shortness of air, no recurring pulmonary infections Cardiovascular/peripheral vascular: No chest pain, no palpitations, no edema, no shortness of breath Gastrointestinal: No new onset incontinence, normal bowel movements reported Genitourinary: No new onset incontinence Musculoskeletal: Low back pain, left leg pain Psychiatric: [Normal mood/affect] Neurological: [Denies weakness in extremities], [denies balance issues] Pain at rest (0-10 scale): 8 Objective Objective:: Physical Exam: General: Alert and oriented x3, no acute distress, pleasant and cooperative Lungs: Respirations even and unlabored, symmetrical chest expansion Eyes: PERRL Musculoskeletal: Flexion and extension of lumbar [spine] somewhat guarded secondary to pain, [antalgic gait noted] Neurological: Speech clear, no gross sensory deficit Has patient had previous pain injection?: No Conservative treatment options previously tried: Home exercise plan Length of treatment: Longer than 12 weeks Meds Home Medications and Allergies Home Medications ?Medication ?Instructions ?Recorded ?Confirmed ?Type pantoprazole 40 mg tablet,delayed 40 mg PO DAILY GERD 03/13/21 04/01/24 History release hydrocortisone 2.5 % topical cream 1 applicatio * BID PRN Hemorrhoids 04/25/21 04/01/24 History with perineal applicator propranolol 10 mg tablet 10 mg PO DAILY BLOOD PRESSURE 06/12/21 04/01/24 History bictegravir 50 mg-emtricitabine 1 tab PO DIRECTED . 11/12/22 04/01/24 History 200 mg-tenofovir alafenam 25 mg tablet (Biktarvy) fluticasone 500 mcg-salmeterol 50 1 inh inhalation BID #180 ea 04/09/23 04/01/24 Rx mcg/dose blistr powdr for inhalation (Advair Diskus) ipratropium 0.5 mg-albuterol 3 mg 3 ml inhalation Q6H PRN shortness 04/09/23 04/01/24 Rx (2.5 mg base)/3 mL nebulization of breath or wheezing #180 mL soln montelukast 10 mg tablet 10 mg PO QPM 90 days #90 tabs 04/09/23 04/01/24 Rx tiotropium bromide 2.5 2 inh inhalation DAILY 90 days #4 04/09/23 04/01/24 Rx mcg/actuation mist for inhalation grams (Spiriva Respimat) fluticasone propionate 50 1 spray intranasal DAILY PRN nasal 06/29/23 04/01/24 Rx mcg/actuation nasal congestion #16 grams spray,suspension (Flonase Allergy Relief) hydrochlorothiazide 12.5 mg capsule 12.5 mg PO DAILY #90 caps 06/29/23 04/01/24 Rx naloxegol 25 mg tablet (Movantik) 25 mg PO DAILY 07/29/23 04/01/24 History miyyne-wbybyspj-dtwnduy 1 cap PO DAILY 09/28/23 04/01/24 History 40,000-126,000-168,000 unit capsule, delay rel (Zenpep) amlodipine 5 mg tablet See Rx Instructions .Route 10/15/23 04/01/24 Rx .COMPLEX #90 tabs cholecalciferol (vitamin D3) 25 See Rx Instructions .Route 10/15/23 04/01/24 Rx mcg (1,000 unit) tablet .COMPLEX #30 caps metformin 500 mg tablet See Rx Instructions .Route 10/15/23 04/01/24 Rx .COMPLEX #180 tabs rizatriptan 5 mg disintegrating See Rx Instructions .Route 10/15/23 04/01/24 Rx tablet .COMPLEX #30 tabs tizanidine 4 mg tablet See Rx Instructions .Route 10/15/23 04/01/24 Rx .COMPLEX #60 tabs urea 40 % topical cream 1 applic topical BID 30 days #28 12/09/23 04/01/24 Rx grams nystatin 100,000 unit/gram topical 1 applic topical TID antifungal 01/25/24 04/01/24 Rx powder #60 grams ondansetron HCl 8 mg tablet 8 mg PO Q12H 01/25/24 04/01/24 History diclofenac sodium 1 % topical gel See Rx Instructions .Route 02/10/24 04/01/24 Rx .COMPLEX #100 grams pravastatin 40 mg tablet See Rx Instructions .Route 02/15/24 04/01/24 Rx .COMPLEX #90 tabs albuterol sulfate 90 mcg/actuation 2 inh inhalation Q6H PRN shortness 02/25/24 04/01/24 Rx aerosol inhaler of breath or wheezing 90 days #8.5 grams sertraline 100 mg tablet See Rx Instructions .Route 02/25/24 04/01/24 Rx .COMPLEX #60 tabs blood sugar diagnostic (FreeStyle #100 ea 03/21/24 04/01/24 Rx Lite Strips) cariprazine 1.5 mg capsule 1.5 mg PO DAILY MDD #30 caps 03/21/24 04/01/24 Rx (Vraylar) guaifenesin 600 mg tablet, See Rx Instructions .Route 03/21/24 04/01/24 Rx extended release 12 hr .COMPLEX #60 tabs oxycodone-acetaminophen 10 mg-325 1 tab PO QID #120 tabs 03/22/24 04/01/24 Rx mg tablet (Percocet) New Prescriptions to Start Prescriptions: Allergies Allergy/AdvReac Type Severity Reaction Status Date / Time vancomycin Allergy Intermediate Redness of Verified 04/01/24 15:16 Skin morphine Allergy Mild Itching Verified 04/01/24 15:16 aspirin Allergy Unknown Unknown Verified 04/01/24 15:16 allergy reaction azithromycin (From ZITHROMAX Allergy Unknown Unknown Verified 04/01/24 15:16 Z-VINCENT) allergy reaction diphenhydramine (From Allergy Unknown Unknown Verified 04/01/24 15:16 BENADRYL) allergy reaction ibuprofen (IBUPROFEN) Allergy Unknown Unknown Verified 04/01/24 15:16 allergy reaction levofloxacin (From LEVAQUIN) Allergy Unknown Unknown Verified 04/01/24 15:16 allergy reaction adhesive tape Allergy Redness of Verified 04/01/24 15:16 Skin sulfamethoxazole (From Allergy Rash Verified 04/01/24 15:16 Bactrim) trimethoprim (From Bactrim) Allergy Unknown Verified 04/01/24 15:16 allergy reaction Assessment and Plan *Assessment and plan (1) Lumbar disc disease with radiculopathy: Status: Chronic Category: Medical Code(s): M51.16 - Intervertebral disc disorders with radiculopathy, lumbar region (2) Lumbar disc disease with radiculopathy: Status: Chronic Category: Medical Code(s): M51.16 - Intervertebral disc disorders with radiculopathy, lumbar region (3) Chronic pain syndrome: Status: Acute Category: Medical Code(s): G89.4 - Chronic pain syndrome Plan I did go over with the patient due to her device no longer being able to charge or work that I would recommend that we replace the device. It does appear that the device is at its end-of-life and is no longer functioning. Patient did have significant improvement when she did have this device working properly and that did improve her overall function providing decreased pain. I did also discuss with the patient due to being unable to verify whether or not the leads have moved and also need replacing I will order x-ray of her thoracic and lumbar spine to verify lead placement. We will plan on tentatively submitting to insurance for the spinal cord generator and lead replacement due to end-of-life. Patient has tried and failed conservative therapy including oral medication, heat and ice, topicals, at home stretching exercise for longer than 12 weeks. We will contact the patient following her x-ray imaging to give her a date for when we plan on proceeding forward with this surgery. Patient agrees with this plan of care. Patient has been instructed to contact the clinic with any concerns before the next appointment. Dr. Ventura has reviewed this note and agrees with this plan of care. This note was dictated using voice recognition software and make contain errors or omissions. All injections are used with Lidocaine, Bupivacaine and Depo Medrol. Occasionally urine drug screen is needed to verify patient's compliance with our office pain contract. This is ordered based off specific treatments related to chronic pain with the potential to abuse certain medications.
--- NOTE | 2024-04-01 15:39 | XR_ITS ---
FINAL REPORT CLINICAL HISTORY: verify scs lead placement COMPARISON: None FINDINGS: 2 views of the lumbar spine were obtained. No fracture is identified. There is mild diffuse degenerative disc disease present. Alignment is normal. There is a stimulator device present with leads entering at the L2-3 level and at the T12-L1 level. IMPRESSION: Mild diffuse degenerative disc disease. Stimulator device present with leads entering at the L2-3 level and the T12-L1 level. Reviewed, Interpreted and Dictated by Randee Mi MD Transcribed by Chelo Biswas Authenticated and [facility]
--- NOTE | 2024-04-01 15:39 | XR_ITS ---
FINAL REPORT CLINICAL HISTORY: verify scs lead placement COMPARISON: None FINDINGS: 2 views of the thoracic spine were obtained. There are 2 thoracic stimulator leads in the dorsal mid thoracic spine. The more superior lead is at the T7-8 level, while the more inferior lead is at the T8-9 level. No fracture is seen. Thoracic kyphosis is present. Moderate degenerative disc disease is present. IMPRESSION: 2 thoracic stimulator leads are present, the more superior at the T7-8 level, the more inferior at the T8-9 level. Moderate degenerative disc disease. Reviewed, Interpreted and Dictated by Randee Mi MD Transcribed by Chelo Biswas Authenticated and [facility]
== END 2024-04-01 23:59 | disposition home or self-care (01) ==
PROVIDERS: PCP Internal Medicine; Visit Provider Nurse Practitioner Family
DX: M51.16 Intervertebral disc disorders with radiculopathy, lumbar region (principal); G89.4 Chronic pain syndrome; Z79.899 Other long term (current) drug therapy
CPT/HCPCS: 72070; 72100; 99212; G0463

== ENCOUNTER 2024-04-04 13:47 | Emergency (ER) | payer MEDICARE, OTHER, SELFPAY ==
[2024-04-04 13:47] VITALS: BP 198/99; PULSE 68; RESP 18; TEMP 36.8; O2SAT 96; BMI 37.5
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
--- NOTE | 2024-04-04 14:04 | XR_ITS ---
FINAL REPORT CLINICAL HISTORY: Fall, joint instability COMPARISON: 02/10/2020 FINDINGS: LEFT KNEE 3 views of the left knee were obtained. There are post ORIF changes in the proximal tibial. There is no acute fracture. Tricompartmental degenerative changes are most pronounced in the lateral compartment. There is a small joint effusion. Soft tissues are unremarkable. IMPRESSION: Chronic changes, similar to the prior study. Reviewed, Interpreted and Dictated by Randee Mi MD Transcribed by Dari Estrada Authenticated and [facility]
[2024-04-04 14:30] VITALS: BP 136/82; PULSE 75
--- NOTE | 2024-04-04 14:56 | CT_ITS ---
FINAL REPORT TECHNIQUE: Thin section axial CT images with coronal and sagittal reformats were performed. This study was performed with techniques to keep radiation doses as low as reasonably achievable (ALARA). Individualized dose reduction techniques using automated exposure control or adjustment of mA and/or kV according to the patient''s size were employed. CLINICAL HISTORY: Fall, joint pain COMPARISON: None FINDINGS: There are post ORIF changes of the proximal tibia. Mild depression is seen of the lateral tibial plateau consider chronic and related to old fracture. No acute fracture is identified. There is a small joint effusion. Moderate degenerative changes are noted. There are at least 2 small calcified loose bodies, the largest posterior to the lateral tibial plateau measuring up to 8 mm. There is ankylosis of the tibiofibular joint presumed posttraumatic in nature. IMPRESSION: Chronic changes without acute fracture. Reviewed, Interpreted and Dictated by Randee Mi MD Transcribed by Dari Estrada Authenticated and [facility]
--- NOTE | 2024-04-04 15:21 | PC.NURSE ---
ROUNDED ON THE PT. THE PT VOICES THAT SHE DOES NOT NEED ANYTHING AT THIS TIME. CALL LIGHT IS WITHIN REACH OF THE PT.
--- NOTE | 2024-04-04 15:29 | PC.NURSE ---
I rounded on the pt. no new complaints at this time. no needs voiced. call fong in reach.
--- NOTE | 2024-04-04 15:43 | PC.NURSE ---
REHAB NOTIFIED OF ORDER
[2024-04-04 15:45] VITALS: BP 130/91; PULSE 74
--- NOTE | 2024-04-04 15:47 | PC.NURSE ---
PT/OT arrived to ER to [facility]
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
--- NOTE | 2024-04-04 16:10 | HMH.PTEV ---
Physical Therapy Evaluation Rehab PT IP Evaluation Start: 04/04/24 15:31 Freq: ONCE Status: Active Protocol: Document 04/04/24 15:58 [facility] (Rec: 04/04/24 16:10 [facility] [id number]) Subjective/History History History The pt is a 63 yof who presents to [facility] ED with complaints of L knee pain. She reports an ORIF of her L Knee due to a tibial plateau fracture. She fell on ice 3 weeks ago and her knee pain has progressively worsened since then. Her PMH is remarkable for Rib pain on right side Yeast infection of the skin Fatigue Atypical angina Chest pain Back pain COVID-19 Dyspnea Headache Hearing loss Total perforation of left tympanic membrane Chronic respiratory failure with hypoxia Yeast dermatitis Recurrent acute suppurative otitis media of both ears Ear infection Vomiting Bronchitis Left shoulder pain Nocturnal hypoxia Moderate persistent asthma Dyspnea on exertion Nocturnal hypoxemia Crack cocaine use Hyperlipidemia HIV (human immunodeficiency virus infection) Hypertension Lumbar radiculopathy, chronic Lumbar radiculopathy Lumbar disc disease with radiculopathy Degenerative arthritis Cervicalgia Closed head injury Vitamin D deficiency (~) Diabetes Subjective Subjective Pt is alert and oriented x3. She reports that she has been walking on her knee but it is extremely painful to put weight through it. She reports that it feels like it gets stuck when she bends it. She reports that she is completely independent with all ADLs, Independent with all mobility, and she does not use or own any assistive devices. She reports that she lives at home with her boyfriend in a house with 2 JOSÉ. New diagnosis of cancer in past 12 No months? Rehab PT IP Eval Objective Appearance Patient Behavior Appropriate,Patient Baseline Patient Orientation Person,Place,Time Difficulty following instructions none Speech Pattern Clear Ambulation Patient Able to Ambulate Yes Ambulation Observation IP General Gait Pattern Observation Antalgic Gait Ambulation Distance (feet) 20 Ambulation Assistive Device None Ambulation Ability Minimal x 2 (25% assist) Balance Ability to Arise Able, w/o using arms Sitting Balance Steady, safe Standing Balance Narrow stance w/o support Dynamic Sitting Balance Ability Good Dynamic Standing Balance Ability Fair Transfers Chair Transfer Ability Supervision/Stand by Rehab PT IP prob,goals,plan Problems Date of Evaluation: 04/04/24 Discharge Plan PT Discharge Plan Pt is fit for discharge to home with her spouse when deemed medically stable. She would benefit from a front- wheeled walker to prevent falls. Upon discharge, the pt would benefit from Outpatient Physical Therapy for management of her left knee pain. Eval Complexity Eval Charge Codes 73381 - Moderate Complexity PHYSICIAN CERTIFICATION: I certify the specified therapy services for Светлана Rivera are required, authorized, and reviewed every 30 days.
--- NOTE | 2024-04-04 16:19 | PC.NURSE ---
faxed information to larry for wheelchair
[2024-04-04 17:22] VITALS: BP 180/104; PULSE 65; RESP 18; TEMP 36.8; O2SAT 93
== END 2024-04-04 17:23 | disposition home or self-care (01) ==
PROVIDERS: Emergency Provider Student in an Organized Health Care Education/Training Program; PCP Internal Medicine
DX: M25.562 Pain in left knee (principal); W00.0XXA Fall on same level due to ice and snow, initial encounter; Y93.89 Activity, other specified; Y92.9 Unspecified place or not applicable
CPT/HCPCS: 73562; 73700; 99284

== ENCOUNTER 2024-04-22 10:38 | Outpatient (CLI) | payer MEDICARE, OTHER, SELFPAY ==
[2024-04-22 19:19] LABS: Albumin Level 4.1 g/dl (3.5-5.0); Chloride 105 mmol/L (98-107); Sodium 140 mmol/L (136-145)
[2024-04-22 19:20] LABS: Potassium 4.4 mmoL/L (3.5-5.1)
[2024-04-22 19:22] LABS: Alanine Aminotransferase 25 U/L (12-78); Albumin/Globulin Ratio 1.4 (1.1-1.8); Alkaline Phosphatase 95 U/L (38-126); Anion Gap 12.4 mEq/L (5-15); Aspartate Amino Transferase 38 U/L (14-36); Bilirubin,Total 0.5 mg/dl (0.2-1.3); Blood Urea Nitrogen 16 mg/dl (7-17); Carbon Dioxide 27 mmol/L (22.0-30.0); Cholesterol 180 mg/dl (140-200); Estimated Glomerular Filt Rate 101 ml/min (>60); GFR (African American) 123 ML/MIN (>60); Globulin 2.9 g/dL (1.3-3.2); Triglycerides 158 mg/dl (30-150); VLDL Cholesterol 32 mg/dL (0-40)
[2024-04-22 19:23] LABS: Calcium 9.3 mg/dl (8.4-10.2); Chol/HDL Ratio 5.8 (1-3.5); Glucose 97 mg/dl (74-100); HDL Cholesterol 31 mg/dl (40-60)
[2024-04-22 19:35] LABS: 25-OH Vitamin D, Total 37.1 ng/mL (30-100)
[2024-04-22 19:37] LABS: Hemoglobin A1C 5.5 % (4.0-6.0)
== END 2024-04-22 23:59 | disposition home or self-care (01) ==
LOC: LAB.DROPOF 04-26 10:39
PROVIDERS: PCP Family Medicine; Visit Provider Family Medicine
DX: E11.42 Type 2 diabetes mellitus with diabetic polyneuropathy (principal); E55.9 Vitamin D deficiency, unspecified; E78.5 Hyperlipidemia, unspecified
CPT/HCPCS: 80053; 80061; 82306; 83036

== ENCOUNTER 2024-05-09 07:38 | Outpatient (CLI) | payer MEDICARE, OTHER, SELFPAY ==
--- NOTE | 2024-05-09 07:39 | MM_ITS ---
PROCEDURE INFORMATION: Exam: MG Bilateral Screening 3D Mammography Exam date and time: 05/09/2024 8:04 AM Age: 63 years old Clinical indication: Screening examination TECHNIQUE: Imaging protocol: Bilateral Screening tomosynthesis and 2D mammography including computer-aided detection (CAD) when performed. COMPARISON: 1. MG MM DIG SCREENING MAMM BI W/CAD 03/25/2023 9:35 AM 2. MG MM DIG SCREENING MAMM BI W/CAD 09/25/2021 7:58 AM FINDINGS: MAMMOGRAPHY: Breast composition: The breasts are heterogeneously dense, which may obscure small masses. Mass: No suspicious masses. Architectural distortion: None. Calcifications: No suspicious calcifications. Asymmetric density: None. Skin thickening: None. Axillary adenopathy: None. IMPRESSION: No mammographic evidence of malignancy. Annual screening is recommended unless otherwise clinically indicated. ASSESSMENT: BI-RADS Category 1: Negative.
== END 2024-05-09 23:59 | disposition home or self-care (01) ==
LOC: RAD 07:39
PROVIDERS: PCP Family Medicine; Visit Provider Family Medicine
DX: Z12.31 Encounter for screening mammogram for malignant neoplasm of breast (principal)
CPT/HCPCS: 77063; 77067

== ENCOUNTER 2024-06-21 12:13 | Outpatient (CLI) | payer MEDICARE, OTHER, SELFPAY ==
[2024-06-21 12:44] VITALS: BMI 37.5
--- NOTE | 2024-06-21 13:02 | ECG_ITS ---
APPROVED REPORT Exam: Resting ECG HR:60 bpm ECG Measurements Heart Rate 60 AXES ID 165 P 31 QRSd 99 QRS -9 QT 438 T 28 QTc 439 Conclusion SINUS RHYTHM WITH OCCASIONAL SUPRAVENTRICULAR PREMATURE COMPLEXES LOW QRS VOLTAGE IN PRECORDIAL LEADS [QRS DEFLECTION < 1.0 mV IN CHEST LEADS] MINIMAL VOLTAGE CRITERIA FOR LVH, CONSIDER NORMAL VARIANT [MEETS CRITERIA IN ONE OF: R(aVL), S(V1), R(V5), R(V5/V6)+S(V1)] POSSIBLE ANTERIOR MYOCARDIAL INFARCTION , PROBABLY OLD [30 ms Q WAVE IN V3/V4, OR R < 0.2 mV IN V4] BORDERLINE ECG UNCONFIRMED REPORT Electronically signed by : Nathan Reynolds MD 06/22/2024 07:52:30
[2024-06-21 13:12] LABS: Basophils # 0.1 K/mm3 (0-0.2); Basophils % 0.9 % (0.1-2.0); Eosinophils # 0.1 Kmm3 (0.0-0.4); Eosinophils % 1.2 % (0.1-12.0); Hematocrit 41.1 % (37.0-47.0); Hemoglobin 14.2 g/dL (12.2-16.2); Lymphocytes # 3.7 K/mm3 (0.7-4.5); Lymphocytes % 44.5 % (10-50); Mean Corpuscular HGB Conc 34.5 g/dL (31.8-35.4); Mean Corpuscular Hemoglobin 32.9 pg (27.0-31.2); Mean Corpuscular Volume 95.4 fl (81-99); Mean Platelet Volume 10.5 fl (7.4-10.4); Monocytes # 0.7 K/mm3 (0.1-1.0); Monocytes % 8.8 % (1.7-9.3); Neutrophils # 3.6 K/mm3 (1.8-7.8); Neutrophils % 44.4 % (37.0-80.0); Nucleated Red Blood Cells # 0 10^3/uL; Nucleated Red Blood Cells % 0 %; Platelet Count 300 K/mm3 (142-424); Red Blood Count 4.31 M/mm3 (4.20-5.40); Red Cell Distribution Width 13.3 % (11.5-17.5); Red Cell Distribution Width-SD 47.5 fL; White Blood Count 8.2 K/mm3 (4.8-10.8)
[2024-06-21 13:24] LABS: Chloride 106 mmol/L (98-107); Potassium 3.3 mmoL/L (3.5-5.1); Sodium 140 mmol/L (136-145)
[2024-06-21 13:27] LABS: Blood Urea Nitrogen 17 mg/dl (7-17); Creatinine Clearance Estimated 80 mL/min (50-200); Estimated Glomerular Filt Rate 85 ml/min (>60); GFR (African American) 103 ML/MIN (>60)
[2024-06-21 13:28] LABS: Anion Gap 11.3 mEq/L (5-15); Calcium 9.3 mg/dl (8.4-10.2); Carbon Dioxide 26 mmol/L (22.0-30.0); Glucose 147 mg/dl (74-100)
== END 2024-06-21 23:59 | disposition home or self-care (01) ==
LOC: PREOP 12:16
PROVIDERS: PCP Family Medicine; Visit Provider Anesthesiology
DX: I49.1 Atrial premature depolarization (principal); M54.16 Radiculopathy, lumbar region; R94.31 Abnormal electrocardiogram [ECG] [EKG]
CPT/HCPCS: 80048; 85025; 93005

== ENCOUNTER 2024-06-26 11:27 | Emergency (ER) | payer MEDICARE, OTHER, SELFPAY ==
[2024-06-26 11:33] VITALS: BP 155/112; PULSE 78; O2SAT 94
[2024-06-26 11:34] VITALS: BP 145/108; PULSE 72; O2SAT 94
[2024-06-26 11:36] VITALS: BP 145/108; PULSE 72; RESP 16; TEMP 36.5; O2SAT 95; BMI 37.5
[2024-06-26 12:00] VITALS: BP 155/82; PULSE 68; O2SAT 94
--- NOTE | 2024-06-26 12:21 | ED_ITS ---
Discharge Plan Disposition Patient Disposition: Home, Self-Care Condition: Good Prescriptions Prescriptions: New cephalexin 500 mg capsule 500 mg PO Q6H Qty: 40 0RF Benadryl 2 % gel 1 applic topical BID PRN (Reason: itching) Qty: 103 0RF No Action propranolol 10 mg tablet 10 mg PO TID Biktarvy 50-200-25 mg tablet 1 tab PO DAILY Movantik 25 mg tablet 25 mg PO DAILY Zenpep 40,000-126,000- 168,000 unit capsule,delayed release(DR/EC) 1 cap PO DAILY urea 40 % cream 1 applic topical BID 30 Days Qty: 28 3RF ondansetron HCl 8 mg tablet 8 mg PO Q12H PRN (Reason: Nausea) nystatin 100,000 unit/gram powder 1 applic topical TID Qty: 60 3RF pantoprazole 40 mg tablet,delayed release (DR/EC) 40 mg PO DAILY fluticasone propion-salmeterol [Advair Diskus] 500-50 mcg/dose blister with device 1 inh IH BID Qty: 180 3RF ipratropium-albuterol 0.5 mg-3 mg(2.5 mg base)/3 mL solution for nebulization 3 ml INHALATION Q6H PRN (Reason: shortness of breath or wheezing) Qty: 180 3RF Spiriva Respimat 2.5 mcg/actuation mist 2 inh inhalation DAILY 90 Days Qty: 4 3RF montelukast 10 mg tablet 10 mg PO QPM 90 Days Qty: 90 2RF fluticasone propionate [Flonase Allergy Relief] 50 mcg/actuation spray,suspension 1 spray intranasal DAILY PRN (Reason: nasal congestion) Qty: 16 0RF Rx Instructions: administer into each nostril hydrochlorothiazide 12.5 mg capsule 12.5 mg PO DAILY Qty: 90 2RF cholecalciferol (vitamin D3) 25 mcg (1,000 unit) tablet See Rx Instructions .ROUTE .COMPLEX Qty: 30 4RF Dose Instruction: TAKE 1 TABLET BY MOUTH DAILY WITH FOOD Rx Instructions: TAKE 1 TABLET BY MOUTH DAILY WITH FOOD albuterol sulfate 90 mcg/actuation HFA aerosol inhaler 2 inh INHALATION Q6H PRN (Reason: shortness of breath or wheezing) 90 Days Qty: 8.5 3RF (DME) FreeStyle Lite Strips Strip See Rx Instructions .ROUTE .COMPLEX Qty: 100 2RF Dose Instruction: USE DIRECTED TO TEST BLOOD SUGAR THREE TIMES A DAY Rx Instructions: USE DIRECTED TO TEST BLOOD SUGAR THREE TIMES A DAY pravastatin 80 mg tablet 80 mg PO DAILY Qty: 90 3RF diclofenac sodium 1 % gel See Rx Instructions .ROUTE .COMPLEX Qty: 100 4RF Dose Instruction: APPLY 4 GRAMS TOPICALLY FOUR TIMES A DAY FOR PAIN. APPLY AND GENTLY MASSAGE INTO AREA. MAY APPLY TO SINGLE KNEE, ANKLE, FOOT (SOLE/TOES/TOP OF FOOT). Rx Instructions: APPLY 4 GRAMS TOPICALLY FOUR TIMES A DAY FOR PAIN. APPLY AND GENTLY MASSAGE INTO AREA. MAY APPLY TO SINGLE KNEE, ANKLE, FOOT (SOLE/TOES/TOP OF FOOT). oxycodone-acetaminophen [Percocet] 10-325 mg tablet 1 tab PO QID Qty: 120 0RF potassium chloride [Klor-Con M20] 20 mEq tablet,ER particles/crystals 20 meq PO DAILY Qty: 14 0RF metformin 500 mg tablet 500 mg PO BID tizanidine 4 mg tablet 4 mg PO DAILY sertraline 100 mg tablet 100 mg PO BID amlodipine 5 mg tablet 5 mg PO DAILY rizatriptan 5 mg tablet,disintegrating 5 mg PO DAILY PRN (Reason: migraines) guaifenesin 600 mg tablet extended release 12hr 600 mg PO BID hydrocortisone 28 GM cream with perineal applicator 1 applicatio * BID PRN (Reason: Hemorrhoids) Rx Instructions: 1 application [place] BID PRN Referrals Follow up/Referrals: Nathan Oneal MD [Primary Care Provider] - See instructions Activity Restrictions/Add. Instructions Additional Instructions/Restrictions: As discussed please take medications as prescribed. I have prescribed Benadryl cream, you have stated that you are no longer allergic to this and can take it. Should you have any reaction to any medications please stop taking them. Please follow-up with your primary care physician regarding today's visit to the ER. Please return to ED if symptoms worsen. Clinical Impressions Clinical Impression: Cellulitis, Candidal intertrigo Instructions Patient Instructions: Cellulitis Print Language Print Language: Chadian Discharge ED Provider: Evan Newman General Adult HPI General Chief complaint: Skin/Abscess/Foreign Body Stated complaint: rash on Left arm-spreading 3 days Time Seen by Provider: 06/26/24 11:52 Mode of Arrival: Ambulatory Source of Information: Patient Description of Symptoms (Recalled from ER Triage Doc. by RN): Pt presents for evaluation of rash to her arms, abdomen and legs. Pt states the rash started 3 days ago, and that it started after she had started taking a potassium tablet that she was prescribed. Pt has stopped taking the potassium and has tried hyrdocortisone cream for the rash History of Present Illness HPI narrative: 63-year-old female presents to ED with rash to left arm, left-sided abdomen, proximal left leg. Rash started 3 days ago. Around that time patient started taking a potassium pill. Has stopped taking potassium tried hydrocortisone cream has not improved. Denies fevers, denies new exposures, has not been gardening or outside, no injury to the area. Denies other symptoms or concerns at this time. Please note that above description of symptoms, in this electronic medical record under categorization of recalled from ER triage doctor by RN are reflective of an initial nursing assessment, however, is not reflective of my full history and physical exam that was personally taken and clarified. Consequentially, this preceding description of symptoms, which may include the patient's categorized chief complaint in the EMR, do not reflect my personal clinical impression, and the ultimate description of history of present illness and patient stated complaints should be deferred to this section of the note. Unless stated otherwise or congruent with this section of the note, additional signs, symptoms, or incongruence should be interpreted as inaccurate with my clinical impression. Related Data Home Medications ?Medication ?Instructions ?Recorded ?Confirmed pantoprazole 40 mg tablet,delayed 40 mg PO DAILY GERD 03/13/21 06/21/24 release hydrocortisone 2.5 % topical cream 1 applicatio * BID PRN Hemorrhoids 04/25/21 06/21/24 with perineal applicator propranolol 10 mg tablet 10 mg PO TID BLOOD PRESSURE 06/12/21 06/21/24 bictegravir 50 mg-emtricitabine 1 tab PO DAILY hiv 11/12/22 06/21/24 200 mg-tenofovir alafenam 25 mg tablet (Biktarvy) naloxegol 25 mg tablet (Movantik) 25 mg PO DAILY 07/29/23 06/21/24 lbtbzm-grguklky-wltobee 1 cap PO DAILY 09/28/23 06/21/24 40,000-126,000-168,000 unit capsule, delay rel (Zenpep) ondansetron HCl 8 mg tablet 8 mg PO Q12H PRN Nausea 01/25/24 06/21/24 amlodipine 5 mg tablet 5 mg PO DAILY 06/21/24 06/21/24 guaifenesin 600 mg tablet, 600 mg PO BID 06/21/24 06/21/24 extended release 12 hr metformin 500 mg tablet 500 mg PO BID 06/21/24 06/21/24 rizatriptan 5 mg disintegrating 5 mg PO DAILY PRN migraines 06/21/24 06/21/24 tablet sertraline 100 mg tablet 100 mg PO BID 06/21/24 06/21/24 tizanidine 4 mg tablet 4 mg PO DAILY 06/21/24 06/21/24 Previous Rx's ?Medication ?Instructions ?Recorded fluticasone 500 mcg-salmeterol 50 1 inh inhalation BID #180 ea 04/09/23 mcg/dose blistr powdr for inhalation (Advair Diskus) ipratropium 0.5 mg-albuterol 3 mg 3 ml inhalation Q6H PRN shortness 04/09/23 (2.5 mg base)/3 mL nebulization of breath or wheezing #180 mL soln montelukast 10 mg tablet 10 mg PO QPM 90 days #90 tabs 04/09/23 tiotropium bromide 2.5 2 inh inhalation DAILY 90 days #4 04/09/23 mcg/actuation mist for inhalation grams (Spiriva Respimat) fluticasone propionate 50 1 spray intranasal DAILY PRN nasal 06/29/23 mcg/actuation nasal congestion #16 grams spray,suspension (Flonase Allergy Relief) hydrochlorothiazide 12.5 mg capsule 12.5 mg PO DAILY #90 caps 06/29/23 cholecalciferol (vitamin D3) 25 See Rx Instructions .Route 10/15/23 mcg (1,000 unit) tablet .COMPLEX #30 caps urea 40 % topical cream 1 applic topical BID 30 days #28 12/09/23 grams nystatin 100,000 unit/gram topical 1 applic topical TID antifungal 01/25/24 powder #60 grams albuterol sulfate 90 mcg/actuation 2 inh inhalation Q6H PRN shortness 02/25/24 aerosol inhaler of breath or wheezing 90 days #8.5 grams blood sugar diagnostic (FreeStyle #100 ea 03/21/24 Lite Strips) pravastatin 80 mg tablet 80 mg PO DAILY #90 tabs 04/27/24 diclofenac sodium 1 % topical gel See Rx Instructions .Route 05/11/24 .COMPLEX #100 grams oxycodone-acetaminophen 10 mg-325 1 tab PO QID #120 tabs 06/20/24 mg tablet (Percocet) potassium chloride 20 mEq 20 meq PO DAILY #14 tabs 06/22/24 tablet,extended release(part/cryst) (Klor-Con M) cephalexin 500 mg capsule 500 mg PO Q6H #40 caps 06/26/24 diphenhydramine HCl 2 % topical 1 applic topical BID PRN itching 06/26/24 gel (Benadryl) #103 mL Allergies Allergy/AdvReac Type Severity Reaction Status Date / Time azithromycin (From ZITHROMAX Allergy Intermediate Kidney Verified 06/21/24 12:32 Z-VINCENT) reaction levofloxacin (From LEVAQUIN) Allergy Intermediate Blister Verified 06/21/24 12:32 vancomycin Allergy Intermediate Redness of Verified 06/21/24 12:32 Skin aspirin Allergy Mild Gastrointestinal Verified 06/21/24 12:32 Upset diphenhydramine (From Allergy Mild Itching Verified 06/21/24 12:32 BENADRYL) ibuprofen (IBUPROFEN) Allergy Mild Gastrointestinal Verified 06/21/24 12:32 Upset morphine Allergy Mild Itching Verified 06/21/24 12:32 sulfamethoxazole (From Allergy Mild Rash Verified 06/21/24 12:32 Bactrim) trimethoprim (From Bactrim) Allergy Mild Rash Verified 06/21/24 12:32 paper tape Allergy Hives Uncoded 06/21/24 12:31 PFSH [facility] Disclaimer: The information contained in this section may have been updated after the patient was seen, as this information can be updated by other users. Medical History (Updated 06/26/24 @ 12:31 by Evan Newman DO) Hypokalemia Candidal intertrigo Rib pain on right side Yeast infection of the skin Fatigue Atypical angina Chest pain Back pain COVID-19 Dyspnea Headache Hearing loss Total perforation of left tympanic membrane Chronic respiratory failure with hypoxia Yeast dermatitis Recurrent acute suppurative otitis media of both ears Ear infection Vomiting Bronchitis Left shoulder pain Nocturnal hypoxia Moderate persistent asthma Dyspnea on exertion Nocturnal hypoxemia Crack cocaine use Hyperlipidemia HIV (human immunodeficiency virus infection) Hypertension Lumbar radiculopathy, chronic Lumbar radiculopathy Lumbar disc disease with radiculopathy Degenerative arthritis Cervicalgia Closed head injury Vitamin D deficiency (~08/11/17) Diabetes Surgical History History of thyroidectomy History of hysterectomy Status post tympanoplasty History of left knee surgery History of section History of splenectomy History of hysterectomy History of colonoscopy History of cholecystectomy History of carpal tunnel release History of arthroscopy of shoulder Status post arthroscopy of hip Family History Other Cancer Coronary artery disease Diabetes Heart attack Hyperlipidemia Hypertension Kidney disease Stroke Thyroid disorder Social History Smoking Status: Never smoker alcohol intake: never substance use type: denies use current occupational status: other Travel in the last 8 weeks?: None household members: family housing: house caffeine: Yes Have you lived/traveled outside [place] in past 30 days?: No Contact w/someone who lives/traveled outside [place] past 30 days?: No Exposure to someone with infectious disease in past 14 days?: No Do you have a fever (greater than 100.4 F or 38 C)?: No Have you tested positive for COVID-19?: No Exposed to someone with COVID-19 in past 14 days?: No Do you have a sore throat?: No Do you have a cough?: No Do you have any weakness?: No Do you have any diarrhea?: No Are you experiencing any unusual bleeding?: No Do you have any muscle aches/pain?: No Do you have any abdominal pain?: No Are you experiencing loss of taste or smell?: No Other Medical History Have you received the Flu Vaccine for this season: Yes Have you received the Pneumonia Vaccine: Yes ROS Obtained: Yes Systems reviewed as appropriate & no additional complaints except as documented Physical Exam General General appearance: alert and in no apparent distress Head Head exam: atraumatic and normocephalic Eye Eye exam: Present normal appearance and EOMI ENT ENT exam: Present normal exam and mucous membranes moist Neck Neck exam: Present normal inspection, full ROM and trachea midline Chest Chest inspection: Present normal inspection and symmetric chest wall rise Respiratory Respiratory exam: Absent respiratory distress or stridor Cardiovascular Cardiovascular exam: Present regular rate and normal rhythm Abdominal Exam Abdominal exam: Present soft; Absent distention, tenderness or guarding Extremities Exam Extremities exam: Present full ROM and normal capillary refill; Absent tenderness Back Exam Back exam: Present normal inspection (Well-healed midline scars from prior stimulator placement) and full ROM Neurological Exam Neurological exam: Present alert and oriented X3 Psychiatric Psychiatric exam: Present normal affect and normal mood Skin Skin exam: Present warm, dry, rash, erythema and other (Erythema noted on distal anterior forearm, left superior abdomen, left proximal thigh. No noted drainage, no fluctuance, no crepitus, nontender to palpation) Medical Decision Making Medical Records Medical records reviewed: Yes I reviewed the patient's medical records. Screening: Per USPSTF and CDC recommendations, given the prevalence of disease in our region, it is our hospital?s policy to screen for HIV and viral Hepatitis for all patients aged 18 and over and those with ongoing risk factors. [place] Inquiry Pt receiving controlled substance: No Vital Signs: 06/26/24 11:36 Temperature 97.7 F Temperature Source Oral Pulse Rate [Right] 72 Respiratory Rate 16 Blood Pressure [Right Arm] 145/108 H Blood Pressure Mean [Right Arm] 120 Blood Pressure Source [Right Arm] Automatic Cuff Blood Pressure Position [Right Arm] Sitting 02 Sat by Pulse Oximetry 95 Oxygen Delivery Method Room Air Medical Decision Narrative: Patient with history and exam per above presenting for evaluation of rash. Patient has past medical history diabetes, history of candidal intertrigo, currently has spinal stimulator for chronic spinal pain. Denies other symptoms or concerns including chest pain, shortness of breath, fever Diagnoses considered include contact dermatitis, cellulitis, candidal intertrigo, among others ED workup and treatment included: As above Imaging was independently visualized and interpreted by me, significant for cobblestoning on [id number] ultrasound performed at bedside by myself, imaging has been uploaded and saved. Please see procedural portion for full note interpretation. Please refer to radiology report for full details. My clinical impression at this time is most consistent with cellulitis, candidal intertrigo. Prescribing Keflex, Benadryl cream?patient chart states patient is allergic to Benadryl. Patient states she has been tested for this and does not have a Benadryl allergy and is able to take it. Giving Diflucan in ED. Patient to follow-up with PCP regarding today's visit. Given instructions to return to ED if symptoms worsen. Patient agreeable with this plan. Discharged home with hemodynamically stable vitals. I discussed my clinical impression with patient and answered all questions. At this time, the evidence for any other entities in the differential is insufficient to warrant any further testing or ED observation. This was explained to the patient. The patient was advised that persistent or worsening symptoms require further evaluation. Procedures Limited Ultrasound Indication:: Rash, erythema on extremity, left upper abdomen, left proximal thigh Views:: Soft tissue ultrasound performed Findings:: Cobblestoning, cellulitis, no noted abscess Interpretation:: Cellulitis Critical Care Critical Care Time Critical Care Time: No
[2024-06-26 12:30] VITALS: BP 131/78; PULSE 62; O2SAT 95
[2024-06-26] MEDS: FLUCONAZOLE 100MG TABLET 200 MG PO (12:44)
[2024-06-26 12:48] VITALS: BP 131/78; PULSE 72; RESP 18; TEMP 36.8; O2SAT 98
== END 2024-06-26 12:48 | disposition home or self-care (01) ==
PROVIDERS: Emergency Provider Student in an Organized Health Care Education/Training Program; PCP Family Medicine
DX: L03.114 Cellulitis of left upper limb (principal); L03.116 Cellulitis of left lower limb; L03.311 Cellulitis of abdominal wall; B37.2 Candidiasis of skin and nail; R21 Rash and other nonspecific skin eruption
CPT/HCPCS: 99283

== ENCOUNTER 2024-06-27 13:02 | Outpatient (POV) | payer MEDICARE, OTHER, SELFPAY ==
[2024-06-27 13:22] VITALS: BP 145/83; PULSE 72; RESP 14; O2SAT 92; BMI 37.5
--- NOTE | 2024-06-27 13:46 | EXP.PAIN.SOA ---
[facility] Disclaimer: The information contained in this section may have been updated after the patient was seen, as this information can be updated by other users. Medical History Hypokalemia Candidal intertrigo Rib pain on right side Yeast infection of the skin Fatigue Atypical angina Chest pain Back pain COVID-19 Dyspnea Headache Hearing loss Total perforation of left tympanic membrane Chronic respiratory failure with hypoxia Yeast dermatitis Recurrent acute suppurative otitis media of both ears Ear infection Vomiting Bronchitis Left shoulder pain Nocturnal hypoxia Moderate persistent asthma Dyspnea on exertion Nocturnal hypoxemia Crack cocaine use Hyperlipidemia HIV (human immunodeficiency virus infection) Hypertension Lumbar radiculopathy, chronic Lumbar radiculopathy Lumbar disc disease with radiculopathy Degenerative arthritis Cervicalgia Closed head injury Vitamin D deficiency (~08/11/17) Diabetes Surgical History History of thyroidectomy History of hysterectomy Status post tympanoplasty History of left knee surgery History of section History of splenectomy History of hysterectomy History of colonoscopy History of cholecystectomy History of carpal tunnel release History of arthroscopy of shoulder Status post arthroscopy of hip Family History Other Cancer Coronary artery disease Diabetes Heart attack Hyperlipidemia Hypertension Kidney disease Stroke Thyroid disorder Social History Smoking Status: Never smoker alcohol intake: never substance use type: denies use current occupational status: other Travel in the last 8 weeks?: None household members: family housing: house caffeine: Yes Have you lived/traveled outside US in past 30 days?: No Contact w/someone who lives/traveled outside US past 30 days?: No Exposure to someone with infectious disease in past 14 days?: No Do you have a fever (greater than 100.4 F or 38 C)?: No Have you tested positive for COVID-19?: No Exposed to someone with COVID-19 in past 14 days?: No Do you have a sore throat?: No Do you have a cough?: No Do you have any weakness?: No Do you have any diarrhea?: No Are you experiencing any unusual bleeding?: No Do you have any muscle aches/pain?: No Do you have any abdominal pain?: No Are you experiencing loss of taste or smell?: No PM Subjective & Objective Subjective Subjective:: Patient is a pleasant 63-year-old female who presents today for questions regarding her upcoming surgery on Thursday to replace her spinal cord stimulator with lead revision. Today she rates her pain an 8 out of 10. She denies any new injuries or falls. Patient does state that she ended up having a rash come up last week. Patient states that she ended up going to the ER for evaluation yesterday and they were trying to roll between Leatha and cellulitis. Patient does state that she was given Diflucan and Keflex and that she has been taking it and has already noticed that it seems to be drying up. Patient does state however she wanted to make sure to let our office know to confirm this would not interfere with her upcoming surgery on Thursday. Patient denies any other changes and states that she is very much looking forward to having the stimulator replaced as when it was functioning it worked really well. Patient does also make mention that she continues to have left shoulder pain however she cannot do the advanced imaging due to having leads out of place and not being MRI compatible. Patient does not believe that the orthopedic provider has ever tried to order a CT of her shoulder. Her Fortino has been reviewed and is appropriate. Review of Systems: General: No recent weight changes, no fever, no sleep disturbances Respiratory: No cough, no shortness of air, no recurring pulmonary infections Cardiovascular/peripheral vascular: No chest pain, no palpitations, no edema, no shortness of breath Gastrointestinal: No new onset incontinence, normal bowel movements reported Genitourinary: No new onset incontinence Musculoskeletal: Left forearm rash, chronic low back and leg Psychiatric: [Normal mood/affect] Neurological: [Denies weakness in extremities], [denies balance issues] Pain at rest (0-10 scale): 8 Objective Objective:: Physical Exam: General: Alert and oriented x3, no acute distress, pleasant and cooperative Lungs: Respirations even and unlabored, symmetrical chest expansion Eyes: PERRL Musculoskeletal: Flexion and extension of lumbar [spine] somewhat guarded secondary to pain, [antalgic gait noted] Neurological: Speech clear, no gross sensory deficit Has patient had previous pain injection?: No Conservative treatment options previously tried: Home exercise plan Length of treatment: Longer than 12 weeks Meds Home Medications and Allergies Home Medications ?Medication ?Instructions ?Recorded ?Confirmed ?Type pantoprazole 40 mg tablet,delayed 40 mg PO DAILY GERD 03/13/21 06/27/24 History release hydrocortisone 2.5 % topical cream 1 applicatio * BID PRN Hemorrhoids 04/25/21 06/27/24 History with perineal applicator propranolol 10 mg tablet 10 mg PO TID BLOOD PRESSURE 06/12/21 06/27/24 History bictegravir 50 mg-emtricitabine 1 tab PO DAILY hiv 11/12/22 06/27/24 History 200 mg-tenofovir alafenam 25 mg tablet (Biktarvy) fluticasone 500 mcg-salmeterol 50 1 inh inhalation BID #180 ea 04/09/23 06/27/24 Rx mcg/dose blistr powdr for inhalation (Advair Diskus) ipratropium 0.5 mg-albuterol 3 mg 3 ml inhalation Q6H PRN shortness 04/09/23 06/27/24 Rx (2.5 mg base)/3 mL nebulization of breath or wheezing #180 mL soln montelukast 10 mg tablet 10 mg PO QPM 90 days #90 tabs 04/09/23 06/27/24 Rx tiotropium bromide 2.5 2 inh inhalation DAILY 90 days #4 04/09/23 06/27/24 Rx mcg/actuation mist for inhalation grams (Spiriva Respimat) fluticasone propionate 50 1 spray intranasal DAILY PRN nasal 06/29/23 06/27/24 Rx mcg/actuation nasal congestion #16 grams spray,suspension (Flonase Allergy Relief) hydrochlorothiazide 12.5 mg capsule 12.5 mg PO DAILY #90 caps 06/29/23 06/27/24 Rx naloxegol 25 mg tablet (Movantik) 25 mg PO DAILY 07/29/23 06/27/24 History unoccf-mjrixkaw-xomwtdb 1 cap PO DAILY 09/28/23 06/27/24 History 40,000-126,000-168,000 unit capsule, delay rel (Zenpep) cholecalciferol (vitamin D3) 25 See Rx Instructions .Route 10/15/23 06/27/24 Rx mcg (1,000 unit) tablet .COMPLEX #30 caps urea 40 % topical cream 1 applic topical BID 30 days #28 12/09/23 06/27/24 Rx grams nystatin 100,000 unit/gram topical 1 applic topical TID antifungal 01/25/24 06/27/24 Rx powder #60 grams ondansetron HCl 8 mg tablet 8 mg PO Q12H PRN Nausea 01/25/24 06/27/24 History albuterol sulfate 90 mcg/actuation 2 inh inhalation Q6H PRN shortness 02/25/24 06/27/24 Rx aerosol inhaler of breath or wheezing 90 days #8.5 grams blood sugar diagnostic (FreeStyle #100 ea 03/21/24 06/27/24 Rx Lite Strips) pravastatin 80 mg tablet 80 mg PO DAILY #90 tabs 04/27/24 06/27/24 Rx diclofenac sodium 1 % topical gel See Rx Instructions .Route 05/11/24 06/27/24 Rx .COMPLEX #100 grams oxycodone-acetaminophen 10 mg-325 1 tab PO QID #120 tabs 06/20/24 06/27/24 Rx mg tablet (Percocet) amlodipine 5 mg tablet 5 mg PO DAILY 06/21/24 06/27/24 History guaifenesin 600 mg tablet, 600 mg PO BID 06/21/24 06/27/24 History extended release 12 hr metformin 500 mg tablet 500 mg PO BID 06/21/24 06/27/24 History rizatriptan 5 mg disintegrating 5 mg PO DAILY PRN migraines 06/21/24 06/27/24 History tablet sertraline 100 mg tablet 100 mg PO BID 06/21/24 06/27/24 History tizanidine 4 mg tablet 4 mg PO DAILY 06/21/24 06/27/24 History potassium chloride 20 mEq 20 meq PO DAILY #14 tabs 06/22/24 06/27/24 Rx tablet,extended release(part/cryst) (Klor-Con M) cephalexin 500 mg capsule 500 mg PO Q6H #40 caps 06/26/24 06/27/24 Rx diphenhydramine HCl 2 % topical 1 applic topical BID PRN itching 06/26/24 06/27/24 Rx gel (Benadryl) #103 mL New Prescriptions to Start Prescriptions: Allergies Allergy/AdvReac Type Severity Reaction Status Date / Time azithromycin (From ZITHROMAX Allergy Intermediate Kidney Verified 06/21/24 12:32 Z-VINCENT) reaction levofloxacin (From LEVAQUIN) Allergy Intermediate Blister Verified 06/21/24 12:32 vancomycin Allergy Intermediate Redness of Verified 06/21/24 12:32 Skin aspirin Allergy Mild Gastrointestinal Verified 06/21/24 12:32 Upset diphenhydramine (From Allergy Mild Itching Verified 06/21/24 12:32 BENADRYL) ibuprofen (IBUPROFEN) Allergy Mild Gastrointestinal Verified 06/21/24 12:32 Upset morphine Allergy Mild Itching Verified 06/21/24 12:32 sulfamethoxazole (From Allergy Mild Rash Verified 06/21/24 12:32 Bactrim) trimethoprim (From Bactrim) Allergy Mild Rash Verified 06/21/24 12:32 paper tape Allergy Hives Uncoded 06/21/24 12:31 Assessment and Plan *Assessment and plan (1) Candidal intertrigo: Status: Acute Category: Medical Code(s): B37.2 - Candidiasis of skin and nail (2) Chronic pain syndrome: Status: Acute Category: Medical Code(s): G89.4 - Chronic pain syndrome (3) Lumbar radiculopathy: Status: Acute Category: Medical Code(s): M54.16 - Radiculopathy, lumbar region Plan I did review over with the patient regarding her upcoming surgical procedure risk and benefits on Thursday with the stimulator revision and replacement. Patient was counseled that if the rash does start to get any worse from today's visit to immediately call us and let us know. I did discuss with Dr. Ventura regarding her rash and he has no contraindications to proceeding forward with the surgery on Thursday. Patient will contact us if she needs any further evaluation for worsening symptoms. Patient will otherwise arrive on Thursday morning for her stimulator surgery with our office. Patient has been instructed to contact the clinic with any concerns before the next appointment. Dr. Ventura has reviewed this note and agrees with this plan of care. This note was dictated using voice recognition software and make contain errors or omissions. All injections are used with Lidocaine, Bupivacaine and dexamethasone. Occasionally urine drug screen is needed to verify patient's compliance with our office pain contract. This is ordered based off specific treatments related to chronic pain with the potential to abuse certain medications.
== END 2024-06-27 23:59 | disposition home or self-care (01) ==
LOC: SC.PAIN 13:04
PROVIDERS: PCP Family Medicine; Visit Provider Nurse Practitioner Family
DX: B37.2 Candidiasis of skin and nail (principal); G89.4 Chronic pain syndrome; M54.16 Radiculopathy, lumbar region; Z79.899 Other long term (current) drug therapy
CPT/HCPCS: 99212; G0463

== ENCOUNTER 2024-07-01 08:33 | Day surgery (SDC) | payer MEDICARE, OTHER, SELFPAY ==
[2024-06-21 14:04] VITALS: BMI 37.5
[2024-07-01 09:12] VITALS: BP 150/60; PULSE 70; RESP 17; TEMP 36.3; O2SAT 91
[2024-07-01] MEDS: LACTATED RINGERS 1000ML 1,000 ML 25 ML IV (09:22)
--- NOTE | 2024-07-01 09:31 | EXP.ANES.CKL ---
[facility] Disclaimer: The information contained in this section may have been updated after the patient was seen, as this information can be updated by other users. Medical History Hypokalemia Candidal intertrigo Rib pain on right side Yeast infection of the skin Fatigue Atypical angina Chest pain Back pain COVID-19 Dyspnea Headache Hearing loss Total perforation of left tympanic membrane Chronic respiratory failure with hypoxia Yeast dermatitis Recurrent acute suppurative otitis media of both ears Ear infection Vomiting Bronchitis Left shoulder pain Nocturnal hypoxia Moderate persistent asthma Dyspnea on exertion Nocturnal hypoxemia Crack cocaine use Hyperlipidemia HIV (human immunodeficiency virus infection) Hypertension Lumbar radiculopathy, chronic Lumbar radiculopathy Lumbar disc disease with radiculopathy Degenerative arthritis Cervicalgia Closed head injury Vitamin D deficiency (~08/11/17) Diabetes Surgical History History of thyroidectomy History of hysterectomy Status post tympanoplasty History of left knee surgery History of section History of splenectomy History of hysterectomy History of colonoscopy History of cholecystectomy History of carpal tunnel release History of arthroscopy of shoulder Status post arthroscopy of hip Family History Other Cancer Coronary artery disease Diabetes Heart attack Hyperlipidemia Hypertension Kidney disease Stroke Thyroid disorder Social History Smoking Status: Never smoker alcohol intake: never substance use type: denies use current occupational status: other Travel in the last 8 weeks?: None household members: family housing: house caffeine: Yes Have you lived/traveled outside US in past 30 days?: No Contact w/someone who lives/traveled outside US past 30 days?: No Exposure to someone with infectious disease in past 14 days?: No Do you have a fever (greater than 100.4 F or 38 C)?: No Have you tested positive for COVID-19?: No Exposed to someone with COVID-19 in past 14 days?: No Do you have a sore throat?: No Do you have a cough?: No Do you have any weakness?: No Do you have any diarrhea?: No Are you experiencing any unusual bleeding?: No Do you have any muscle aches/pain?: No Do you have any abdominal pain?: No Are you experiencing loss of taste or smell?: No [facility] Anesthesia Checklist Patient Identification Patient Identification: Arm Band and Verbal (Name & ) Structural Data Admitted From: Home Planned Operative Procedure/s: spinal cord stimulator placement Consent for Planned Operative Procedure(s) Verified: Yes Verified Documents: Surgical Consent NPO Status Verified Time NPO: 00:00 Chart Verification Results Verified: ECG Additional verifications Anesthesia Reactions: No Hx Blood Transfusions: Yes Blood Transfusion Reaction: No Airway Assessment Mallampati Score:: Class II C-Spine Mobility Assessed: Yes TMJ Mobility Assessed: Yes Dentition: Edentulous Neurological Assessment Level of Consciousness: Awake, Alert and Appropriate Hx Seizures: No Numbness or tingling in extremities: No Anesthesia Plan Anesthesia Plan: Verified ASA Class: III Anesthesia Type: MAC
[2024-07-01] MEDS: CEFAZOLIN SODIUM 1 GM in 0.9 % SODIUM CHLORIDE 50 ML IV (10:15)
[2024-07-01] MEDS: GENTAMICIN 80 MG/2 ML VIAL (10:33)
[2024-07-01] MEDS: SODIUM CHLORIDE 0.9% 20ML VIAL 40 ML IV (10:33)
[2024-07-01] MEDS: LIDOCAINE 1% W/EPI 1:100,000 20ML VIAL 40 ML (10:33)
[2024-07-01 10:53] VITALS: BP 123/83; PULSE 77; RESP 16; TEMP 36.4; O2SAT 91
--- NOTE | 2024-07-01 10:53 | EXP.OP.NOTE ---
Date of procedure: 07/01/24 Pre-op Diagnosis:: End-of-life spinal cord stimulator generator Post-op Diagnosis:: Same Procedure performed:: Replacement spinal cord stimulator generator Surgeon:: Kai Ventura MD ANESTHESIOLOGY RESIDENT:: Other Anesthesia: MAC Estimated blood loss (mL): 5 Clinical Note:: This patient is a pleasant 63-year-old white female who we are treating for low back pain with lumbar radicular symptoms. She has a end-of-life spinal cord stimulator generator. Her battery is currently . We will replace her battery today. Will check her leads to make sure all impedances are okay. Operative findings:: None Operative note:: Informed consent was obtained risk and benefits of the procedure were explained the patient. The patient was taken the operating placed prone on the procedure table. She was prepped and draped in sterile fashion. C-arm fluoroscopy was used to view the leads and generator. The leads were found to be in good position. The skin and subcutaneous tissues overlying the generator were anesthetized using lidocaine. I made incision dissected out the spinal cord stimulator generator. I disconnected the leads I connected the leads to a new rechargeable generator. We did check impedances all impedances were found to be okay. Since leads are in good position and impedances were okay there was no reason to replace her leads. Generator is placed in the pocket. The incision was then closed with 2-0 Vicryl followed by 4-0 nylon and darin. Patient tolerated the procedure well with no complications. She was programmed by the [email or web address] outside sales representative with good stimulation in all areas of pain. Patient was discharged home neurologic intact with good relief of pain symptoms. Condition: stable Disposition: PACU Complications:: None
[2024-07-01 11:03] VITALS: BP 131/85; PULSE 76; RESP 16; O2SAT 91
[2024-07-01 11:13] VITALS: BP 136/80; PULSE 73; RESP 16; O2SAT 92
[2024-07-01 11:23] VITALS: BP 151/83; PULSE 73; RESP 16; O2SAT 92
== END 2024-07-01 11:30 | disposition home or self-care (01) ==
PROVIDERS: PCP Family Medicine; Visit Provider Anesthesiology
PROC: (CPT 63685; principal; 2024-07-01 11:00)
DX: Z46.2 Encounter for fitting and adjustment of other devices related to nervous system and special senses (principal); M51.16 Intervertebral disc disorders with radiculopathy, lumbar region
CPT/HCPCS: 63685; 96374; C1820; J1580; J2003; J2004; J2405; J2704; J7120

== ENCOUNTER 2024-07-07 13:57 | Outpatient (POV) | payer MEDICARE, OTHER, SELFPAY ==
[2024-07-07 14:33] VITALS: BP 138/66; PULSE 69; RESP 18; O2SAT 91; BMI 37.5
--- NOTE | 2024-07-07 14:37 | A.OFFVIS_ITS ---
[facility] Disclaimer: The information contained in this section may have been updated after the patient was seen, as this information can be updated by other users. Medical History Hypokalemia Candidal intertrigo Rib pain on right side Yeast infection of the skin Fatigue Atypical angina Chest pain Back pain COVID-19 Dyspnea Headache Hearing loss Total perforation of left tympanic membrane Chronic respiratory failure with hypoxia Yeast dermatitis Recurrent acute suppurative otitis media of both ears Ear infection Vomiting Bronchitis Left shoulder pain Nocturnal hypoxia Moderate persistent asthma Dyspnea on exertion Nocturnal hypoxemia Crack cocaine use Hyperlipidemia HIV (human immunodeficiency virus infection) Hypertension Lumbar radiculopathy, chronic Lumbar radiculopathy Lumbar disc disease with radiculopathy Degenerative arthritis Cervicalgia Closed head injury Vitamin D deficiency (~08/11/17) Diabetes Surgical History History of thyroidectomy History of hysterectomy Status post tympanoplasty History of left knee surgery History of section History of splenectomy History of hysterectomy History of colonoscopy History of cholecystectomy History of carpal tunnel release History of arthroscopy of shoulder Status post arthroscopy of hip Family History Other Cancer Coronary artery disease Diabetes Heart attack Hyperlipidemia Hypertension Kidney disease Stroke Thyroid disorder Social History Smoking Status: Never smoker alcohol intake: never substance use type: denies use current occupational status: other Travel in the last 8 weeks?: None household members: family housing: house caffeine: Yes PM Subjective & Objective Subjective Subjective:: Patient is a pleasant 63-year-old female who presents today for 1 week postop of spinal cord stimulator generator replacement on 07/01/2024. Patient denies any new falls or injuries. Patient does state that she ended up stopping her a ntibiotic because she was having a rash and a lot of itching. Patient states that it does seem a little bit better but she still has a lot of complaints regarding the itching. Patient states it has been fairly constant. Patient is meeting with [employer] authorization representative for additional reprogramming of her stimulator device. Patient denies any other changes. Her Fortino has been reviewed and is appropriate. Review of Systems: General: No recent weight changes, no fever, no sleep disturbances Respiratory: No cough, no shortness of air, no recurring pulmonary infections Cardiovascular/peripheral vascular: No chest pain, no palpitations, no edema, no shortness of breath Gastrointestinal: No new onset incontinence, normal bowel movements reported Genitourinary: No new onset incontinence Musculoskeletal: Low back pain Psychiatric: [Normal mood/affect] Neurological: [Denies weakness in extremities], [denies balance issues] Pain at rest (0-10 scale): 8 Objective Objective:: Physical Exam: General: Alert and oriented x3, no acute distress, pleasant and cooperative Lungs: Respirations even and unlabored, symmetrical chest expansion Eyes: PERRL Musculoskeletal: Flexion and extension of lumbar [spine] somewhat guarded secondary to pain, [antalgic gait noted] Neurological: Speech clear, no gross sensory deficit Skin: Incision site is clean, dry, well-approximated with only minimal erythema noted, sutures and darin intact Has patient had previous pain injection?: No Conservative treatment options previously tried: Home exercise plan Length of treatment: Longer than 12 weeks Meds Home Medications and Allergies Home Medications ?Medication ?Instructions ?Recorded ?Confirmed ?Type pantoprazole 40 mg tablet,delayed 40 mg PO DAILY GERD 03/13/21 07/01/24 History release hydrocortisone 2.5 % topical cream 1 applicatio * BID PRN Hemorrhoids 04/25/21 07/01/24 History with perineal applicator propranolol 10 mg tablet 10 mg PO TID BLOOD PRESSURE 06/12/21 07/01/24 History bictegravir 50 mg-emtricitabine 1 tab PO DAILY hiv 11/12/22 07/01/24 History 200 mg-tenofovir alafenam 25 mg tablet (Biktarvy) fluticasone 500 mcg-salmeterol 50 1 inh inhalation BID #180 ea 04/09/23 07/01/24 Rx mcg/dose blistr powdr for inhalation (Advair Diskus) ipratropium 0.5 mg-albuterol 3 mg 3 ml inhalation Q6H PRN shortness 04/09/23 07/01/24 Rx (2.5 mg base)/3 mL nebulization of breath or wheezing #180 mL soln montelukast 10 mg tablet 10 mg PO QPM 90 days #90 tabs 04/09/23 07/01/24 Rx tiotropium bromide 2.5 2 inh inhalation DAILY 90 days #4 04/09/23 07/01/24 Rx mcg/actuation mist for inhalation grams (Spiriva Respimat) fluticasone propionate 50 1 spray intranasal DAILY PRN nasal 06/29/23 07/01/24 Rx mcg/actuation nasal congestion #16 grams spray,suspension (Flonase Allergy Relief) hydrochlorothiazide 12.5 mg capsule 12.5 mg PO DAILY #90 caps 06/29/23 07/01/24 Rx naloxegol 25 mg tablet (Movantik) 25 mg PO DAILY 07/29/23 07/01/24 History fpgfmj-rljwjyow-djcnknq 1 cap PO DAILY 09/28/23 07/01/24 History 40,000-126,000-168,000 unit capsule, delay rel (Zenpep) cholecalciferol (vitamin D3) 25 See Rx Instructions .Route 10/15/23 07/01/24 Rx mcg (1,000 unit) tablet .COMPLEX #30 caps urea 40 % topical cream 1 applic topical BID 30 days #28 12/09/23 07/01/24 Rx grams nystatin 100,000 unit/gram topical 1 applic topical TID antifungal 01/25/24 07/01/24 Rx powder #60 grams ondansetron HCl 8 mg tablet 8 mg PO Q12H PRN Nausea 01/25/24 07/01/24 History albuterol sulfate 90 mcg/actuation 2 inh inhalation Q6H PRN shortness 02/25/24 07/01/24 Rx aerosol inhaler of breath or wheezing 90 days #8.5 grams blood sugar diagnostic (FreeStyle #100 ea 03/21/24 06/27/24 Rx Lite Strips) pravastatin 80 mg tablet 80 mg PO DAILY #90 tabs 04/27/24 07/01/24 Rx diclofenac sodium 1 % topical gel See Rx Instructions .Route 05/11/24 07/01/24 Rx .COMPLEX #100 grams oxycodone-acetaminophen 10 mg-325 1 tab PO QID #120 tabs 06/20/24 07/01/24 Rx mg tablet (Percocet) amlodipine 5 mg tablet 5 mg PO DAILY 06/21/24 07/01/24 History guaifenesin 600 mg tablet, 600 mg PO BID 06/21/24 07/01/24 History extended release 12 hr metformin 500 mg tablet 500 mg PO BID 06/21/24 07/01/24 History rizatriptan 5 mg disintegrating 5 mg PO DAILY PRN migraines 06/21/24 07/01/24 History tablet sertraline 100 mg tablet 200 mg PO BID 06/21/24 07/01/24 History tizanidine 4 mg tablet 4 mg PO DAILY 06/21/24 07/01/24 History potassium chloride 20 mEq 20 meq PO DAILY #14 tabs 06/22/24 07/01/24 Rx tablet,extended release(part/cryst) (Klor-Con M) clobetasol 0.05 % topical cream 1 applic topical BID 2 weeks #30 06/29/24 07/01/24 Rx grams clobetasol 0.05 % topical cream 1 applic topical BID 2 weeks #07/01/24 Rx grams sulfamethoxazole 800 1 tab PO BID #20 tabs 07/01/24 Rx mg-trimethoprim 160 mg tablet New Prescriptions to Start Prescriptions: Allergies Allergy/AdvReac Type Severity Reaction Status Date / Time azithromycin (From ZITHROMAX Allergy Intermediate Kidney Verified 07/01/24 09:01 Z-VINCENT) reaction levofloxacin (From LEVAQUIN) Allergy Intermediate Blister Verified 07/01/24 09:01 vancomycin Allergy Intermediate Redness of Verified 07/01/24 09:01 Skin aspirin Allergy Mild Gastrointestinal Verified 07/01/24 09:01 Upset diphenhydramine (From Allergy Mild Itching Verified 07/01/24 09:01 BENADRYL) ibuprofen (IBUPROFEN) Allergy Mild Gastrointestinal Verified 07/01/24 09:01 Upset morphine Allergy Mild Itching Verified 07/01/24 09:01 sulfamethoxazole (From Allergy Mild Rash Verified 07/01/24 09:01 Bactrim) trimethoprim (From Bactrim) Allergy Mild Rash Verified 07/01/24 09:01 paper tape Allergy Hives Uncoded 06/21/24 12:31 Assessment and Plan *Assessment and plan (1) Chronic pain syndrome: Status: Acute Category: Medical Code(s): G89.4 - Chronic pain syndrome Plan Patient was able to meet with [employer] authorization representative and get her device reprogrammed with better coverage. I did discuss with the patient due to the increased itching that I will send in a 5-day dose of prednisone 20 mg twice daily. Patient will return to clinic in 2 weeks for suture and staple removal. She was counseled to continue her postop restrictions the full 6 weeks until her incisions are fully healed. Patient agrees with this plan of care. Patient has been instructed to contact the clinic with any concerns before the next appointment. Dr. Ventura has reviewed this note and agrees with this plan of care. This note was dictated using voice recognition software and make contain errors or omissions. All injections are used with Lidocaine, Bupivacaine and dexamethasone. Occasionally urine drug screen is needed to verify patient's compliance with our office pain contract. This is ordered based off specific treatments related to chronic pain with the potential to abuse certain medications.
== END 2024-07-07 23:59 | disposition home or self-care (01) ==
PROVIDERS: PCP Family Medicine; Visit Provider Nurse Practitioner Family
DX: G89.4 Chronic pain syndrome (principal); Z79.899 Other long term (current) drug therapy
CPT/HCPCS: 99212; G0463

== ENCOUNTER 2024-07-20 15:30 | Outpatient (CLI) | payer MEDICARE, OTHER, SELFPAY ==
[2024-07-20 19:22] LABS: Anion Gap 10.3 mEq/L (5-15); Blood Urea Nitrogen 19 mg/dl (7-17); Calcium 9.4 mg/dl (8.4-10.2); Carbon Dioxide 29 mmol/L (22.0-30.0); Chloride 104 mmol/L (98-107); Estimated Glomerular Filt Rate 85 ml/min (>60); GFR (African American) 103 ML/MIN (>60); Glucose 101 mg/dl (74-100); Potassium 4.3 mmoL/L (3.5-5.1); Sodium 139 mmol/L (136-145)
== END 2024-07-20 23:59 | disposition home or self-care (01) ==
LOC: LAB.DROPOF 07-21 12:56
PROVIDERS: PCP Family Medicine; Visit Provider Family Medicine
DX: I10 Essential (primary) hypertension (principal)
CPT/HCPCS: 80048

== ENCOUNTER 2024-07-26 14:40 | Outpatient (POV) | payer MEDICARE, OTHER, SELFPAY ==
[2024-07-26 15:34] VITALS: BP 140/83; PULSE 64; RESP 18; O2SAT 93; BMI 37.3
--- NOTE | 2024-07-26 15:34 | EXP.PAIN.SOA ---
[facility] Disclaimer: The information contained in this section may have been updated after the patient was seen, as this information can be updated by other users. Medical History Hypokalemia Candidal intertrigo Rib pain on right side Yeast infection of the skin Fatigue Atypical angina Chest pain Back pain COVID-19 Dyspnea Headache Hearing loss moderate precipitous loss >2KHZ bilaterally Total perforation of left tympanic membrane Chronic respiratory failure with hypoxia Yeast dermatitis Recurrent acute suppurative otitis media of both ears Ear infection Vomiting Bronchitis Left shoulder pain Nocturnal hypoxia In the setting of moderate persistent asthma, chronic respiratory failure with hypoxia, active follow-up with health information technician, oxygen dependent Moderate persistent asthma Dyspnea on exertion Nocturnal hypoxemia Crack cocaine use Hyperlipidemia HIV (human immunodeficiency virus infection) Hypertension Lumbar radiculopathy, chronic Lumbar radiculopathy Lumbar disc disease with radiculopathy Degenerative arthritis Cervicalgia Closed head injury Vitamin D deficiency (~08/11/17) Diabetes Surgical History History of thyroidectomy History of hysterectomy Status post tympanoplasty left ear History of left knee surgery History of section History of splenectomy History of hysterectomy History of colonoscopy History of cholecystectomy History of carpal tunnel release History of arthroscopy of shoulder Status post arthroscopy of hip Family History Other Cancer Coronary artery disease Diabetes Heart attack Hyperlipidemia Hypertension Kidney disease Stroke Thyroid disorder Social History Smoking Status: Never smoker alcohol intake: never substance use type: denies use current occupational status: other Travel in the last 8 weeks?: None household members: family housing: house caffeine: Yes PM Subjective & Objective Subjective Subjective:: Patient is a pleasant 63-year-old female who presents today for follow-up. Today she rates her pain an 8 out of 10. She denies any new trauma or injury. She does state that her stimulator is working well and denies any side effects to it. Patient also states the current programming is still very helpful. She is presenting today for suture and staple removal. Her Fortino has been reviewed and is appropriate. Review of Systems: General: No recent weight changes, no fever, no sleep disturbances Respiratory: No cough, no shortness of air, no recurring pulmonary infections Cardiovascular/peripheral vascular: No chest pain, no palpitations, no edema, no shortness of breath Gastrointestinal: No new onset incontinence, normal bowel movements reported Genitourinary: No new onset incontinence Musculoskeletal: Low back pain Psychiatric: [Normal mood/affect] Neurological: [Denies weakness in extremities], [denies balance issues] Pain at rest (0-10 scale): 8 Objective Objective:: Physical Exam: General: Alert and oriented x3, no acute distress, pleasant and cooperative Lungs: Respirations even and unlabored, symmetrical chest expansion Eyes: PERRL Musculoskeletal: Flexion and extension of lumbar [spine] somewhat guarded secondary to pain, [antalgic gait noted] Neurological: Speech clear, no gross sensory deficit Skin: Incision site is clean, dry, well-approximated with sutures and darin intact Has patient had previous pain injection?: No Conservative treatment options previously tried: Home exercise plan Length of treatment: Longer than 12 weeks Meds Home Medications and Allergies Home Medications ?Medication ?Instructions ?Recorded ?Confirmed ?Type pantoprazole 40 mg tablet,delayed 40 mg PO DAILY GERD 03/13/21 07/20/24 History release propranolol 10 mg tablet 10 mg PO TID tremor(s) 06/12/21 07/20/24 History bictegravir 50 mg-emtricitabine 1 tab PO DAILY hiv 11/12/22 07/20/24 History 200 mg-tenofovir alafenam 25 mg tablet (Biktarvy) fluticasone 500 mcg-salmeterol 50 1 inh inhalation BID #180 ea 04/09/23 07/20/24 Rx mcg/dose blistr powdr for inhalation (Advair Diskus) ipratropium 0.5 mg-albuterol 3 mg 3 ml inhalation Q6H PRN shortness 04/09/23 07/20/24 Rx (2.5 mg base)/3 mL nebulization of breath or wheezing #180 mL soln montelukast 10 mg tablet 10 mg PO QPM 90 days #90 tabs 04/09/23 07/20/24 Rx tiotropium bromide 2.5 2 inh inhalation DAILY 90 days #4 04/09/23 07/20/24 Rx mcg/actuation mist for inhalation grams (Spiriva Respimat) fluticasone propionate 50 1 spray intranasal DAILY PRN nasal 06/29/23 07/20/24 Rx mcg/actuation nasal congestion #16 grams spray,suspension (Flonase Allergy Relief) ymthcn-hmqkazeh-nghooms 1 cap PO DAILY 09/28/23 07/20/24 History 40,000-126,000-168,000 unit capsule, delay rel (Zenpep) cholecalciferol (vitamin D3) 25 See Rx Instructions .Route 10/15/23 07/20/24 Rx mcg (1,000 unit) tablet .COMPLEX #30 caps urea 40 % topical cream 1 applic topical BID 30 days #28 12/09/23 07/20/24 Rx grams nystatin 100,000 unit/gram topical 1 applic topical TID antifungal 01/25/24 07/20/24 Rx powder #60 grams ondansetron HCl 8 mg tablet 8 mg PO Q12H PRN Nausea 01/25/24 07/20/24 History albuterol sulfate 90 mcg/actuation 2 inh inhalation Q6H PRN shortness 02/25/24 07/20/24 Rx aerosol inhaler of breath or wheezing 90 days #8.5 grams blood sugar diagnostic (FreeStyle #100 ea 03/21/24 07/20/24 Rx Lite Strips) pravastatin 80 mg tablet 80 mg PO DAILY #90 tabs 04/27/24 07/20/24 Rx diclofenac sodium 1 % topical gel See Rx Instructions .Route 05/11/24 07/20/24 Rx .COMPLEX #100 grams guaifenesin 600 mg tablet, 600 mg PO BID 06/21/24 07/20/24 History extended release 12 hr metformin 500 mg tablet 500 mg PO BID 06/21/24 07/20/24 History rizatriptan 5 mg disintegrating 5 mg PO DAILY PRN migraines 06/21/24 07/20/24 History tablet sertraline 100 mg tablet 200 mg PO BID 06/21/24 07/20/24 History tizanidine 4 mg tablet 4 mg PO DAILY 06/21/24 07/20/24 History potassium chloride 20 mEq 20 meq PO DAILY #14 tabs 06/22/24 07/20/24 Rx tablet,extended release(part/cryst) (Klor-Con M) clobetasol 0.05 % topical cream 1 applic topical BID 2 weeks #30 07/01/24 07/20/24 Rx grams amlodipine 5 mg tablet See Rx Instructions .Route 07/19/24 07/20/24 Rx .COMPLEX #90 tabs hydrochlorothiazide 12.5 mg capsule See Rx Instructions .Route 07/19/24 07/20/24 Rx .COMPLEX #90 caps benzonatate 100 mg capsule 100 mg PO BID PRN cough #14 caps 07/20/24 07/20/24 Rx oxycodone-acetaminophen 10 mg-325 1 tab PO TID #90 tabs 07/21/24 Rx mg tablet (Percocet) New Prescriptions to Start Prescriptions: Allergies Allergy/AdvReac Type Severity Reaction Status Date / Time azithromycin (From ZITHROMAX Allergy Intermediate Kidney Verified 07/20/24 09:28 Z-VINCENT) reaction levofloxacin (From LEVAQUIN) Allergy Intermediate Blister Verified 07/20/24 09:28 vancomycin Allergy Intermediate Redness of Verified 07/20/24 09:28 Skin aspirin Allergy Mild Gastrointestinal Verified 07/20/24 09:28 Upset diphenhydramine (From Allergy Mild Itching Verified 07/20/24 09:28 BENADRYL) ibuprofen (IBUPROFEN) Allergy Mild Gastrointestinal Verified 07/20/24 09:28 Upset morphine Allergy Mild Itching Verified 07/20/24 09:28 sulfamethoxazole (From Allergy Mild Rash Verified 07/20/24 09:28 Bactrim) trimethoprim (From Bactrim) Allergy Mild Rash Verified 07/20/24 09:28 paper tape Allergy Hives Uncoded 06/21/24 12:31 Assessment and Plan *Assessment and plan (1) Chronic pain syndrome: Status: Acute Category: Medical Code(s): G89.4 - Chronic pain syndrome Plan Patient was able to have all of her sutures and darin removed from her lateral incision with skin glue and Steri-Strips applied. Patient was counseled that she is still on her postop restrictions for full 6 weeks. Patient will return to clinic in 1 month for reevaluation of symptoms and plan of care. Patient has been instructed to contact the clinic with any concerns before the next appointment. Dr. Ventura has reviewed this note and agrees with this plan of care. This note was dictated using voice recognition software and make contain errors or omissions. All injections are used with Lidocaine, Bupivacaine and dexamethasone. Occasionally urine drug screen is needed to verify patient's compliance with our office pain contract. This is ordered based off specific treatments related to chronic pain with the potential to abuse certain medications.
== END 2024-07-26 23:59 | disposition home or self-care (01) ==
LOC: SC.PAIN 14:41
PROVIDERS: PCP Family Medicine; Visit Provider Nurse Practitioner Family
DX: G89.4 Chronic pain syndrome (principal)
CPT/HCPCS: 99213; G0463

== ENCOUNTER 2024-08-29 10:40 | Outpatient (POV) | payer MEDICARE, OTHER, SELFPAY ==
--- NOTE | 2024-08-29 10:57 | EXP.PAIN.SOA ---
[facility] Disclaimer: The information contained in this section may have been updated after the patient was seen, as this information can be updated by other users. Medical History Hypokalemia Candidal intertrigo Rib pain on right side Yeast infection of the skin Fatigue Atypical angina Chest pain Back pain COVID-19 Dyspnea Headache Hearing loss moderate precipitous loss >2KHZ bilaterally Total perforation of left tympanic membrane Chronic respiratory failure with hypoxia Yeast dermatitis Recurrent acute suppurative otitis media of both ears Ear infection Vomiting Bronchitis Left shoulder pain Nocturnal hypoxia In the setting of moderate persistent asthma, chronic respiratory failure with hypoxia, active follow-up with clinical training coordinator, oxygen dependent Moderate persistent asthma Dyspnea on exertion Nocturnal hypoxemia Crack cocaine use Hyperlipidemia HIV (human immunodeficiency virus infection) Hypertension Lumbar radiculopathy, chronic Lumbar radiculopathy Lumbar disc disease with radiculopathy Degenerative arthritis Cervicalgia Closed head injury Vitamin D deficiency (~08/11/17) Diabetes Surgical History History of thyroidectomy History of hysterectomy Status post tympanoplasty left ear History of left knee surgery History of section History of splenectomy History of hysterectomy History of colonoscopy History of cholecystectomy History of carpal tunnel release History of arthroscopy of shoulder Status post arthroscopy of hip Family History Other Cancer Coronary artery disease Diabetes Heart attack Hyperlipidemia Hypertension Kidney disease Stroke Thyroid disorder Social History Smoking Status: Never smoker alcohol intake: never substance use type: denies use current occupational status: other Travel in the last 8 weeks?: None household members: family housing: house caffeine: Yes Have you lived/traveled outside [place] in past 30 days?: No Contact w/someone who lives/traveled outside US past 30 days?: No Exposure to someone with infectious disease in past 14 days?: No Do you have a fever (greater than 100.4 F or 38 C)?: No Have you tested positive for COVID-19?: No Exposed to someone with COVID-19 in past 14 days?: No Do you have a sore throat?: No Do you have a cough?: No Do you have any weakness?: No Do you have any diarrhea?: No Are you experiencing any unusual bleeding?: No Do you have any muscle aches/pain?: No Do you have any abdominal pain?: No Are you experiencing loss of taste or smell?: No PM Subjective & Objective Subjective Subjective:: Patient is a pleasant 63-year-old female who presents today for follow-up of her spinal cord stimulator replacement. Today she rates her pain an 8 out of 10. She denies any new trauma or injury. She does state that she is done well and that the current programming on her stimulator is doing wonderful. She denies any new falls or changes. Her Fortino has been reviewed and is appropriate. Review of Systems: General: No recent weight changes, no fever, no sleep disturbances Respiratory: No cough, no shortness of air, no recurring pulmonary infections Cardiovascular/peripheral vascular: No chest pain, no palpitations, no edema, no shortness of breath Gastrointestinal: No new onset incontinence, normal bowel movements reported Genitourinary: No new onset incontinence Musculoskeletal: Low back pain Psychiatric: [Normal mood/affect] Neurological: [Denies weakness in extremities], [denies balance issues] Pain at rest (0-10 scale): 8 Objective Objective:: Physical Exam: General: Alert and oriented x3, no acute distress, pleasant and cooperative Lungs: Respirations even and unlabored, symmetrical chest expansion Eyes: PERRL Musculoskeletal: Flexion and extension of lumbar [spine] somewhat guarded secondary to pain, [antalgic gait noted] Neurological: Speech clear, no gross sensory deficit Has patient had previous pain injection?: No Conservative treatment options previously tried: Home exercise plan Length of treatment: Longer than 12 weeks Meds Home Medications and Allergies Home Medications ?Medication ?Instructions ?Recorded ?Confirmed ?Type pantoprazole 40 mg tablet,delayed 40 mg PO DAILY GERD 03/13/21 07/26/24 History release propranolol 10 mg tablet 10 mg PO TID tremor(s) 06/12/21 07/26/24 History bictegravir 50 mg-emtricitabine 1 tab PO DAILY hiv 11/12/22 07/26/24 History 200 mg-tenofovir alafenam 25 mg tablet (Biktarvy) fluticasone 500 mcg-salmeterol 50 1 inh inhalation BID #180 ea 04/09/23 07/26/24 Rx mcg/dose blistr powdr for inhalation (Advair Diskus) ipratropium 0.5 mg-albuterol 3 mg 3 ml inhalation Q6H PRN shortness 04/09/23 07/26/24 Rx (2.5 mg base)/3 mL nebulization of breath or wheezing #180 mL soln montelukast 10 mg tablet 10 mg PO QPM 90 days #90 tabs 04/09/23 07/26/24 Rx tiotropium bromide 2.5 2 inh inhalation DAILY 90 days #4 04/09/23 07/26/24 Rx mcg/actuation mist for inhalation grams (Spiriva Respimat) fluticasone propionate 50 1 spray intranasal DAILY PRN nasal 06/29/23 07/26/24 Rx mcg/actuation nasal congestion #16 grams spray,suspension (Flonase Allergy Relief) nshtkm-evnvqysy-axqxarq 1 cap PO DAILY 09/28/23 07/26/24 History 40,000-126,000-168,000 unit capsule, delay rel (Zenpep) cholecalciferol (vitamin D3) 25 See Rx Instructions .Route 10/15/23 07/26/24 Rx mcg (1,000 unit) tablet .COMPLEX #30 caps urea 40 % topical cream 1 applic topical BID 30 days #28 12/09/23 07/26/24 Rx grams nystatin 100,000 unit/gram topical 1 applic topical TID antifungal 01/25/24 07/26/24 Rx powder #60 grams ondansetron HCl 8 mg tablet 8 mg PO Q12H PRN Nausea 01/25/24 07/26/24 History albuterol sulfate 90 mcg/actuation 2 inh inhalation Q6H PRN shortness 02/25/24 07/26/24 Rx aerosol inhaler of breath or wheezing 90 days #8.5 grams pravastatin 80 mg tablet 80 mg PO DAILY #90 tabs 04/27/24 07/26/24 Rx diclofenac sodium 1 % topical gel See Rx Instructions .Route 05/11/24 07/26/24 Rx .COMPLEX #100 grams guaifenesin 600 mg tablet, 600 mg PO BID 06/21/24 07/26/24 History extended release 12 hr metformin 500 mg tablet 500 mg PO BID 06/21/24 07/26/24 History rizatriptan 5 mg disintegrating 5 mg PO DAILY PRN migraines 06/21/24 07/26/24 History tablet sertraline 100 mg tablet 200 mg PO BID 06/21/24 07/26/24 History tizanidine 4 mg tablet 4 mg PO DAILY 06/21/24 07/26/24 History potassium chloride 20 mEq 20 meq PO DAILY #14 tabs 06/22/24 07/26/24 Rx tablet,extended release(part/cryst) (Klor-Con M) clobetasol 0.05 % topical cream 1 applic topical BID 2 weeks #30 07/01/24 07/26/24 Rx grams amlodipine 5 mg tablet See Rx Instructions .Route 07/19/24 07/26/24 Rx .COMPLEX #90 tabs hydrochlorothiazide 12.5 mg capsule See Rx Instructions .Route 07/19/24 07/26/24 Rx .COMPLEX #90 caps benzonatate 100 mg capsule 100 mg PO BID PRN cough #14 caps 07/20/24 07/26/24 Rx blood sugar diagnostic (FreeStyle #100 ea 08/08/24 Rx Lite Strips) oxycodone-acetaminophen 10 mg-325 1 tab PO TID #90 tabs 08/15/24 Rx mg tablet (Percocet) New Prescriptions to Start Prescriptions: Allergies Allergy/AdvReac Type Severity Reaction Status Date / Time azithromycin (From ZITHROMAX Allergy Intermediate Kidney Verified 07/20/24 09:28 Z-VINCENT) reaction levofloxacin (From LEVAQUIN) Allergy Intermediate Blister Verified 07/20/24 09:28 vancomycin Allergy Intermediate Redness of Verified 07/20/24 09:28 Skin aspirin Allergy Mild Gastrointestinal Verified 07/20/24 09:28 Upset diphenhydramine (From Allergy Mild Itching Verified 07/20/24 09:28 BENADRYL) ibuprofen (IBUPROFEN) Allergy Mild Gastrointestinal Verified 07/20/24 09:28 Upset morphine Allergy Mild Itching Verified 07/20/24 09:28 sulfamethoxazole (From Allergy Mild Rash Verified 07/20/24 09:28 Bactrim) trimethoprim (From Bactrim) Allergy Mild Rash Verified 07/20/24 09:28 paper tape Allergy Hives Uncoded 06/21/24 12:31 Assessment and Plan *Assessment and plan (1) Chronic pain syndrome: Status: Acute Category: Medical Code(s): G89.4 - Chronic pain syndrome Plan Patient has done wonderful from her spinal cord stimulator replacement does not need any additional interventions at this time. Patient will call us for her next appointment. Patient has been removed from her postop restrictions. Patient has been instructed to contact the clinic with any concerns before the next appointment. Dr. Ventura has reviewed this note and agrees with this plan of care. This note was dictated using voice recognition software and make contain errors or omissions. All injections are used with Lidocaine, Bupivacaine and dexamethasone. Occasionally urine drug screen is needed to verify patient's compliance with our office pain contract. This is ordered based off specific treatments related to chronic pain with the potential to abuse certain medications.
--- OUTSIDE RECORDS SUMMARY | 2024-08-29 11:07 | XMS_ITS | Encounter Summary ---
Author Organization [facility] Address [address] [place] [address] Care Team Providers Care Brush Filler Hand Name Role Phone Aracelis Patterson MD Unavailable [phone] Hiram Serna DO Primary Care Provider [phone] Barbara Redding Unavailable Unavailable Reason for Visit * Reason Comments Case Management Encounter Details Date Type Department Care Team (Late st Contact Info) Description 07/21/2024 Patient Outreach [facility] [address] [place] [address] Barbara Redding Case Management Social History Tobacco Use Types Packs/Day Years Used Date Smoking Tobacco: Never Passive Smoke Exposure: Never Smokeless Tobacco: Never Alcohol Use Standard Drinks/Week Comments Not Currently 0 (1 standard drink = 0.6 oz pure alcohol) Alcoholic Drinks/day: Never Drank Alcohol PHQ-2 Answer Date Recorded Patient Health Questionnaire-2 Score 0 04/20/2024 PHQ-9 Answer Date Recorded Patient Health Questionnaire-9 Score 0 04/20/2024 PHQ-2A Answer Date Recorded Patient Health Questionnaire-2 Score 0 10/08/2022 Comments Unknown Sex and Gender Information Value Date Recorded Sex Assigned at Female 05/06/2023 2:50 PM EDT Legal Sex Female 8:11 PM EDT Gender Identity Female 05/06/2023 2:50 PM EDT Sexual Orientation Not on file documented as of this encounter Miscellaneous Notes * Progress Notes - Barbara Redding - 07/21/2024 11:59 PM EDT P: New Incontinence Supply Order Duration: 30 Mins D/A: [facility] sent over new incontinence supply order to [facility] via email for vanda pads and adult depend pull ups. MCM utilized existing/unexpired orders in EPIC entered by provider on 04/20/24 and attached to order. No further needs at this time. CIARA Fair documented in this encounter Plan of Treatment Upcoming Encounters Date Type Department Care Team (Late st Contact Info) Description 09/07/2024 8:00 AM EDT Office Visit [facility] [address] [place] [address] 09/28/2024 3:00 PM EDT Office Visit [facility] [address] [place] [address] Ulises Dhillon PA [address] [place] [address] 10/12/2024 9:45 AM EDT Appointment [facility] Ultrasound [address] [place] [phone] 10/12/2024 11:00 AM EDT Ancillary Procedure [facility] [address] [place] [address] 10/12/2024 11:30 AM EDT Office Visit [facility] [address] [place] [address] Darlene Muñoz, LEXIE [address] [place] [address] 10/19/2024 11:00 AM EDT Office Visit [facility] [address] [place] [address] Aracelis Patterson MD [address] [place] [address] 10/25/2024 2:45 PM EDT Office Visit [facility] [address] [place] [address] Hiram Gutierrez MD [address] [place] [address] documented as of this encounter Goals Goal Patient Goal Type Associated Problems Recent Progress Patient-Stated? Author RW Patient to remain active in HIV care Care Plan RW Treatment Adherence No Nhi Jimenez RW Patient to remain active on Part B services/RW jose-eligible Care Plan RW Treatment Adherence No Nhi Jimenez RW Patient to maintain undetectable viral load Care Plan RW Treatment Adherence No Nhi Jimenez RW Patient to engage in counseling/therap y services Care Plan RW Mental Health No Nhi Jimenez RW Patient to engage in psychiatry/medica tion management services Care Plan RW Mental Health No Nhi Jimenez RW Patient to engage in self-care activities Care Plan RW Mental Health No Nhi Jimenez RW Patient to reduce use of (subtance) Care Plan RW Substance Use No Nhi Jimenez RW Patient to attend SA treatment program Care Plan RW Substance Use No Nhi Jimenez documented as of this encounter Visit Diagnoses Not on filedocumented in this encounter Additional Health Concerns Active Problems Noted Date Diagnosed Date RW Treatment Adherence 10/30/2021 RW Transportation 10/30/2021 RW Mental Health 10/30/2021 RW Substance Use 10/30/2021 RW Food Insecurity 10/30/2021 RW Housing 10/30/2021 RW Safety 10/30/2021 RW Insurance 10/30/2021 Assessment Noted Time PHQ-9 Depression Total Score: 0 04/20/19 9:30 AM EST A fall risk assessment has been complete d for the patient 04/20/2024 9:30 AM EST A Body Mass Index follow-up plan has been documented for the patient 04/20/2024 10:05 AM EST documented as of this encounter Care Teams Brush Filler Hand Relationship Specialty Start Date End Date Hiram Serna DO [address] [place] [address] PCP - General 03/30/24 Aracelis Patterson MD [address] [place] [phone] Consulting Physician Infectious Diseases 09/16/22 Barbara Redding Family Preservation Officer [employer] Shovel Operator 07/20/24 documented as of this encounter
--- OUTSIDE RECORDS SUMMARY | 2024-08-29 11:07 | XMS_ITS | Encounter Summary ---
Author Organization [facility] Address [address] [place] [address] Care Team Providers Care Hotshot Superintendent Name Role Phone Allan Hightower MD Primary Care Provider + [phone] Nikki Muniz Unavailable Unavailable Aracelis Patterson MD Unavailable + [phone] Hiram Serna DO Primary Care Provider [phone] Barbara Redding Unavailable Unavailable Reason for Visit * Reason Comments Med Refill Encounter Details Date Type Department Care Team (Late st Contact Info) Description 08/29/2022 Refill [facility] [address] [place] [address] Main Curtis MD [address] [facility] [address] [place] [address] Human immunodeficiency virus ([facility]) Social History Tobacco Use Types Packs/Day Years Used Date Smoking Tobacco: Never Smokeless Tobacco: Never Alcohol Use Standard Drinks/Week Comments No 0 (1 standard drink = 0.6 oz pure alcohol) Alcoholic Drinks/day: Never Drank Alcohol PHQ-2 Answer Date Recorded Patient Health Questionnaire-2 Score 0 06/11/2022 Comments Unknown Sex and Gender Information Value Date Recorded Sex Assigned at Female 05/06/2023 2:50 PM EDT Legal Sex Female 8:11 PM EDT Gender Identity Female 05/06/2023 2:50 PM EDT Sexual Orientation Not on file documented as of this encounter Plan of Treatment Upcoming Encounters Date Type Department Care Team (Late st Contact Info) Description 09/07/2024 8:00 AM EDT Office Visit [facility] [address] [facility] [address] [place] [address] 09/28/2024 3:00 PM EDT Office Visit [facility] Medicine Specialties [address] [place] [address] Ulises Dhillon PA [address] [place] [address] 10/12/2024 9:45 AM EDT Appointment [facility] Ultrasound [address] [place] [address] 10/12/2024 11:00 AM EDT Ancillary Procedure [facility] Specialties [address] [place] [address] 10/12/2024 11:30 AM EDT Office Visit [facility] [address] [place] [address] Darlene Muñoz, LEXIE [address] [place] [address] 10/19/2024 11:00 AM EDT Office Visit [facility] [address] [place] [address] Aracelis Patterson MD [address] [facility] [address] [place] [address] 10/25/2024 2:45 PM EDT Office Visit [facility] [address] [facility] [place] [address] Hiram Gutierrez MD [address] [address] documented as of this encounter Goals Goal Patient Goal Type Associated Problems Recent Progress Patient-Stated? Author RW Patient to remain active in HIV care Care Plan RW Treatment Adherence No Nhi Jimenez RW Patient to remain active on Part B services/RW jose-eligible Care Plan RW Treatment Adherence No JimenezNhi diaz S RW Patient to maintain undetectable viral load Care Plan RW Treatment Adherence No JimenezNallelyNhi S RW Patient to engage in counseling/therap y services Care Plan RW Mental Health No Matthew Jimenezy S RW Patient to engage in psychiatry/medica tion management services Care Plan RW Mental Health No Jimenez Nhi S RW Patient to engage in self-care activities Care Plan RW Mental Health No Jimenez Nhi S RW Patient to reduce use of (subtance) Care Plan RW Substance Use No Nhi Jimenez RW Patient to attend SA treatment program Care Plan RW Substance Use No Nhi Jimenez documented as of this encounter Visit Diagnoses Diagnosis Human immunodeficiency virus ([facility]) Human immunodeficiency virus [HIV] disease documented in this encounter Additional Health Concerns Active Problems Noted Date Diagnosed Date RW Treatment Adherence 10/30/2021 RW Transportation 10/30/2021 RW Mental Health 10/30/2021 RW Substance Use 10/30/2021 RW Food Insecurity 10/30/2021 RW Housing 10/30/2021 RW Safety 10/30/2021 RW Insurance 10/30/2021 Assessment Noted Time A fall risk assessment has been complete d for the patient 06/11/2022 1:42 PM EDT A Body Mass Index follow-up plan has been documented for the patient 06/11/2022 2:25 PM EDT documented as of this encounter Care Teams Hotshot Superintendent Relationship Specialty Start Date End Date Allan Hightower MD [address] [place] [address] PCP - General 07/06/20 03/29/24 Hiram Serna DO [address] [place] [address] PCP - General 03/30/24 Nikik Muniz Ordnance Officer Wired Sweatband Cutter 10/17/21 07/20/24 Aracelis Patterson MD [address] [facility] [address] [place] [address] Consulting Physician Infectious Diseases 09/16/22 Barbara Redding Ordnance Officer Wired Sweatband Cutter 07/20/24 documented as of this encounter
--- OUTSIDE RECORDS SUMMARY | 2024-08-29 11:07 | XMS_ITS ---
Author Organization [facility] Address [address] [place] [address] Care Team Providers Care Clinical Psychology Professor Name Role Phone Aracelis Patterson MD Unavailable [phone] Hiram Serna DO Primary Care Provider +[phone] Barbara Redding Unavailable Unavailable Ayad White Status:Active (Active) Start date:11/25/2007 Enrollment date:11/25/2007 Related social drivers of health:Intimate Partner Violence, Alcohol Use, Tobacco Use, Financial Resource Strain, Depression, Stress,Food Insecurity, Transportation Needs, Housing Stability, Safety and Environment Case Team Name Relationship Phone Barbara Redding(Responsible Staff) Fundraising Director Continued Care and Services Coordination
--- OUTSIDE RECORDS SUMMARY | 2024-08-29 11:07 | XMS_ITS | Clinical Summary ---
Author Organization [facility] Address [address] [place] [address] Care Team Providers Care Log Inspector Name Role Phone Aracelis Patterson MD Unavailable [phone] Hiram Serna DO Primary Care Provider [phone] Barbara Redding Unavailable Unavailable Allergies Active Allergy Reactions Criticality Noted Date Comments Aspirin Other - please document in the comment field,Unknown - Patient states they do not know rxn details Low 11/06/2007 severe abd pain Azithromycin Unknown - Patient states they do not know rxn details Low 11/06/2007 renal damage? Codeine Hives Medium 11/06/2007 Diphenhydramine Itching,Unknown - Patient states they do not know rxn details Medium 11/06/2007 Ibuprofen Other - please document in the comment field Low 11/06/2007 severe abd pain and abd pain Latex Rash Low 11/06/2007 Levofloxacin Other - please document in the comment field,Unknown - Patient states they do not know rxn details Low 11/05/2011 Morphine Itching,Unknown - Patient states they do not know rxn details Medium 08/11/2013 Patient states that morphine also made her shake Penicillin V Unknown - Patient states they do not know rxn details Low 11/06/2007 pt doesn't remember Seafood Unknown - Patient states they do not know rxn details Low 09/07/2013 Sulfamethoxazole Rash Low 08/18/2022 Sulfamethoxazole-Trimethop rim Rash Low 08/12/2010 Trimethoprim Other - please document in the comment field Low 08/18/2022 Vancomycin Other - please document in the comment field High 08/18/2022 Medications Blood Pressure Monitoring (Blood Pressure Cuff) [facility] [place] 1 each 1 (one) time each day. 1 each 07/31/19 21 Active urea (Carmol) 40 % cream 05/31/19 21 Active tiZANidine (Zanaflex) 4 MG tablet 09/07/19 21 Active sertraline (Zoloft) 100 MG tablet 11/03/19 21 Active rizatriptan COMMUNICATIONS DEPARTMENT CHAIR (Maxalt-COMMUNICATIONS DEPARTMENT CHAIR) 5 MG disintegrating tablet 11/03/19 21 Active pravastatin (Pravachol) 40 MG tablet 09/05/19 21 Active oxyCODONE-acetaminop hen (Percocet) 10-325 MG tablet 11/18/19 21 Active mupirocin (Bactroban) 2 % ointment 06/14/19 21 Active methocarbamol (Robaxin) 500 MG tablet 06/30/19 21 Active metFORMIN (Glucophage) 500 MG tablet 08/23/19 21 Active meloxicam (Mobic) 7.5 MG tablet 09/11/19 21 Active hydroCHLOROthiazide (Microzide) 12.5 MG capsule 11/03/19 21 Active FREESTYLE LITE test strip 06/28/19 21 Active ergocalciferol 1.25 MG (05711 UT) capsule 02/27/19 21 Active diclofenac (Voltaren) 1 % topical gel 09/28/19 21 Active budesonide-formotero l (Symbicort) 80-4.5 MCG/ACT inhaler 06/28/19 21 Active amLODIPine (Norvasc) 5 MG tablet 09/14/19 21 Active albuterol 108 (90 Base) MCG/ACT inhaler 11/03/19 21 Active alendronate (Fosamax) 70 MG tablet Take 1 tablet (70 mg total) by mouth every 7 (seven) days. Take in the morning with a full glass of water, on an empty stomach, and do not take anything else by mouth or lie down for the next 30 min. 4 tablet 11 04/18/19 22 Active montelukast (Singulair) 10 MG tablet 01/14/20 22 Active Advair Diskus 500-50 MCG/ACT diskus inhaler 10/08/19 23 Active cholecalciferol (Vitamin D3) 500 Unit split tablet .COMPLEX 07/09/19 23 Active Vraylar 1.5 MG capsule 04/06/19 24 Active meclizine (Antivert) 25 MG tablet 12/10/19 23 Active benzonatate (Tessalon) 200 MG capsule 01/30/20 23 Active Misc. Devices miscIndications:Midwife vince respiratory failure with hypoxia Inogen one G3 1 each 04/15/19 24 Active Powders (AMB Anti Friction Body) powderIndications:In tertrigo APPLY TO AFFECTED AREA(S) DIRECTED 227 g 09/17/19 24 Active fluticasone (Flonase) 50 MCG/ACT nasal spray 1 spray. 06/29/19 24 Active ipratropium-albutero l (Duo-Neb) 0.5-2.5 mg/3 mL nebulizer solution 3 mL. 04/09/19 24 Active ofloxacin (Floxin) 0.3 % otic solution 10 drops. 06/02/19 24 Active Tiotropium Paxinos Monohydrate (Spiriva Respimat) 2.5 MCG/ACT inhaler 1 (one) time each day. 04/09/19 24 Active tobramycin-dexametha sone (Tobradex) ophthalmic suspension 10/05/19 24 Active calamine (Anti Monkey Butt) powder powder APPLY TO AFFECTED AREA(S) DIRECTED 227 g 1 10/15/19 24 Active naloxegol oxalate (Movantik) 25 MG tablet Take 25 mg by mouth 1 (one) time each day in the morning. 30 tablet 5 03/30/19 25 Active pancrelipase, Ymw-Mwhr-Wekt, (Zenpep) 18850-199306 units capsule delayed-release particles capsule Take 2 capsules by mouth 3 (three) times a day with meals. 200 capsule 5 03/30/19 25 Active pantoprazole (Protonix) 40 MG EC tablet Take 1 tablet (40 mg) by mouth 1 (one) time each day before breakfast. DO NOT CRUSH CHEW OR SPLIT 90 tablet 3 03/30/19 25 Active cimetidine (Tagamet) 300 MG tablet Take 1 tablet (300 mg) by mouth 1 (one) time each day in the evening. 90 tablet 3 03/30/19 25 Active Methylcellulose, Laxative, (Citrucel) 500 MG tablet Take 1 tablet by mouth 1 (one) time each day. 100 tablet 1 03/30/19 25 Active ondansetron ODT (Zofran-ODT) 4 MG disintegrating tablet Take 1 tablet (4 mg) by mouth every 8 (eight) hours if needed for nausea or vomiting. 20 tablet 3 03/30/19 25 Active Incontinence Supply Disposable miscIndications:Hailee l and bladder incontinence Maximilian pads for incontinence . 50 each 15 04/20/19 25 Active Incontinence Supply Disposable (Depend Adjustable Underwear Lg) miscIndications:Hailee l and bladder incontinence 1 Product 5 (five) times a day as needed (when soiled). 100 each 25 04/20/19 25 Active Incontinence Supply Disposable (Incontinence Brief Large) miscIndications:Hailee l and bladder incontinence Please dispense 1 box of briefs 6 each 25 04/20/19 25 Active Bictegravir-Emtricit ab-Tenofov (Biktarvy) 50-200-25 MG tablet tabletIndications:Hu man immunodeficiency virus (CMS/HCC) Take 1 tablet by mouth daily. 30 tablet 5 04/20/19 25 Active ketoconazole (NIZOral) 2 % creamIndications:Int ertrigo Apply twice a day for 5 days 15 g 04/20/19 25 Active propranolol (Inderal) 10 MG tabletIndications:Tr emor TAKE 1 1/2 TABLETS BY MOUTH THREE TIMES A DAY 90 tablet 5 06/22/19 25 Active nystatin (Mycostatin) 498292 UNIT/GM powderIndications:In tertrigo APPLY TWO TIMES A DAY 60 g 3 08/04/19 25 Active nystatin (Mycostatin) 949091 UNIT/GM powderIndications:In tertrigo Apply twice a day 60 g 3 04/20/19 25 025 Discontin ued(Reord er) Active Problems Problem Noted Date Diagnosed Date Bronchitis 03/30/2024 Callus of foot 03/30/2024 CAP (community acquired pneumonia) 03/30/2024 Cellulitis 03/30/2024 Asthma 03/30/2024 COVID-19 03/30/2024 Dyspnea 03/30/2024 Chronic respiratory failure with hypoxia 025 Left ankle instability 03/30/2024 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 thoracic spine 03/30/2024 Impingement of left shoulder 03/30/2024 Headache 03/30/2024 Hallux varus (acquired), right foot 03/30/2024 Exudative pharyngitis 03/30/2024 Migraine 03/30/2024 Moderate persistent asthma 03/30/2024 Metatarsalgia, right foot 03/30/2024 Lumbar radiculopathy 03/30/2024 Restless leg syndrome 03/30/2024 Recurrent acute suppurative otitis media of both ears 03/30/2024 Osteochondral lesion of talar dome 03/30/2024 Osteoarthritis of left ankle and foot 03/30/2024 Onychodystrophy 03/30/2024 Type 2 diabetes mellitus wit h diabetic polyneuropathy, without long-term current use of insulin 03/30/2024 Total perforation of left tympanic membrane 06/2024 Xerosis of skin 03/30/2024 Urticaria 03/30/2024 Vomiting 03/30/2024 Yeast dermatitis 03/30/2024 Intertrigo 10/08/2022 Assessment & Plan (10/08/2022 3:57 PM EDT): Refilled Butenafine cream as patient had used this the past for rash underneath pannus. Nystatin powder and neosporin had been ineffective. Obesity (BMI 35.0-39.9 without comorbidity) 05/24 Severe obesity (BMI 35.0-39.9) with comorbidity 06/11/2021 Immunization due 04/18/2021 Tremor 04/18/2021 Assessment & Plan (10/08/2022 3:54 PM EDT): Improved with increase in propanolol to 15mg TID. Will continue this dose for control of patient symptoms. RF sent. Assessment & Plan (04/18/2021 10:02 PM EST): - Worsening tremor with unclear etiology, DDx includes but not limited: to Pakisons, Essential Tremors, Physiological tremor or medication induced tremor - encouraged patient to follow up with PCP to discuss changes - will provide low dose propranolol to help with tremor until she can get in with PCP Bowel and bladder incontinence 04/18/2021 Assessment & Plan (04/18/2021 10:05 PM EST): -unclear etiology or history of incontience, however, likely chronic at this time - recommend patient follow up with Dr. Ventura to assess pain stimulator and if this could be effecting other nerve receptors - also recommend follow up with PCP to explore other etiologies - will prescribe adult briefs and maximilian pads today Hypertension 11/22/2020 Assessment & Plan (04/18/2021 9:47 PM EST): - BP improving, patient taking HTN medication more regularly - encouraged continued adherence - will start propranolol today for tremor, encourage patient to monitor for symptoms of hypotension or bradycardia and stop propranolol immediately and contact off Assessment & Plan (11/22/2020 4:58 PM EDT): - BP slightly elevated today, pt reports inconsistently taking HTN medication - Encouraged good adherence to medication Health care maintenance 11/22/2020 Assessment & Plan (10/14/2023 10:28 AM EDT): Discussed need for dental and ophthalmology referral; patient request dental but 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 on recommended vaccinations Assessment & Plan (11/22/2020 5:02 PM EDT): HCM Immunization History Administered Date(s) Administered DTaP, Unspecified 12/23/2007 Hep A / Hep B 01/27/2008, 03/09/2008, 06/01/2008 Hep A, Unspecified 01/27/2008 Hep B, Unspecified 04/29/2010, 02/20/2011, 07/02/2011 Hep B, adult 12/27/2010 HiB, unspecified 12/14/2007 Influenza, Unspecified 11/17/2008, 12/24/2009, 12/27/2010 Influenza, injectable, quadrivalent 11/02/2017 Influenza, injectable, quadrivalent, preservative free 11/07/2014, 11/22/2020 Influenza, seasonal, injectable 11/29/2012, 10/05/2013, 11/25/2013 Influenza, seasonal, injectable, preservative free 12/19/2011 Lynette SARS-CoV-2 Vaccination 05/21/2020 Meningococcal MCV4P 12/14/2007, 02/24/2017 Novel [id number], all formulations 02/09/2009 PPD Test 04/29/2010 Pneumococcal Conjugate PCV 7 12/14/2007, 01/31/2013 Pneumococcal Polysaccharide PPV23 11/25/2013, 11/22/2020 Pneumococcal, Unspecified 12/27/2010 Cancer Screening: -Cervical cancer: Due 2024 (per pt report done in 2019 with normal findings) -Mammogram: Due 2021 (per pt report done in 2019 with normal findings) Other: -DEXA: ordered today -ASCVD: The 10-year ASCVD risk score (Meryl GONZALEZ JrTyshawn, et al., 2013) is: 6.5% Values used to calculate the score: Age: 60 years Sex: Female Is Non- : No Diabetic: No Tobacco smoker: No Systolic Blood Pressure: 139 mmHg Is BP treated: Yes HDL Cholesterol: 27 mg/dL Total Cholesterol: 159 mg/dL -Chlamydia: negative 03/2020 -Gonorrhea: negative 03/2020 -Syphilis:nonreactive 03/2020 -A1c: Lab Results Component Value Date HGBA1C 4.9 08/11/2013 -Dentist: edentulous -Ophtho: UTD Vitreous floaters of both eyes 08/02/2019 0 10/17/2022 After-cataract with vision obscured 04/20/2019 10/17/2022 Neurogenic pain, leg 09/29/2018 10/17/2022 Nuclear sclerotic cataract 07/09/201810/17 Lumbago with sciatica 05/13/2018 10/17/2022 Human immunodeficiency virus 07/07/2017 Assessment & Plan (10/14/2023 10:29 AM EDT): Patient last seen in March 2023 (VL undetectable and CD4 count > 2000) Discussed Biktarvy regimen - patient denies any concerns or complaints with medication, denies missing any doses Repeat labs today to monitor levels Continue taking Biktarvy as prescribed F/U in 6 months Assessment & Plan (10/08/2022 4:05 PM EDT): Patient takes Tivicay (DTG) + Descovy (FTC/TAF) for management of HIV with no issues with adherence. Discussed options of simplifying regimen to 1 pill once a day and patient is willing to switch to Biktarvy. Instructed patient to have a repeat VL in 4-8 weeks for monitoring of viral suppression with change in ART. Most recent labs reviewed and all questions were answered. Patient remains undetectable with CD4 counts WNL. Labs ordered for monitoring of HIV disease and SE while on ART. Annual STI screening labs ordered. Ophthalmology referral sent to establish care. She had seen Dr. Wyman in the past. Vitamin D and TSH checked for monitoring. Assessment & Plan (04/18/2021 9:45 PM EST): HIV: - Reports good adherence and tolerance of Tivicay and Descovy - Pt has demonstrated good immunologic and virologic response to HAART - Reviewed last labs with patient - Check HIV labs today to assess for safety and response to HAART - Administer Tdap today - DEXA scan 12/2020 with osteoporosis, discussed pros/cons of starting alendronate vs vit d and calcium, patient would like to start alendronate, will prescribe 70 mg q week Lab Results Component Value Date ABSCD4 1,466 11/22/2020 ABSCD4 2,457 (H) 10/10/2019 ABSCD4 1,541 04/11/2019 ABSCD4 1,373 09/24/2018 PCCD4 38.37 11/22/2020 PCCD4 39.84 10/10/2019 PCCD4 40.11 04/11/2019 PCCD4 37.98 09/24/2018 HIVCOPIES <40 11/22/2020 HIVCOPIES <40 07/19/2020 HIVCOPIES <40 10/10/2019 HIVCOPIES <40 04/11/2019 Assessment & Plan (11/22/2020 4:54 PM EDT): HIV: - Reports good adherence and tolerance of Tivicay and Descovy - Pt has demonstrated good immunologic and virologic response to HAART. - Check HIV labs today to assess for safety and response to HAART - Administer PPV23 and Flu vaccine today Lab Results Component Value Date ABSCD4 2,457 (H) 10/10/2019 ABSCD4 1,541 04/11/2019 ABSCD4 1,373 09/24/2018 ABSCD4 1,413 04/12/2018 PCCD4 39.84 10/10/2019 PCCD4 40.11 04/11/2019 PCCD4 37.98 09/24/2018 PCCD4 35.97 04/12/2018 HIVCOPIES <40 07/19/2020 HIVCOPIES <40 10/10/2019 HIVCOPIES <40 04/11/2019 HIVCOPIES <40 09/24/2018 Bilateral myopia 07/07/2017 10/17/2022 Bilateral presbyopia 07/07/2017 10/17/2022 Diabetes mellitus type 2 without retinopathy 10/17/2022 Nuclear sclerosis 07/07/2017 10/17/2022 Left leg pain 01/16/2015 Assessment & Plan (04/18/2021 9:48 PM EST): -Improved from last visit - getting steroid injections every three months that is helping with pain and swelling to manageable point Assessment & Plan (11/22/2020 5:00 PM EDT): - Pt reports foot xray last week done in [place] - Referral in for CT of foot as MRI in not possible due to presents of nerve stimulator in back Degeneration of intervertebral disc of lumbar re gion 01/16/2015 10/17/2022 Back pain 01/15/2015 10/17/2022 Chronic pain 11/07/2014 10/17/2022 Mild vitamin D deficiency 06/05/20142022 Other chronic pancreatitis 09/29/201310/17 Liver hemangioma 07/22/2013 10/17/2022 Pancreatic cyst 07/22/2013 10/17/2022 Dysthymic disorder 02/03/2013 10/17/2022 Hypertriglyceridemia 04/23/2012 Assessment & Plan (10/08/2022 3:55 PM EDT): Lipid panel ordered for monitoring of hyperlipidemia with last labs from 2020. Both HIV disease and ART carry a risk of lipid abnormalities. Portal hypertension 12/03/2011 10/17/2022 Diabetes mellitus 11/05/2011 10/17/2022 Gastro-esophageal reflux disease without esophag itis 11/05/2011 10/17/2022 Encounters Date Type Department Care Team Description 08/15/2024 Patient Outreach [address] [address] Barbara Redding Case Management 08/02/2024 Refill [facility] [address], [address] [place] [address] Aracelis Patterson MD Intertrigo 07/21/2024 Patient Outreach [facility] [address] [place] [address] [address] [place] [address] Barbara Redding Case Management 07/20/2024 Patient Outreach [facility] [address] [place] [id number] Barbara Redding Case Management 07/20/2024 Patient Outreach [facility] [address] [facility] [address] [place] [address] Barbara Redding Case Management 06/07/[address] [address] Aracelis Patterson MD Tremor from Last 3 Months Immunizations Immunization Administration Dates Next Due DTaP, Unspecified 12/23/2007 Hep A / Hep B 06/01/2008,03/09/2008,01/27/2008 Hep A, Adult 12/22/2017 Hep A, Unspecified 01/27/2008 Hep B, Unspecified 07/02/2011,02/20/2011, 011 Hep B, adult 12/27/2010 HiB, unspecified 12/14/2007 Influenza, Unspecified 12/27/2010,12/24/2009, Influenza, injectable, quadrivalent 11/02/2017,0 11/03/2016 Influenza, injectable, quadr ivalent, preservative free 11/22/2020,12/26/2019,12/29/2018,11/02,11/07/2014,11/25/2013 Influenza, recombinant, quad rivalent, injectable, preservative free 12/31/2022 Influenza, seasonal, injectable 11/25/2013,10/05,11/29/2012 Influenza, seasonal, injecta ble, preservative free 10/05/2013,12/19/2011 Lynette COVID-19 Vaccine (Bl ue Cap) 18+ 12/26/2020,05/29/2020,05/21/2020 Meningococcal MCV4O 04/17/2022 Meningococcal MCV4P 02/24/2017,12/14/2007 Moderna COVID-19 Vaccine (Re d Cap) 12+ years 09/11/2021 Novel [id number], all formulations 02/09/2009 PPD Skin Test (TB Skin Test) 04/29/2010 Pneumococcal 20-enoc Conj Vaccine 04/17/2022 Pneumococcal Conjugate PCV 13 11/03/2016, 013,04/29/2010 Pneumococcal Conjugate PCV 7 01/31/2013,12/14/19 08 Pneumococcal Polysaccharide PPV23 11/22/2020,04/2013 Pneumococcal, Unspecified 12/27/2010 Tdap 04/18/2021 Zoster, Recombinant 10/10/2019,04/11/2019 Family History Medical History Relation Name Comments Heart failure Father Arthritis Father's Sister Aunt Katy Asthma Mother Staci pan Cancer Mother Staci pan Depression Mother Staci pan Diabetes Mother Staci pan Heart failure Mother Staci pan Relation Name Status Comments Father Father's Sister Aunt Katy Mother Staci pan Social History Tobacco Use Types Packs/Day Years Used Date Smoking Tobacco: Never Passive Smoke Exposure: Never Smokeless Tobacco: Never Tobacco Cessation:Counseling Given: Not Answered Alcohol Use Standard Drinks/Week Comments Not Currently [...] PM EDT Sexual Orientation Not on file Last Filed Vital Signs Vital Sign Reading Time Taken Comments Blood Pressure 124/72 04/20/2024 9:31 AM EST Pulse 72 04/20/2024 9:31 AM EST Temperature 37 C (98.6 F) 04/20/2024 9:31 AM EST Respiratory Rate 17 05/06/2023 5:49 PM EDT Oxygen Saturation 93% 04/20/2024 9:31 AM EST Inhaled Oxygen Concentration - - Weight 85.1 kg (187 lb 9.8 oz) 04/20/2024 9:31 A M EST Height 152.4 cm (5') 04/20/2024 9:31 AM EST Body Mass Index 36.64 04/20/2024 9:31 AM EST Plan of Treatment Upcoming Encounters Date Type Department Care Team (Late st Contact Info) Description 09/07/2024 8:00 AM EDT Office Visit [facility] [address] [facility] [address] [place] [address] 09/28/2024 3:00 PM EDT Office Visit [facility] [address] [place] [address] Ulises Dhillon, PA [address] [place] [address] 10/12/2024 9:45 AM EDT Appointment [facility] Ultrasound [address] [place] [address] 10/12/2024 11:00 AM EDT Ancillary Procedure [facility] [address] [place] [address] 10/12/2024 11:30 AM EDT Office Visit [facility] [address] [place] [address] Darlene Muñoz, AIR[employer]PA[employer] MECH[employer]IC [address] [place] [address] 10/19/2024 11:00 AM EDT Office Visit [facility] [address], [address] [place] [address] Aracelis Patterson MD [address] [place] [address] 10/25/2024 2:45 PM EDT Office Visit [facility] [address] [place] [address] Hiram Gutierrez MD [address] [place] [address] Health Maintenance Due Date Last Done Comments [facility] Annual Wellness (AWV) 1960 [facility]-/Child/Adol SDOH Screenings 1960 Diabetes: Dental Exam 10/12/1971 [facility]- SDOH Screenings 10/12/1979 [facility]-Adult SDOH Screenings 10/12/1979 CT Colonography 2006 Colonoscopy 2006 FIT-DNA 2006 FIT 2006 FOBT 2006 Sigmoidoscopy 2006 [facility]-Colorectal Cancer Screening 2006 [facility]-Breast Cancer Screening 12/06/2014 12/06/2012 [facility]-RSV Vaccine: 60+ Years or (1 - Risk 60-74 years 1-dose series) 2021 [facility]-Diabetes: Hemoglobin A1C 04/07/2023 10/08/2022, 06/11/2021, 06/21/2014, Additional history exists [id number] Vaccine ( season) 2023 12/18/2021, 09/11/2021, 12/26/2020, Additional history exists [facility]-Influenza Vaccine (#1) 10/24/202412/31, 11/22/2020, 12/26/2019, Additional history exists [facility]-Depression Screening 04/20/2025 04/20/2024, 03/27 [facility]-DTaP,Tdap,and Td Vaccines (3 - Td or Tdap) 04/18/2031 04/18/2021, 12/23/2007 [facility]-HIB Vaccines Aged Out 12/14/2007 No longer e ligible based on patient's age to complete this topic [facility]-Cervical Cancer Screening Discontinued [facility]-HPV/Cotest Discontinued 07/10/2008, 10/24, 11/12/2007 [facility]-Pap Smear Discontinued 07/10/2008, 10/24, 11/12/2007 [facility]-Hepatitis A Vaccines Completed 018, 06/01/2008, 03/09/2008, Additional history exists [facility]-Zoster Vaccines Completed 10/10/2019, [facility]-Pneumococcal Vaccine: 50+ Years Completed 04/17/2022, 11/22/2020, 11/03/2016, Additional history exists [facility]-Obesity Intervention Completed 025, 03/30/2024, 03/30/2024, Additional history exists HPV Vaccines Aged Out No longer eligi ble based on patient's age to complete this topic [facility]-IPV Vaccines Aged Out No longer e ligible based on patient's age to complete this topic [facility]-Rotavirus Vaccines Aged Out No lo nger eligible based on patient's age to complete this topic Goals Goal Patient Goal Type Associated Problems Recent Progress Patient-Stated? Author RW Patient to remain active in HIV care Care Plan RW Treatment Adherence No Nhi Jimenez Patient to remain active on Part B services/RW jose-eligible Care Plan RW Treatment Adherence No Nhi Jimenez RW Patient to maintain undetectable viral load Care Plan RW Treatment Adherence No Nhi Jimenez RW Patient to engage in counseling/therap y services Care Plan Mental Health No Nhi Jimenez RW Patient to engage in psychiatry/medica tion management services Care Plan Mental Health No Nhi Jimenez Patient to engage in self-care activities Care Plan Mental Health No Nhi Jimenez RW Patient to reduce use of (subtance) Care Plan RW Substance Use No Nhi Jimenez RW Patient to attend treatment program Care Plan RW Substance Use No Nhi Jimenez Procedures Procedure Name Priority Date/Time Associated Diagnosis Comments HEMOGLOBIN A1C Routine 10/08/2022 10:25 AM EDT Hyperglycemia MAMMOGRAPHY BREAST SCREENING TOMOSYNTHESIS BILATERAL Routine 12/06/2012 11:46 AM EDT CYTO DATA CONVERSION Routine 07/10/2008 12:00 AM EDT from Last 3 Months or Most Recently Relevant to Health Maintenance Results * (ABNORMAL) Hemoglobin A1c (10/08/2022 10:25 AM EDT) Hemoglobin A1c 5.7(H) <5.7 % 10/08/2022 1:41 PM EDT [facility] Blood Venous blood specimen / Unknown Venipuncture / Unknown 10/08/2022 10:25 AM EDT 10/08/2022 10:25 AM EDT Narrative [facility] - 10/08/2022 1:41 PM EDT HA1C Interpretive Data: Diagnosis of Diabetes: Diabetic > or = 6.5% Pre-diabetic 5.7 to 6.4% Non-diabetic < or = 5.6% Glycemic Targets for Type I and Type II Diabetics: Non- Adults <7.0% Adults <6.0% Children and Adolescents <7.5% Source: [place] [employer]. Standards of medical care in diabetes,2017. Diabetes Care.2017:40 (suppl 1):S1-S135. HbA1c assay performed by an ion-exchange chromatography method that is certified traceable to the DCCT. us Ulises ERNANDEZ LAB BLOOD ORDERABLES Final Re sult [facility] [address] [place] [address] * Mammography Breast Screening Tomosynthesis Bilateral (12/06/2012 11:46 AM EDT) Anatomical Region Laterality Modality Breast Bilateral Mammography Impressions 12/06/2012 4:33 PM EDT BI-RADS Assessment Category 2: Benign finding. RECOMMENDATION: Routine screening mammogram in 1 year. COMMUNICATION: The results and recommendations will be sent to the patient in a printed lay language version of the imaging report. The mammogram was read with the assistance of CAD. FINAL ATTESTATION By electronically signing this report, I, the attending physician, attest that I have personally reviewed the images/data for the above examination(s) and agree with the final edited report. Page 1 of 2 Patient Name:Светлана Rivera : 1960 Age: 52 Gender: femaleDate of Service: 12/06/2012 Referring Phy:Kami Corbin MD Account: [id number] Read By: Geremias Adames M.D. Signed By: Abraham Siddiqi M.D. on 12/06/2012 at 04:33:43 PM Page 2 of 2 Read By: GEREMIAS ADAMES M.D. Signed By: ABRAHAM SIDDIQI M.D. on 12/06/2012 at 16:33:44 Narrative 12/06/2012 4:33 PM EDT Patient Name:Светлана Rivera : 1960 Age: 52 Gender: femaleDate of Service: 12/06/2012 Referring Phy:Kami Corbin MD Account: [id number] FINAL REPORT PROCEDURE: Screening Tomosynthesis - bilateral , Screening Mammogram with CAD - bilateral HISTORY: Patient is 52 years old and is seen for screening mammography. The patient has a history of left breast biopsy at age 48 - benign. The patient has a history of cervical cancer at age 29. The patient has no family history of breast cancer. COMPARISON: Comparison is made with prior exams dating back to 02/02/2008. MAMMOGRAM TECHNIQUE: The following mammographic views were obtained: bilateral craniocaudal; bilateral mediolateral oblique; and bilateral tomosynthesis images were obtained with zero seconds of fluoroscopy time. Computer assisted detection was used in the interpretation of this study. MAMMOGRAM FINDINGS: The breast tissue is heterogeneously dense, which may lower sensitivity of mammography. There is a stable tissue marker in the upper outer quadrant of the left breast. In the right breast, no masses, suspicious microcalcifications or architectural distortion are evident. No additional findings seen on bilateral tomosynthesis. Procedure Note Abraham Siddiqi MD - 07/01/2020 Patient Name:Светлана Rivera : 1960 Age: 52 Gender: femaleDate of Service:12/06/2012 Referring Phy:Kami Corbin MD Account: [id number] FINAL REPORT PROCEDURE: Screening Tomosynthesis - bilateral , Screening Mammogram withCAD - bilateral HISTORY: Patient is 52 years old and is seen for screening mammography. Thepatient has a history of left breast biopsy at age 48 - benign. The patient has a history of cervical cancerat age 29. The patient has no family history of breast cancer. COMPARISON: Comparison is made with prior exams dating back to 02/02/2008. MAMMOGRAM TECHNIQUE: The following mammographic views were obtained: bilateral craniocaudal;bilateral mediolateral oblique; and bilateral tomosynthesis images were obtained with zero seconds offluoroscopy time. Computer assisted detection was used in the interpretation of this study. MAMMOGRAM FINDINGS: The breast tissue is heterogeneously dense, which may lower sensitivity ofmammography. There is a stable tissue marker in the upper outer quadrant of the leftbreast. In the right breast, no masses, suspicious microcalcifications orarchitectural distortion are evident. No additional findings seen on bilateral tomosynthesis. IMPRESSION: BI-RADS Assessment Category 2: Benign finding. RECOMMENDATION: Routine screening mammogram in 1 year. COMMUNICATION: The results and recommendations will be sent to the patient in a printedlay language version of the imaging report. The mammogram was read with the assistance of CAD. FINAL ATTESTATION By electronically signing this report, I, the attending physician, attestthat I have personally reviewed the images/data for the above examination(s) and agree with the final editedreport. Page 1 of 2 Patient Name:Светлана Rivera : 1960 Age: 52 Gender: femaleDate of Service:12/06/2012 Referring Phy:Kami Corbin MD Account: [id number] Read By: Geremias Adames M.D. Signed By: Abraham Siddiqi M.D. on 12/06/2012 at 04:33:43 PM Page 2 of 2 Read By: GEREMIAS ADAMES M.D. Signed By: ABRAHAM SIDDIQI M.D. on 12/06/2012 at 16:33:44 us Historical Provider MD CASTANEDA BI PROCEDURES Final R esult * Cytology (07/10/2008 12:00 AM EDT) 07/10/2008 07/11/2008 10: 03 AM EDT Narrative SUNQUEST - 07/12/2008 4:26 PM EDT [facility] MR #: [id number] [facility] [place], [place] [address] 1960 (Age: 47) FW Collect Date: 07/10/2008 00:00 Receipt Date: 07/11/2008 10:03 Page 1 DEPARTMENT OF PATHOLOGY AND LABORATORY MEDICINE CYTOPATHOLOGY REPORT Email: [email or web address] ATTENDING MD/Practitioner: Saeed Corbin MD Service: ID Location: ID Reported: 07/12/2008 16:26 Collected: 07/10/2008 00:00 INTERPRETATION A. THIN PREP (VAGINAL): NEGATIVE FOR INTRAEPITHELIAL LESION OR MALIGNANCY. SATISFACTORY FOR EVALUATION. Slide scanned and imaged by [email or web address] ThinPrep Imaging System with manual review of all selected carbajal. Electronically Signed Out By ADELIA Gay(ASCP) ADELIA Gay(ASCP) Cervical cytology is a screening test primarily for squamous cancers and precursors and has associated false negative and positive results. New technologies such as liquid based sampling may decrease but will not eliminate all false negative results. Regular screening and follow-up of unexplained clinical signs and symptoms are recommended to minimize false negative results. Please see the ASCCP website (www.asccp.org) for followup recommendations. If HPV testing was requested, correlation with the results is suggested (please call Microbiology at [phone] for results). CLINICAL INFORMATION: Menstrual History: Post-hysterectomy: date and code not provided Date of Last Menstrual Period: {Not Provided} Infection History: HIV+ Other Clinical Conditions: Clinical information indicates patient has high risk factor(s). SPECIMEN DESCRIPTION: A: THIN PREP (VAGINAL) THIN PREP PROCESS CELLULAR ENHANCEMENT ICD: V76.47 VAGINA, SPECIAL SCREENING FOR MALIGNANT NEOPLASMS V15.89 OTHER PERSONAL HISTORY PRESENT HAZARDS TO HEALTH F: A; RT IMAGE [id number] SNOMED CODES: A; [id number] In cases where a pathologist has signed out the report, the service has been rendered in part by a resident. The signing pathologist has performed and is responsible for the reported pathologic evaluation. Historical Provider LAB PATHOLOGY ORDERABLES Final Result SUNQUEST from Last 3 Months or Most Recently Relevant to Health Maintenance Additional Health Concerns Active Problems Noted Date Diagnosed Date RW Treatment Adherence 10/30/2021 RW Transportation 10/30/2021 RW Mental Health 10/30/2021 RW Substance Use 10/30/2021 RW Food Insecurity 10/30/2021 RW Housing 10/30/2021 RW Safety 10/30/2021 RW Insurance 10/30/2021 Insurance * Guarantor: Светлана Rivera Account Type Relation to Patient Date of Phone Billing Address Personal/Family Self [address] [place] [address] [place] [address] INFECTIOUS DISEASE PROGRAM [employer] [address] [address] [facility] Member Subscriber Plan / Payer (Ef fective 2022-Present) Name:СВЕТЛАНА RIVERA Relation to Subscriber:Spouse Name:RIVERAAYLINALICJA W Date of :1899 (Home) Address: [facility] [place] [address] Payer ID:Not on file Group ID:Not on file Type:Not on file Address: [address] [place] [address] INFECTIOUS DISEASE PROGRAM Care Teams Log Inspector Relationship Specialty Start Date End Date Hiram Serna DO [address] [place] [address] PCP - General 03/30/24 Aracelis Patterson MD [address] [facility] [address] [place] [id number] Consulting Physician Infectious Diseases 09/16/22 Barbara Redding Fondant Cooker Linux System Administrator 07/20/24
--- OUTSIDE RECORDS SUMMARY | 2024-08-29 11:07 | XMS_ITS | Encounter Summary ---
Author Organization [facility] Address [address] [place] [address] Care Team Providers Care Rn Er Name Role Phone Allan Hightower MD Primary Care Provider + [phone] Nikki Muniz Unavailable Unavailable Aracelis Patterson MD Unavailable + [phone] Hiram Serna DO Primary Care Provider [phone] Barbara Redding Unavailable Unavailable Reason for Visit * Reason Comments Med Refill Encounter Details Date Type Department Care Team (Late st Contact Info) Description 03/27/2022 Refill [facility] Specialties [address] [place] [address] Ulises Dhillon, PA [address] [place] [address] Social History Tobacco Use Types Packs/Day Years Used Date Smoking Tobacco: Never Smokeless Tobacco: Never Alcohol Use Standard Drinks/Week Comments No 0 (1 standard drink = 0.6 oz pure alcohol) Alcoholic Drinks/day: Never Drank Alcohol PHQ-2 Answer Date Recorded Patient Health Questionnaire-2 Score 0 10/17/2021 Comments Unknown Sex and Gender Information Value Date Recorded Sex Assigned at Female 05/06/2023 2:50 PM EDT Legal Sex Female 8:11 PM EDT Gender Identity Female 05/06/2023 2:50 PM EDT Sexual Orientation Not on file documented as of this encounter Miscellaneous Notes * Telephone Encounter - Philip Daniel Oseas - 03/27/2022 9:34 AM EST Per protocol, 1 medication(s), promethazine, has been approved for 7 day supply with 6 refill(s) [facility]. documented in this encounter Plan of Treatment Upcoming Encounters Date Type Department Care Team (Late st Contact Info) Description 09/07/2024 8:00 AM EDT Office Visit [facility] [address] [facility] [address] [place] [address] 09/28/2024 3:00 PM EDT Office Visit [facility] Medicine Specialties [address] [place] [address] Ulises Dhillon, PA [address] [place] [address] 10/12/2024 9:45 AM EDT Appointment [facility] Ultrasound [address] [place] [address] 10/12/2024 11:00 AM EDT Ancillary Procedure [facility] Specialties [address] [place] [address] 10/12/2024 11:30 AM EDT Office Visit [facility] Medicine Specialties [address] [place] [address] Darlene Muñoz, FLATBED TRUCK DRIVER [address] [place] [address] 10/19/2024 11:00 AM EDT Office Visit [facility] [address] [place] [address] Aracelis Patterson MD [address] [facility] [address] [place] [address] 10/25/2024 2:45 PM EDT Office Visit [facility] Eye Care [address] [place] [address] Hiram Gutierrez MD [address] [place] [address] documented as of this encounter [...] services Care Plan RW Mental Health No hNi Jimenez RW Patient to engage in self-care [...] has been complete d for the patient 06/11/2021 1:05 PM EDT documented as of this encounter Care Teams Rn Er Relationship Specialty Start Date End Date Allan Hightower MD [address] [place] [address] PCP - General 07/06/20 03/29/24 Hiram Serna DO [address] [place] [address] PCP - General 03/30/24 Nikki Muniz Parts Finisher Bisque Tile Burner 10/17/21 07/20/24 Aracelis Patterson MD [address] [place] [address] Consulting Physician Infectious Diseases 09/16/22 Barbara Redding Parts Finisher Bisque Tile Burner 07/20/24 documented as of this encounter
--- OUTSIDE RECORDS SUMMARY | 2024-08-29 11:07 | XMS_ITS | Encounter Summary ---
Author Organization [facility] Address [address] [place] [address] Care Team Providers Care Manufacturing Test Engineer Name Role Phone Alyssa Antonio Unavailable Unavailable Allan Hightower MD Primary Care Provider + [phone] Nikki Muniz Unavailable Unavailable Aracelis Patterson MD Unavailable + [phone] Hiram Serna DO Primary Care Provider [phone] Barbara Redding Unavailable Unavailable Reason for Visit * Reason Comments Med Refill Encounter Details Date Type Department Care Team (Late st Contact Info) Description 08/22/2020 Refill [facility] Infectious Disease [address] [place] [address] Mal Galeano MD [address] [facility] [address] [place] [address] Social History Tobacco Use Types Packs/Day Years Used Date Smoking Tobacco: Never Alcohol Use Standard Drinks/Week Comments No 0 (1 standard drink = 0.6 oz pure alcohol) Alcoholic Drinks/day: Never Drank Alcohol Comments Unknown Sex and Gender Information Value Date Recorded Sex Assigned at Female 05/06/2023 2:50 PM EDT Legal Sex Female 8:11 PM EDT Gender Identity Female 05/06/2023 2:50 PM EDT Sexual Orientation Not on file documented as of this encounter Plan of Treatment Upcoming Encounters Date Type Department Care Team (Late st Contact Info) Description 09/07/2024 8:00 AM EDT Office Visit [facility] [address] [facility] [address] [place] [address] 09/28/2024 3:00 PM EDT Office Visit [facility] Medicine Specialties [address] [place] [address] Ulises Dhillon, PA [address] [place] [address] 10/12/2024 9:[address] [facility] Ultrasound [address] [place] [address] 10/12/2024 11:00 AM EDT Ancillary Procedure [facility] Medicine Specialties [address] [place] [address] 10/12/2024 11:30 AM EDT Office Visit [facility] Medicine Specialties [address] [place] [address] Darlene Muñoz, SINGLE ENDING MACHINE OPERATOR [address] [place] [address] 10/19/2024 11:00 AM EDT Office Visit [facility] Specialty Care Clinic [address] [place] [address] Aracelis Patterson MD [address] [facility] [address] [place] [address] 10/25/2024 2:45 PM EDT Office Visit [facility] Eye Care [address] [place] [address] Hiram Gutierrez MD [address] [place] [address] documented as of this encounter Visit Diagnoses Not on filedocumented in this encounter Care Teams Manufacturing Test Engineer Relationship Specialty Start Date End Date Allan Hightower MD [address] [place] [address] PCP - General 07/06/20 03/29/24 Hiram Serna DO [address] [place] [address] PCP - General 03/30/24 [place] [address] 11/25/07 10/17/21 Nikki Muniz Application Integrator Fuel Cell Binder 10/17/21 07/20/24 [place] [address] [place] [address] [address] [place] [address] Consulting Physician Infectious Diseases 09/16/22 Barbara Redding Application Integrator Fuel Cell Binder 07/20/24 documented as of this encounter
--- OUTSIDE RECORDS SUMMARY | 2024-08-29 11:07 | XMS_ITS | Encounter Summary ---
Author Organization [facility] Address [address] [place] [address] Care Team Providers Care Secondary Spanish Teacher Name Role Phone Nikki Muniz Unavailable Unavailable Aracelis Patterson MD Unavailable + [phone] Hiram Serna DO Primary Care Provider [phone] Barbara Redding Unavailable Unavailable Reason for Visit * Reason Comments Case Management Encounter Details Date Type Department Care Team (Late st Contact Info) Description 07/20/2024 Patient Outreach [facility] [address] [place] [address] Barbara Redding Case Management Social [...] Notes * Progress Notes - Barbara Redding Melvi - 07/20/2024 4:17 PM EDT P: MCM Re-Assignment Duration: 15 minutes D/A: Barbara Redding is newly assigned MCM. Barbara Redding added to care team (responsible staff) and updated as MCM in [facility]. Letter to be mailed out to pt at a later date. CIARA Fair documented in this encounter Plan of Treatment Upcoming Encounters Date Type Department Care Team (Late st Contact Info) Description 09/07/2024 8:00 AM EDT Office Visit [facility] [address] [facility] [address] [place] [address] 09/28/2024 3:00 PM EDT Office Visit [facility] Medicine Specialties [address] [place] [address] Ulises Dhillon, PA [address] [place] [address] 10/12/2024 9:45 AM EDT Appointment [facility] Ultrasound [address] [place] [address] 10/12/2024 11:00 AM EDT Ancillary Procedure [facility] Specialties [address] [place] [address] 10/12/2024 11:30 AM EDT Office Visit [facility] Specialties [address] [place] [address] Darlene Muñoz, LEXIE [address] [place] [address] 10/19/2024 11:00 AM EDT Office Visit [facility] Care Clinic [address] [place] [address] Aracelis Patterson MD [address] [facility] [address] [place] [address] 10/25/2024 2:45 PM EDT Office Visit [facility] Eye Care [address] [place] [address] Hiram Gutierrez MD [address] [place] [address] documented as of this encounter [...] Time PHQ-9 Depression Total Score: 0 04/20/19 25 9:30 AM EST A fall risk assessment has been complete d for the patient 04/20/2024 9:30 AM EST A Body Mass Index follow-up plan has been documented for the patient 04/20/2024 10:05 AM EST documented as of this encounter Care Teams Secondary Spanish Teacher Relationship Specialty Start Date End Date Hiram Serna DO [address] [place] [address] PCP - General 03/30/24 Nikki Muniz Rn Staffing Board Member 10/17/21 07/20/24 Aracelis Patterson MD [address] [place] [address] [address] [place] [address] Consulting Physician Infectious Diseases 09/16/22 Barbara Redding Rn Staffing Board Member 07/20/24 documented as of this encounter
--- OUTSIDE RECORDS SUMMARY | 2024-08-29 11:07 | XMS_ITS ---
Care Plan Created on: August 29, 2024 Светлана Rivera : 1960 Sex: Female Author Organization [facility] Address [address] [place] [address] Care Team Providers Care Wax Machine Operator Name Role Phone Aracelis Patterson MD Unavailable [phone] Hiram Serna DO Primary Care Provider [phone] Barbara Redding Unavailable Unavailable Active Problems Problem Noted Date Diagnosed Date [...] etiologies - will prescribe adult briefs and vanda pads today Hypertension 11/22/2020 Assessment & Plan [...] referral; patient request dental but reports seeing fermentation scientist recently UTD on recommended vaccinations Assessment & [...] Vaccination 05/21/2020 Meningococcal MCV4P 12/14/2007, 02/24/2017 Novel [id number], all formulations 02/09/2009 PPD Test 04/29/2010 Pneumococcal Conjugate PCV 7 12/14/2007, 01/31/2013 Pneumococcal Polysaccharide PPV23 11/25/2013, 11/22/2020 Pneumococcal, Unspecified 12/27/2010 Cancer Screening: -Cervical cancer: Due 2024 (per pt report done in 2019 with normal findings) -Mammogram: Due 2021 (per pt report done in 2019 with normal findings) Other: -DEXA: ordered today -ASCVD: The 10-year ASCVD risk score (Meryl GONZALEZ Jr., et al., 2013) is: 6.5% Values used [...] reports foot xray last week done in [place] - Referral in for CT of foot [...] reflux disease without esophag itis 11/05/2011 10/17/2022 Additional Health Concerns Active Problems Noted Date Diagnosed Date RW Treatment Adherence 10/30/2021 RW Transportation 10/30/2021 RW Mental Health 10/30/2021 RW Substance Use 10/30/2021 RW Food Insecurity 10/30/2021 RW Housing 10/30/2021 RW Safety 10/30/2021 RW Insurance 10/30/2021 Goals Goal Patient Goal Type Associated Problems [...] Plan RW Mental Health No Nhi Jimenez Jose RW Patient to engage in psychiatry/medica tion management services Care Plan RW Mental Health No Nhi Jimenez Jose RW Patient to engage in self-care activities Care Plan RW Mental Health No JimenezNallelyNhi S RW Patient to reduce use of (subtance) Care Plan RW Substance Use No Nhi Jimenez S RW Patient to attend SA treatment program Care Plan RW Substance Use No Nhi Jimenez Jose Interventions Care Plan Interventions Intervention Entry Date Outcome Attend all ID appointments 10/30/2021 Take medication as prescribed 10/30/2021 RW Complete Recertification paperwork (provide proof of residency, income, and insurance) 10/30/2021 RW Obtain labs every 6 months 10/30/2021 Attend ID appointment every 6 months 10/30/2021 Related Goals and Interventions Goal Associated Intervent ions RW Patient to remain active in HIV care RW Obtain labs every 6 months; Attend ID appointment every 6 months RW Patient to remain active on Part B services/RW jose-eligible RW Complete Recertification paperwork (provide proof of residency, income, and insurance) RW Patient to maintain undet ectable viral load Attend all ID appointments; Take medication as prescribed
--- OUTSIDE RECORDS SUMMARY | 2024-08-29 11:07 | XMS_ITS | Encounter Summary ---
Author Organization [facility] Address [address] [place] [address] Care Team Providers Care Test And Turn Up Technician Name Role Phone Nikki Muniz Unavailable Unavailable Aracelis Patterson MD Unavailable + [phone] Hiram Serna DO Primary Care Provider [phone] Barbara Redding Unavailable Unavailable Reason for Visit * Reason Comments Case Management Encounter Details Date Type Department Care Team (Late st Contact Info) Description 07/20/2024 Patient Outreach [facility] [address] [facility] [address] [place] [address] Barbara Redding Case Management Social [...] encounter Miscellaneous Notes * Progress Notes - Feliu, Barbara N - 07/20/2024 9:05 AM EDT Ayad Casarez Social Work Walk-In Visit Note Presenting Problem: Incontinence Supplies/ Transportation Last visit with an HIV provider: 04/20/24 Светлана Rivera's [facility] Services Eligibility expires on 10/23/24 Assigned Blind Hanger: CIARA Fair Part B Recertification Completed at this visit: No Recertification completed Recertification Documents Provided: None Recertification Documents Needed: None [facility] HIV Care Plan Completed? no Notes: P: Incontinence Supplies/ Transportation D/A: MCM received inbound voicemail transferred to walk in [facility]. [facility] made OBC to patient HIPAA verified. Patient reports needing an order for incontinence supplies, described as Vito/ Underpads and Depends Brand Adult Pull Ons. [facility] confirmed patient uses Depends Size Large Pull Ons, 6 pr day, extra absorbency. Patient reportsthat she gets chucks in quantity of 120 in one box, 3 boxes per order. [facility] reviewed patient's current insurance. Medicare Part A and B will not cover incontinence supplies, payer of last resort reviewed. [facility] assessed for further needs related to patient care. Patient reports that she will need transportation assistance for appointments in August and September. Patient reports that she is aware that her assigned MCM is no longer in the clinic and requested new MCM assignment. [facility] sent secure email to [facility] requesting MCM assignment, granted to CIARA Fair. [facility] will submit new incontinence supply order to [facility] [employer] via email for chux and adult depends pull ups size large. [facility] will request new provider orders from [facility] and dry molder to order. [facility] will set up transportation through [facility] within 2 weeks of patient appointment. No further needs at this time Duration: 30 minutes CIARA Fair. documented in this encounter Plan of Treatment Upcoming Encounters Date Type Department Care Team (Late st Contact Info) Description 09/07/2024 8:00 AM EDT Office Visit [address] [place] [address] 09/28/2024 3:00 PM EDT Office Visit [facility] Medicine Specialties [address] [place] [address] Ulises Dhillon PA [address] [place] [address] 10/12/2024 9:45 AM EDT Appointment [facility] Ultrasound [address] [place] [address] 10/12/2024 11:00 AM EDT Ancillary Procedure [facility] Medicine Specialties [address] [place] [address] 10/12/2024 11:30 AM EDT Office Visit [facility] Specialties [address] [place] [address] Darlene Muñoz, STOCK WORKER [address] [place] [address] 10/19/2024 11:00 AM EDT Office Visit [facility] [address], [address] [place] [address] Aracelis Patterson MD [address] [facility] [address] [place] [address] 10/25/2024 2:45 PM EDT Office Visit [facility] [address] [facility] [place] [address] Hiram Gutierrez MD [address] [facility] [address] [place] [address] documented as of this encounter [...] documented as of this encounter Care Teams Test And Turn Up Technician Relationship Specialty Start Date End Date Hiram Serna DO [address] [place] [address] PCP - General 03/30/24 Nikki Muniz Anatomic Pathologist Manager Product Support 10/17/21 07/20/24 [place] [address] [place] [address] [address] [place] [address] Consulting Physician Infectious Diseases 09/16/22 Barbara Redding Anatomic Pathologist Manager Product Support 07/20/24 documented as of this encounter
--- OUTSIDE RECORDS SUMMARY | 2024-08-29 11:07 | XMS_ITS | Encounter Summary ---
Author Organization [facility] Address [address] [place] [address] Care Team Providers Care Fighter Pilot Name Role Phone Aracelis Patterson MD Unavailable [phone] Hiram Serna DO Primary Care Provider [phone] Barbara Redding Unavailable Unavailable Reason for Visit * Reason Comments Med Refill Encounter Details Date Type Department Care Team (Late st Contact Info) Description 08/02/2024 Refill [facility] [address], [address] [place] [address] Aracelis Patterson MD [address] [facility] [address] [place] [address] Intertrigo Social History Tobacco Use Types Packs/Day Years [...] 09/07/2024 8:00 AM EDT Office Visit [facility] [address] [facility] [address] [place] [address] 09/28/2024 3:00 PM EDT Office Visit [facility] Medicine Specialties [address] [place] [address] Ulises Dhillon, PA [address] [place] [address] 10/12/2024 9:45 AM EDT Appointment [facility] Ultrasound [address]nd [place] [address] 10/12/2024 11:00 AM EDT Ancillary Procedure [facility] Medicine Specialties [address] [place] [address] 10/12/2024 11:30 AM EDT Office Visit [facility] Medicine Specialties [address] [place] [address] Darlene Muñoz, HORIZONTAL RESAW OPERATOR [address] [place] [address] 10/19/2024 11:00 AM EDT Office Visit [facility] [address], [address] [place] [address] Aracelis Patterson MD [address] [facility] [address] [place] [address] 10/25/2024 2:45 PM EDT Office Visit [facility] Eye Care [address] [facility] [place] [address] Hiram Gutierrez MD [address] [place] [address] documented as of this encounter Goals Goal Patient Goal Type Associated Problems Recent Progress Patient-Stated? Author RW Patient to remain active in HIV care Care Plan RW Treatment Adherence No Jimenez, Nhi S RW Patient to remain active on Part B services/RW jose-eligible Care Plan RW Treatment Adherence No Jimenez, Nhi S RW Patient to maintain undetectable viral load Care Plan RW Treatment Adherence No Jimenez, Nhi S RW Patient to engage in counseling/therap y services Care Plan RW Mental Health No Jimenez, Nhi S RW Patient to engage in psychiatry/medica tion management services Care Plan RW Mental Health No Jimenez Nhi S RW Patient to engage in self-care activities Care Plan RW Mental Health No Jimenez Nhi S RW Patient to reduce use of (subtance) Care Plan RW Substance Use No JimenezNallelyNhi S RW Patient to attend SA treatment program Care Plan RW Substance Use No Jimenez Nhi S documented as of this encounter Visit Diagnoses Diagnosis Intertrigo Other specified erythematous condition documented in this encounter Additional Health Concerns [...] documented as of this encounter Care Teams Fighter Pilot Relationship Specialty Start Date End Date Hiram Serna DO [address] [place] [address] [id number] PCP - General 03/30/24 Aracelis Patterson MD [address] [facility] [address] [place] [address] Consulting Physician Infectious Diseases 09/16/22 Barbara Redding Supervisor Lime Turn Out 07/20/24 documented as of this encounter
--- OUTSIDE RECORDS SUMMARY | 2024-08-29 11:07 | XMS_ITS | Encounter Summary ---
Author Organization [facility] Address [address] [place] [address] Care Team Providers Care Marketing Assistant Retail Division Name Role Phone Aracelis Patterson MD Unavailable + [phone] Hiram Serna DO Primary Care Provider [phone] Barbara Redding Unavailable Unavailable Reason for Visit * Reason Comments Case Management Encounter Details Date Type Department Care Team (Late st Contact Info) Description 08/15/2024 Patient Outreach [facility] [address] [place] [address] Barbara Redding Case Management Social History Tobacco [...] * Progress Notes - Barbara Redding - 08/15/2024 11:59 PM EDT P: Patient Outreach D: Coordinated Access, Support Services A: LUI received forwarded vmm from patient requesting call back. MCM made OBC to patient HIPAA verified. Patient reports that she cannot see her appointments on my chart at this time and was concerned that she missed an appointment. MCM reviewed appointment history with patient and informed her that next upcoming appointment for [facility] is on 09/07/24 8am. LUI will arrange transportation through private pay as patient has Medicare with no transportation benefit outside 60 mile radius of her home address. LUI will reach out to patient within 3 business days of her appointment with trip details. No other needs at this time Duration: 15 minutes CIARA Fair. documented in this encounter Plan of Treatment Upcoming Encounters Date Type Department Care Team (Late st Contact Info) Description 09/07/2024 8:00 AM EDT Office Visit [facility] [address] [facility] [address] [place] [address] 09/28/2024 3:00 PM EDT Office Visit [facility] Medicine Specialties [address] [place] [address] Ulises Dhillon PA [address] [place] [address] 10/12/2024 9:45 AM EDT Appointment [facility] Ultrasound [address] [place] [address] 10/12/2024 11:00 AM EDT Ancillary Procedure [facility] Specialties [address] [place] [address] 10/12/2024 11:30 AM EDT Office Visit [facility] Medicine Specialties [address] [place] [address] Darlene Muñoz, DEVELOPER EVANGELIST [address] [place] [address] 10/19/2024 11:00 AM EDT Office Visit [facility] [address] [place] [address] Aracelis Patterson MD [address] [facility] [address] [place] [address] 10/25/2024 2:45 PM EDT Office Visit [facility] Eye Care [address] [place] [address] Hiram Gutierrez MD [address] [place] [address] documented as of this encounter [...] documented as of this encounter Care Teams Marketing Assistant Retail Division Relationship Specialty Start Date End Date Hiram Serna DO [address] [place] [address] PCP - General 03/30/24 Aracelis Patterson MD [address] [place] [phone] Consulting Physician Infectious Diseases 09/16/22 Barbara Redding Gray Mixing Operator Skein Tier 07/20/24 documented as of this encounter
--- OUTSIDE RECORDS SUMMARY | 2024-08-29 11:07 | XMS_ITS | Encounter Summary ---
Author Organization [facility] Address [address] [place] [address] Care Team Providers Care Freezer Person Name Role Phone PacoAlyssa Jun Unavailable Unavailable Allan Hightower MD Primary Care Provider + [phone] Nikki Muniz Unavailable Unavailable Aracelis Patterson MD Unavailable + [phone] Hiram Serna DO Primary Care Provider [phone] Barbara Redding Unavailable Unavailable Reason for Visit * Reason Comments Med Refill Encounter Details Date Type Department Care Team (Late st Contact Info) Description 07/31/2021 Refill [facility] Specialties [address] [place] [address] Ulises Dhillon, PA [address] [place] [address] Social History Tobacco Use Types Packs/Day Years Used Date Smoking Tobacco: Never Smokeless Tobacco: Never Alcohol Use Standard Drinks/Week Comments No 0 (1 standard drink = 0.6 oz pure alcohol) Alcoholic Drinks/day: Never Drank Alcohol PHQ-2 Answer Date Recorded Patient Health Questionnaire-2 Score 0 06/11/2021 Comments Unknown Sex and Gender Information Value Date Recorded Sex Assigned at Female 05/06/2023 2:50 PM EDT Legal Sex Female 8:11 PM EDT Gender Identity Female 05/06/2023 2:50 PM EDT Sexual Orientation Not on file documented as of this encounter Miscellaneous Notes * Telephone Encounter - Philip Daniel, PharmD - 07/31/2021 10:33 AM EDT Per protocol, 1 medication(s), promethzine, has been approved for 15 day supply with 0 refill(s). The medication refill request(s) has been sent to [facility] pharmacy. Pt will need to follow up with clinic for any further refills of phenergan documented in this encounter Plan of Treatment Upcoming Encounters Date Type Department Care Team (Late st Contact Info) Description 09/07/2024 8:00 AM EDT Office Visit [facility] [address] [facility] [address] [place] [address] 09/28/2024 3:00 PM EDT Office Visit [facility] Specialties [address] [place] [address] Ulises Dhillon, PA [address] [place] [address] 10/12/2024 9:45 AM EDT Appointment [facility] Ultrasound [address] [place] [address] 10/12/2024 11:00 AM EDT Ancillary Procedure [facility] Specialties [address] [place] [address] 10/12/2024 11:30 AM EDT Office Visit [facility] Medicine Specialties [address] [place] [address] Darlene Muñoz APRN [address] [place] [address] 10/19/2024 11:00 AM EDT Office Visit [facility] Specialty Care Clinic [address] [place] [address] Aracelis Patterson MD [address] [facility] [address] [place] [address] 10/25/2024 2:45 PM EDT Office Visit [facility] [address] [place] [address] Hiram Gutierrez MD [address] [place] [address] documented as of this encounter Visit Diagnoses Not on filedocumented in this encounter Additional Health Concerns Assessment Noted Time A fall risk assessment has been complete d for the patient 06/11/2021 1:05 PM EDT documented as of this encounter Care Teams Freezer Person Relationship Specialty Start Date End Date Allan Hightower MD [address] [place] [address] PCP - General 07/06/20 03/29/24 Hiram Serna DO [address] [place] [address] PCP - General 03/30/24 [place] [address] 11/25/07 10/17/21 iNkki Muniz Car Trimmer Acid Retort Operator 10/17/21 07/20/24 [place] [address] [place] [address] [address] [place] [address] Consulting Physician Infectious Diseases 09/16/22 Barbara Redding Car Trimmer Acid Retort Operator 07/20/24 documented as of this encounter
[2024-08-29 11:49] VITALS: BP 118/67; PULSE 55; RESP 12; O2SAT 91; BMI 37.5
== END 2024-08-29 23:59 | disposition home or self-care (01) ==
LOC: SC.PAIN 10:42
PROVIDERS: PCP Family Medicine; Visit Provider Nurse Practitioner Family
DX: M54.50 Low back pain, unspecified (principal); G89.4 Chronic pain syndrome
CPT/HCPCS: 99212; G0463

== ENCOUNTER 2024-11-23 09:20 | Outpatient (CLI) | payer MEDICARE, OTHER, SELFPAY ==
--- OUTSIDE RECORDS SUMMARY | 2024-09-28 15:00 | XMS_ITS | Encounter Summary ---
Author Organization [facility] Address [address] [place] [address] Care Team Providers Care Court Monitor Name Role Phone Aracelis Patterson MD Unavailable [phone] Hiram Serna DO Primary Care Provider [phone] Barbara Redding Unavailable Unavailable Reason for Visit * Reason Comments Other chronic pancreatitis (CMS/HCC) Encounter Details Date Type Department Care Team (Late st Contact Info) Description 09/28/2024 3:00 PM EDT Office Visit [facility] [address] [place] [address] Ulises Dhillon PA [address] [place] [address] Other chronic pancreatitis (CMS/HCC) (Primary Dx); Other constipation; Gastroesophageal reflux disease without esophagitis Social History Tobacco Use Types Packs/Day Years Used Date Smoking Tobacco: Never Passive Smoke Exposure: Never Smokeless Tobacco: Never Alcohol Use Standard Drinks/Week Comments Not Currently 0 (1 standard drink = 0.6 oz pure alcohol) Alcoholic Drinks/day: Never Drank Alcohol PHQ-2 Answer Date Recorded Patient Health Questionnaire-2 Score 0 09/28/2024 PHQ-9 Answer Date Recorded Patient Health Questionnaire-9 Score 0 09/28/2024 PHQ-2A Answer Date Recorded Patient Health Questionnaire-2 Score 0 10/08/2022 Comments Unknown Sex and Gender Information Value Date Recorded Sex Assigned at Female 05/06/2023 2:50 PM EDT Legal Sex Female 8:11 PM EDT Gender Identity Female 05/06/2023 2:50 PM EDT Sexual Orientation Not on file documented as of this encounter Last Filed Vital Signs Vital Sign Reading Time Taken Comments Blood Pressure 125/78 09/28/2024 2:43 PM EDT Pulse 58 09/28/2024 2:43 PM EDT Temperature 36.6 C (97.9 F) 09/28/2024 2:43 PM EDT Respiratory Rate - - Oxygen Saturation 92% 09/28/2024 2:43 PM EDT Inhaled Oxygen Concentration - - Weight 87.3 kg (192 lb 7.4 oz) 09/28/2024 2:43 P M EDT Height 152.4 cm (5') 09/28/2024 2:43 PM EDT Body Mass Index 37.59 09/28/2024 2:43 PM EDT documented in this encounter Functional Status * Over the past 2 weeks, how often have you been bothered by any of the following problems? Question Answer Date of Assessment Author Little interest or pleasure in doing things Not at all 09/28/2024 2:50 PM EDT Allan Middleton Feeling down, depressed, or hopeless Not at all 09/28/2024 2:50 PM EDT Allan Middleton Patient Health Questionnaire -2 Score 0 09/28/2024 2:50 PM EDT Allan Middleton * Question Answer Date of Assessment Author Trouble falling or staying a sleep, or sleeping too much Not at all 09/28/2024 2:50 PM EDT Allan Middleton Feeling tired or having paris le energy Not at all 09/28/2024 2:50 PM EDT Allan Middleton Poor appetite or overeating Not at all 09/28/2024 2: 50 PM EDT Allan Middleton Feeling bad about yourself - or that you are a failure or have let yourself or your family down Not at all 09/28/2024 2:50 PM EDT Michelle Middleton Trouble concentrating on thi ngs, such as reading the newspaper or watching television Not at all 09/28/2024 2:50 PM EDT Allan Middleton Moving or speaking so slowly that other people could have noticed? Or the opposite - being so fidgety or restless that you have been moving around a lot more than usual. Not at all 09/28/2024 2:50 PM EDT Oseas Middleton Thoughts that you would be b ancelmo off or hurting yourself in some way Not at all 09/28/2024 2:50 PM EDT Allan Middleton Patient Health Questionnaire -9 Score 0 09/28/2024 2:50 PM EDT Allan Middleton * How difficult have these problems made it for you to do your work, take care of things at home, or get along with other people? Answer Date of Assessment Author Not difficult at all 09/28/2024 2:50 PM EDT Allan Middleton documented as of this encounter Miscellaneous Notes * Assessment & Plan Note - Ulises Dhillon PA - 09/28/2024 3:00 PM EDT Associated Problem(s): Other chronic pancreatitis (CMS/HCC) * Progress Notes - Ulises Dhillon PA - 09/28/2024 3:00 PM EDT Subjective Patient ID: Светлана Rivera is a 63 y.o. female. Chief Complaint Patient presents with Other chronic pancreatitis (CMS/HCC) Ms. Rivera is a 63 year old female seen in follow up today for chronic idiopathic pancreatitis. Since the last visit she denies any significant bouts of abdominal pain. She remains compliant with daily methycellulose fiber supplement along with movantik. Bowels are formed and moving daily without signs of gross GI bleeding. Appetite is excellent without any weight loss or vomiting. Refluxis well controlled with current dose of 40 mg pantoprazole qam and 300 mg cimetidine at bedtime. Ms. Rivera is a 63 year old female seen in follow up today for chronic idiopathic pancreatitis. For complete HPI from last visit please see above paragraph. Since the last visit she reports continued weight gain and fatigue. She denies any significant abdominal pain, vomiting, diarrhea, constipation, gross GI bleeding, jaundice, icterus, dysphagia, odynophagia, change in appetite, fever, chills, night sweats or lymphadenopathy. Abdominal Pain The problem has been waxing and waning. The pain is located in the left flank. The pain is at a severity of 2/10. The quality of the pain is aching. The abdominal pain radiates to the left flank. Associated symptoms include frequency. Pertinent negatives include no anorexia, arthralgias, belching, c onstipation, diarrhea, dysuria, fever, flatus, headaches, hematochezia, hematuria, melena, myalgias, nausea, vomiting or weight loss. The following portions of the chart were reviewed this encounter and updated as appropriate: Review of Systems Constitutional: Positive for fatigue. Negative for activity change, appetite change, chills, fever,unexpected weight change and weight loss. HENT: Negative for trouble swallowing. Respiratory: Negative for shortness of breath. Gastrointestinal: Positive for abdominal pain. Negative for anorexia, blood in stool, constipation,diarrhea, flatus, hematochezia, melena, nausea and vomiting. Genitourinary: Positive for frequency. Negative for dysuria and hematuria. Musculoskeletal: Negative for arthralgias and myalgias. Skin: Negative for color change and pallor. Neurological: Negative for seizures, syncope and headaches. Psychiatric/Behavioral: Negative for agitation, behavioral problems and confusion. Objective Physical Exam Vitals and nursing note reviewed. Constitutional: General: She is not in acute distress. Appearance: She is obese. She is not ill-appearing or toxic-appearing. HENT: Mouth/Throat: Mouth: Mucous membranes are moist. Eyes: General: No scleral icterus. Cardiovascular: Rate and Rhythm: Normal rate and regular rhythm. Heart sounds: Normal heart sounds. No murmur heard. Pulmonary: Effort: Pulmonary effort is normal. Breath sounds: Normal breath sounds. Abdominal: General: There is no distension. Palpations: Abdomen is soft. There is no mass. Tenderness: There is no abdominal tenderness. There is no guarding or rebound. Skin: General: Skin is warm and dry. Coloration: Skin is not jaundiced or pale. Findings: No bruising. Neurological: Mental Status: She is alert and oriented to person, place, and time. Psychiatric: Mood and Affect: Mood normal. Behavior: Behavior normal. Assessment/Plan Assessment & Plan Other chronic pancreatitis (CMS/HCC) Other constipation Gastroesophageal reflux disease without esophagitis Chronic pancreatitis: As detailed above, last significant bout of abdominal pain resulted in workupat ED on 05/06/[address] a/p w/ contrast documenting normal pancreas. No findings to explain acute abdominal pain. CBC, CMP and lipase unremarkable as well. She reports no significant bouts of abdominal pain since then. She remains abstinent from etoh/smoking. We have advised low fat diet, etoh abstinence and pre meal pancreatic enzymes. We will continue to monitor. GERD: Reflux symptoms remain well controlled on current dose of 40 mg pantoprazole qam and 300 mg cimetidine at bedtime. We have encouraged continuation. We would advise annual CBC/CMP/vitamin D withPCP considering known AE's/malabsorption with chronic PPI usage. CBC/CMP/vitamin D in March wnl. Constipation: She reports regular formed bowel movements daily since initiation of movantik and methylcellulose fiber tablets. I have encouraged continuation of current regimen along with adequate hydration and dietary fiber intake. Planned follow up in 6 months to reassess. Cirrhotic appearing liver on imaging: CT a/p w/ contrast from 05/06/23 here at documented cirrhotic appearing liver. Evaluation with hepatology on 06/16/23 with recommendation for EGD to evaluate for varices and US elastography at the next hepatology visit along with q 6 month HCC screening with US. During 03/30/24 visit, 2-D shear-wave elastography demonstrated a median shear-wave velocity of 1.5m/sec which in the absence of other known clinical signs rules out advanced fibrosis/cirrhosis. Unable to get MR Liver Elastography due to presence of spinal stimulator. Plan for fibroscan and continued q 6 month HCC screening. Next appointment with hepatology on 10/12 with same day US/fibroscan. Health maintenance: Last colonoscopy in 2016 was completely unremarkable. No need for repeat colonoscopy until 2026. documented in this encounter Plan of Treatment Upcoming Encounters Date Type Department Care Team (Late st Contact Info) Description 03/29/2025 12:40 PM EST Office Visit [facility] [address] [place] [address] Ulises Dhillon PA [address] [place] [address] 04/14/2025 10:10 AM EST Office Visit [facility] [address] [place] [address] Arely Galvan, LEXIE [address] [place] [address] 04/20/2025 8:00 AM EST Office Visit [facility] [address] [place] [address] 04/26/2025 11:00 AM EST Office Visit [facility] [address], [address] [place] [address] Aracelis Patterson MD [address] [place] [address] 11/01/2025 8:45 AM EDT Office Visit [facility] [address] [place] [address] Hiram Gutierrez MD [address] [place] [address] documented as of this encounter Goals Goal Patient Goal Type Associated Problems Recent Progress Patient-Stated? Author Светлана to remain active in HIV care Care Plan RW Treatment Adherence No Nhi Jimenez LCSW Christine to remain active on Part B services/RW jose-eligible Care Plan RW Treatment Adherence No Nhi Jimenez LCSW Christine to maintain undetectable viral load. Care Plan RW Treatment Adherence No Nhi Jimenez LCSW documented as of this encounter Visit Diagnoses Diagnosis Other chronic pancreatitis (CMS/HCC)- Primary Other constipation Gastroesophageal reflux disease without esophagitis Esophageal reflux documented in this encounter Additional Health Concerns Active Problems Noted Date Diagnosed Date RW Treatment Adherence 10/30/2021 RW Transportation 10/30/2021 Assessment Noted Time PHQ-9 Depression Total Score: 0 09/29/19 25 2:50 PM EDT A fall risk assessment has been complete d for the patient 09/28/2024 2:50 PM EDT A Body Mass Index follow-up plan has been documented for the patient 10/03/2024 10:57 AM EDT documented as of this encounter Care Teams Court Monitor Relationship Specialty Start Date End Date Hiram Serna DO [address] [place] [address] PCP - General 03/30/24 Aracelis Patterson MD [address] [place] [phone] Consulting Physician Infectious Diseases 09/16/22 Barbara Redding Production Line Assembler Super[employer] 07/20/24 documented as of this encounter
--- OUTSIDE RECORDS SUMMARY | 2024-10-12 09:27 | XMS_ITS | Encounter Summary ---
Author Organization [facility] Address [address] [place] [address] Care Team Providers Care Sanitation Worker Hosing Machinery Name Role Phone Aracelis Patterson MD Unavailable [phone] Hiram Serna DO Primary Care Provider [phone] Barbara Redding Unavailable Unavailable Reason for Referral * Imaging (Routine) - Closed Specialty Diagnoses / Procedures Referred By Contac t Referred To Contact Radiology Diagnoses Cirrhosis of liver without ascites, unspecified hepatic cirrhosis type Procedures US Liver Screen Darlene Muñoz APRN [address] [address] Phone: tel: fax: Referral ID Status Reason Start Date Expiration Date Visits Re quested Visits Authorized [id number] Closed 03/30/2024 09/29/2025 1 1 Reason for Visit * Imaging (Routine) - Closed Specialty Diagnoses / Procedures Referred By Contac t Referred To Contact Radiology Diagnoses Cirrhosis of liver without ascites, unspecified hepatic cirrhosis type Procedures US Liver Screen Darlene Muñoz APRN [address] [place] [address] Phone: tel: fax: Referral ID Status Reason Start Date Expiration Date Visits Re quested Visits Authorized [id number] Closed 03/30/2024 09/29/2025 1 1 Encounter Details Date Type Department Care Team (Latest Contact Info) Description 10/12/2024 9:27 AM EDT - 10/12/2024 11:59 PM EDT Hospital Encounter [facility] Ultrasound [address] [place] [address] Cirrhosis of liver without ascites, unspecified hepatic cirrhosis type (CMS/HCC) Discharge Disposition: Home or Self Care Social History Tobacco Use Types Packs/Day Years Used Date Smoking Tobacco: Never Passive Smoke Exposure: Never Smokeless Tobacco: Never Alcohol Use Standard Drinks/Week Comments Not Currently 0 (1 standard drink = 0.6 oz pure alcohol) Alcoholic Drinks/day: Never Drank Alcohol PHQ-2 Answer Date Recorded Patient Health Questionnaire-2 Score 0 10/19/2024 PHQ-9 Answer Date Recorded Patient Health Questionnaire-9 Score 0 10/12/2024 PHQ-2A Answer Date Recorded Patient Health Questionnaire-2 Score 0 10/08/2022 Comments Unknown Sex and Gender Information Value Date Recorded Sex Assigned at Female 05/06/2023 2:50 PM EDT Legal Sex Female 8:11 PM EDT Gender Identity Female 05/06/2023 2:50 PM EDT Sexual Orientation Not on file documented as of this encounter Functional Status * Over the past 2 weeks, how often have you been bothered by any of the following problems? Question Answer Date of Assessment Author Little interest or pleasure in doing things Not at all 10/19/2024 10:59 AM EDT Christiano Hitchcock Feeling down, depressed, or hopeless Not at all 10/19/2024 10:59 AM EDT Christiano Hitchcock Patient Health Questionnaire -2 Score 0 10/19/2024 10:59 AM EDT Christiano Hitchcock * Question Answer Date of Assessment Author Trouble falling or staying a sleep, or sleeping too much Not at all 10/12/2024 11:04 AM EDT Allan Middleton Feeling tired or having paris le energy Not at all 10/12/2024 11:04 AM EDT Allan Middleton Poor appetite or overeating Not at all 10/12/2024 11 :04 AM Allan Stewart Feeling bad about yourself - or that you are a failure or have let yourself or your family down Not at all 10/12/2024 11:04 AM Oseas Stewart Trouble concentrating on thi ngs, such as reading the newspaper or watching television Not at all 10/12/2024 11:04 AM Allan Stewart Moving or speaking so slowly that other people could have noticed? Or the opposite - being so fidgety or restless that you have been moving around a lot more than usual. Not at all 10/12/2024 11:04 AM Allan Stewart Thoughts that you would be b ancelmo off or hurting yourself in some way Not at all 10/12/2024 11:04 AM Allan Stewart Patient Health Questionnaire -9 Score 0 10/12/2024 11:04 AM Allan Stewart * How difficult have these problems made it for you to do your work, take care of things at home, or get along with other people? Answer Date of Assessment Author Not difficult at all 10/19/2024 10:59 AM Venessa Mitchell documented as of this encounter Medications at Time of Discharge Advair Diskus 500-50 MCG/ACT diskus inhaler 10/07/2022 albuterol 108 (90 Base) MCG/ACT inhaler 11/02/2020 alendronate (Fosamax) 70 MG tablet Take 1 tablet (70 mg total) by mouth every 7 (seven) days. Take in the morning with a full glass of water, on an empty stomach, and do not take anything else by mouth or lie down for the next 30 min. 4 tablet 11 04/18/2021 amLODIPine (Norvasc) 5 MG tablet 09/13/2020 benzonatate (Tessalon) 200 MG capsule 01/29/2023 Blood Pressure Monitoring (Blood Pressure Cuff) misc 1 each 1 (one) time each day. 1 each 07/30/2020 budesonide-formoterol (Symbicort) 80-4.5 MCG/ACT inhaler 06/27/2020 calamine (Anti Monkey Butt) powder powder APPLY TO AFFECTED AREA(S) DIRECTED 227 g 1 10/15/2023 cholecalciferol (Vitamin D3) 500 Unit split tablet .COMPLEX 07/08/2022 cimetidine (Tagamet) 300 MG tablet Take 1 tablet (300 mg) by mouth 1 (one) time each day in the evening. 90 tablet 3 03/30/2024 clobetasol (Temovate) 0.05 % cream 06/29/2024 diclofenac (Voltaren) 1 % topical gel 09/27/2020 ergocalciferol 1.25 MG (10900 UT) capsule 02/28/2020 fluticasone (Flonase) 50 MCG/ACT nasal spray 1 spray. 06/29/2023 FREESTYLE LITE test strip 06/27/2020 hydroCHLOROthiazide (Microzide) 12.5 MG capsule 11/02/2020 ipratropium-albuterol (Duo-Neb) 0.5-2.5 mg/3 mL nebulizer solution 3 mL. 04/09/2023 meclizine (Antivert) 25 MG tablet 12/09/2022 meloxicam (Mobic) 7.5 MG tablet 09/10/2020 metFORMIN (Glucophage) 500 MG tablet 08/22/2020 methocarbamol (Robaxin) 500 MG tablet 06/29/2020 Methylcellulose, Laxative, (Citrucel) 500 MG tablet Take 1 tablet by mouth daily. 100 tablet 1 09/28/2024 Misc. Devices miscIndications:Chron ic respiratory failure with hypoxia Inogen one G3 1 each 04/15/2023 montelukast (Singulair) 10 MG tablet 01/13/2022 mupirocin (Bactroban) 2 % ointment 06/13/2020 naloxegol oxalate (Movantik) 25 MG tablet Take 25 mg by mouth every morning. 30 tablet 5 09/28/2024 ofloxacin (Floxin) 0.3 % otic solution 10 drops. 06/02/2023 ondansetron ODT (Zofran-ODT) 4 MG disintegrating tablet Take 1 tablet (4 mg) by mouth every 8 (eight) hours if needed for nausea or vomiting. 20 tablet 3 03/30/2024 oxyCODONE-acetaminoph en (Percocet) 10-325 MG tablet 11/17/2020 pancrelipase, Rwq-Qznz-Nwfn, (Zenpep) 58618-817781 units capsule delayed-release particles capsule Take 2 capsules by mouth 3 times a day with meals. 200 capsule 5 09/28/2024 pantoprazole (Protonix) 40 MG EC tablet Take 1 tablet (40 mg) by mouth 1 (one) time each day before breakfast. DO NOT CRUSH CHEW OR SPLIT 90 tablet 3 03/30/2024 Powders (AMB Anti Friction Body) powderIndications:Int ertrigo APPLY TO AFFECTED AREA(S) DIRECTED 227 g 09/17/2023 pravastatin (Pravachol) 40 MG tablet 09/04/2020 rizatriptan SECURITY DELIVERY SPECIALIST (Maxalt-SECURITY DELIVERY SPECIALIST) 5 MG disintegrating tablet 11/02/2020 sertraline (Zoloft) 100 MG tablet 11/02/2020 Tiotropium [place] Monohydrate (Spiriva Respimat) 2.5 MCG/ACT inhaler 1 (one) time each day. 04/09/2023 tiZANidine (Zanaflex) 4 MG tablet 09/06/2020 tobramycin-dexamethas one (Tobradex) ophthalmic suspension 10/05/2023 urea (Carmol) 40 % cream 05/30/2020 Vraylar 1.5 MG capsule 04/06/2023 Bictegravir-Emtricita b-Tenofov (Biktarvy) 50-200-25 MG tablet tabletIndications:Hum an immunodeficiency virus Take 1 tablet by mouth daily. 30 tablet 5 04/20/2024 Incontinence Supply Disposable (Depend Adjustable Underwear Lg) miscIndications:Bowel and bladder incontinence 1 Product 5 (five) times a day as needed (when soiled). 100 each 04/20/2024 5 Incontinence Supply Disposable (Incontinence Brief Large) miscIndications:Bowel and bladder incontinence Please dispense 1 box of briefs 6 each 04/20/2024 5 Incontinence Supply Disposable miscIndications:Bowel and bladder incontinence Maximilian pads for incontinence. 50 each 04/20/2024 5 ketoconazole (NIZOral) 2 % creamIndications:Inte rtrigo APPLY TO AFFECTED AREA(S) TWO TIMES A DAY FOR 5 DAYS 15 g 09/08/2024 5 nystatin (Mycostatin) 866837 UNIT/GM powderIndications:Int ertrigo APPLY TWO TIMES A DAY 60 g 3 08/03/2024 5 propranolol (Inderal) 10 MG tabletIndications:Jean-Pierre mor TAKE 1 1/2 TABLETS BY MOUTH THREE TIMES A DAY 90 tablet 5 06/21/2024 5 documented as of this encounter Plan of Treatment Upcoming Encounters Date Type Department Care Team (Late st Contact Info) Description 03/29/2025 12:40 PM EST Office Visit [facility] Medicine Specialties [address] [place] [address] Ulises Dhillon, PA [address] [facility] [address] [place] [phone] 04/14/2025 10:10 AM EST Office Visit [facility] [address], [address] [place] [address] Arely Galvan APRN [address] [facility] [address] [place] [address] 04/20/2025 8:00 AM EST Office Visit [facility] [address] [facility] [address] [place] [address] 04/26/2025 11:00 AM EST Office Visit [facility] [address], [address] [place] [address] Aracelis Patterson MD [address] [facility] [address] [place] [address] 11/01/2025 8:45 AM EDT Office Visit [facility] [address] [place] [address] Hiram Gutierrez MD [address] [phone] documented as of this encounter Goals Goal Patient Goal Type Associated Problems Recent Progress Patient-Stated? Author Светлана to remain active in HIV care Care Plan RW Treatment Adherence No Nhi Jimenez LCSW Светлана to remain active on Part B services/RW jose-eligible Care Plan RW Treatment Adherence No Nhi Jimenez LCSW Christine to maintain undetectable viral load. Care Plan RW Treatment Adherence No Nhi Jimenez LCSW documented as of this encounter Procedures Procedure Name Priority Date/Time Associated Diagnosis Comments US LIVER SCREEN Routine 10/12/2024 10:08 AM EDT Cirrhosis of liver without ascites, unspecified hepatic cirrhosis type (CMS/HCC) documented in this encounter Results * US Liver Screen (10/12/2024 10:08 AM EDT) Anatomical Region Laterality Modality Abdomen, Liver Ultrasound Impressions 10/12/2024 11:54 AM EDT Coarsening of the liver echotexture and increased echogenicity is compatible with underlying parenchymal liver disease. No focal liver lesions detected. No ascites. Category Score US-1 Negative. No US evidence of HCC. No observation or Only definitely benign observation(s). Continue with regular screening. Visualization Score Vis A. No or minimal limitations. Limitations if any are unlikely to meaningfully affect sensitivity. The above scoring system and recommendations are based on Ultrasound LI-RADS version 2017. [email or web address] CRITICAL RESULT: No. COMMUNICATION: Per this written report. Drafted by Kelle Karimi MD on 10/12/2024 11:50 AM Final report signed by Kelle Karimi MD on 10/12/2024 11:54 AM Narrative 10/12/2024 11:54 AM EDT CLINICAL INDICATION: hcc screening TECHNIQUE: Multiplanar static and cine judd scale ultrasound images of the abdomen were obtained, accompanied by selective color Doppler ultrasound images. COMPARISON: Abdominal ultrasound from 03/30/2024 FINDINGS: Grayscale: Liver: The liver is coarse and echogenic consistent with parenchymal disease. This limits the visualization of focal lesions though no focal lesions are detected. Portal Vein: There is antegrade flow within the main portal vein. Gallbladder: The gallbladder is absent Common Duct: 6 mm Spleen: Prior splenectomy. Free Fluid: There is no ascites Procedure Note Kelle Karimi MD - 10/12/2024 CLINICAL INDICATION: hcc screening TECHNIQUE: Multiplanar static and cine judd scale ultrasound images of the abdomenwere obtained, accompanied by selective color Doppler ultrasound images. COMPARISON: Abdominal ultrasound from 03/30/2024 FINDINGS: Grayscale: Liver: The liver is coarse and echogenic consistent with parenchymaldisease. This limits the visualization of focal lesions though no focallesions are detected. Portal Vein: There is antegrade flow within the main portal vein. Gallbladder: The gallbladder is absent Common Duct: 6 mm Spleen: Prior splenectomy. Free Fluid: There is no ascites IMPRESSION: Coarsening of the liver echotexture and increased echogenicity iscompatible with underlying parenchymal liver disease. No focal liverlesions detected. No ascites. Category Score US-1 Negative. No US evidence of HCC. No observation orOnly definitely benign observation(s). Continue with regular screening. Visualization Score Vis A. No or minimal limitations. Limitations if anyare unlikely to meaningfully affect sensitivity. The above scoring system and recommendations are based on UltrasoundLI-RADS version 2017. [email or web address]/-/[email or web address] CRITICAL RESULT: No. COMMUNICATION: Per this written report. Drafted by Kelle Karimi MD on 10/12/2024 11:50 AM Final report signed by Kelle Karimi MD on 10/12/2024 11:54 AM us Darlene Muñoz OCCUPATIONAL SAFETY SPECIALIST IMG US PROCEDURES Final Re sult documented in this encounter Visit Diagnoses Diagnosis Cirrhosis of liver without ascites, unspecified hepatic cirrhosis type documented in this encounter Additional Health Concerns Active Problems Noted Date Diagnosed Date RW Treatment Adherence 10/30/2021 RW Transportation 10/30/2021 Assessment Noted Time PHQ-9 Depression Total Score: 0 10/13/19 11:04 AM EDT A fall risk assessment has been complete d for the patient 10/12/2024 11:04 AM EDT A Body Mass Index follow-up plan has been documented for the patient 10/14/2024 9:47 AM EDT documented as of this encounter Care Teams Sanitation Worker Hosing Machinery Relationship Specialty Start Date End Date Hiram Serna DO [address] [place] [address] PCP - General 03/30/24 Aracelis Patterson MD [address] [place] [phone] Consulting Physician Infectious Diseases 09/16/22 Barbara Redding [facility] [employer] Internship 07/20/24 documented as of this encounter
--- OUTSIDE RECORDS SUMMARY | 2024-10-12 11:00 | XMS_ITS | Encounter Summary ---
Author Organization Healthcare Address [address] [place] [address] Care Team Providers Care Sewer Cleaner Name Role Phone Aracelis Patterson MD Unavailable [phone] Hiram Serna DO Primary Care Provider [phone] Barbara Redding Unavailable Unavailable Encounter Details Date Type Department Care Team (Latest Contact Info) Description 10/12/2024 11:00 AM EDT Ancillary Procedure [facility] [address] [place] [phone] Cirrhosis of liver without ascites, unspecified hepatic cirrhosis type (CMS/HCC) Social History Tobacco Use Types Packs/Day Years Used Date Smoking Tobacco: Never Passive Smoke Exposure: Never Smokeless Tobacco: Never Alcohol Use Standard Drinks/Week Comments Not Currently 0 (1 standard drink = 0.6 oz pure alcohol) Alcoholic Drinks/day: Never Drank Alcohol PHQ-2 Answer Date Recorded Patient Health Questionnaire-2 Score 0 10/12/2024 PHQ-9 Answer Date Recorded Patient Health Questionnaire-9 [...] pleasure in doing things Not at all 10/12/2024 11:04 AM Allan Stewart Feeling down, depressed, or hopeless Not at all 10/12/2024 11:04 AM Allan Stewart Patient Health Questionnaire -2 Score 0 10/12/2024 11:04 AM Allan Stewart * Question Answer Date of Assessment Author Trouble falling or staying a sleep, or sleeping too much Not at all 10/12/2024 11:04 AM Allan Stewart Feeling tired or having paris le energy Not at all 10/12/2024 11:04 AM Allan Stewart Poor appetite or overeating Not at all [...] of Assessment Author Not difficult at all 10/12/2024 11:04 AM Allan Valdovinos documented as of this encounter Plan of Treatment Upcoming Encounters Date Type Department Care Team (Late st Contact Info) Description 03/29/2025 12:40 PM EST Office Visit [facility]ties [address] [place] [address] Ulises Dhillon, PA [address] [place] [address] 04/14/2025 10:10 AM EST Office Visit [facility] [address] [place] [address] Arely Galvan, OUTREACH REPRESENTATIVE [address] [place] [address] 04/20/2025 8:00 AM EST Office Visit [facility] [address] [facility] [address] [place] [address] 04/26/2025 11:00 AM EST Office Visit [facility] [address] [place] [address] Aracelis Patterson MD [address] [facility] [address] [place] [address] 11/01/2025 8:45 AM EDT Office Visit [facility] [address] [place] [address] Hiram Gutierrez MD [address] [place] [address] documented as of this encounter [...] Procedure Name Priority Date/Time Associated Diagnosis Comments GI FIBROSCAN Routine 10/12/2024 12:59 PM EDT Cirrhosis of liver without ascites, unspecified hepatic cirrhosis type (CMS/HCC) documented in this encounter Results * GI Fibroscan (10/12/2024 12:59 PM EDT) Narrative ECHOSENJose - 10/13/2024 7:41 PM EDT Table formatting from the original result was not included. GI FIBROSCAN INTERPRETATION Procedure: VCTE using M+ probe Indication: Cirrhosis of liver without ascites, unspecified hepatic cirrhosis type (CMS/HCC) (K74.60) Discussed: Oral and written explanations of the FibroScan VCTE test procedure provided to the patient. Procedure Note: Patient was placed in a supine position with right arm in maximum abduction to allow optimal exposure of right lateral abdomen. Patient was briefly assessed, identifying the terminus of the xyphoid process and locating an ideal transient elastography testing site, mid-line and lateral to this point. Patient was instructed to breathe normally and remain stationary during the test process. Pre-measurement data confirmed the transient elastography probe was centered over the liver parenchyma. A series of ten 50Hz mechanical pulses were applied with controlled application pressure to induce a mechanical shear wave in the liver tissue. For each measurement, the shear wave propagation speed was detected, displayed and converted to its equivalent liver stiffness value in kilopascals. Skin to liver capsule distance and shear wave characteristics were monitored during the entire examination to assure data quality. Median liver stiffness measurement and interquartile range were calculated and displayed in real time. Acquired measurement data was stored and submitted for my review and interpretation. Patient tolerated the procedure well and was discharged without incident. Findings: Patient had a median Liver Stiffness Score of 5.3 kilopascal (kPa). The Interquartile Range to median ratio was 15 %. Per Referring Provider recent history includes: Order Questions Answers Does patient have recent history of alcohol use? No Does patient have recent history of cholestasis? No Does patient have recent history of liver tumor? No Does patient have recent history of right heart failure? No Does patient have recent history of acute hepatitis? No Does patient have recent history of ALT > 100 U/L? No At the time of exam patient was NPO 3 hours or more, had no recent relevant alcohol and current scan is considered reliable. Interpretation: Taking into account the above mentioned diagnosis and history,the liver stiffness score is most consistent with F0-F1: No significant fibrosis. Please review indication and potential limitations of the Fibroscan for a more accurate assessment. Recommendations: Higher scores are associated with a higher specificity (low false positive rate) in predicting advanced fibrosis (>= F2) or cirrhosis (F4). Lower scores are associated with a higher specificity in ruling out advanced fibrosis (>= F2) or cirrhosis (F4). Please consider using serum marker panels (Fibrosure, FIB-4, APRI) as well as imaging criteria (e.g., signs of cirrhosis) and clinical data (e.g., physical exam findings of cirrhosis or decompensation) to improve the accuracy of fibrosis assessment especially in cases with intermediate liver stiffness results. Consider liver biopsy if results remain conflicting/unclear. us Darlene Muñoz APRN IN CLINIC DIAGNOSTIC ORDER S Final Result ECHOSENS documented in this encounter Visit Diagnoses Diagnosis [...] documented as of this encounter Care Teams Sewer Cleaner Relationship Specialty Start Date End Date Hiram Serna DO [address] [place] [address] PCP - General 03/30/24 [place] [address] [place] [phone] Consulting Physician Infectious Diseases 09/16/22 Barbara Redding Insurance Sales Representative Golf Tournament Consultant 07/20/24 documented as of this encounter
--- OUTSIDE RECORDS SUMMARY | 2024-10-12 11:30 | XMS_ITS | Encounter Summary ---
Author Organization [facility] Address [address] [place] [address] Care Team Providers Care Overhead Cleaner Maintainer Name Role Phone Aracelis Patterson MD Unavailable [phone] Hiram Serna DO Primary Care Provider [phone] Barbara Redding Unavailable Unavailable Reason for Referral * (Routine) - Authorized Specialty Diagnoses / Procedures Referred By Contac t Referred To Contact Diagnoses Cirrhosis of liver without ascites, unspecified hepatic cirrhosis type Portal vein thrombosis Darlene Muñoz APRN [address] [facility] [address] [place] [address] Phone: tel: fax: Referral ID Status Reason Start Date Expiration Date V isits Requested Visits Authorized [id number] Authorized 10/12/2024 04/13/2026 1 1 Reason for Visit * Reason Comments Cirrhosis of liver without ascites, unsp ecified hepatic cir Encounter Details Date Type Department Care Team (Late st Contact Info) Description 10/12/2024 11:30 AM EDT [facility] Visit [facility] [address] [place] [address] Darlene Muñoz APRN [address] [place] [address] Hepatic fibrosis (Primary Dx); Portal vein thrombosis; Hepatic steatosis Social History Tobacco Use Types Packs/Day Years [...] Sign Reading Time Taken Comments Blood Pressure 151/73 10/12/2024 10:59 AM EDT Pulse 65 10/12/2024 10:59 AM EDT Temperature 36.4 C (97.5 F) 10/12/2024 10:59 AM EDT Respiratory Rate - - Oxygen Saturation 92% 10/12/2024 10:59 AM EDT Inhaled Oxygen Concentration - - Weight 87.8 kg (193 lb 9 oz) 10/12/2024 10:59 AM EDT Height 152.4 cm (5') 10/12/2024 10:59 AM EDT Body Mass Index 37.8 10/12/2024 10:59 AM EDT documented in this encounter Functional Status * Over the past 2 weeks, how often have you been bothered by any of the following problems? Question Answer Date of Assessment Author Little interest or pleasure in doing things Not at all 10/12/2024 11:04 AM EDT Allan Middleton Feeling down, depressed, or hopeless Not at all 10/12/2024 11:04 AM EDT Allan Middleton Patient Health Questionnaire -2 Score 0 10/12/2024 11:04 AM EDT Allan Middleton * Question Answer Date [...] Allan Valdovinos documented as of this encounter Miscellaneous Notes * Progress Notes - Darlene Muñoz, BOAT HOIST OPERATOR - 10/12/2024 11:30 AM EDT Outpatient Hepatology Note Patient : Светлана Rivera Date of : 1960 Referring Provider : Alejo ERNANDEZ PCP : Hiram Serna DO Subjective Chief Complaint Patient presents with Cirrhosis of liver without ascites, unspecified hepatic cir HPI : Светлана Rivera is a 64 y.o. White [1] female has a past medical history of , Anxiety, Asthma,Cancer ( cervix 1999), , (Gastro-esophageal reflux disease without esophagitis,chronic pancreatitis, Human immunodeficiency virus (HIV) disease (CMS/HCC), Hyperlipidemia, neissan fundoplication , Portal hypertension (CMS/HCC), HTN, , Type 2 diabetes mellitus , spine stimulator for chronic back pain. being seen in follow up visit for ? Cirrhosis of liver . She was diagnosed with ? cirrhosis on 05/06/[address] abdomen, Etiology :vielka ENGLE. However her US Liver Elastography and fibroscan did not show cirrhosis. She has hepatic steatosis and chronic parenchymal liver disease. She follows [facility] for chronic pancreatitis . Denies hospitalization or ED visit since last visit. Denies abdomen pain, denies nausea, vomiting. Denies hematemesis, melena. Denies confusion and distention. She is on Biktarvy for HIV, follows at [facility]. 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 She said her Diabetes is well controlled, she avoid fatty food and high fructose sugar. She reportsphysical activities is limited due to knee pain. She denies acute liver related complaints. I personally reviewed: [facility] chart Labs: She has normal platelets, normal albumin and INR CT abdomen/pelvis with IV contrast 04/2023 : reviewed , Cirrhotic morphology of liver, chronic occlusion of the portal vein, with periportal collaterals, with similar appearance compared to prior. No ascites She denies hematemesis, melena. She denies h/o esophageal varices bleeding. She had EGD in the past, not recentely. She is on propranolol for termor . She does not have Ascites. Large volume paracentesis : No, H/o SBP : N/A She is on hydrochlorothiazide for peripheral edema. She denies hepatic encephalopathy, She denies H/o Liver biopsy. denies H/o hepatocellular carcinoma. denies family h/o liver disease. denies IVDU or LEXIS. She used to smoke cocaine 25 yrs ago. Alcohol intake : Denies h/o heavy alcohol. She does not drink alcohol. She said she had hepatitis when she was 14 yrs . She doesnot recall which one is. Social History Tobacco Use Smoking status: Never Passive exposure: Never Smokeless tobacco: Never Vaping Use Vaping status: Never Used Substance Use Topics Alcohol use: Not Currently Comment: Alcoholic Drinks/day: Never Drank Alcohol Drug use: Not Currently Comment: Drug use: Drug Use Reviewed The following portions of the chart were reviewed this encounter and updated as appropriate and is Non contributory : Tobacco Allergies Meds Problems Med Hx Surg Hx Fam Hx Patient Active Problem List Diagnosis Human immunodeficiency virus (CMS/HCC) Left leg pain Hypertension Health care maintenance Immunization due Tremor Bowel and bladder incontinence Obesity (BMI 35.0-39.9 without comorbidity) Severe obesity (BMI 35.0-39.9) with comorbidity (CMS/HCC) Hypertriglyceridemia Intertrigo After-cataract with vision obscured Back pain Bilateral myopia Bilateral presbyopia Chronic pain Degeneration of intervertebral disc of lumbar region Diabetes mellitus (CMS/HCC) Diabetes mellitus type 2 without retinopathy (CMS/HCC) Dysthymic disorder Gastro-esophageal reflux disease without esophagitis Liver hemangioma Lumbago with sciatica Mild vitamin D deficiency Neurogenic pain, leg Nuclear sclerosis Nuclear sclerotic cataract Other chronic pancreatitis (CMS/HCC) Pancreatic cyst Portal hypertension (CMS/HCC) Vitreous floaters of both eyes Bronchitis Callus of foot CAP (community acquired pneumonia) Cellulitis Asthma COVID-19 Dyspnea Chronic respiratory failure with hypoxia Left ankle instability Iron metabolism disorder Injury of thoracic spine (CMS/HCC) Impingement of left shoulder Headache Hallux varus (acquired), right foot Exudative pharyngitis Migraine Moderate persistent asthma Metatarsalgia, right foot Lumbar radiculopathy Restless leg syndrome Recurrent acute suppurative otitis media of both ears Osteochondral lesion of talar dome Osteoarthritis of left ankle and foot Onychodystrophy Type 2 diabetes mellitus with diabetic polyneuropathy, without long-term current use of insulin (CMS/HCC) Total perforation of left tympanic membrane Xerosis of skin Urticaria Vomiting Yeast dermatitis Past Medical History: Diagnosis Date Allergic Anxiety Arthritis Asthma Cancer (CMS/HCC) Candidiasis of skin and nail Yeast dermatitis Constipation, unspecified Constipation Conversions - Other Cervical Cancer Conversions - Other Gastritis Due To H. Pylori Conversions - Other Hepatitis Conversions - Other Hiv Infection Conversions - Other Intervertebral disc degeneration Conversions - Other Skull Fracture Conversions - Other Spleen Enlargement Corns and callosities Corns and callosities Cyst of pancreas Pancreatic cyst Dental disease 1999 Depression Displaced bicondylar fracture of unspecified tibia, initial encounter for closed fracture Fracture of tibial plateau Displaced bicondylar fracture of unspecified tibia, initial encounter for closed fracture Tibial plateau fracture Dizziness and giddiness Dizziness and giddiness Dorsalgia, unspecified Back pain Dry eyes Gastritis, unspecified, without bleeding Helicobacter pylori gastritis Gastro-esophageal reflux disease without esophagitis Gastro-esophageal reflux disease without esophagitis Hemangioma of intra-abdominal structures Liver hemangioma History of transfusion Human immunodeficiency virus (HIV) disease (CMS/HCC) Human immunodeficiency virus (HIV) disease Hyperlipidemia, unspecified Hyperlipidemia Hypertension Infectious viral hepatitis Jaw pain 2001 Migraine Neuralgia and neuritis, unspecified Neurogenic pain, leg Other chronic pain Chronic pain Other chronic pancreatitis (CMS/HCC) Other chronic pancreatitis Other congenital malformations of pancreas and pancreatic duct Abnormality of pancreatic duct Other disorders of bilirubin metabolism Hyperbilirubinemia Other fatigue Other fatigue Other intervertebral disc degeneration, lumbar region DDD (degenerative disc disease), lumbar Pain in left leg Left leg pain Personal history of diseases of the skin and subcutaneous tissue History of dermatitis Personal history of other diseases of the digestive system History of acute pancreatitis Personal history of other diseases of the digestive system History of dysphagia Personal history of other diseases of the nervous system and sense organs History of acute otitis media Personal history of other infectious and parasitic diseases History of tinea cruris Personal history of other specified conditions History of abdominal pain Personal history of other specified conditions History of insomnia Personal history of other specified conditions History of nausea and vomiting Personal history of urinary (tract) infections History of urinary tract infection Portal hypertension (CMS/HCC) Portal hypertension Pure hyperglyceridemia Hypertriglyceridemia Tinea corporis Type 2 diabetes mellitus without complications Diabetes mellitus Vitamin D deficiency, unspecified Mild vitamin D deficiency Past Surgical History: Procedure Laterality Date BACK SURGERY N/A Back Surgery from [facility] BACK SURGERY N/A Back surgery from [facility] CARPAL TUNNEL RELEASE N/A Neuroplasty Decompression Median Nerve At Carpal Tunnel from [facility] CATARACT EXTRACTION W/ INTRAOCULAR LENS IMPLANT N/A Cataract Phacoemulsification With Intraocular Lens Implantation from [facility] SECTION, CLASSIC SECTION, LOW TRANSVERSE N/A Section from [facility] CHOLECYSTECTOMY N/A Cholecystectomy Laparoscopic from [facility] FRACTURE SURGERY HYSTERECTOMY N/A Hysterectomy from [facility] NASAL POLYP SURGERY N/A Nasal Endoscopy Polypectomy from [facility] ORIF TIBIAL PLATEU FRACTURE N/A Open Treatment Of Fracture Of The Tibial Plateau from [facility] OTHER SURGICAL HISTORY N/A Total Splenectomy from [facility] PROSTHODONTIC PROCEDURE 1999 SHOULDER SURGERY N/A Shoulder Surgery from [facility] SINUS SURGERY SPLENECTOMY SUBMANDIBULAR GLAND EXCISION W/ PAROTID DUCT LIGATION N/A Thyroid Surgery Sub-Total Thyroidectomy from [facility] TYMPANOPLASTY 10/05/2023 Family History Problem Relation Name Age of Onset Heart failure Mother Staci pan Diabetes Mother Staci pan Asthma Mother Staci pan Cancer Mother Staci pan Depression Mother Staci pan Heart failure Father Arthritis Father's Sister Aunt Katy Reviewed and Non contributory. Allergies Allergen Reactions Vancomycin Other - please document in the comment field Codeine Hives Diphenhydramine Itching and Unknown - Patient states they do not know rxn details Morphine Itching and Unknown - Patient states they do not know rxn details Patient states that morphine also made her shake Aspirin Other - please document in the comment field and Unknown - Patient states they do not know rxn details severe abd pain Azithromycin Unknown - Patient states they do not know rxn details renal damage? Ibuprofen Other - please document in the comment field severe abd pain and abd pain Latex Rash Levofloxacin Other - please document in the comment field and Unknown - Patient states they do not know rxn details Penicillin V Unknown - Patient states they do not know rxn details pt doesn't remember Seafood Unknown - Patient states they do not know rxn details Sulfamethoxazole Rash Sulfamethoxazole-Trimethoprim Rash Trimethoprim Other - please document in the comment field Current Outpatient Medications: Advair Diskus 500-50 MCG/ACT diskus inhaler, , Disp: , Rfl: albuterol 108 (90 Base) MCG/ACT inhaler, , Disp: , Rfl: alendronate (Fosamax) 70 MG tablet, Take 1 tablet (70 mg total) by mouth every 7 (seven) days. Takein the morning with a full glass of water, on an empty stomach, and do not take anything else by mouth or lie down for the next 30 min., Disp: 4 tablet, Rfl: 11 amLODIPine (Norvasc) 5 MG tablet, , Disp: , Rfl: benzonatate (Tessalon) 200 MG capsule, , Disp: , Rfl: Ebckqlvxqgr-Ftlugwstoe-Zujmfev (Biktarvy) 50-200-25 MG tablet tablet, Take 1 tablet by mouth daily., Disp: 30 tablet, Rfl: 5 budesonide-formoterol (Symbicort) 80-4.5 MCG/ACT inhaler, , Disp: , Rfl: calamine (Anti Monkey Butt) powder powder, APPLY TO AFFECTED AREA(S) DIRECTED, Disp: 227 g, Rfl:1 cholecalciferol (Vitamin D3) 500 Unit split tablet, .COMPLEX, Disp: , Rfl: cimetidine (Tagamet) 300 MG tablet, Take 1 tablet (300 mg) by mouth 1 (one) time each day in the evening., Disp: 90 tablet, Rfl: 3 clobetasol (Temovate) 0.05 % cream, , Disp: , Rfl: diclofenac (Voltaren) 1 % topical gel, , Disp: , Rfl: fluticasone (Flonase) 50 MCG/ACT nasal spray, 1 spray., Disp: , Rfl: FREESTYLE LITE test strip, , Disp: , Rfl: hydroCHLOROthiazide (Microzide) 12.5 MG capsule, , Disp: , Rfl: Incontinence Supply Disposable (Depend Adjustable Underwear Lg) misc, 1 Product 5 (five) times a day as needed (when soiled)., Disp: 100 each, Rfl: 25 Incontinence Supply Disposable (Incontinence Brief Large) misc, Please dispense 1 box of briefs, Disp: 6 each, Rfl: 25 Incontinence Supply Disposable misc, Maximilian pads for incontinence., Disp: 50 each, Rfl: 15 ipratropium-albuterol (Duo-Neb) 0.5-2.5 mg/3 mL nebulizer solution, 3 mL., Disp: , Rfl: ketoconazole (NIZOral) 2 % cream, APPLY TO AFFECTED AREA(S) TWO TIMES A DAY FOR 5 DAYS, Disp: 15 g,Rfl: 0 meclizine (Antivert) 25 MG tablet, , Disp: , Rfl: meloxicam (Mobic) 7.5 MG tablet, , Disp: , Rfl: metFORMIN (Glucophage) 500 MG tablet, , Disp: , Rfl: methocarbamol (Robaxin) 500 MG tablet, , Disp: , Rfl: Methylcellulose, Laxative, (Citrucel) 500 MG tablet, Take 1 tablet by mouth daily., Disp: 100 tablet, Rfl: 1 Misc. Devices misc, Inogen one G3, Disp: 1 each, Rfl: 0 montelukast (Singulair) 10 MG tablet, , Disp: , Rfl: mupirocin (Bactroban) 2 % ointment, , Disp: , Rfl: naloxegol oxalate (Movantik) 25 MG tablet, Take 25 mg by mouth every morning., Disp: 30 tablet, Rfl: 5 nystatin (Mycostatin) 203725 UNIT/GM powder, APPLY TWO TIMES A DAY, Disp: 60 g, Rfl: 3 ofloxacin (Floxin) 0.3 % otic solution, 10 drops., Disp: , Rfl: ondansetron ODT (Zofran-ODT) 4 MG disintegrating tablet, Take 1 tablet (4 mg) by mouth every 8 (eight) hours if needed for nausea or vomiting., Disp: 20 tablet, Rfl: 3 oxyCODONE-acetaminophen (Percocet) 10-325 MG tablet, , Disp: , Rfl: pancrelipase, Jpj-Guuy-Vqdr, (Zenpep) [id number] units capsule delayed-release particles capsule,Take 2 capsules by mouth 3 times a day with meals., Disp: 200 capsule, Rfl: 5 pantoprazole (Protonix) 40 MG EC tablet, Take 1 tablet (40 mg) by mouth 1 (one) time each day before breakfast. DO NOT CRUSH CHEW OR SPLIT, Disp: 90 tablet, Rfl: 3 Powders (AMB Anti Friction Body) powder, APPLY TO AFFECTED AREA(S) DIRECTED, Disp: 227 g, Rfl: 0 pravastatin (Pravachol) 40 MG tablet, , Disp: , Rfl: propranolol (Inderal) 10 MG tablet, TAKE 1 1/2 TABLETS BY MOUTH THREE TIMES A DAY, Disp: 90 tablet,Rfl: 5 rizatriptan OIL AND GAS SPECIALIST (Maxalt-OIL AND GAS SPECIALIST) 5 MG disintegrating tablet, , Disp: , Rfl: sertraline (Zoloft) 100 MG tablet, , Disp: , Rfl: Tiotropium [place] Monohydrate (Spiriva Respimat) 2.5 MCG/ACT inhaler, 1 (one) time each day., Disp: , Rfl: tiZANidine (Zanaflex) 4 MG tablet, , Disp: , Rfl: tobramycin-dexamethasone (Tobradex) ophthalmic suspension, , Disp: , Rfl: urea (Carmol) 40 % cream, , Disp: , Rfl: Blood Pressure Monitoring (Blood Pressure Cuff) misc, 1 each 1 (one) time each day. (Patient not taking: Reported on 10/12/2024), Disp: 1 each, Rfl: 0 ergocalciferol 1.25 MG (79005 UT) capsule, , Disp: , Rfl: Vraylar 1.5 MG capsule, , Disp: , Rfl: Review of Systems Constitutional: Negative for chills, fatigue and fever. Respiratory: Negative for shortness of breath. Cardiovascular: Negative for chest pain and leg swelling. Gastrointestinal: Negative for abdominal distention, abdominal pain, constipation, diarrhea, nauseaand vomiting. Genitourinary: Negative for dysuria, frequency and hematuria. Musculoskeletal: Positive for arthralgias and myalgias. Negative for back pain. Skin: Negative for pallor and rash. Neurological: Negative for dizziness, light-headedness and headaches. Hematological: Does not bruise/bleed easily. Psychiatric/Behavioral: Negative for agitation and confusion. All other systems reviewed and are negative. All other Symptoms negative except per HPI. Objective Visit Vitals BP (!) 151/73 Pulse 65 Temp 36.4 ??C (97.5 ??F) (Oral) Ht 1.524 m (5') Wt 87.8 kg (193 lb 9 oz) SpO2 92% BMI 37.80 kg/m?? Physical Exam Vitals reviewed. Constitutional: Appearance: Normal appearance. HENT: Head: Normocephalic. Nose: No congestion. Eyes: General: No scleral icterus. Conjunctiva/sclera: Conjunctivae normal. Cardiovascular: Rate and Rhythm: Normal rate and regular rhythm. Heart sounds: Normal heart sounds. Pulmonary: Effort: Pulmonary effort is normal. Breath sounds: Normal breath sounds. Abdominal: General: Abdomen is flat. Bowel sounds are normal. Palpations: Abdomen is soft. Musculoskeletal: General: No signs of injury. Right lower leg: No edema. Left lower leg: No edema. Skin: General: Skin is warm. Neurological: Mental Status: She is alert and oriented to person, place, and time. Psychiatric: Mood and Affect: Mood normal. Behavior: Behavior normal. Labs : Reviewed: lab results, imaging Lab Results Component Value Date ALT 19 10/12/2024 AST 22 10/12/2024 ALKPHOS 78 10/12/2024 BILITOT 0.4 10/12/2024 Lab Results Component Value Date GLUCOSE 112 (H) 10/12/2024 CALCIUM 9.4 10/12/2024 NA 141 10/12/2024 K 3.6 10/12/2024 CO2 24 10/12/2024 CL 106 10/12/2024 BUN 20 10/12/2024 CREATININE 0.48 (L) 10/12/2024 Albumin, Plasma Date Value Ref Range Status 10/12/2024 4.5 3.5 - 5.2 g/dL Final Lab Results Component Value Date WBC 12.06 (H) 10/12/2024 HGB 14.5 10/12/2024 HCT 42.9 10/12/2024 MCV 97 10/12/2024 PLT 372 (H) 10/12/2024 Lab Results Component Value Date INR 1.0 10/12/2024 Lab Results Component Value Date FLORENCE <1:80 09/16/2023 IGA 366 09/16/2023 IGM 63 09/16/2023 IGG 1,035 09/16/2023 Smooth Muscle Ab, IgG Titer Date Value Ref Range Status 09/16/2023 <1:20 <1:20 Final ALPHA 1 ANTITRYPSIN Date Value Ref Range Status 09/16/2023 134 90 - 200 mg/dL Final Lab Results Component Value Date TSH 2.97 10/08/2022 Lab Results Component Value Date HGBA1C 5.7 (H) 10/08/2022 Ferritin, Serum Date Value Ref Range Status 09/16/2023 367 (H) 13 - 150 ng/mL Final Transferrin Saturation Date Value Ref Range Status 09/16/2023 28 14 - 50 % Final Hepatitis A Antibody IgG Date Value Ref Range Status 09/16/2023 Positive (A) Negative Final Hepatitis B Surf Antigen Date Value Ref Range Status 06/16/2023 Negative Negative Final Hepatitis B Surface Antibody Date Value Ref Range Status 03/30/2020 Final 65.99 POSITIVE Antibodies to HBsAg are present at a level greater than or equal to 12 International Units/L. This usually indicates protection against infection. Hepatitis B Core Antibody IgM Date Value Ref Range Status 06/16/2023 Negative Negative Final Hepatitis C Antibody Date Value Ref Range Status 06/16/2023 Negative Negative Final No results found for: HIV Lab Results Component Value Date AFP <2.3 10/12/2024 === 10/12/24 === US LIVER SCREEN - Narrative - CLINICAL INDICATION: hcc screening TECHNIQUE: Multiplanar static and cine lloyd scale ultrasound images of the abdomen were [...] splenectomy. Free Fluid: There is no ascites - Impression - Coarsening of the liver echotexture and increased [...] are based on Ultrasound LI-RADS version 2017. [email or web address] CRITICAL RESULT: No. COMMUNICATION: Per this written report. Drafted by Kelle Karimi MD on 10/12/2024 11:50 AM Final report signed by Kelle Karimi MD on 10/12/2024 11:54 AM Assessment/Plan Светлана was seen today for cirrhosis of liver without ascites, unspecified hepatic cir. Diagnoses and all orders for this visit: Hepatic fibrosis (Primary) - Comprehensive Metabolic Panel, Plasma; Future - CBC W/O Differential; Future - Prothrombin Time/INR; Future - Alpha Fetoprotein, Serum; Future - Follow Up GI; Future Portal vein thrombosis - Comprehensive Metabolic Panel, Plasma; Future - CBC W/O Differential; Future - Prothrombin Time/INR; Future - Alpha Fetoprotein, Serum; Future - Follow Up GI; Future Hepatic steatosis MELD 3.0: 7 at 10/12/2024 12:01 PM MELD-Na: 6 at 10/12/2024 12:01 PM Calculated from: Serum Creatinine: 0.48 mg/dL (Using min of 1 mg/dL) at 10/12/2024 12:01 PM Serum Sodium: 141 mmol/L (Using max of 137 mmol/L) at 10/12/2024 12:01 PM Total Bilirubin: 0.4 mg/dL (Using min of 1 mg/dL) at 10/12/2024 12:01 PM Serum Albumin: 4.5 g/dL (Using max of 3.5 g/dL) at 10/12/2024 12:01 PM INR(ratio): 1 at 10/12/2024 12:01 PM Age at listing (hypothetical): 64 years Sex: Female at 10/12/2024 12:01 PM # ? Cirrhosis of Liver, etiology likely MASLD. Diagnosed per recent CT abdomen. Her platelets is normal however reported splenectomy for splenomegaly . Her FIB 4 is 0.83. -She has chronic portal vein thrombosis which could be sequela of cirrhosis or chronic pancreatitis. Liver Elastography 03/30/2024 : reviewed diffuse steatosis, 2-D shear-wave elastography demonstrated a median shear-wave velocity of 1.5 m/sec which in the absence of other known clinical signs rules out compensated advanced . Fibroscan performed 09/2024 showed LS 5.3 Kpa and CAP 271. Previously Unable to get MR Liver Elastography as she has back stimulator. Today she mentioned she has new spinal cord stimulation implant which is MR compatible. She said she has to get code and canturn off before MRI. She said she need MRI shoulder as having lot of shoulder pain. I advised we will consider MR Liver Elastography after she completes work up for her shoulde Acute hepatitis panel negative . Reports she had hepatitis when she was 14 yrs old. Hep C AB negative, previous hep B core AB was negative and immune to hepatitis B. Hep A AB +. CLD : FLORENCE <1:80, ASMA <1:20, ferritin 367, TSX 28. Liver enzymes remains normal. # Portal vein thrombosis : chronic with collateral. Asymptomatic. Continue to monitor. # [facility] assessment / Surveillance for esophageal varices. She is Propranolol 15 TID for tremor. BP 122/73, HR 65 on target. Since HR on target. Will continueto monitor. She has normal platelets ( s/p splenectomy) and LS is 5.3 Kpa. Advise to go to ED for any hematemesis and melena # Hepatocellular carcinoma Surveillance -Abdominal ultrasound + AFP every 6 months. US liver screen 09/2024 : reviewed no focal liver lesion, no ascites. -AFP <2.3 09/2024 # Nutrition -High protein diet 1.2-1.5 g/kg/day. Salt Restriction to 2 gm/Day Avoid NSAID.Avoid Alcohol.Limit tylenol 2 gm per day if needed. #Health Maintenance : hep A Antibody IgG + , Hepatitis B surface AB positive Immunization history : reviewed Immunization History Administered Date(s) Administered DTaP, Unspecified 12/23/2007 Hep A / Hep B 01/27/2008, 03/09/2008, 06/01/2008 Hep A, Adult 12/22/2017 Hep A, Unspecified 01/27/2008 Hep B, Unspecified 04/29/2010, 02/20/2011, 07/02/2011 Hep B, adult 12/27/2010 HiB, unspecified 12/14/2007 Influenza, Unspecified 11/17/2008, 12/24/2009, 12/27/2010 Influenza, injectable, quadrivalent 11/03/2016, 11/02/2017 Influenza, injectable, quadrivalent, preservative free 11/25/2013, 11/07/2014, 11/02/2017, 12/29/2018, 12/26/2019, 11/22/2020 Influenza, recombinant, quadrivalent, injectable, preservative free 12/31/2022 Influenza, seasonal, injectable 11/29/2012, 10/05/2013, 11/25/2013 Influenza, seasonal, injectable, preservative free 12/19/2011, 10/05/2013 Lynette COVID-19 Vaccine (Blue Cap) 18+ 05/21/2020, 05/29/2020, 12/26/2020 Meningococcal MCV4O 04/17/2022 Meningococcal MCV4P 12/14/2007, 02/24/2017 Moderna COVID-19 Vaccine (Oil Expert) 12+ years 09/11/2021 Novel [id number], all formulations 02/09/2009 PPD Skin Test (TB Skin Test) 04/29/2010 HelloWallet-Pumpic COVID-19 Bivalent (Lloyd Cap) 12+ years (billie-sucrose) 12/18/2021 Pneumococcal 20-enoc Conj Vaccine 04/17/2022 Pneumococcal Conjugate PCV 13 04/29/2010, 01/31/2013, 11/03/2016 Pneumococcal Conjugate PCV 7 12/14/2007, 01/31/2013 Pneumococcal Polysaccharide PPV23 11/25/2013, 11/22/2020 Pneumococcal, Unspecified 12/27/2010 Tdap 04/18/2021 Zoster, Recombinant 04/11/2019, 10/10/2019 The patient has been counseled on the following diagnostic results, prognosis, risk factor reductions, and impressions Education Provided: Verbal Counseling F/u 6 months and determine on MR Liver Elastography Darlene Muñoz APRN documented in this encounter Plan of Treatment Upcoming Encounters Date Type Department Care Team (Late st Contact Info) Description 03/29/2025 12:40 PM EST Office Visit [facility] [address] [place] [address] Ulises Dhillon, OMA [address] [place] [address] 04/14/2025 10:10 AM EST Office Visit [facility] [address] [place] [address] Arely Galvan APRN [address] [place] [address] 04/20/2025 8:00 AM EST Office Visit [facility] [address] [facility] [address] [place] [address] 04/26/2025 11:00 AM EST Office Visit [facility] [address], [address] [place] [address] Aracelis Patterson MD [address] [facility] [address] [place] [address] 11/01/2025 8:45 AM EDT Office Visit [facility] [address] [facility] [place] [address] Hiram Gutierrez MD [address] [place] [address] Scheduled Referrals Name Type Priority Associated Diagnoses Orde r Schedule Follow Up GI Outpatient Referral Routine Hepatic fibrosis Portal vein thrombosis Expected: 04/14/2025 (Approximate), Expires: 11/12/2025 documented as of this encounter Goals Goal [...] Jimenez LCSW documented as of this encounter Results * Alpha Fetoprotein, Serum (10/12/2024 12:01 PM EDT) Alpha Fetoprotein, Serum <2.3 <10.0 ng/mL 10/12/2024 2:44 PM EDT [facility] Blood Venous blood specimen / Unknown Venipuncture / Unknown 10/12/2024 12:01 PM EDT 10/12/2024 12:01 PM EDT Narrative [facility] - 10/12/2024 2:44 PM EDT Performed by Rocky electrochemiluminescent immunoassay which is traceable to the 1st AFP IRP WHO Reference standard 72/255. Results obtained with different test methods or kits cannot be used interchangeably. Darlene Muñoz APRN LAB BLOOD ORDERABLES Final Result [facility] [address] [place] [address] * Prothrombin Time/INR (10/12/2024 12:01 PM EDT) Prothrombin Time 13.4 12.0 - 14.3 sec LAB COAGULATION METHOD 10/12/2024 1:50 PM EDT [facility] INR 1.0 0.9 - 1.1 LAB COAGULATION METHOD 10/12/2024 1:50 PM EDT [facility] Blood Venous blood specimen / Unknown Venipuncture / Unknown 10/12/2024 12:01 PM EDT 10/12/2024 12:01 PM EDT Narrative [facility] - 10/12/2024 1:50 PM EDT OPTIMAL INR RANGES FOR PATIENT ON ORAL ANTICOAGULANT THERAPY Prevention of venous thromboembolism INR 2.0 to 3.0 In patients with heart disease: Atrial fibrillation INR 2.0 to 3.0 Valvular heart disease INR 2.0 to 3.0 Tissue heart valves INR 2.0 to 3.0 Mechanical prosthetic valves INR 2.5 to 3.5 Prevention of recurrent KS INR 2.5 to 3.5 Darlene Sue Muñoz BOAT HOIST OPERATOR LAB BLOOD ORDERABLES Final Result [facility] [address] [place] [address] * (ABNORMAL) CBC W/O Differential (10/12/2024 12:01 PM EDT) WBC Count 12.06(H) 3.70 - 10.30 10*3/uL LAB HEMATOLOGY METHOD 10/12/2024 2:26 PM EDT [facility] RBC Count 4.44 3.90 - 5.20 10*6/uL LAB HEMATOLOGY METHOD 10/12/2024 2:26 PM EDT [facility] HGB 14.5 11.2 - 15.7 g/dL LAB HEMATOLOGY METHOD 10/12/2024 2:26 PM EDT [facility] HCT 42.9 34.0 - 45.0 % LAB HEMATOLOGY METHOD 10/12/2024 2:26 PM EDT [facility] Platelet Count 372(H) 155 - 369 10*3/uL LAB HEMATOLOGY METHOD 10/12/2024 2:26 PM EDT [facility] MCV 97 79 - 98 fL LAB HEMATOLOGY METHOD 10/12/2024 2:26 PM EDT [facility] MCH 32.7(H) 26.0 - 32.0 pg LAB HEMATOLOGY METHOD 10/12/2024 2:26 PM EDT [facility] MCHC 33.8 30.7 - 35.5 g/dL LAB HEMATOLOGY METHOD 10/12/2024 2:26 PM EDT [facility] RDW 13.3 11.5 - 14.5 % LAB HEMATOLOGY METHOD 10/12/2024 2:26 PM EDT [facility] MPV 10.9 8.8 - 12.5 fL LAB HEMATOLOGY METHOD 10/12/2024 2:26 PM EDT [facility] nRBC 0.0 <=0.0 per 100 WBCs LAB HEMATOLOGY METHOD 10/12/2024 2:26 PM EDT [facility] Blood Venous blood specimen / Unknown Venipuncture / Unknown 10/12/2024 12:01 PM EDT 10/12/2024 12:01 PM EDT us Darlene Muñoz APRN LAB BLOOD ORDERABLES Final Result [facility] [address] [place] [address] * (ABNORMAL) Comprehensive Metabolic Panel, Plasma (10/12/2024 12:01 PM EDT) Glucose, Plasma 112(H) 74 - 99 mg/dL 10/12/2024 2:52 PM EDT [facility] BUN, Plasma 20 8 - 23 mg/dL 10/12/2024 2:52 PM EDT [facility] Creatinine, Plasma 0.48(L) 0.60 - 1.10 mg/dL 10/12/2024 2:52 PM EDT [facility] BUN/Creatinine Ratio 42 10/12/2024 2:52 PM EDT [facility] Sodium, Plasma 141 136 - 145 mmol/L 10/12/2024 2:52 PM EDT [facility] Potassium, Plasma 3.6 3.6 - 4.9 mmol/L 10/12/2024 2:52 PM EDT [facility] Chloride, Plasma 106 97 - 107 mmol/L 10/12/2024 2:52 PM EDT [facility] CO2, Plasma 24 22 - 29 mmol/L 10/12/2024 2:52 PM EDT [facility] Anion Gap 11 6 - 16 mmol/L 10/12/2024 2:52 PM EDT [facility] Total Calcium, Plasma 9.4 8.9 - 10.2 mg/dL 10/12/2024 2:52 PM EDT [facility] Total Protein 7.9 6.3 - 7.9 g/dL 10/12/2024 2:52 PM EDT [facility] Albumin, Plasma 4.5 3.5 - 5.2 g/dL 10/12/2024 2:52 PM EDT [facility] AST, Plasma 22 10 - 35 U/L 10/12/2024 2:52 PM EDT [facility] ALT, Plasma 19 10 - 35 U/L 10/12/2024 2:52 PM EDT [facility] Alkaline Phosphatase, Plasma 78 46 - 142 U/L 10/12/2024 2:52 PM EDT [facility] Total Bilirubin, Plasma 0.4 0.2 - 1.1 mg/dL 10/12/2024 2:52 PM EDT [facility] eGFRcr 106.6 mL/min/1.7 3m*2 10/12/2024 2:52 PM EDT [facility] Comment:Reported eGFRcr in m L/min/1.73m2 is based the CKD-EPI 2020 equation that does not use a race coefficient. Blood Venous blood specimen / Unknown Venipuncture / Unknown 10/12/2024 12:01 PM EDT 10/12/2024 12:01 PM EDT us Darlene Muñoz BOAT HOIST OPERATOR LAB BLOOD ORDERABLES Final Result [facility] [address] [place] [address] documented in this encounter Visit Diagnoses Diagnosis Hepatic fibrosis- Primary Cirrhosis of liver without mention of alcohol Portal vein thrombosis Hepatic steatosis Other chronic nonalcoholic liver disease documented in this encounter Additional Health [...] documented as of this encounter Care Teams Overhead Cleaner Maintainer Relationship Specialty Start Date End Date Hiram Serna DO [address] [place] [id number] PCP - General 03/30/24 Aracelis Patterson MD [address] [phone] Consulting Physician Infectious Diseases 09/16/22 Barbara Redding Administrative Judge Motel Manager 07/20/24 documented as of this encounter
--- OUTSIDE RECORDS SUMMARY | 2024-10-17 08:00 | XMS_ITS | Encounter Summary ---
Author Organization [facility] Address [address] [place] [address] Care Team Providers Care Hide Spreader Name Role Phone Aracelis Patterson MD Unavailable [phone] Hiram Serna DO Primary Care Provider [phone] Barbara Redding Unavailable Unavailable Encounter Details Date Type Department Care Team (Late st Contact Info) Description 10/17/2024 8:00 AM EDT Office Visit [facility] [address] [facility] [address] [place] [address] Scarlett Skaggs, DMD [address] [phone] Complete loss of teeth (Primary Dx) Social History Tobacco Use Types Packs/Day Years [...] Sign Reading Time Taken Comments Blood Pressure 136/77 10/17/2024 7:55 AM EDT Pulse 49 10/17/2024 7:55 AM EDT Temperature - - Respiratory Rate - - Oxygen Saturation - - Inhaled Oxygen Concentration - - Weight - - Height - - Body Mass Index - - documented in this encounter Miscellaneous Notes * Progress Notes - Ellen Biswas - 10/17/2024 8:00 AM EDT (S): Subjective Data: Светлана Rivera presents for maxillary complete denture and mandibular complete denture follow up . Jacquard Twine Polisher Operator: Ellen (O): Objective Data: Reviewed medical history Significant for HIV Past Medical History[1] Medications Ordered Prior to Encounter[2] Allergies[3] Visit Vitals BP 136/77 Pulse (!) 49 Smoking Status Never ANC: 4.36 10/14/23 CD4: 1613 10/14/23 VL: <40 04/20/24 (A): Assessment: 1. Complete loss of teeth Pt presents for pros eval with sore spots. Anabaptist of dentition needed to aid and enhance compliance with HIV treatment. (P): Procedure: Dental procedures in this visit LIMITED ORAL EVALUATION - PROBLEM FOCUSED (Completed) Service provider: Scarlett Skaggs DMD Billing provider: Scarlett Skaggs DMD TISSUE CONDITIONING, MAXILLARY (Completed) Service provider: Scarlett Skaggs DMD Billing provider: Scarlett Skaggs DMD TISSUE CONDITIONING, MANDIBULAR (Completed) Service provider: Scarlett Skaggs DMD Billing provider: Scarlett Skaggs DMD Pt states she is having severe pain when not wearing denture. Explained to pt the soreness is likely from her nerve after bone loss over the years. Palpation of JOSE causes pt discomfort. Tissues appear healthy and normal. Pt would like to try a coesoft liner for a cushion to try and help with pain.Dentures cleaned in ultra sonic. Coesoft placed on max and en denture. Pt happy with results. Denture supplies given. Pt left pleased, will call if any other issues occur. (D): Disposition: Patient left pleased. RTC: tissue conditioning for maxillary complete denture andmandibular complete denture asneeded. [1] Past Medical History: Diagnosis Date Allergic Anxiety [...] D deficiency, unspecified Mild vitamin D deficiency [2] Current Outpatient Medications on File Prior to Visit Medication Sig Dispense Refill Advair Diskus 500-50 MCG/ACT diskus inhaler albuterol 108 (90 Base) MCG/ACT inhaler alendronate (Fosamax) 70 MG tablet Take 1 tablet (70 mg total) by mouth every 7 (seven) days. Take in the morning with a full glass of water, on an empty stomach, and do not take anything else by mouth or lie down for the next 30 min. 4 tablet 11 amLODIPine (Norvasc) 5 MG tablet benzonatate (Tessalon) 200 MG capsule Zwvhnirmiht-Xkklormlgr-Nkgswub (Biktarvy) 50-200-25 MG tablet tablet Take 1 tablet by mouth daily. 30 tablet 5 Blood Pressure Monitoring (Blood Pressure Cuff) [facility] [place] [place] 1 each 1 (one) time each day. (Patient not taking: Reported on 10/12/2024) 1 each 0 budesonide-formoterol (Symbicort) 80-4.5 MCG/ACT inhaler calamine (Anti Monkey Butt) powder powder APPLY TO AFFECTED AREA(S) DIRECTED 227 g 1 cholecalciferol (Vitamin D3) 500 Unit split tablet .COMPLEX cimetidine (Tagamet) 300 MG tablet Take 1 tablet (300 mg) by mouth 1 (one) time each day in the evening. 90 tablet 3 clobetasol (Temovate) 0.05 % cream diclofenac (Voltaren) 1 % topical gel ergocalciferol 1.25 MG (09386 UT) capsule (Patient not taking: Reported on 10/12/2024) fluticasone (Flonase) 50 MCG/ACT nasal spray 1 spray. FREESTYLE LITE test strip hydroCHLOROthiazide (Microzide) 12.5 MG capsule Incontinence Supply Disposable (Depend Adjustable Underwear Lg) [facility] [place] [place] 1 Product 5 (five) times a dayas needed (when soiled). 100 each 25 Incontinence Supply Disposable (Incontinence Brief Large) [facility] [place] [place] Please dispense 1 box of briefs 6 each 25 Incontinence Supply Disposable [facility] [place] [place] Maximilian pads for incontinence. 50 each 15 ipratropium-albuterol (Duo-Neb) 0.5-2.5 mg/3 mL nebulizer solution 3 mL. ketoconazole (NIZOral) 2 % cream APPLY TO AFFECTED AREA(S) TWO TIMES A DAY FOR 5 DAYS 15 g 0 meclizine (Antivert) 25 MG tablet meloxicam (Mobic) 7.5 MG tablet metFORMIN (Glucophage) 500 MG tablet methocarbamol (Robaxin) 500 MG tablet Methylcellulose, Laxative, (Citrucel) 500 MG tablet Take 1 tablet by mouth daily. 100 tablet 1 Misc. Devices misc Inogen one G3 1 each 0 montelukast (Singulair) 10 MG tablet mupirocin (Bactroban) 2 % ointment naloxegol oxalate (Movantik) 25 MG tablet Take 25 mg by mouth every morning. 30 tablet 5 nystatin (Mycostatin) 368269 UNIT/GM powder APPLY TWO TIMES A DAY 60 g 3 ofloxacin (Floxin) 0.3 % otic solution 10 drops. ondansetron ODT (Zofran-ODT) 4 MG disintegrating tablet Take 1 tablet (4 mg) by mouth every 8 (eight) hours if needed for nausea or vomiting. 20 tablet 3 oxyCODONE-acetaminophen (Percocet) 10-325 MG tablet (Patient taking differently: 3 times a day.) pancrelipase, Pcq-Qlss-Bouq, (Zenpep) 24903-[address] units capsule delayed-release particles capsule Take 2 capsules by mouth 3 times a day with meals. 200 capsule 5 pantoprazole (Protonix) 40 MG EC tablet Take 1 tablet (40 mg) by mouth 1 (one) time each day beforebreakfast. DO NOT CRUSH CHEW OR SPLIT 90 tablet 3 Powders (AMB Anti Friction Body) powder APPLY TO AFFECTED AREA(S) DIRECTED 227 g 0 pravastatin (Pravachol) 40 MG tablet propranolol (Inderal) 10 MG tablet TAKE 1 1/2 TABLETS BY MOUTH THREE TIMES A DAY 90 tablet 5 rizatriptan SENIOR CAREGIVER (Maxalt-SENIOR CAREGIVER) 5 MG disintegrating tablet sertraline (Zoloft) 100 MG tablet Tiotropium Culver Monohydrate (Spiriva Respimat) 2.5 MCG/ACT inhaler 1 (one) time each day. tiZANidine (Zanaflex) 4 MG tablet tobramycin-dexamethasone (Tobradex) ophthalmic suspension urea (Carmol) 40 % cream Vraylar 1.5 MG capsule (Patient not taking: Reported on 10/12/2024) No current facility-administered medications on file prior to visit. [3] Allergies Allergen Reactions Vancomycin Other - please [...] - please document in the comment field Cosigned by Scarlett Skaggs DMD at 10/17/2024 11:02 AM EDT documented in this encounter Plan of Treatment Upcoming Encounters Date Type Department Care Team (Late st Contact Info) Description 03/29/2025 12:40 PM EST Office Visit [facility] Specialties [address] [place] [address] Ulises Dhillon, PA [address] [place] [address] 04/14/2025 10:10 AM EST Office Visit [facility] [address] [place] [address] Arely Galvan, LEXIE [address] [place] [address] 04/20/2025 8:00 AM EST Office Visit [facility] [address] [facility] [address] [place] [address] 04/26/2025 11:00 AM EST Office Visit [facility] [address], [address] [place] [address] Aracelis Patterson MD [address] [facility] [address] [place] [address] 11/01/2025 8:45 AM EDT Office Visit [facility] [address] [place] [address] Hiram Gutierrez MD [address] [place] [address] documented as of this encounter [...] Procedure Name Priority Date/Time Associated Diagnosis Comments TISSUE CONDITIONING, MANDIBULAR Routine 10/17/2024 8:00 AM EDT Complete loss of teeth TISSUE CONDITIONING, MAXILLARY Routine 10/17/2024 8:00 AM EDT Complete loss of teeth LIMITED ORAL EVALUATION - PROBLEM FOCUSED Routine 10/17/2024 8:00 AM EDT Complete loss of teeth En COMPLETE DENTURE Routine 10/17/2024 12:00 AM EDT Max COMPLETE DENTURE Routine 10/17/2024 12:00 AM EDT documented in this encounter Visit Diagnoses Diagnosis Complete loss of teeth- Primary documented in this encounter Additional Health Concerns Active Problems Noted Date Diagnosed Date RW Treatment Adherence 10/30/2021 RW Transportation 10/30/2021 Assessment Noted Time PHQ-9 Depression Total Score: 0 10/13/19 11:04 AM EDT A fall risk assessment has been complete d for the patient 10/12/2024 11:04 AM EDT A Body Mass Index follow-up plan has been documented for the patient 10/17/2024 11:03 AM EDT documented as of this encounter Care Teams Hide Spreader Relationship Specialty Start Date End Date Hiram Serna DO [address] [place] [address] PCP - General 03/30/24 Aracelis Patterson MD [address] [facility] [address] [place] [address] Consulting Physician Infectious Diseases 09/16/22 Barbara Redding Truck Guard Automatic Screwmaker 07/20/24 documented as of this encounter
--- OUTSIDE RECORDS SUMMARY | 2024-10-19 11:00 | XMS_ITS | Encounter Summary ---
Author Organization [facility] Address [address] [place] [address] Care Team Providers Care And Taxi Instructor Bus Trolley Name Role Phone Aracelis Patterson MD Unavailable + [phone] Hiram Serna DO Primary Care Provider [phone] Barbara Redding Unavailable Unavailable Reason for Referral * Consultation (Routine) - Authorized Specialty Diagnoses / Procedures Referred By Contac t Referred To Contact Diagnoses Human immunodeficiency virus Aracelis Patterson MD [address] [place] [address] [address] [place] [address] Phone: tel: fax: Referral ID Status Reason Start Date Expiration Date V isits Requested Visits Authorized [id number] Authorized 10/19/2024 04/20/2026 1 1 Reason for Visit * Reason Comments Follow-up Encounter Details Date Type Department Care Team (Latest Contact Info) Description 10/19/2024 11:00 AM EDT Office Visit [facility] [address] [place] [address] Aracelis Patterson MD [address] [facility] [address] [place] [address] Human immunodeficiency virus ([facility]) (Primary Dx); Intertrigo; Bowel and bladder incontinence Social History Tobacco Use Types Packs/Day Years [...] Sign Reading Time Taken Comments Blood Pressure 154/91 10/19/2024 11:00 AM EDT Pulse 61 10/19/2024 11:00 AM EDT Temperature 36.3 C (97.3 F) 10/19/2024 11:00 AM EDT Respiratory Rate - - Oxygen Saturation 93% 10/19/2024 11: 00 AM EDT Inhaled Oxygen Concentration - - Weight 87.4 kg (192 lb 10.9 oz) 025 11:00 AM EDT Height 152.4 cm (5') 10/19/2024 11:00 AM EDT Body Mass Index 37.63 10/19/2024 11:00 AM EDT documented in this encounter Functional [...] 10/19/2024 10:59 AM EDT Christiano Hitchcock * How difficult have these problems made it for you to do your work, take care of things at home, or get along with other people? Answer Date of Assessment Author Not difficult at all 10/19/2024 10:59 AM EDT Venessa Castillo documented as of this encounter Miscellaneous Notes * Progress Notes - Aracelis Patterson MD - 10/19/2024 11:00 AM EDT ID RW Established Patient Note Encounter Date: 10/19/24 Светлана Rivera is a 64 y.o. female patient who presents with/for Follow-up and has a past medical history of Allergic, Anxiety, Arthritis, Asthma, Cancer (CMS/HCC), Candidiasis of skin and nail, Constipation, unspecified, Conversions - Other, Conversions - Other, Conversions - Other, Conversions - Other, Conversions - Other, Conversions - Other, Conversions - Other, Corns and callosities, Cyst ofpancreas, Dental disease (1999), Depression, Displaced bicondylar fracture of unspecified tibia, initial encounter for closed fracture, Displaced bicondylar fracture of unspecified tibia, initial encounter for closed fracture, Dizziness and giddiness, Dorsalgia, unspecified, Dry eyes, Gastritis, unspecified, without bleeding, Gastro-esophageal reflux disease without esophagitis, Hemangioma of intra-abdominal structures, History of transfusion, Human immunodeficiency virus (HIV) disease (CMS/HCC), Hyperlipidemia, unspecified, Hypertension, Infectious viral hepatitis, Jaw pain (2001), Migraine,Neuralgia and neuritis, unspecified, Other chronic pain, Other chronic pancreatitis (CMS/HCC), Other congenital malformations of pancreas and pancreatic duct, Other disorders of bilirubin metabolism,Other fatigue, Other intervertebral disc degeneration, lumbar region, Pain in left leg, Personal his tory of diseases of the skin and subcutaneous tissue, Personal history of other diseases of the digestive system, Personal history of other diseases of the digestive system, Personal history of otherdiseases of the nervous system and sense organs, Personal history of other infectious and parasiticdiseases, Personal history of other specified conditions, Personal history of other specified conditions, Personal history of other specified conditions, Personal history of urinary (tract) infections, Portal hypertension (CMS/HCC), Pure hyperglyceridemia, Tinea corporis, Type 2 diabetes mellitus without complications, and Vitamin D deficiency, unspecified. HIV: Last visit Mar 2024, continues taking cART Biktrarvy, denies missed doses or apparent SE related to the medication. She denies visits to the ED or procedures done. Labs showed virologic suppression and excellent immune response. Obesity: BMI 37.6, she recently followed with GI for liver disease and chronic pancreatitis. Offered three dimensional art instructor evaluation. 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 No Problem List[1] Past Medical History[2] Surgical History[3] Family History[4] Social History Socioeconomic History Marital status: Spouse name: Not on file Number of children: Not on file Years of education: Not on file Highest education level: Not on file Occupational History Not on file Tobacco Use Smoking status: Never Passive exposure: Never Smokeless tobacco: Never Vaping Use Vaping status: Never Used Substance and Sexual Activity Alcohol use: Not Currently Comment: Alcoholic Drinks/day: Never Drank Alcohol Drug use: Not Currently Comment: Drug use: Drug Use Sexual activity: Not Currently Partners: Male control/protection: None Other Topics Concern Not on file Social History Narrative Not on file Social Drivers of Health Financial Resource Strain: Not on file Food Insecurity: Not on file Transportation Needs: Not on file Physical Activity: Not on file Stress: Not on file Social Connections: Not on file Intimate Partner Violence: Not on file Housing Stability: Not on file Current Medications[5] Vancomycin, Codeine, Diphenhydramine, Morphine, Aspirin, Azithromycin, Ibuprofen, Latex, Levofloxacin, Penicillin v, Seafood, Sulfamethoxazole, Sulfamethoxazole-trimethoprim, and Trimethoprim Immunization History Administered Date(s) Administered DTaP, Unspecified [...] Meningococcal MCV4P 12/14/2007, 02/24/2017 Moderna COVID-19 Vaccine (Insurance Verification Rep) 12+ years 09/11/2021 Novel [id number], all formulations 02/09/2009 PPD Skin Test (TB Skin Test) 04/29/2010 [employer] COVID-19 Bivalent (Lloyd Cap) 12+ years (billie-sucrose) 12/18/2021 Pneumococcal 20-eonc Conj Vaccine 04/17/2022 Pneumococcal Conjugate PCV 13 04/29/2010, 01/31/2013, 11/03/2016 Pneumococcal Conjugate PCV 7 12/14/2007, 01/31/2013 Pneumococcal Polysaccharide PPV23 11/25/2013, 11/22/2020 Pneumococcal, Unspecified 12/27/2010 Tdap 04/18/2021 Zoster, Recombinant 04/11/2019, 10/10/2019 Review of Systems Constitutional: Negative for chills, fatigue, fever and unexpected weight change. HENT: Negative for congestion, rhinorrhea and sore throat. Eyes: Negative for visual disturbance. Respiratory: Negative for cough and shortness of breath. Cardiovascular: Negative for chest pain and leg swelling. Gastrointestinal: Negative for abdominal pain, constipation, diarrhea, nausea and vomiting. Genitourinary: Negative for difficulty urinating and dysuria. Musculoskeletal: Positive for arthralgias (left shoulder pain). Negative for back pain. Skin: Negative for rash (intertrigo resolved, now minimal). Neurological: Negative for dizziness, syncope, weakness and headaches. Visit Vitals BP (!) 154/91 (BP Location: Right arm, Patient Position: Sitting, BP Cuff Size: Adult long) Pulse 61 Temp 36.3 ??C (97.3 ??F) (Temporal) Objective Physical Exam: Physical Exam Constitutional: General: She is not in acute distress. Appearance: Normal appearance. She is not ill-appearing. HENT: Mouth/Throat: Mouth: Mucous membranes are moist. Pharynx: No oropharyngeal exudate or posterior oropharyngeal erythema. Eyes: Pupils: Pupils are equal, round, and reactive to light. Cardiovascular: Rate and Rhythm: Normal rate and regular rhythm. Heart sounds: Normal heart sounds. Pulmonary: Effort: Pulmonary effort is normal. No respiratory distress. Breath sounds: Normal breath sounds. No wheezing or rales. Abdominal: General: There is no distension. Palpations: Abdomen is soft. Tenderness: There is no abdominal tenderness. There is no guarding. Musculoskeletal: General: No deformity. Cervical back: No tenderness. Right lower leg: No edema. Left lower leg: No edema. Lymphadenopathy: Cervical: No cervical adenopathy. Skin: General: Skin is warm. Coloration: Skin is not jaundiced. Findings: Rash (Intertrigo) present. No erythema. Neurological: Mental Status: She is alert and oriented to person, place, and time. Psychiatric: Mood and Affect: Mood normal. Behavior: Behavior normal. Thought Content: Thought content normal. Neisseria gonorrhea DNA PCR Result (no units) Date/Time Value 10/08/2022 1135 Not Detected 03/30/2020 0727 NEGATIVE for Neisseria gonorrhoeae DNA by nucleic acid amplification. Reference Range: No DNA for Neisseria gonorrhoeae detected. This test is performed by the the grafter instrument for Real Time PCR C. trachomatis and N. gonorrhea. The FDA approved specimen sources for this assay are urine, vaginal swabs, throat swabs, rectal swabs and cervical swabs. This laboratory is certified under the Clinical Laboratory Improvement Amendments of 1988 (CLIA-88) as qualified to perform high complexity clinical laboratory testing. 04/11/2019 0828 NEGATIVE for Neisseria gonorrhoeae DNA by nucleic acid amplification. Reference Range: No DNA for Neisseria gonorrhoeae detected. This test is performed by the the grafter instrument for Real Time PCR C. trachomatis and N. gonorrhea. The FDA approved specimen sources for this assay are urine, vaginal swabs, throat swabs, rectal swabs and cervical swabs. This laboratory is certified under the Clinical Laboratory Improvement Amendments of 1988 (CLIA-88) as qualified to perform high complexity clinical laboratory testing. [facility] is certified under the Clinical Laboratory Improvement Amendments of 1988 (CLIA-88) as qualified to perform high complexity clinical laboratory testing. 04/12/2018 0846 NEGATIVE for Neisseria gonorrhoeae DNA by nucleic acid amplification. Reference Range: No DNA for Neisseria gonorrhoeae detected. This test is performed by the [employer] instrument for Real Time PCR C. trachomatis and N. gonorrhea. The FDA approved specimen sources for this assay are urine, vaginal swabs, throat swabs, rectal swabs and cervical swabs. This laboratory is certified under the Clinical Laboratory Improvement Amendments of 1988 (CLIA-88) as qualified to perform high complexity clinical laboratory testing. [facility] is certified under the Clinical Laboratory Improvement Amendments of 1988 (CLIA-88) as qualified to perform high complexity clinical laboratory testing. HIV Quantitative PCR Comment (no units) Date/Time Value 07/19/2020 1239 Reference Interval: Not Detected, Log (Copies/mL) <1.60,Copies/mL <40. 10/10/2019 0818 Reference Interval: Not Detected, Log (Copies/mL) <1.60,Copies/mL <40. 04/11/2019 0824 Reference Interval: Not Detected, Log (Copies/mL) <1.60,Copies/mL <40. 09/24/2018 0859 Reference Interval: Not Detected, Log (Copies/mL) <1.60,Copies/mL <40. Assessment: HIV - achieved virologic suppression, will repeat labs today, currently on BiktarFuzmo - labs Mar 2024: HIV rna viral load <40, Cd4c 2084/42.7% - excellent adherence, no reported SE - refills sent Left shoulder pain: progressive, has a spinal cord stimulator, it needs to be turned off prior MRI shoulder. Bowel/urine incontinence - pads/supplies renewed Intertrigo - Clotrimazole cream. Nystatin powder Obesity: - BMI 37.6, discussed alternative treatment including GLP1 meds, HIV infection does not contraindicates its use; she will need further discussion with GI about prior h/o chronic pancreatitis and liver cirrhosis. Offered three dimensional art instructor evaluation. Chronic conditions: Cirrhosis, chronic pancreatitis, T2DM Health maintenance Immunization History Administered Date(s) Administered DTaP, Unspecified [...] Meningococcal MCV4P 12/14/2007, 02/24/2017 Moderna COVID-19 Vaccine (Insurance Verification Rep) 12+ years 09/11/2021 Novel [id number], all formulations 02/09/2009 PPD Skin Test (TB Skin Test) 04/29/2010 [employer] COVID-19 Bivalent (Lloyd Cap) 12+ years (billie-sucrose) 12/18/2021 Pneumococcal 20-enoc Conj Vaccine 04/17/2022 Pneumococcal Conjugate PCV 13 04/29/2010, 01/31/2013, 11/03/2016 Pneumococcal Conjugate PCV 7 12/14/2007, 01/31/2013 Pneumococcal Polysaccharide PPV23 11/25/2013, 11/22/2020 Pneumococcal, Unspecified 12/27/2010 Tdap 04/18/2021 Zoster, Recombinant 04/11/2019, 10/10/2019 Problem List Items Addressed This Visit Human immunodeficiency virus (CMS/HCC) - Primary Relevant Medications Xethwxochqw-Quqvonwstq-Opsooki (Biktarvy) 50-200-25 MG tablet tablet Other Relevant Orders CBC and Differential (Completed) Comprehensive Metabolic Panel, Plasma (Completed) Human Immunodeficiency Virus (HIV-1) Quantitative PCR Lymphocyte Subset Enumeration (TBNK) (Completed) Follow Up ID Bowel and bladder incontinence Relevant Medications Incontinence Supply Disposable (Depend Adjustable Underwear Lg) misc Incontinence Supply Disposable (Incontinence Brief Large) misc Incontinence Supply Disposable misc Intertrigo Relevant Medications nystatin (Mycostatin) 642105 UNIT/GM powder ketoconazole (NIZOral) 2 % cream RW Discussion/Summary: HIV Status: HIV positive, not AIDS HAART Status: Yes Pneumocystis Prophylaxis Status: No, not medically indicated Education Provided: Adherence Counseling Aracelis Boo MD [facility] [address] [facility] [address] [1] Patient Active Problem List Diagnosis Human immunodeficiency [...] Xerosis of skin Urticaria Vomiting Yeast dermatitis [2] Past Medical History: Diagnosis Date Allergic Anxiety [...] D deficiency, unspecified Mild vitamin D deficiency [3] Past Surgical History: Procedure Laterality Date BACK SURGERY N/A Back Surgery from [facility] BACK SURGERY N/A Back surgery from [facility] CARPAL TUNNEL RELEASE N/A Neuroplasty Decompression Median Nerve At Carpal Tunnel from [facility] CATARACT EXTRACTION W/ INTRAOCULAR LENS IMPLANT N/A Cataract Phacoemulsification With Intraocular Lens Implantation from [facility] SECTION, CLASSIC SECTION, LOW TRANSVERSE N/A Section from [facility] CHOLECYSTECTOMY N/A Cholecystectomy Laparoscopic from [facility] FRACTURE SURGERY HYSTERECTOMY N/A Hysterectomy from [facility] NASAL POLYP SURGERY N/A Nasal Endoscopy Polypectomy from [facility] ORIF TIBIAL PLATEU FRACTURE N/A Open Treatment Of Fracture Of The Tibial Plateau from [facility] OTHER SURGICAL HISTORY N/A Total Splenectomy from [facility] PROSTHODONTIC PROCEDURE 1999 SHOULDER SURGERY N/A Shoulder Surgery from [facility] SINUS SURGERY SPLENECTOMY SUBMANDIBULAR GLAND EXCISION W/ PAROTID DUCT LIGATION N/A Thyroid Surgery Sub-Total Thyroidectomy from [facility] TYMPANOPLASTY 10/05/2023 [4] Family History Problem Relation Name Age of Onset Heart failure Mother Staci pan Diabetes Mother Staci pan Asthma Mother Staci pan Cancer Mother Staci pan Depression Mother Staci pan Heart failure Father Arthritis Father's Sister Aunt Katy [5] Current Outpatient Medications: Advair Diskus 500-50 MCG/ACT [...] 200 MG capsule, , Disp: , Rfl: Yhnfrmcwmrk-Ivdtgjyhgl-Jaitccv (Biktarvy) 50-200-25 MG tablet tablet, Take 1 [...] Adjustable Underwear Lg) misc, 1 Product 5 times a day as needed (when soiled)., [...] 100 tablet, Rfl: 1 Misc. Devices misc, [employer] one G3, Disp: 1 each, Rfl: 0 montelukast (Singulair) 10 MG tablet, , Disp: , Rfl: mupirocin (Bactroban) 2 % ointment, , Disp: , Rfl: naloxegol oxalate (Movantik) 25 MG tablet, Take 25 mg by mouth every morning., Disp: 30 tablet, Rfl: 5 nystatin (Mycostatin) 354842 UNIT/GM powder, APPLY TWO TIMES A DAY, Disp: 60 g, Rfl: 3 ofloxacin (Floxin) 0.3 % otic solution, 10 drops., Disp: , Rfl: ondansetron ODT (Zofran-ODT) 4 MG disintegrating tablet, Take 1 tablet (4 mg) by mouth every 8 (eight) hours if needed for nausea or vomiting., Disp: 20 tablet, Rfl: 3 oxyCODONE-acetaminophen (Percocet) 10-325 MG tablet, , Disp: , Rfl: pancrelipase, Cqu-Oqsc-Orcc, (Zenpep) 42981-001455 units capsule delayed-release particles capsule,Take 2 capsules [...] A DAY, Disp: 90 tablet,Rfl: 5 rizatriptan BULK MAIL CLERK (Maxalt-BULK MAIL CLERK) 5 MG disintegrating tablet, , Disp: , Rfl: sertraline (Zoloft) 100 MG tablet, , Disp: , Rfl: Tiotropium [place] Monohydrate (Spiriva Respimat) 2.5 MCG/ACT inhaler, 1 (one) time each day., Disp: , Rfl: tiZANidine (Zanaflex) 4 MG tablet, , Disp: , Rfl: tobramycin-dexamethasone (Tobradex) ophthalmic suspension, , Disp: , Rfl: urea (Carmol) 40 % cream, , Disp: , Rfl: Blood Pressure Monitoring (Blood Pressure Cuff) misc, 1 each 1 (one) time each day. (Patient not taking: Reported on 10/19/2024), Disp: 1 each, Rfl: 0 ergocalciferol 1.25 MG (59286 UT) capsule, , Disp: , Rfl: Vraylar 1.5 MG capsule, , Disp: , Rfl: documented in this encounter Plan of Treatment Upcoming Encounters Date Type Department Care Team (Late st Contact Info) Description 03/29/2025 12:40 PM EST Office Visit [facility] [address] [place] [address] Ulises Dhillon, PA [address] [facility] [address] [place] [address] 04/14/2025 10:10 AM EST Office Visit [facility] [address] [place] [id number] Arely Galvan APRN [address] [facility] [address] [place] [address] 04/20/2025 8:00 AM EST Office Visit [facility] [address] [facility] [address] [place] [address] 04/26/2025 11:00 AM EST Office Visit [facility] [address], [address] [place] [address] Aracelis Patterson MD [facility] [address] [place] [address] 11/01/2025 8:45 AM EDT Office Visit [facility] [address] [place] [address] Hiram Gutierrez MD [address] [address] Scheduled Referrals Name Type Priority Associated Diagnoses Orde r Schedule Follow Up ID Outpatient Referral Routine Human immunodeficiency virus (CMS/HCC) Expected: 04/21/2025, Expires: 11/19/2025 documented as of this encounter Goals Goal [...] Procedure Name Priority Date/Time Associated Diagnosis Comments LYMPHOCYTE SUBSET ENUMERATION, TBNK Routine 10/19/2024 12:09 PM EDT Human immunodeficiency virus ([facility]) HUMAN IMMUNODEFICIENCY VIRUS (HIV-1) QUANTITATIVE PCR Routine 10/19/2024 12:09 PM EDT Human immunodeficiency virus ([facility]) CBC WITH AUTO DIFFERENTIAL Routine 10/19/2024 12:09 PM EDT Human immunodeficiency virus ([facility]) COMPREHENSIVE METABOLIC PANEL, PLASMA Routine 10/19/2024 12:09 PM EDT Human immunodeficiency virus ([facility]) documented in this encounter Results * (ABNORMAL) Lymphocyte Subset Enumeration (TBNK) (10/19/2024 12:09 PM EDT) Percent CD3 71.0 57.5 - 83.1 % 10/19/2024 7:57 PM EDT [facility] Absolute CD3 3,204(H) 860 - 2,670 cells/uL 10/19/2024 7:57 PM EDT [facility] Percent CD4 44.2 31.5 - 62.4 % 10/19/2024 7:57 PM EDT [facility] Absolute CD4 1,995(H) 490 - 1,730 cells/uL 10/19/2024 7:57 PM EDT [facility] Percent CD8 24.6 9.5 - 38.3 % 10/19/2024 7:57 PM EDT [facility] Absolute CD8 1,109(H) 160 - 1,070 cells/uL 10/19/2024 7:57 PM EDT [facility] Percent CD19 19.8 6.0 - 24.2 % 10/19/2024 7:57 PM EDT [facility] Absolute CD19 895(H) 73 - 562 cells/uL 10/19/2024 7:57 PM EDT [facility] Percent CD16+CD56 8.7 5.2 - 30.4 % 10/19/2024 7:57 PM EDT [facility] Absolute CD16+CD56 393 110 - 680 cells/uL 10/19/2024 7:57 PM EDT [facility] CD4:CD8 Ratio 1.77 10/19/2024 7:57 PM EDT [facility] Blood Venous blood specimen / Unknown Venipuncture / Unknown 10/19/2024 12:09 PM EDT 10/19/2024 12:10 PM EDT us Aracelis Boo MD LAB FLOW CYTOMETRY O RDERABLES Final Result [facility] [address] [place] [address] * Human Immunodeficiency Virus (HIV-1) Quantitative PCR (10/19/2024 12:09 PM EDT) Human Immunodeficiency Virus (HIV-1) Quant Interpretation Not Detected Not Detected 10/20/2024 2:40 PM EDT [facility] Blood Venipuncture / Unknown 10/19/2024 12:09 PM EDT 10/19/2024 12:10 PM EDT Narrative [facility] - 10/20/2024 2:40 PM EDT The Sulfagenix M2000 HIV-1 test is a Real Time in vitro nucleic acid amplification test for the quantitation of Human Immunodeficiency Virus (HIV-1) RNA in human plasma in HIV-infected individuals. It is intended to quantify HIV-1 in patients who are infected with the virus. The dynamic range for this test is log10 = 1.60 to 7.00 and/or 40 to 10,000,000 copies/mL. The limit of detection (LOD) for this assay is 40 copies/mL and the limit of quantitaion (LOQ) is 40 copies/mL. This assay is FDA approved for clinical use. This assay should not be used to screen patients receiving gene therapy with HIV-1 based lentiviral vectors as false positives may be seen. us Aracelis Boo MD LAB BLOOD ORDERABLES Final Result [facility] [address] [place] [address] * (ABNORMAL) Comprehensive Metabolic Panel, Plasma (10/19/2024 12:09 PM EDT) Glucose, Plasma 103(H) 74 - 99 mg/dL 10/19/2024 3:28 PM EDT [facility] BUN, Plasma 18 8 - 23 mg/dL 10/19/2024 3:28 PM EDT [facility] Creatinine, Plasma 0.56(L) 0.60 - 1.10 mg/dL 10/19/2024 3:28 PM EDT [facility] BUN/Creatinine Ratio 32 10/19/2024 3:28 PM EDT [facility] Sodium, Plasma 142 136 - 145 mmol/L 10/19/2024 3:28 PM EDT [facility] Potassium, Plasma 3.5(L) 3.6 - 4.9 mmol/L 10/19/2024 3:28 PM EDT [facility] Chloride, Plasma 104 97 - 107 mmol/L 10/19/2024 3:28 PM EDT [facility] CO2, Plasma 26 22 - 29 mmol/L 10/19/2024 3:28 PM EDT [facility] Anion Gap 12 6 - 16 mmol/L 10/19/2024 3:28 PM EDT [facility] Total Calcium, Plasma 9.3 8.9 - 10.2 mg/dL 10/19/2024 3:28 PM EDT [facility] Total Protein 7.5 6.3 - 7.9 g/dL 10/19/2024 3:28 PM EDT [facility] Albumin, Plasma 4.3 3.5 - 5.2 g/dL 10/19/2024 3:28 PM EDT [facility] AST, Plasma 27 10 - 35 U/L 10/19/2024 3:28 PM EDT [facility] ALT, Plasma 22 10 - 35 U/L 10/19/2024 3:28 PM EDT [facility] Alkaline Phosphatase, Plasma 80 46 - 142 U/L 10/19/2024 3:28 PM EDT [facility] Total Bilirubin, Plasma 0.4 0.2 - 1.1 mg/dL 10/19/2024 3:28 PM EDT [facility] eGFRcr 102.7 mL/min/1.7 3m*2 10/19/2024 3:28 PM EDT [facility] Comment:Reported eGFRcr in m L/min/1.73m2 is based the CKD-EPI 2020 equation that does not use a race coefficient. Blood Venous blood specimen / Unknown Venipuncture / Unknown 10/19/2024 12:09 PM EDT 10/19/2024 12:10 PM EDT Aracelis Boo MD LAB BLOOD ORDERABLES Final Result [facility] [address] [place], [place] [id number] * (ABNORMAL) CBC and Differential (10/19/2024 12:09 PM EDT) WBC Count 10.17 3.70 - 10.30 10*3/uL LAB HEMATOLOGY METHOD 10/19/2024 3:13 PM EDT [facility] RBC Count 4.60 3.90 - 5.20 10*6/uL LAB HEMATOLOGY METHOD 10/19/2024 3:13 PM EDT [facility] HGB 15.0 11.2 - 15.7 g/dL LAB HEMATOLOGY METHOD 10/19/2024 3:13 PM EDT [facility] HCT 43.7 34.0 - 45.0 % LAB HEMATOLOGY METHOD 10/19/2024 3:13 PM EDT [facility] Platelet Count 372(H) 155 - 369 10*3/uL LAB HEMATOLOGY METHOD 10/19/2024 3:13 PM EDT [facility] MCV 95 79 - 98 fL LAB HEMATOLOGY METHOD 10/19/2024 3:13 PM EDT [facility] MCH 32.6(H) 26.0 - 32.0 pg LAB HEMATOLOGY METHOD 10/19/2024 3:13 PM EDT [facility] MCHC 34.3 30.7 - 35.5 g/dL LAB HEMATOLOGY METHOD 10/19/2024 3:13 PM EDT [facility] RDW 13.3 11.5 - 14.5 % LAB HEMATOLOGY METHOD 10/19/2024 3:13 PM EDT [facility] MPV 10.7 8.8 - 12.5 fL LAB HEMATOLOGY METHOD 10/19/2024 3:13 PM EDT [facility] nRBC 0.0 <=0.0 per 100 WBCs LAB HEMATOLOGY METHOD 10/19/2024 3:13 PM EDT [facility] Differential Type Automated LAB HEMATOLOGY METHOD 10/19/2024 3:13 PM EDT [facility] Neutrophils % 49 % LAB HEMATOLOGY METHOD 10/19/2024 3:13 PM EDT [facility] Lymphocytes % 38 % LAB HEMATOLOGY METHOD 10/19/2024 3:13 PM EDT [facility] Monocytes % 11 % LAB HEMATOLOGY METHOD 10/19/2024 3:13 PM EDT [facility] Eosinophils % 1 % LAB HEMATOLOGY METHOD 10/19/2024 3:13 PM EDT [facility] Basophils % 1 % LAB HEMATOLOGY METHOD 10/19/2024 3:13 PM EDT [facility] Immature Granulocytes % 0 % LAB HEMATOLOGY METHOD 10/19/2024 3:13 PM EDT [facility] Neutrophils Absolute 5.02 1.60 - 6.10 10*3/uL LAB HEMATOLOGY METHOD 10/19/2024 3:13 PM EDT [facility] Lymphocytes Absolute 3.86 1.20 - 3.90 10*3/uL LAB HEMATOLOGY METHOD 10/19/2024 3:13 PM EDT [facility] Monocytes Absolute 1.07(H) 0.30 - 0.90 10*3/uL LAB HEMATOLOGY METHOD 10/19/2024 3:13 PM EDT [facility] Eosinophils Absolute 0.13 0.00 - 0.50 10*3/uL LAB HEMATOLOGY METHOD 10/19/2024 3:13 PM EDT [facility] Basophils Absolute 0.07 0.00 - 0.10 10*3/uL LAB HEMATOLOGY METHOD 10/19/2024 3:13 PM EDT [facility] Immature Granulocytes Absolute 0.02 0.00 - 0.06 10*3/uL LAB HEMATOLOGY METHOD 10/19/2024 3:13 PM EDT [facility] Blood Venous blood specimen / Unknown Venipuncture / Unknown 10/19/2024 12:09 PM EDT 10/19/2024 12:10 PM EDT Narrative [facility] - 10/19/2024 3:13 PM EDT Therapeutic decision making should be based on absolute values, rather than percentages. Aracelis Boo MD LAB BLOOD ORDERABLES Final Result [facility] [address] [place] [address] documented in this encounter Visit Diagnoses Diagnosis Human immunodeficiency virus- Primary Human immunodeficiency virus [HIV] disease Intertrigo Other specified erythematous condition Bowel and bladder incontinence documented in this encounter Additional Health Concerns Active Problems Noted Date Diagnosed Date RW Treatment Adherence 10/30/2021 RW Transportation 10/30/2021 Assessment Noted Time PHQ-9 Depression Total Score: 0 10/13/19 11:04 AM EDT A fall risk assessment has been complete d for the patient 10/19/2024 11:00 AM EDT A Body Mass Index follow-up plan has been documented for the patient 10/19/2024 11:39 AM EDT documented as of this encounter Care Teams And Taxi Instructor Bus Trolley Relationship Specialty Start Date End Date Hiram Serna DO [address] [place] [address] PCP - General 03/30/24 Aracelis Patterson MD [address] [place] [phone] Consulting Physician Infectious Diseases 09/16/22 Barbara Redding Order Entry Edge Polisher 07/20/24 documented as of this encounter
--- OUTSIDE RECORDS SUMMARY | 2024-10-25 14:45 | XMS_ITS | Encounter Summary ---
Author Organization [facility] Address [address] [place] [address] Care Team Providers Care Public Health Technician Name Role Phone Aracelis Patterson MD Unavailable [phone] Hiram Serna DO Primary Care Provider [phone] Barbara Redding Unavailable Unavailable Encounter Details Date Type Department Care Team (Latest Contact Info) Description 10/25/2024 2:45 PM EDT Office Visit [facility] [address] [place] [address] Hiram Gutierrez MD [address] [address] Human immunodeficiency virus (CMS/HCC) (Primary Dx); Diabetes mellitus type 2 without retinopathy (CMS/HCC); Vitreous floaters of both eyes; Dry eyes; Pseudophakia of both eyes Social History Tobacco Use Types Packs/Day Years [...] Notes * Assessment & Plan Note - Hiram Gutierrez MD - 10/25/2024 2:45 PM EDT Associated Problem(s): Diabetes mellitus type 2 without retinopathy * Assessment & Plan Note - Hiram Gutierrez MD - 10/25/2024 2:45 PM EDT Associated Problem(s): Human immunodeficiency virus * Assessment & Plan Note - Hiram Gutierrez MD - 10/25/2024 2:45 PM EDT Associated Problem(s): Vitreous floaters of both eyes * Progress Notes - Hiram Gutierrez MD - 10/25/2024 2:45 PM EDT Subjective HPI 64 yr old f presents for complete eye exam with history of vitreous floaters insufficiency of tear film ,HIV and pseudophakia both eyes.She has small floater right eye.She denies pain or pressure no vision changes. v ld undet; CD4 1100; happy w/ vision ou but floaters od> os; notes dry eyes; ? a1c Last edited by Hiram Gutierrez MD on 10/25/2024 3:47 PM. ROS Positive for: Eyes Last edited by Shagufta Ventura on 10/25/2024 3:04 PM. Objective Base Eye Exam Visual Acuity (Snellen - Linear) Right Left Dist sc 20/20 20/25 +2 Near sc J1+ J1+ Tonometry (Tonopen, 3:24 PM) Right Left Pressure 18 17 Pupils Pupils Right PERRL Left PERRL Visual Hammer Right Left Full Full Extraocular Movement Right Left Full Full Neuro/Psych Oriented x3: Yes Dilation Both eyes: 2.5% Phenylephrine, 1% Tropicamide @ 3:24 PM Additional Tests Glare Testing (ARX) Off Right 20/80 Left 20/50 Slit Lamp and Fundus Exam External Exam Right Left External Normal Normal Slit Lamp Exam Right Left Lids/Lashes Normal for age Normal for age Conjunctiva/Sclera Normal Normal Cornea Clear and compact Clear and compact Anterior Chamber Deep and quiet Deep and quiet Iris Normal pupil size and shape;no nvi Normal pupil size and shape;no nvi Lens pc iol stable pc iol stable Vitreous floaters floaters Fundus Exam Right Left Disc No edema; no vascularization; good color (Kanchan 78 d Lens) No edema; no vascularization; good color (Kanchan 78 d Lens) C/D Ratio 0.3 0.3 Macula Normal reflex; without edema Normal reflex; without edema Vessels Perfused; no tortuosity or abnormality Perfused; no tortuosity or abnormality Periphery Attached; no retinal or choroidal lesions Attached; no retinal or choroidal lesions Refraction Manifest Refraction (Auto) Sphere Cylinder [place] Dist [place] Right -1.50 +0.25 063 20/40 Left -1.50 +1.75 089 20/30 Assessment/Plan Assessment & Plan Diabetes mellitus type 2 without retinopathy (CMS/HCC) Human immunodeficiency virus (CMS/HCC) Vitreous floaters of both eyes Dry eyes Pseudophakia of both eyes DM info given; discussed value of regulating blood glucose levels and lifestyle influences Ats qid/prn ou No hiv retinopathy ou Signs/symptoms of retinal detachment discussed--need to contact us ROBINA if these arise Rtc 12 mos for dilated fundus exam documented in this encounter Plan of Treatment Upcoming Encounters Date Type Department Care Team (Late st Contact Info) Description 03/29/2025 12:40 PM EST Office Visit [facility] [address] [place] [address] Ulises Dhillon PA [address] [place] [address] 04/14/2025 10:10 AM EST Office Visit [facility] [address] [place] [address] Arely Galvan APRN [address] [place] [address] 04/20/2025 8:00 AM EST Office Visit [facility] [address] [facility] [address] [place] [address] 04/26/2025 11:00 AM EST Office Visit [facility] [address], [address] [place] [address] Aracelis Patterson MD [address] [facility] [address] [place] [address] 11/01/2025 8:45 AM EDT Office Visit [facility] [address] [place] [address] Hiram Gutierrez MD [address] [place] [address] documented as of this encounter [...] virus- Primary Human immunodeficiency virus [HIV] disease Diabetes mellitus type 2 without retinopathy Vitreous floaters of both eyes Dry eyes Unspecified tear film insufficiency Pseudophakia of both eyes Lens replaced by other means documented in this encounter Additional Health Concerns Active Problems Noted Date Diagnosed Date RW Treatment Adherence 10/30/2021 RW Transportation 10/30/2021 Assessment Noted Time PHQ-9 Depression Total Score: 0 10/13/19 11:04 AM EDT A fall risk assessment has been complete d for the patient 10/19/2024 11:00 AM EDT A Body Mass Index follow-up plan has been documented for the patient 10/25/2024 3:48 PM EDT documented as of this encounter Care Teams Public Health Technician Relationship Specialty Start Date End Date Hiram Serna DO [address] [place] [address] PCP - General 03/30/24 Aracelis Patterson MD [address] [place] [phone] Consulting Physician Infectious Diseases 09/16/22 Barbara Redding Locker Attendant Product Communications Manager 07/20/24 documented as of this encounter
--- OUTSIDE RECORDS SUMMARY | 2024-10-26 14:30 | XMS_ITS | Encounter Summary ---
Author Organization [facility] Address [address] [place] [address] Care Team Providers Care Amusement Ride Operator Name Role Phone Aracelis Patterson MD Unavailable [phone] Hiram Serna DO Primary Care Provider [phone] Barbara Redding Unavailable Unavailable Reason for Referral * Consultation (Routine) - Authorized Specialty Diagnoses / Procedures Referred By Robert t Referred To Contact Otolaryngology Diagnoses Globulo-maxillary cyst Michael Kennedy DMD [address] [place] [address] Phone: tel: fax: [facility] [address] [place] [address] Phone: tel: fax: Referral ID Status Reason Start Date Expiration Date Visits Requested Visits Authorized [id number] Authorized Specialty Services Required 10/26/2024 04/27/2026 1 1 Reason for Visit * Consultation (Routine) - Closed Specialty Diagnoses / Procedures Referred By Robert t Referred To Contact Oral Surgery Diagnoses Encounter for dental examination Donna Skaggs DMD [address] [place] [address] Phone: tel: fax: [facility] [address] [facility] [address] [place] [address] Phone: tel: fax: Referral ID Status Reason Start Date Expiration Date V isits Requested Visits Authorized [id number] Closed Specialty Services Required 09/22/2024 03/24/2026 1 1 Encounter Details Date Type Department Care Team (Late st Contact Info) Description 10/26/2024 2:30 PM EDT Evaluation [facility] [address] [facility] [address] [place] [address] Michael Kennedy, DMD [address] [facility] [address] [place] [address] Globulo-maxillary cyst (Primary Dx) Social History Tobacco Use Types [...] Sign Reading Time Taken Comments Blood Pressure 143/105 10/26/2024 2:32 PM EDT Pulse 60 10/26/2024 2:32 PM EDT Temperature - - Respiratory Rate - - Oxygen Saturation 91% 10/26/2024 2:32 PM EDT Inhaled Oxygen Concentration - - Weight 86.8 kg (191 lb 5.8 oz) 10/26/2024 2:32 P M EDT Height 152.4 cm (5') 10/26/2024 2:32 PM EDT Body Mass Index 37.37 10/26/2024 2:32 PM EDT documented in this encounter Miscellaneous Notes * Progress Notes - Oz Santiago, DMD - 10/26/2024 2:30 PM EDT Images from the original note were not included. Oral & Maxillofacial Surgery Evaluation CC: I have some teeth that need to be taken out. HPI: Светлана Rivera is a 64 y.o. female with PMH significant of anxiety, asthma, Cancer (cervix 1999), , (Gastro-esophageal reflux disease without esophagitis,chronic pancreatitis , Human immunodeficiency virus (HIV) disease (CMS/HCC), Hyperlipidemia, neissan fundoplication , Portal hypertension (CM S/HCC), HTN, Type 2 diabetes mellitus , spine stimulator for chronic back pain who presents to the [facility] clinic for evaluation of left maxillary sinus incidental finding at recent dental visit. Patient denies recent pain, swelling, paresthesia. Patient denies difficulty breathing. Patient endorses history of sinus surgery with outside ENT. Review of Systems: Review of systems was performed as noted in HPI. PAST MEDICAL HISTORY: Past Medical History Pertinent Negatives[1] PAST SURGICAL HISTORY: Surgical History[2] Medications: Medications Ordered Prior to Encounter[3] Allergies: Allergies[4] Social History: Smoking: denies Alcohol: denies Illicit drugs: denies Family History: Family History[5] OBJECTIVE: Vitals: 10/26/24 1432 BP: (!) 143/105 Pulse: 60 SpO2: 91% Airway Assessment ASA: III Mallampati: IV TMD: 3 FB Neck mobility: limited BMI: Body mass index is 37.37 kg/m??. DASI: >4 METs Focused PE: Gen: NAD. Head/Face: NCAT, no facial swellings. Oral: BLANCA: 50 mm edentulous. Tongue FROM, FOM soft. Fair OH. No lesions or ulcerations. Oral soft tissues appear normal. Left maxillary tuberosity without apparent bony expansion. Neck: Soft, supple. Trachea midline. No masses/goiter. No LAD. CV: well perfused Pulm: Non-labored breathing on room air Neuro: AA&Ox3 Radiographic Findings Outside Panoramic Radiographic Indication: Dental Evaluation Radiographic Interpretation/Findings: Condyles round & posterior to articular eminence bilaterally. Normal trabeculation pattern appreciated. - Edentulous - L max sinus with well-circumscribed, slightly radiopaque lesion Limited field CT taken on 10/26/24 - evidence of left maxillary sinus cyst vs. Sinus disease Assessment/Plan: Светлана Rivera is a 64 y.o. female with PMH anxiety, asthma, Cancer (cervix 1999), , (Gastro-esophageal reflux disease without esophagitis,chronic pancreatitis , Human immunodeficiency virus (HIV) disease (CMS/HCC), Hyperlipidemia, neissan fundoplication , Portal hypertension (CMS/HCC), HTN, Type 2diabetes mellitus , spine stimulator for chronic back pain who presents with incidental sinus finding in the setting of h/o sinus s/x with outside ENT. Patient is asymptomatic. She was informed that she may be best managed by ENT, if she decides to proceed with biopsy or excision of lesion. Ambulatory referral to ENT sent. -f/u: LEIGHTON Santiago, DMD [1] Past Medical History: Diagnosis Date Allergic [...] deficiency, unspecified Mild vitamin D deficiency [2] Past Surgical History: Procedure Laterality Date BACK SURGERY N/A Back Surgery from [facility] BACK SURGERY N/A Back surgery from [facility] CARPAL TUNNEL RELEASE N/A Neuroplasty Decompression Median Nerve At Carpal Tunnel from [facility] CATARACT EXTRACTION W/ INTRAOCULAR LENS IMPLANT N/A Cataract Phacoemulsification With Intraocular Lens Implantation from [facility] SECTION, CLASSIC SECTION, LOW TRANSVERSE N/A Section from [facility] CHOLECYSTECTOMY N/A Cholecystectomy Laparoscopic from [facility] FRACTURE SURGERY HYSTERECTOMY N/A Hysterectomy from [facility] NASAL POLYP SURGERY N/A Nasal Endoscopy Polypectomy from [facility] ORIF TIBIAL PLATEU FRACTURE N/A Open Treatment Of Fracture Of The Tibial Plateau from [facility] OTHER SURGICAL HISTORY N/A Total Splenectomy from [facility] PROSTHODONTIC PROCEDURE 1999 SHOULDER SURGERY N/A Shoulder Surgery from [facility] SINUS SURGERY SPLENECTOMY SUBMANDIBULAR GLAND EXCISION W/ PAROTID DUCT LIGATION N/A Thyroid Surgery Sub-Total Thyroidectomy from [facility] TYMPANOPLASTY 10/05/2023 [3] Current Outpatient Medications on File Prior to [...] MG tablet benzonatate (Tessalon) 200 MG capsule Zchnyregtfk-Rvddcngvre-Hbthvao (Biktarvy) 50-200-25 MG tablet tablet Take 1 tablet by mouth daily. 30 tablet 5 Blood Pressure Monitoring (Blood Pressure Cuff) misc 1 each 1 (one) time each day. (Patient not taking: Reported on 10/25/2024) 1 each 0 budesonide-formoterol (Symbicort) 80-4.5 MCG/ACT [...] 1 % topical gel ergocalciferol 1.25 MG (82160 UT) capsule (Patient not taking: Reported on 10/25/2024) fluticasone (Flonase) 50 MCG/ACT nasal spray 1 spray. FREESTYLE LITE test strip hydroCHLOROthiazide (Microzide) 12.5 MG capsule Incontinence Supply Disposable (Depend Adjustable Underwear Lg) [facility] 1 Product 5 times a day as needed (when soiled). 100 each 25 Incontinence Supply Disposable (Incontinence Brief Large) [facility] Please dispense 1 box of briefs 6 each 25 Incontinence Supply Disposable [facility] Maximilian pads for incontinence. 50 each 15 [...] every morning. 30 tablet 5 nystatin (Mycostatin) 500063 UNIT/GM powder APPLY TWO TIMES A DAY 60 g 3 ofloxacin (Floxin) 0.3 % otic solution 10 drops. ondansetron ODT (Zofran-ODT) 4 MG disintegrating tablet Take 1 tablet (4 mg) by mouth every 8 (eight) hours if needed for nausea or vomiting. 20 tablet 3 oxyCODONE-acetaminophen (Percocet) 10-325 MG tablet pancrelipase, Vfn-Hjds-Azqi, (Zenpep) 13722-342504 units capsule delayed-release particles capsule Take 2 [...] A DAY 90 tablet 5 rizatriptan SENIOR ANIMAL TRAINER (Maxalt-SENIOR ANIMAL TRAINER) 5 MG disintegrating tablet sertraline (Zoloft) 100 MG tablet Tiotropium [place] Monohydrate (Spiriva Respimat) 2.5 MCG/ACT inhaler 1 (one) time each day. tiZANidine (Zanaflex) 4 MG tablet tobramycin-dexamethasone (Tobradex) ophthalmic suspension urea (Carmol) 40 % cream Vraylar 1.5 MG capsule (Patient not taking: Reported on 10/25/2024) No current facility-administered medications on file prior to visit. [4] Allergies Allergen Reactions Vancomycin Other - please [...] - please document in the comment field [5] Family History Problem Relation Name Age of Onset Heart failure Mother Staci pan Diabetes Mother Staci pan Asthma Mother Staci pan Cancer Mother Staci pan Depression Mother Staci pan Heart failure Father Arthritis Father's Sister Aunt Katy Cosigned by Michael Kennedy DMD at 11/02/2024 11:55 AM EDT Associated attestation - Michael Kennedy DMD - 11/02/2024 11:55 AM EDT I saw and evaluated the patient, discussed with the resident, personally reviewed the images and agree with resident's findings, radiographic interpretations, and plan as documented in the note. documented in this encounter Plan of Treatment Upcoming Encounters Date Type Department Care Team (Late st Contact Info) Description 03/29/2025 12:40 PM EST Office Visit [facility] [address] [place] [address] Ulises Dhillon PA [address] [place] [address] 04/14/2025 10:10 AM EST Office Visit [facility] [address] [place] [address] Arely Galvan APRN [address] [place] [address] 04/20/2025 8:00 AM EST Office Visit [address] [place] [address] 04/26/2025 11:00 AM EST Office Visit [facility] [address] [place] [address] Aracelis Patterson MD [address] [facility] [address] [place] [address] 11/01/2025 8:45 AM EDT Office Visit [facility] [address] [place] [address] Hiram Gutierrez MD [address] [place] [address] Scheduled Referrals Name Type Priority Associated Diagnoses Order Schedule Ambulatory referral to ENT Outpatient Referral Routine Globulo-maxillary cyst Expected: 10/26/2024 (Approximate), Expires: 04/29/2026 documented as of this encounter Goals Goal [...] Procedure Name Priority Date/Time Associated Diagnosis Comments COMPREHENSIVE ORAL EVALUATION - NEW OR ESTABLISHED PATIENT Routine 10/26/2024 2:30 PM EDT Globulo-maxillary cyst documented in this encounter Visit Diagnoses Diagnosis 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 documented in this encounter Additional Health Concerns Active Problems Noted Date Diagnosed Date RW Treatment Adherence 10/30/2021 RW Transportation 10/30/2021 Assessment Noted Time PHQ-9 Depression Total Score: 0 10/13/19 25 11:04 AM EDT A fall risk assessment has been complete d for the patient 10/19/2024 11:00 AM EDT A Body Mass Index follow-up plan has been documented for the patient 10/25/2024 3:48 PM EDT documented as of this encounter Care Teams Amusement Ride Operator Relationship Specialty Start Date End Date Hiram Serna DO [address] [place] [address] PCP - General 03/30/24 Aracelis Patterson MD [address] [facility] [address] [place] [address] Consulting Physician Infectious Diseases 09/16/22 Barbara Redding Yarrow Gatherer Repairer Welding Systems And Equipment 07/20/24 documented as of this encounter
[2024-11-23 17:33] LABS: 25-OH Vitamin D, Total 24.4 ng/mL (30-100)
[2024-11-23 17:44] LABS: Thyroid Stimulating Hormone 1.92 uIU/mL (0.465-4.68)
[2024-11-23 18:06] LABS: Vitamin B12 463 pg/mL (239-931)
[2024-11-23 18:55] LABS: Hemoglobin A1C 5.7 % (4.0-6.0)
--- OUTSIDE RECORDS SUMMARY | 2024-11-24 10:35 | XMS_ITS | Encounter Summary ---
Author Organization [facility] Address [address] [place] [address] Care Team Providers Care Grounds Restoration Specialist Name Role Phone Aracelis Patterson MD Unavailable [phone] Hiram Serna DO Primary Care Provider [phone] Barbara Redding Unavailable Unavailable Encounter Details Date Type Department Care Team (Latest Contact Info) Description 10/10/2024 Travel Social History Tobacco Use Types Packs/Day Years [...] Upcoming Encounters Date Type Department Care Team ( Contact Info) Description 03/29/2025 12:40 PM EST [facility] Visit [facility] [address] [place] [id number] Ulises Dhillon, PA [address] [place] [address] 04/14/2025 10:10 AM EST [facility] [address] [place] [address] Arely Galvan, ORIGINATION SPECIALIST [address] [place] [address] 04/20/2025 8:00 AM EST Office Visit [facility] [address] [facility] [address] [place] [address] 04/26/2025 11:00 AM EST Office Visit [facility] [address], [address] [place] [address] Aarcelis Patterson MD [address] [facility] [address] [place] [address] 11/01/2025 8:45 AM EDT Office Visit [facility] [address] [facility] [place] [address] Hiram Gutierrez MD [address] [facility] [address] [place] [address] documented as of this encounter [...] documented as of this encounter Care Teams Grounds Restoration Specialist Relationship Specialty Start Date End Date Hiram Serna DO [address] [place] [address] PCP - General 03/30/24 Aracelis Patterson MD [address] [place] [phone] Consulting Physician Infectious Diseases 09/16/22 Barbara Redding Healthcare Advisory Services Manager Family Medicine Physician Assistant 07/20/24 documented as of this encounter
--- OUTSIDE RECORDS SUMMARY | 2024-11-24 10:35 | XMS_ITS | Encounter Summary ---
Author Organization [facility] Address [address] [place] [address] Care Team Providers Care Eyewear Consultant Name Role Phone Alyssa Antonio [address] MAN Unavailable [phone] Allan Hightower MD Primary Care Provider + [phone] Nikki Muniz Unavailable Unavailable Aracelis Patterson MD Unavailable + [phone] Hiram Serna DO Primary Care Provider [phone] Barbara Redding Unavailable Unavailable Reason for Visit * Reason Comments Med Refill Encounter Details Date Type Department Care Team (Late st Contact Info) Description 08/22/2020 [facility] [address] [place] [id number] Mal Galeano MD [address] [facility] [address] [place] [address] Social History Tobacco Use Types [...] Description 03/29/2025 12:40 PM EST Office Visit [facility] Special[facility] [address] [place] [address] Ulises Dhillon, PA [address] [place] [address] 04/14/2025 10:10 AM EST Office Visit [facility] [address] [place] [address] Arely Galvan, LEXIE [address] [place] [address] 04/20/2025 8:00 AM EST Office Visit [facility] [address] [facility] [address] [place] [address] 04/26/2025 11:00 AM EST Office Visit [facility] [address] [place] [address] Aracelis Patterson MD [address] [facility] [address] [place] [address] 11/01/2025 8:45 AM EDT Office Visit [facility] [address] [facility] [place] [address] Hiram Gutierrez MD [address] [facility] [address] [place] [address] documented as of this encounter Visit Diagnoses Not on filedocumented in this encounter Care Teams Eyewear Consultant Relationship Specialty Start Date End Date Allan Hightower MD [address] [place] [id number] PCP - General 07/06/20 03/29/24 Hiram Serna DO [address] [place] [address] PCP - General 03/30/24 Alyssa Antonio LCSW [address] [place] [address] [address] [place] [address] 11/25/07 10/17/21 Nikki Muniz Development And Housing Director Environmental Science Professor 10/17/21 07/20/24 Aracelis Patterson MD [address] [place] [address] [address] [place] [address] Consulting Physician Infectious Diseases 09/16/22 Barbara Redding Development And Housing Director Environmental Science Professor 07/20/24 documented as of this encounter
--- OUTSIDE RECORDS SUMMARY | 2024-11-24 10:36 | XMS_ITS | Clinical Summary ---
Author Organization [facility] Address [address] [place] [address] Care Team Providers Care Geography Instructor Name Role Phone Aracelis Patterson MD Unavailable [phone] Hiram Serna DO Primary Care Provider [phone] Barbara Redding Unavailable Unavailable Allergies Active Allergy [...] Medications Blood Pressure Monitoring (Blood Pressure Cuff) [facility] 1 each 1 (one) time each day. 1 each Active Additional Information Patient not taking.Reported on 10/25/2024 urea (Carmol) 40 % cream Active tiZANidine (Zanaflex) 4 MG tablet Active sertraline (Zoloft) 100 MG tablet Active rizatriptan ORTHOTIC/PROSTHETIC PRACTITIONER (Maxalt-ORTHOTIC/PROSTHETIC PRACTITIONER) 5 MG disintegrating tablet Active pravastatin (Pravachol) 40 MG tablet Active oxyCODONE-acetamino phen (Percocet) 10-325 MG tablet Active mupirocin (Bactroban) 2 % ointment Active methocarbamol (Robaxin) 500 MG tablet Active metFORMIN (Glucophage) 500 MG tablet Active meloxicam (Mobic) 7.5 MG tablet Active hydroCHLOROthiazide (Microzide) 12.5 MG capsule Active FREESTYLE LITE test strip Active ergocalciferol 1.25 MG (39426 UT) capsule Active diclofenac (Voltaren) 1 % topical gel Active budesonide-formoter ol (Symbicort) 80-4.5 MCG/ACT inhaler Active amLODIPine (Norvasc) 5 MG tablet Active albuterol 108 (90 Base) MCG/ACT inhaler Active alendronate (Fosamax) 70 MG tablet Take 1 tablet (70 mg total) by mouth every 7 (seven) days. Take in the morning with a full glass of water, on an empty stomach, and do not take anything else by mouth or lie down for the next 30 min. 4 tablet 11 Active montelukast (Singulair) 10 MG tablet Active Advair Diskus 500-50 MCG/ACT diskus inhaler 023 Active cholecalciferol (Vitamin D3) 500 Unit split tablet .COMPLEX 023 Active Vraylar 1.5 MG capsule 024 Active meclizine (Antivert) 25 MG tablet 023 Active benzonatate (Tessalon) 200 MG capsule 023 Active Misc. Devices miscIndications:Chr onic respiratory failure with hypoxia Inogen one G3 1 each 024 Active Powders (AMB Anti Friction Body) powderIndications:I ntertrigo APPLY TO AFFECTED AREA(S) DIRECTED 227 g 024 Active fluticasone (Flonase) 50 MCG/ACT nasal spray 1 spray. 024 Active ipratropium-albuter ol (Duo-Neb) 0.5-2.5 mg/3 mL nebulizer solution 3 mL. 024 Active ofloxacin (Floxin) 0.3 % otic solution 10 drops. 024 Active Tiotropium Fowler Monohydrate (Spiriva Respimat) 2.5 MCG/ACT inhaler 1 (one) time each day. 024 Active tobramycin-dexameth asone (Tobradex) ophthalmic suspension 024 Active calamine (Anti Monkey Butt) powder powder APPLY TO AFFECTED AREA(S) DIRECTED 227 g 1 024 Active pantoprazole (Protonix) 40 MG EC tablet Take 1 tablet (40 mg) by mouth 1 (one) time each day before breakfast. DO NOT CRUSH CHEW OR SPLIT 90 tablet 3 025 Active cimetidine (Tagamet) 300 MG tablet Take 1 tablet (300 mg) by mouth 1 (one) time each day in the evening. 90 tablet 3 025 Active ondansetron ODT (Zofran-ODT) 4 MG disintegrating tablet Take 1 tablet (4 mg) by mouth every 8 (eight) hours if needed for nausea or vomiting. 20 tablet 3 025 Active clobetasol (Temovate) 0.05 % cream 025 Active naloxegol oxalate (Movantik) 25 MG tablet Take 25 mg by mouth every morning. 30 tablet 5 Active Methylcellulose, Laxative, (Citrucel) 500 MG tablet Take 1 tablet by mouth daily. 100 tablet 1 025 Active pancrelipase, Uxi-Byhf-Nbko, (Zenpep) 67317-797671 units capsule delayed-release particles capsule Take 2 capsules by mouth 3 times a day with meals. 200 capsule Active Bictegravir-Emtrici tab-Tenofov (Biktarvy) 50-200-25 MG tablet tabletIndications:H alberto immunodeficiency virus Take 1 tablet by mouth daily. 30 tablet 5 Active nystatin (Mycostatin) 825619 UNIT/GM powderIndications:I ntertrigo APPLY TWO TIMES A DAY 60 g 3 025 Active ketoconazole (NIZOral) 2 % creamIndications:In tertrigo APPLY TO AFFECTED AREA(S) TWO TIMES A DAY FOR 5 DAYS 15 g 025 Active Incontinence Supply Disposable (Depend Adjustable Underwear Lg) miscIndications:[place] el and bladder incontinence 1 Product 5 times a day as needed (when soiled). 100 each Active Incontinence Supply Disposable (Incontinence Brief Large) miscIndications:[place] el and bladder incontinence Please dispense 1 box of briefs 6 each Active Incontinence Supply Disposable miscIndications:[place] el and bladder incontinence Maximilian pads for incontinence. 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 Nystatin powder and neosporin had been ineffective. Obesity (BMI 35.0-39.9 without comorbidity) 05/24 Severe obesity (BMI 35.0-39.9) with comorbidity 06/11/2021 Tremor 04/18/2021 Assessment & Plan (10/08/2022 3:54 [...] referral; patient request dental but reports seeing design maintenance engineer recently UTD on recommended vaccinations Assessment & [...] Vaccination 05/21/2020 Meningococcal MCV4P 12/14/2007, 02/24/2017 Novel [id number], all formulations 02/09/2009 PPD Test 04/29/2010 Pneumococcal [...] floaters of both eyes 08/02/2019 0 10/17/2022 Assessment & Plan (10/25/2024 3:48 PM EDT): After-cataract with vision obscured 04/20/2019 10/17/2022 Neurogenic pain, leg 09/29/2018 10/17/2022 Nuclear sclerotic cataract 07/09/201810/17 Lumbago with sciatica 05/13/2018 10/17/2022 Human immunodeficiency virus 07/07/2017 Assessment & Plan (10/25/2024 3:48 PM EDT): Assessment & Plan (10/14/2023 10:29 AM EDT): [...] 10/10/2019 HIVCOPIES <40 04/11/2019 HIVCOPIES <40 09/24/2018 Diabetes mellitus type 2 without retinopathy 10/17/2022 Assessment & Plan (10/25/2024 3:48 PM EDT): Nuclear sclerosis 07/07/2017 10/17/2022 Left leg pain 01/16/2015 Assessment & Plan (04/18/2021 9:48 PM EST): -Improved from last visit - getting steroid injections every three months that is helping with pain and swelling to manageable point Assessment & Plan (11/22/2020 5:00 PM EDT): - Pt reports foot xray last week done in [place] - Referral in for CT of foot as MRI in not possible due to presents of nerve stimulator in back Degeneration of intervertebral disc of lumbar re gion 01/16/2015 10/17/2022 Back pain 01/15/2015 10/17/2022 Chronic pain 11/07/2014 10/17/2022 Mild vitamin D deficiency 06/05/20142022 Other chronic pancreatitis 09/29/201310/17 Assessment & Plan (10/03/2024 10:57 AM EDT): Liver hemangioma 07/22/2013 10/17/2022 Pancreatic cyst 07/22/2013 10/17/2022 Dysthymic disorder 02/03/2013 10/17/2022 Hypertriglyceridemia 04/23/2012 Assessment & Plan (10/08/2022 3:55 PM EDT): Lipid panel ordered for monitoring of hyperlipidemia with last labs from 2020. Both HIV disease and ART carry a risk of lipid abnormalities. Portal hypertension 12/03/2011 10/17/2022 Diabetes mellitus 11/05/2011 10/17/2022 Gastro-esophageal reflux disease without esophag itis 11/05/2011 10/17/2022 Resolved Problems Problem Noted Date Diagnosed Date Resolved Date Bronchitis 03/30/2024 11/13/2024 CAP (community acquired pneumonia) 03/30/2024 11/13/2024 Cellulitis 03/30/2024 11/13/2024 COVID-19 03/30/2024 11/13/2024 Exudative pharyngitis 03/30/20242024 Vomiting 03/30/2024 11/13/2024 Immunization due 04/18/2021 11/13/2024 Bilateral myopia 07/07/2017 10/17/2022 11/13/2024 Bilateral presbyopia 07/07/2017 10/17/2022 025 Encounters Date Type Department Care Team Description 11/23/[address] [address] Aracelis Patterson MD Tremor 11/21/2024 Patient Outreach [address] [address] Barbara Redding Case Management 11/10/2024 Patient Outreach [facility] [address] [place] [address] Barbara Redding Case Management 11/07/2024 Patient Outreach [facility] [address] [place] [address] Barbara Redding Case Management 10/26/2024 2:30 PM EDT Evaluation [facility] [address] [address] Michael Kennedy DMD Globulo-maxillary cyst (Primary Dx) 10/26/2024 Travel 10/25/2024 2:45 PM EDT Office Visit [facility] [address] [place] [phone] Hiram Gutierrez MD Human immunodeficiency virus ([facility]) (Primary Dx); Diabetes mellitus type 2 without retinopathy ([facility]); Vitreous floaters of both eyes; Dry eyes; Pseudophakia of both eyes 10/25/2024 Travel 10/19/2024 11:00 AM EDT Office Visit [facility] [address], [address] [place] [address] Aracelis Patterson MD Human immunodeficiency virus ([facility]) (Primary Dx); Intertrigo; Bowel and bladder incontinence 10/19/2024 Patient Outreach [facility] [address] [place] [address] Rodolfo Schneider Case Management (Annual KADAP Recertification) 10/19/2024 Travel 10/18/2024 Travel 10/17/2024 8:00 AM EDT Office Visit [facility] [address] [facility] [address] [place] [address] Scarlett Skaggs L, DMD Complete loss of teeth (Primary Dx) 10/17/2024 Travel 10/14/2024 Results Follow-Up [facility] [address] [address] Darlene Muñoz, LABORER DRYING DEPARTMENT 10/14/2024 Results Follow-Up [facility] [address] [address] Darlene Muñoz, LABORER DRYING DEPARTMENT 10/12/2024 11:30 AM EDT Office Visit [facility] [address] [place] [address] Darlene Muñoz, LABORER DRYING DEPARTMENT Hepatic fibrosis (Primary Dx); Portal vein thrombosis; Hepatic steatosis 10/12/2024 11:00 AM EDT Ancillary Procedure [facility] [address] [place] [address] Cirrhosis of liver without ascites, unspecified hepatic cirrhosis type (CMS/HCC) 10/12/2024 9:27 AM EDT - 10/12/2024 11:59 PM EDT Hospital Encounter [facility] [address] [place] [address] Cirrhosis of liver without ascites, unspecified hepatic cirrhosis type (CMS/HCC) Discharge Disposition: Home or Self Care 10/12/2024 Travel 10/10/2024 Travel 10/05/2024 Patient Outreach [facility] [address] [place] [address] Barbara Redding Case Management 10/05/2024 Travel 09/28/2024 3:00 PM EDT Office Visit [facility] [address] [place] [address] Ulises Dhillon, PA Other chronic pancreatitis (CMS/HCC) (Primary Dx); Other constipation; Gastroesophageal reflux disease without esophagitis 09/28/2024 Travel 09/23/2024 Telephone [facility] [address] [address] Helen, Surgeon, 09/22/2024 Telephone [place] [id number] [facility] [address] [place] [address] Donna Skaggs, PANCHO 09/21/2024 Travel 09/19/2024 Patient Outreach [place] [id number] [place] [address] Barbara Redding Case Management 09/19/2024 Patient Outreach [address] [address] Barbara Redding Case Management 09/08/2024 [facility] [address] [place] [address] Aracelis Patterson MD [facility] 09/07/2024 8:00 AM EDT Office Visit [place] [id number] [facility] [address] [place] [address] Donna Skaggs, DMD Encounter for dental examination (Primary Dx) 09/07/2024 Travel 09/02/2024 Patient Outreach [facility] [address] [place] [address] Barbara Redding Case Management 08/31/2024 Travel from Last 3 Months Immunizations Immunization Administration [...] (Re d Cap) 12+ years 09/11/2021 Novel Oaruwdqdg-[id number], all formulations 02/09/2009 PPD Skin Test (TB [...] Pulse 60 10/26/2024 2:32 PM EDT Temperature 36.3 C (97.3 F) 10/19/2024 11:00 AM EDT Respiratory Rate 17 05/06/2023 5:49 PM EDT Oxygen Saturation 91% 10/26/2024 2:32 PM EDT Inhaled Oxygen Concentration - - Weight 86.8 kg (191 lb 5.8 oz) 10/26/2024 2:32 P M EDT Height 152.4 cm (5') 10/26/2024 2:32 PM EDT Body Mass Index 37.37 10/26/2024 2:32 PM EDT Plan of Treatment Upcoming Encounters Date Type Department Care Team (Late st Contact Info) Description 03/29/2025 12:40 PM EST Office Visit [facility] [address] [place] [address] Ulises Dhillon, PA [address] [place] [address] 04/14/2025 10:10 AM EST Office Visit [facility] [address] [place] [address] Arely Galvan, LEXIE [address] [place] [address] 04/20/2025 8:00 AM EST Office Visit [facility] [address] [facility] [address] [place] [address] 04/26/2025 11:00 AM EST Office Visit [facility] [address] [place] [address] Aracelis Patterson MD [address] [facility] [address] [place] [address] 11/01/2025 8:45 AM EDT Office Visit [facility] [address] [place] [address] Hiram Gutierrez MD [address] [place] [address] Health Maintenance Due Date Last Done Comments Dental Prophylaxis 1960 Dental X-Ray: Bitewings 1960 [facility]-Medicare Annual Wellness (AWV) 1960 [facility]-Infant/Child/Adol SDOH Screenings 1960 Diabetes: Dental Exam 10/12/1971 [facility]- SDOH Screenings 10/12/1979 [facility]-Adult SDOH Screenings 10/12/1979 CT Colonography 2006 Colonoscopy 2006 [facility]-DNA 2006 FIT 2006 FOBT 2006 Sigmoidoscopy 2006 [facility]-Colorectal Cancer Screening 2006 [facility]-Breast Cancer Screening 12/06/2014 12/06/2012 [facility]-RSV Vaccine: 60+ Years or (1 - Risk 60-74 years 1-dose series) 2021 [facility]-Diabetes: Hemoglobin A1C 04/07/2023 10/08/2022, 06/11/2021, 06/21/2014, Additional history exists [id number] Vaccine ( season) 2024 12/18/2021, 09/11/2021, 12/26/2020, Additional history exists [facility]-Influenza Vaccine (#1) 10/24/202412/31, 11/22/2020, 12/26/2019, Additional history exists Dental Oral Exam 04/26/2025 10/26/2024, 09/07/2024 [facility]-Depression Screening 10/19/2025 10/19/2024, 09/24 Dental X-Ray: Full Mouth 09/09/2027 09/07/2024 [facility]-DTaP,Tdap,and Td Vaccines (3 - Td or Tdap) 04/18/2031 04/18/2021, 12/23/2007 [facility]-HIB Vaccines Aged Out 12/14/2007 No longer e ligible based on patient's age to complete this topic [facility]-Cervical Cancer Screening Discontinued [facility]-HPV/Cotest Discontinued 07/10/2008, 10/24, 11/12/2007 [facility]-Pap Smear Discontinued 07/10/2008, 10/24, 11/12/2007 [facility]-Hepatitis A Vaccines Completed 018, 06/01/2008, 03/09/2008, Additional history exists [facility]-Zoster Vaccines Completed 10/10/2019, 0 [facility]-Pneumococcal Vaccine: 50+ Years Completed 04/17/2022, 11/22/2020, 11/03/2016, Additional history exists [facility]-Obesity Intervention Completed 025, 10/19/2024, 10/17/2024, Additional history exists HPV Vaccines Aged Out [...] RW Treatment Adherence No Nhi Jimenez LCSW Reduce transportation barrier to medical appointments. Care Plan RW Transportation No Rodolfo Schneider Procedures Procedure Name Priority Date/Time Associated Diagnosis Comments COMPREHENSIVE ORAL EVALUATION - NEW OR ESTABLISHED PATIENT Routine 10/26/2024 2:30 PM EDT Globulo-maxillary cyst LYMPHOCYTE SUBSET ENUMERATION, TBNK Routine 10/19/2024 12:09 PM EDT Human immunodeficiency virus ([facility]/HCC) HUMAN IMMUNODEFICIENCY VIRUS (HIV-1) QUANTITATIVE PCR Routine 10/19/2024 12:09 PM EDT Human immunodeficiency virus ([facility]) COMPREHENSIVE METABOLIC PANEL, PLASMA Routine 10/19/2024 12:09 PM EDT Human immunodeficiency virus ([facility]/HCC) CBC WITH AUTO DIFFERENTIAL Routine 10/19/2024 12:09 PM EDT Human immunodeficiency virus ([facility]/HCC) TISSUE CONDITIONING, MANDIBULAR Routine 10/17/2024 8:00 AM EDT Complete loss of teeth TISSUE CONDITIONING, MAXILLARY Routine 10/17/2024 8:00 AM EDT Complete loss of teeth LIMITED ORAL EVALUATION - PROBLEM FOCUSED Routine 10/17/2024 8:00 AM EDT Complete loss of teeth En COMPLETE DENTURE Routine 10/17/2024 12:00 AM EDT Max COMPLETE DENTURE Routine 10/17/2024 12:00 AM EDT GI FIBROSCAN Routine 10/12/2024 12:59 PM EDT Cirrhosis of liver without ascites, unspecified hepatic cirrhosis type (CMS/HCC) COMPREHENSIVE METABOLIC PANEL, PLASMA Routine 10/12/2024 12:01 PM EDT Cirrhosis of liver without ascites, unspecified hepatic cirrhosis type (CMS/HCC) Portal vein thrombosis CBC W/O DIFFERENTIAL Routine 10/12/2024 12:01 PM EDT Cirrhosis of liver without ascites, unspecified hepatic cirrhosis type (CMS/HCC) Portal vein thrombosis PROTHROMBIN TIME(PT) / INR Routine 10/12/2024 12:01 PM EDT Cirrhosis of liver without ascites, unspecified hepatic cirrhosis type (CMS/HCC) Portal vein thrombosis ALPHA FETOPROTEIN, SERUM Routine 10/12/2024 12:01 PM EDT Cirrhosis of liver without ascites, unspecified hepatic cirrhosis type (CMS/HCC) Portal vein thrombosis US LIVER SCREEN Routine 10/12/2024 10:08 AM EDT Cirrhosis of liver without ascites, unspecified hepatic cirrhosis type (CMS/HCC) PANORAMIC RADIOGRAPHIC IMAGE Routine 09/07/2024 8:00 AM EDT Encounter for dental examination COMPREHENSIVE ORAL EVALUATION - NEW OR ESTABLISHED PATIENT Routine 09/07/2024 8:00 AM EDT Encounter for dental examination HEMOGLOBIN A1C Routine 10/08/2022 10:25 AM EDT Hyperglycemia MAMMOGRAPHY BREAST SCREENING TOMOSYNTHESIS BILATERAL Routine 12/06/2012 11:46 AM EDT CYTO DATA CONVERSION Routine 07/10/2008 12:00 AM EDT from Last 3 Months or Most Recently Relevant to Health Maintenance Results * (ABNORMAL) Lymphocyte Subset Enumeration (TBNK) (10/19/2024 12:09 PM EDT) Percent CD3 71.0 57.5 - 83.1 % 10/19/2024 7:57 PM EDT [facility] Absolute CD3 3,204(H) 860 - 2,670 cells/uL 10/19/2024 7:57 PM EDT [facility] Percent CD4 44.2 31.5 - 62.4 % 10/19/2024 7:57 PM EDT [facility] Absolute CD4 1,995(H) 490 - 1,730 cells/uL 10/19/2024 7:57 PM EDT [facility] Percent CD8 24.6 9.5 - 38.3 % 10/19/2024 7:57 PM EDT [facility] Absolute CD8 1,109(H) 160 - 1,070 cells/uL 10/19/2024 7:57 PM EDT [facility] Percent CD19 19.8 6.0 - 24.2 % 10/19/2024 7:57 PM EDT [facility] Absolute CD19 895(H) 73 - 562 cells/uL 10/19/2024 7:57 PM EDT [facility] Percent CD16+CD56 8.7 5.2 - 30.4 % 10/19/2024 7:57 PM EDT [facility] Absolute CD16+CD56 393 110 - 680 cells/uL 10/19/2024 7:57 PM EDT [facility] CD4:CD8 Ratio 1.77 10/19/2024 7:57 PM EDT [facility] Blood Venous blood specimen / Unknown Venipuncture / Unknown 10/19/2024 12:09 PM EDT 10/19/2024 12:10 PM EDT us Aracelis Boo MD LAB FLOW CYTOMETRY O RDERABLES Final Result [facility] [address] [place] [address] * Human Immunodeficiency Virus (HIV-1) Quantitative PCR (10/19/2024 12:09 PM EDT) Human Immunodeficiency Virus (HIV-1) Quant Interpretation Not Detected Not Detected 10/20/2024 2:40 PM EDT [facility] Blood Venipuncture / Unknown 10/19/2024 12:09 PM EDT 10/19/2024 12:10 PM EDT Narrative [facility] - 10/20/2024 2:40 PM EDT [employer] M2000 HIV-1 test is a Real Time [...] Boo MD LAB BLOOD ORDERABLES Final Result [facility] [address] [place] [address] * (ABNORMAL) CBC and Differential (10/19/2024 12:09 PM EDT) [facility] WBC Count 10.17 3.70 - 10.30 10*3/uL LAB HEMATOLOGY METHOD 10/19/2024 3:13 PM EDT [facility] RBC Count 4.60 3.90 - 5.20 10*6/uL LAB HEMATOLOGY METHOD 10/19/2024 3:13 PM EDT [facility] HGB 15.0 11.2 - 15.7 g/dL LAB HEMATOLOGY METHOD 10/19/2024 3:13 PM EDT [facility] HCT 43.7 34.0 - 45.0 % LAB HEMATOLOGY METHOD 10/19/2024 3:13 PM EDT [facility] Platelet Count 372(H) 155 - 369 10*3/uL LAB HEMATOLOGY METHOD 10/19/2024 3:13 PM EDT [facility] MCV 95 79 - 98 fL LAB HEMATOLOGY METHOD 10/19/2024 3:13 PM EDT [facility] MCH 32.6(H) 26.0 - 32.0 pg LAB HEMATOLOGY METHOD 10/19/2024 3:13 PM EDT [facility] MCHC 34.3 30.7 - 35.5 g/dL LAB HEMATOLOGY METHOD 10/19/2024 3:13 PM EDT [facility] RDW 13.3 11.5 - 14.5 % LAB HEMATOLOGY METHOD 10/19/2024 3:13 PM EDT [facility] MPV 10.7 8.8 - 12.5 fL LAB HEMATOLOGY METHOD 10/19/2024 3:13 PM EDT [facility] nRBC 0.0 <=0.0 per 100 WBCs LAB HEMATOLOGY METHOD 10/19/2024 3:13 PM EDT [facility] Differential Type Automated LAB HEMATOLOGY METHOD 10/19/2024 3:13 PM EDT [facility] Neutrophils % 49 % LAB HEMATOLOGY METHOD 10/19/2024 3:13 PM EDT [facility] Lymphocytes % 38 % LAB HEMATOLOGY METHOD 10/19/2024 3:13 PM EDT [facility] Monocytes % 11 % LAB HEMATOLOGY METHOD 10/19/2024 3:13 PM EDT [facility] Eosinophils % 1 % LAB HEMATOLOGY METHOD 10/19/2024 3:13 PM EDT [facility] Basophils % 1 % LAB HEMATOLOGY METHOD 10/19/2024 3:13 PM EDT [facility] Immature Granulocytes % 0 % LAB HEMATOLOGY METHOD 10/19/2024 3:13 PM EDT [facility] Neutrophils Absolute 5.02 1.60 - 6.10 10*3/uL LAB HEMATOLOGY METHOD 10/19/2024 3:13 PM EDT [facility] Lymphocytes Absolute 3.86 1.20 - 3.90 10*3/uL LAB HEMATOLOGY METHOD 10/19/2024 3:13 PM EDT [facility] Monocytes Absolute 1.07(H) 0.30 - 0.90 10*3/uL LAB HEMATOLOGY METHOD 10/19/2024 3:13 PM EDT [facility] Eosinophils Absolute 0.13 0.00 - 0.50 10*3/uL LAB HEMATOLOGY METHOD 10/19/2024 3:13 PM EDT [facility] Basophils Absolute 0.07 0.00 - 0.10 10*3/uL LAB HEMATOLOGY METHOD 10/19/2024 3:13 PM EDT [facility] Immature Granulocytes Absolute 0.02 0.00 - 0.06 10*3/uL LAB HEMATOLOGY METHOD 10/19/2024 3:13 PM EDT [facility] Blood Venous blood specimen / Unknown Venipuncture / Unknown 10/19/2024 12:09 PM EDT 10/19/2024 12:10 PM EDT Narrative [facility] - 10/19/2024 3:13 PM EDT Therapeutic decision making should be based on absolute values, rather than percentages. us Aracelis Boo MD LAB BLOOD ORDERABLES Final Result [facility] [address] [place] [address] * (ABNORMAL) Comprehensive Metabolic Panel, Plasma (10/19/2024 12:09 PM EDT) Only the most recent of2 resultswithin the time period is included. Glucose, Plasma 103(H) 74 - 99 mg/dL 10/19/2024 3:28 PM EDT [facility] BUN, Plasma 18 8 - 23 mg/dL 10/19/2024 3:28 PM EDT [facility] Creatinine, Plasma 0.56(L) 0.60 - 1.10 mg/dL 10/19/2024 3:28 PM EDT [facility] BUN/Creatinine Ratio 32 10/19/2024 3:28 PM EDT [facility] Sodium, Plasma 142 136 - 145 mmol/L 10/19/2024 3:28 PM EDT [facility] Potassium, Plasma 3.5(L) 3.6 - 4.9 mmol/L 10/19/2024 3:28 PM EDT [facility] Chloride, Plasma 104 97 - 107 mmol/L 10/19/2024 3:28 PM EDT [facility] CO2, Plasma 26 22 - 29 mmol/L 10/19/2024 3:28 PM EDT [facility] Anion Gap 12 6 - 16 mmol/L 10/19/2024 3:28 PM EDT [facility] Total Calcium, Plasma 9.3 8.9 - 10.2 mg/dL 10/19/2024 3:28 PM EDT [facility] Total Protein 7.5 6.3 - 7.9 g/dL 10/19/2024 3:28 PM EDT [facility] Albumin, Plasma 4.3 3.5 - 5.2 g/dL 10/19/2024 3:28 PM EDT [facility] AST, Plasma 27 10 - 35 U/L 10/19/2024 3:28 PM EDT [facility] ALT, Plasma 22 10 - 35 U/L 10/19/2024 3:28 PM EDT [facility] Alkaline Phosphatase, Plasma 80 46 - 142 U/L 10/19/2024 3:28 PM EDT [facility] Total Bilirubin, Plasma 0.4 0.2 - 1.1 mg/dL 10/19/2024 3:28 PM EDT [facility] eGFRcr 102.7 mL/min/1.7 3m*2 10/19/2024 3:28 PM EDT [facility] Comment:Reported eGFRcr in m L/min/1.73m2 is based the CKD-EPI 2020 equation that does not use a race coefficient. Blood Venous blood specimen / Unknown Venipuncture / Unknown 10/19/2024 12:09 PM EDT 10/19/2024 12:10 PM EDT Aracelis Boo MD LAB BLOOD ORDERABLES Final Result [facility] [address] [place] [address] * GI Fibroscan (10/12/2024 12:59 PM EDT) Narrative [facility] - 10/13/2024 7:41 PM EDT Table formatting [...] CLINIC DIAGNOSTIC ORDER S Final Result [facility] * Alpha Fetoprotein, Serum (10/12/2024 12:01 PM EDT) Alpha Fetoprotein, Serum <2.3 <10.0 ng/mL 10/12/2024 2:44 PM EDT [facility] Blood Venous blood specimen / Unknown Venipuncture / Unknown 10/12/2024 12:01 PM EDT 10/12/2024 12:01 PM EDT Narrative [facility] - 10/12/2024 2:44 PM EDT Performed by Rocky electrochemiluminescent immunoassay which is traceable to the [address] [place] [address] IRP WHO Reference standard 72/255. Results obtained with different test methods or kits cannot be used interchangeably. Legal Egg D Wanda LABORER DRYING DEPARTMENT LAB BLOOD ORDERABLES Final Result Performing Organization Address [facility] Co de Phone Number [facility] [address] [place] [address] * Prothrombin Time/INR (10/12/2024 12:01 PM EDT) Prothrombin Time 13.4 12.0 - 14.3 sec LAB COAGULATION METHOD 10/12/2024 1:50 PM EDT [facility] INR 1.0 0.9 - 1.1 LAB COAGULATION METHOD 10/12/2024 1:50 PM EDT [facility] Blood Venous blood specimen / Unknown Venipuncture / Unknown 10/12/2024 12:01 PM EDT 10/12/2024 12:01 PM EDT Narrative [facility] - 10/12/2024 1:50 PM EDT OPTIMAL INR RANGES FOR PATIENT ON ORAL ANTICOAGULANT THERAPY Prevention of venous thromboembolism INR 2.0 to 3.0 In patients with heart disease: Atrial fibrillation INR 2.0 to 3.0 Valvular heart disease INR 2.0 to 3.0 Tissue heart valves INR 2.0 to 3.0 Mechanical prosthetic valves INR 2.5 to 3.5 Prevention of recurrent ID INR 2.5 to 3.5 us Darlene D Wanda LABORER DRYING DEPARTMENT LAB BLOOD ORDERABLES Final Result Performing Organization Address City/[facility]/ZIP Co de Phone Number [facility] [address] [place] [address] * (ABNORMAL) CBC W/O Differential (10/12/2024 12:01 PM EDT) WBC Count 12.06(H) 3.70 - 10.30 10*3/uL LAB HEMATOLOGY METHOD 10/12/2024 2:26 PM EDT [facility] RBC Count 4.44 3.90 - 5.20 10*6/uL LAB HEMATOLOGY METHOD 10/12/2024 2:26 PM EDT [facility] HGB 14.5 11.2 - 15.7 g/dL LAB HEMATOLOGY METHOD 10/12/2024 2:26 PM EDT [facility] HCT 42.9 34.0 - 45.0 % LAB HEMATOLOGY METHOD 10/12/2024 2:26 PM EDT [facility] Platelet Count 372(H) 155 - 369 10*3/uL LAB HEMATOLOGY METHOD 10/12/2024 2:26 PM EDT [facility] MCV 97 79 - 98 fL LAB HEMATOLOGY METHOD 10/12/2024 2:26 PM EDT [facility] MCH 32.7(H) 26.0 - 32.0 pg LAB HEMATOLOGY METHOD 10/12/2024 2:26 PM EDT [facility] MCHC 33.8 30.7 - 35.5 g/dL LAB HEMATOLOGY METHOD 10/12/2024 2:26 PM EDT [facility] RDW 13.3 11.5 - 14.5 % LAB HEMATOLOGY METHOD 10/12/2024 2:26 PM EDT [facility] MPV 10.9 8.8 - 12.5 fL LAB HEMATOLOGY METHOD 10/12/2024 2:26 PM EDT [facility] nRBC 0.0 <=0.0 per 100 WBCs LAB HEMATOLOGY METHOD 10/12/2024 2:26 PM EDT [facility] Blood Venous blood specimen / Unknown Venipuncture / Unknown 10/12/2024 12:01 PM EDT 10/12/2024 12:01 PM EDT us Darlene Muñoz APRN LAB BLOOD ORDERABLES Final Result [facility] [address] [place] [address] * US Liver Screen (10/12/2024 10:08 AM [...] are based on Ultrasound LI-RADS version 2017. [email or web address].org/-/[email or web address]-[place]-Algorithm-Portrait -[email or web address] .pdf CRITICAL RESULT: No. COMMUNICATION: Per [...] recommendations are based on UltrasoundLI-RADS version 2017. [email or web address]://[email or web address].org/-/[email or web address]-RADS/EG-DABT-NM-Algorithm-Portrait -2017 .pdf CRITICAL RESULT: No. COMMUNICATION: Per this written report. Drafted by Kelle Karimi MD on 10/12/2024 11:50 AM Final report signed by Kelle Karimi MD on 10/12/2024 11:54 AM us Darlene Muñoz LABORER DRYING DEPARTMENT IMG US PROCEDURES Final Re sult * (ABNORMAL) Hemoglobin A1c (10/08/2022 10:25 AM EDT) Hemoglobin A1c 5.7(H) <5.7 % 10/08/2022 1:41 PM EDT [facility] Blood Venous blood specimen / Unknown [...] Adults <6.0% Children and Adolescents <7.5% Source: [place] [employer]. Standards of medical care in diabetes,2017. Diabetes Care.2017:40 (suppl 1):S1-S135. HbA1c assay performed by an ion-exchange chromatography method that is certified traceable to the DCCT. us Ulises ERNANDEZ LAB BLOOD ORDERABLES Final Re sult [facility] [address] [place] [address] * Mammography Breast Screening Tomosynthesis Bilateral (12/06/2012 [...] Service: 12/06/2012 Referring Phy:Kami Corbin MD Account: [id number] Read By: Geremias Adames M.D. Signed By: Abraham Siddiqi M.D. on 12/06/2012 at 04:33:43 PM Page 2 of 2 Read By: GEREMIAS ADAMES M.D. Signed By: ABRAHAM SIDDIQI M.D. on 12/06/2012 at 16:33:44 Narrative 12/06/2012 4:33 PM EDT Patient Name:Светлана Rivera : 1960 Age: 52 Gender: femaleDate of Service: 12/06/2012 Referring Phy:Kami Corbin MD Account: [id number] FINAL REPORT PROCEDURE: Screening Tomosynthesis - bilateral [...] of Service:12/06/2012 Referring Phy:Kami Corbin MD Account: [id number] FINAL REPORT PROCEDURE: Screening Tomosynthesis - bilateral [...] of Service:12/06/2012 Referring Phy:Kami Corbin MD Account: [id number] Read By: Geremias Adames M.D. Signed By: Abraham Siddiqi M.D. on 12/06/2012 at 04:33:43 PM Page Read By: GEREMIAS ADAMES M.D. Signed By: ABRAHAM SIDDIQI M.D. on 12/06/2012 at 16:33:44 us Historical Provider IMG BI PROCEDURES Final Resu lt * Cytology (07/10/2008 12:00 AM EDT) 07/10/2008 07/11/2008 10: 03 AM EDT Narrative [facility] - 07/12/2008 4:26 PM EDT [facility] MR #: [id number] [facility] [place] [address] 1960 (Age: 47) FW Collect Date: 07/10/2008 00:00 Receipt Date: 07/11/2008 10:03 Page 1 DEPARTMENT OF PATHOLOGY AND LABORATORY MEDICINE CYTOPATHOLOGY REPORT Email: [email or web address] [phone] ATTENDING MD/Practitioner: Saeed Corbin MD Service: ID Location: ID Reported: 07/12/2008 16:26 Collected: 07/10/2008 00:00 INTERPRETATION A. THIN PREP (VAGINAL): NEGATIVE FOR INTRAEPITHELIAL LESION OR MALIGNANCY. SATISFACTORY FOR EVALUATION. Slide scanned and imaged by Estech ThinPrep Imaging System with manual review of [...] results is suggested (please call Microbiology at [phone] for results). CLINICAL INFORMATION: Menstrual History: Post-hysterectomy: [...] HAZARDS TO HEALTH F: A; RT IMAGE [id number] SNOMED CODES: A; [id number] In cases where a pathologist has signed out the report, the service has been rendered in part by a resident. The signing pathologist has performed and is responsible for the reported pathologic evaluation. us Historical Provider LAB PATHOLOGY ORDERABLES Fin al Result [facility] from Last 3 Months or Most Recently Relevant to Health Maintenance Additional Health Concerns Active Problems Noted Date Diagnosed Date RW Treatment Adherence 10/30/2021 RW Transportation 10/30/2021 Insurance * Guarantor: Светлана Rivera Account Type Relation to Patient Date of Phone Billing Address Personal/Family Self 1960 [address] [place] [address] MEDICARE [facility] INFECTIOUS DISEASE PROGRAM INFECTIOUS DISEASE PROGRAM Care Teams Geography Instructor Relationship Specialty Start Date End Date Hiram Serna DO [address] [place] [address] PCP - General 03/30/24 Aracelis Patterson MD [address] [place] [address] [address] [place] [address] Consulting Physician Infectious Diseases 09/16/22 Barbara Redding Clam Dredger Offshore Diver 07/20/24
--- OUTSIDE RECORDS SUMMARY | 2024-11-24 10:36 | XMS_ITS | Encounter Summary ---
Author Organization [facility] Address [address] [place] [address] Care Team Providers Care Manager Talent Acquisition Name Role Phone Aracelis Patterson MD Unavailable + [phone] Hiram Serna DO Primary Care Provider [phone] Barbara Redding Unavailable Unavailable Reason for Visit * Reason Comments Case Management Encounter Details Date Type Department Care Team (Late st Contact Info) Description 11/21/2024 Patient Outreach [facility] [address] [place] [address] Barbara Redding Case Management Social History Tobacco [...] * Progress Notes - Barbara Redding - 11/21/2024 3:55 PM EDT P: Patient Outreach, QMB D: Coordinated Access, Support Services A: [facility] made OBC to patient HIPAA verified confirmed that patient received incontinence supplies, patient dropped off bank statements to [employer], [facility] sent fax to [phone] and [phone] copy of award letter and Medicare Card. [facility] will follow up with [employer] to confirm receipt of documents in 1-3 business days Duration: 15 minutes CIARA Fair documented in this encounter Plan of Treatment Upcoming Encounters Date Type Department Care Team (Late st Contact Info) Description 03/29/2025 12:40 PM EST Office Visit [facility] Medicine Specialties [address] [place] [address] Ulises Dhillon PA [address] [place] [address] 04/14/2025 10:10 AM EST Office Visit [facility] Specialties [address] [place] [address] Arely Galvan APRN [address] [place] [address] 04/20/2025 8:00 AM EST Office Visit [facility] [address] [facility] [address] [place] [address] 04/26/2025 11:00 AM EST Office Visit [facility] [address] [place] [address] Aracelis Patterson MD [address] [facility] [address] [place] [address] 11/01/2025 8:45 AM EDT Office Visit [facility] [address] [place] [address] Hiram Gutierrez MD [address] [place] [address] documented as of this encounter [...] Care Plan RW Transportation No Rodolfo Schneider documented as of this encounter Visit Diagnoses [...] documented as of this encounter Care Teams Manager Talent Acquisition Relationship Specialty Start Date End Date Hiram Serna DO [address] [place] [address] PCP - General 03/30/24 [place] [address] [place] [address] [address] [place] [address] Consulting Physician Infectious Diseases 09/16/22 Barbara Redding Cnc Manager Production Machinist 07/20/24 documented as of this encounter
--- OUTSIDE RECORDS SUMMARY | 2024-11-24 10:36 | XMS_ITS | Encounter Summary ---
Author Organization [facility] Address [address] [place] [address] Care Team Providers Care Handicrafts Teacher Name Role Phone Aracelis Patterson MD Unavailable [phone] Hiram Serna DO Primary Care Provider [phone] Barbara Redding Unavailable Unavailable Encounter Details Date Type Department Care Team (Latest Contact Info) Description 10/05/2024 Travel Social History Tobacco Use Types Packs/Day [...] Description 03/29/2025 12:40 PM EST Office Visit [facility] [address] [place] [address] Ulises Dhillon, PA [address] [place] [address] 04/14/2025 10:10 AM EST Office Visit [facility] [address] [place] [address] Arely Galvan, TRACTOR ENGINE ASSEMBLER [address] [place] [address] 04/20/2025 8:00 AM EST Office Visit [facility] [address] [facility] [address] [place] [address] 04/26/2025 11:00 AM EST Office Visit [facility] [address] [place] [address] Aracelis Patterson MD [address] [facility] [address] [place] [address] 11/01/2025 8:45 AM EDT Office Visit [facility] Care [address] [facility] [place] [address] Hiram Gutierrez MD [address] [facility] [address] [place] [address] documented as of this encounter [...] documented as of this encounter Care Teams Handicrafts Teacher Relationship Specialty Start Date End Date Hiram Serna DO [address] [place] [address] PCP - General 03/30/24 Aracelis Patterson MD [address] [place] [phone] Consulting Physician Infectious Diseases 09/16/22 Barbara Redding Supervisor Heavy Equipment Machine Pecan Gatherer 07/20/24 documented as of this encounter
--- OUTSIDE RECORDS SUMMARY | 2024-11-24 10:36 | XMS_ITS | Encounter Summary ---
Author Organization Healthcare Address [address] [place] [address] Care Team Providers Care Tube Sorter Name Role Phone Aracelis Patterson MD Unavailable [phone] Hiram Serna DO Primary Care Provider [phone] Barbara Redding Unavailable Unavailable Encounter Details Date Type Department Care Team (Late st Contact Info) Description 10/14/2024 Results Follow-Up [facility] [address] [facility] [address] [place] [address] Darlene Muñoz, HOME ORGANIZER [address] [facility] [address] [place] [address] Social History Tobacco Use Types [...] 03/29/2025 12:40 PM EST Office Visit [facility] Medicine Specialties [address] [place] [address] Ulises Dhillon, PA [address] [place] [address] 04/14/2025 10:10 AM EST Office Visit [facility] Medicine Specialties [address] [place] [address] Arely Galvan, LEXIE [address] [place] [address] 04/20/2025 8:00 AM EST Office Visit [facility] [address] [facility] [address] [place] [address] 04/26/2025 11:00 AM EST Office Visit [facility] Specialty Care Clinic [address] [place] [address] Aracelis Patterson MD [address] [facility] [address] [place] [address] 11/01/2025 8:45 AM EDT Office Visit [facility] [address] [facility] [place] [address] Hiram Gutierrez MD [address] [place] [address] documented as of this encounter Goals Goal Patient Goal Type Associated Problems Recent Progress Patient-Stated? Author Светлана to remain active in HIV care Care Plan RW Treatment Adherence No Nhi Jimenez, TERRA COTTA ROOFER HELPER Светлана to remain active on Part B [...] documented as of this encounter Care Teams Tube Sorter Relationship Specialty Start Date End Date Hiram Serna DO [address] [place] [address] PCP - General 03/30/24 [place] [address] [place] [address] Consulting Physician Infectious Diseases 09/16/22 Barbara Redding Case Operator Physician Office Specialist 07/20/24 documented as of this encounter
--- OUTSIDE RECORDS SUMMARY | 2024-11-24 10:36 | XMS_ITS ---
Author Organization [facility] Address [address] [place] [address] Care Team Providers Care Jewelry Manager Name Role Phone Aracelis Pattesron MD Unavailable [phone] Hiram Serna DO Primary Care Provider [phone] Barbara Redding Unavailable Unavailable Ayad White Status:Active (Active) Start date:11/25/2007 Enrollment date:11/25/2007 Related social drivers of health:Intimate Partner Violence, Alcohol Use, Tobacco Use, Financial Resource Strain, Depression, Stress,Food Insecurity, Transportation Needs, Housing Stability, Safety and Environment Case Team Name Relationship Phone Barbara Redding(Responsible Staff) Diazo Technician Continued Care and Services Coordination
--- OUTSIDE RECORDS SUMMARY | 2024-11-24 10:36 | XMS_ITS | Encounter Summary ---
Author Organization [facility] Address [address] [place] [address] Care Team Providers Care Speeder Hand Name Role Phone Aracelis Patterson MD Unavailable [phone] Hiram Serna DO Primary Care Provider [phone] Barbara Redding Unavailable Unavailable Encounter Details Date Type Department Care Team (Latest Contact Info) Description 10/12/2024 Travel Social History Tobacco Use Types Packs/Day [...] 03/29/2025 12:40 PM EST Office Visit [facility] Medicine Specialties [address] [place] [address] Ulises Dhillon PA [address] [place] [address] 04/14/2025 10:10 AM EST Office Visit [facility] Medicine Specialties [address] [place] [address] Arely Galvan, LEXIE [address] [place] [address] 04/20/2025 8:00 AM EST Office Visit [facility] [address] [facility] [address] [place] [address] 04/26/2025 11:00 AM EST Office Visit [facility] [address] [place] [address] Aracelis Patterson MD [address] [facility] [address] [place] [address] 11/01/2025 8:45 AM EDT Office Visit [facility] [address] [place] [address] Hiram Gutierrez MD [address] [place] [address] documented as of this encounter [...] documented as of this encounter Care Teams Speeder Hand Relationship Specialty Start Date End Date Hiram Serna DO [address] [place] [address] PCP - General 03/30/24 Aracelis Patterson MD [address] [facility] [address] [place] [address] Consulting Physician Infectious Diseases 09/16/22 Barbara Redding Manager Patient Chlorinator 07/20/24 documented as of this encounter
--- OUTSIDE RECORDS SUMMARY | 2024-11-24 10:36 | XMS_ITS | Encounter Summary ---
Author Organization Healthcare Address [address] [place] [address] Care Team Providers Care Web Marketing Analyst Name Role Phone Aracelis Patterson MD Unavailable [phone] Hiram Serna DO Primary Care Provider [phone] Barbara Redding Unavailable Unavailable Encounter Details Date Type Department Care Team (Late st Contact Info) Description 10/14/2024 Results Follow-Up [facility] [address] [facility] [address] [place] [address] Darlene Muñoz, BAND SALVAGER [address] [facility] [address] [place] [address] Social History Tobacco Use Types [...] Description 03/29/2025 12:40 PM EST Office Visit [facility] Medicine Specialties [address] [place] [address] Ulises Dhillon, PA [address] [place] [address] 04/14/2025 10:10 AM EST Office Visit [facility] Medicine Specialties [address] [place] [address] Arely Galvan, LEXIE [address] [place] [address] 04/20/2025 8:00 AM EST Office Visit [facility] [address] [facility] [address] [place] [address] 04/26/2025 11:00 AM EST Office Visit [facility] Clinic [address] [place] [address] Aracelis Patterson MD [address] [facility] [address] [place] [address] 11/01/2025 8:45 AM EDT Office Visit [facility] [address] [facility] [place] [address] Hiram Gutierrez MD [address] [place] [address] documented as of this encounter Goals Goal Patient Goal Type Associated Problems Recent Progress Patient-Stated? Author Светлана to remain active in HIV care Care Plan RW Treatment Adherence No Nhi Jimenez, MESS ATTENDANT Светлана to remain active on Part B [...] documented as of this encounter Care Teams Web Marketing Analyst Relationship Specialty Start Date End Date Hiram Serna DO [address] [place] [address] PCP - General 03/30/24 [place] [address] [place] [address] Consulting Physician Infectious Diseases 09/16/22 Barbara Redding Matlab Developer Tennis Racket Repairer 07/20/24 documented as of this encounter
--- OUTSIDE RECORDS SUMMARY | 2024-11-24 10:36 | XMS_ITS | Encounter Summary ---
Author Organization [facility] Address [address] [place] [address] Care Team Providers Care Coding Director Name Role Phone Aracelis Patterson MD Unavailable + [phone] Hiram Serna DO Primary Care Provider [phone] Barbara Redding Unavailable Unavailable Reason for Visit * Reason Comments Case Management Encounter Details Date Type Department Care Team (Late st Contact Info) Description 10/05/2024 Patient Outreach [facility] [address] [place] [address] Barbara Redding Case Management Social History Tobacco [...] * Progress Notes - Barbara Redding - 10/05/2024 2:31 PM EDT P: Blood Pressure Cuff, Medical Transportation Request, KADAP reminder D: Coordinated Access, Support Services, Client Monitoring A: MCM received inbound call from patient HIPAA verified. Patient states she needs a blood pressurecuff. Patient is requesting medical transportation assistance for October appointments. Patient is wanting to complete her KADAP recertification in person during ID visit with Dr. Hughes. MCM will assist with ordering blood pressure cuff. MCM sent secure EMR message to ID provider requesting general order for blood pressure cuff. No other needs at this time. Duration: 15 minutes CIARA Fair documented in this encounter Plan of Treatment Upcoming Encounters Date Type Department Care Team (Late st Contact Info) Description 03/29/2025 12:40 PM EST Office Visit [facility] [address] [place] [address] Ulises Dhillon PA [address] [place] [address] 04/14/2025 10:10 AM EST Office Visit [facility] [address]nd [place] [address] Arely Galvan APRN [address] [place] [address] 04/20/2025 8:00 AM EST Office Visit [facility] [address] [facility] [address] [place] [address] 04/26/2025 11:00 AM EST Office Visit [facility] [address] [place] [address] Aracelis Patterosn MD [address] [facility] [address] [place] [address] 11/01/2025 8:45 AM EDT Office Visit [facility] [address] [place] [address] Hiram Gutierrez MD [address] [place] [address] documented as of this encounter [...] documented as of this encounter Care Teams Coding Director Relationship Specialty Start Date End Date Hiram Serna DO [address] [place] [address] PCP - General 03/30/24 Aracelis Patterson MD [address] [place] [address] [address] [place] [address] Consulting Physician Infectious Diseases 09/16/22 Barbara Redding Assistant Auditor Assigner 07/20/24 documented as of this encounter
--- OUTSIDE RECORDS SUMMARY | 2024-11-24 10:36 | XMS_ITS | Encounter Summary ---
Author Organization [facility] Address [address] [place] [address] Care Team Providers Care Back Sizer Name Role Phone Aracelis Patterson MD Unavailable + [phone] Hiram Serna DO Primary Care Provider [phone] Barbara Redding Unavailable Unavailable Reason for Visit * Reason Comments Case Management Encounter Details Date Type Department Care Team (Late st Contact Info) Description 11/10/[address] [facility] [address] [place] [address] Barbara Redding Case Management Social History Tobacco [...] * Progress Notes - Barbara Redding - 11/10/2024 9:42 AM EDT P: QMB/ SLMB Application, DCBS, Personal Care Items D: Coordinated Access, Support Services A: LUI made OBC to DCBS at [phone] reached Pedro. LUI requested SLMB application on behalf of patient. LUI is listed as an authorized office services representative for patient with the Dept of Community Based Services, authorized to apply and make changes to her case. LUI submitted SLMB application and requested retroactive coverage, with following documentation required, due in 30 days: -Bank statements for checking and savings going back to July, August, September, October 2024 (patient) -Property tax letter from [facility]/ [facility] dept (patient) -or copy of lease agreement or written statement of household members and rental agreement (patient) -Verification of income, if only receiving SSDI (e-file) -Medicare Card (e-file) -Award Letter (e-file) LUI made OBC to patient HIPAA verified. LUI informed patient of documentation needed in order to complete her SLMB application. [facility] will mail patient a large manilla envelope for her portion of documents. Once [facility] receives documents, [facility] will fax to [facility] at [phone] SLMB application assistance as a support service will reduce patients barriers to care by increasing financial stability due to fixed income LUI informed patient that DME/ personal care items were ordered on her behalf and should arrive in 1-3 business days Patient was pleased with the outcome of this phone encounter. Duration: 2 hours (120 minutes) CIARA Fair documented in this encounter Plan of Treatment Upcoming Encounters Date Type Department Care Team (Late st Contact Info) Description 03/29/2025 12:40 PM EST Office Visit [facility] Medicine Specialties [address] [place] [address] Ulises Dhillon PA [address] [place] [address] 04/14/2025 10:10 AM EST Office Visit [facility] Medicine Specialties [address] [place] [address] Arely Galvan, LEXIE [address] [place] [address] 04/20/2025 8:00 AM EST Office Visit [facility] [address] [facility] [address] [place] [address] 04/26/2025 11:00 AM EST Office [facility] [address], [address] [place] [address] Aracelis Patterson MD [address] [facility] [address] [place] [address] 11/01/2025 8:45 AM EDT Office Visit [facility] [address] [place] [address] Hiram Gutierrez MD [address] [place] [address] documented as of this encounter [...] documented as of this encounter Care Teams Back Sizer Relationship Specialty Start Date End Date Hiram Serna DO [address] [place] [address] PCP - General 03/30/24 Aracelis Patterson MD [address] [address] Consulting Physician Infectious Diseases 09/16/22 Barbara Redding Histotechnologist Supervisor Web Content Editor 07/20/24 documented as of this encounter
--- OUTSIDE RECORDS SUMMARY | 2024-11-24 10:36 | XMS_ITS | Encounter Summary ---
Author Organization [facility] Address [address] [place] [address] Care Team Providers Care Director Of Personnel Name Role Phone Aracelis Patterson MD Unavailable [phone] Hiram Serna DO Primary Care Provider [phone] Barbara Redding Unavailable Unavailable Encounter Details Date Type Department Care Team (Latest Contact Info) Description 10/17/2024 Travel Social History Tobacco Use Types Packs/Day [...] Description 03/29/2025 12:40 PM EST Office Visit [facility] [address], [address] [place] [address] Ulises Dhillon, PA [address] [place] [address] 04/14/2025 10:10 AM EST Office Visit [facility] [address] [place] [address] Arely Galvan, RECREATION PROFESSOR [address] [place] [address] 04/20/2025 8:00 AM EST Office Visit [facility] [address] [facility] [address] [place] [address] 04/26/2025 11:00 AM EST Office Visit [facility] [address] [place] [address] Aracelis Patterson MD [address] [facility] [address] [place] [address] 11/01/2025 8:45 AM EDT Office Visit [facility] [address] [place] [address] Hiram Gutierrez MD [address] [facility] [address] [place] [address] documented as of this encounter [...] documented as of this encounter Care Teams Director Of Personnel Relationship Specialty Start Date End Date Hiram Serna DO [address] [place] [address] PCP - General 03/30/24 Aracelis Patterson MD [address] [place] [phone] Consulting Physician Infectious Diseases 09/16/22 Barbara Redding Process Safety Engineer Neon Sign Worker 07/20/24 documented as of this encounter
--- OUTSIDE RECORDS SUMMARY | 2024-11-24 10:36 | XMS_ITS ---
Care Plan Created on: November 24, 2024 Светлана Rivera : 1960 Sex: Female Author Organization [facility] Address [address] [place] [address] Care Team Providers Care Plate Corrector Name Role Phone Aracelis Patterson MD Unavailable [phone] Hiram Serna DO Primary Care Provider [phone] Barbara Redding Unavailable Unavailable Active Problems Problem [...] referral; patient request dental but reports seeing booking prizer recently UTD on recommended vaccinations Assessment & [...] Vaccination 05/21/2020 Meningococcal MCV4P 12/14/2007, 02/24/2017 Novel [id number], all formulations 02/09/2009 PPD Test 04/29/2010 Pneumococcal [...] reports foot xray last week done in [place] - Referral in for CT of foot [...] myopia 07/07/2017 10/17/2022 11/13/2024 Bilateral presbyopia 07/07/2017 10/17/202221/2 025 Additional Health Concerns Active Problems Noted Date Diagnosed Date RW Treatment Adherence 10/30/2021 RW Transportation 10/30/2021 Goals Goal Patient Goal Type Associated Problems Recent Progress Patient-Stated? Author Светлана to remain active in HIV care Care Plan RW Treatment Adherence No Nhi Jimenez LCSW Светлана to remain active on Part B services/RW jose-eligible Care Plan RW Treatment Adherence No Nhi Jimenez LCSW Светлана to maintain undetectable viral load. Care Plan RW Treatment Adherence No Nhi Jimenez LCSW Reduce transportation barrier to medical appointments. Care Plan RW Transportation No Rodolfo Schneider Interventions Care Plan Interventions Intervention Entry Date Outcome Светлана to contact her primary MCM at least 2 days prior to her appointments for transportation assistance. 10/27/2024 Светлана to obtain lab work as recommended by ID provider. 10/27/2024 Светлана to take medication as prescribed. 10/30/2021 Светлана to complete Recertification paperwork once a year a provide required documentation. 10/30/2021 Светлана to attend all ID appointments as scheduled. 10/30/2021 Related Goals and Interventions Goal Associated Intervent ions Светлана to remain active in HIV care C hristine to attend all ID appointments as scheduled. Светлана to remain active o n Part B services/RW jose-eligible Светлана to complete Recertification paperwork once a year a provide required documentation. Светлана to maintain undete ctable viral load. Светлана to obtain lab work as recommen ded by ID provider.; Светлана to take medication as prescribed. Reduce transportation owen r to medical appointments. Светлана to contact her primary MCM at least 2 days prior to her appointments for transportation assistance.
--- OUTSIDE RECORDS SUMMARY | 2024-11-24 10:36 | XMS_ITS | Encounter Summary ---
Author Organization [facility] Address [address] [place] [address] Care Team Providers Care Audiometrist Name Role Phone Aracelis Patterson MD Unavailable [phone] Hiram Serna DO Primary Care Provider [phone] aBrbara Redding Unavailable Unavailable Encounter Details Date Type Department Care Team (Latest Contact Info) Description 10/25/2024 Travel Social History Tobacco Use Types Packs/Day [...] Description 03/29/2025 12:40 PM EST Office Visit [facility] [address] [place] [phone] Ulises Dhillon, PA [address] [place] [address] 04/14/2025 10:10 AM EST [facility] [address] [place] [address] Arely Galvan, ELECTRICAL PROSPECTING SUPERVISOR [address] [place] [address] 04/20/2025 8:00 AM EST Office Visit [facility] [address] [facility] [address] [place] [address] 04/26/2025 11:00 AM EST Office Visit [facility] [address] [place] [address] Aracelis Patterson MD [address] [facility] [address] [place] [address] 11/01/2025 8:45 AM EDT Office Visit [facility] [address] [facility] [place] [address] Hiram Gutierrez MD [address] [facility] [address] [place] [address] documented as of this encounter [...] documented as of this encounter Care Teams Audiometrist Relationship Specialty Start Date End Date Hiram Serna DO [address] [place] [address] PCP - General 03/30/24 Aracelis Patterson MD [address] [place] [phone] Consulting Physician Infectious Diseases 09/16/22 Barbara Redding Curing Room Supervisor Chairman And Ceo 07/20/24 documented as of this encounter
--- OUTSIDE RECORDS SUMMARY | 2024-11-24 10:36 | XMS_ITS | Encounter Summary ---
Author Organization [facility] Address [address] [place] [address] Care Team Providers Care Angular Developer Name Role Phone Aracelis Patterson MD Unavailable [phone] Hiram Serna DO Primary Care Provider [phone] Barbara Redding Unavailable Unavailable Encounter Details Date Type Department Care Team (Latest Contact Info) Description 10/26/2024 Travel Social History Tobacco Use Types Packs/Day [...] Description 03/29/2025 12:40 PM EST Office Visit [facility] [address] [place] [phone] Ulises Dhillon, PA [address] [place] [address] 04/14/2025 10:10 AM EST Office Visit [facility] [address] [place] [address] Arely Galvan, ENVIRONMENTAL ADVISER [address] [place] [address] 04/20/2025 8:00 AM EST Office Visit [facility] [address] [facility] [address] [place] [address] 04/26/2025 11:00 AM EST Office Visit [facility] [address] [place] [address] Aracelis Patterson MD [address] [facility] [address] [place] [address] 11/01/2025 8:45 AM EDT Office Visit [facility] [address] [place] [address] Hiram Gutierrez MD [address] [facility] [address] [place] [address] documented as of this encounter [...] documented as of this encounter Care Teams Angular Developer Relationship Specialty Start Date End Date Hiram Serna DO [address] [place] [address] PCP - General 03/30/24 Aracelis Patterson MD [address] [place] [phone] Consulting Physician Infectious Diseases 09/16/22 Barbara Redding Slubber Tender Coldfusion 07/20/24 documented as of this encounter
--- OUTSIDE RECORDS SUMMARY | 2024-11-24 10:36 | XMS_ITS | Encounter Summary ---
Author Organization [facility] Address [address] [place] [address] Care Team Providers Care Steam Clothes Press Operator Name Role Phone Aracelis Patterson MD Unavailable [phone]- [phone] Hiram Serna DO Primary Care Provider [phone] Barbara Redding Unavailable Unavailable Encounter Details Date Type Department Care Team (Latest Contact Info) Description 09/28/2024 Travel Social History Tobacco Use Types Packs/Day [...] hopeless Not at all 09/28/2024 2:50 PM Allan Stewart Patient Health Questionnaire -2 Score 0 09/28/2024 2:50 PM Allan Stewart * Question Answer Date of Assessment Author Trouble falling or staying a sleep, or sleeping too much Not at all 09/28/2024 2:50 PM Allan Stewart Feeling tired or having paris le energy Not at all 09/28/2024 2:50 PM Allan Stewart Poor appetite or overeating Not at all 09/28/2024 2: 50 PM Allan Stewart Feeling bad about yourself - or that you are a failure or have let yourself or your family down Not at all 09/28/2024 2:50 PM Michelle Stewart Trouble concentrating on thi ngs, such as reading the newspaper or watching television Not at all 09/28/2024 2:50 PM Allan Stewart Moving or speaking so slowly that other people could have noticed? Or the opposite - being so fidgety or restless that you have been moving around a lot more than usual. Not at all 09/28/2024 2:50 PM Oseas Stewart Thoughts that you would be b ancelmo off or hurting yourself in some way Not at all 09/28/2024 2:50 PM Allan Stewart Patient Health Questionnaire -9 Score 0 09/28/2024 2:50 PM Allan Stewart * How difficult have these problems made it for you to do your work, take care of things at home, or get along with other people? Answer Date of Assessment Author Not difficult at all 09/28/2024 2:50 PM Allan Stewart documented as of this encounter Plan of Treatment Upcoming Encounters Date Type Department Care Team (Late st Contact Info) Description 03/29/2025 12:40 PM EST Office Visit [facility] [address] [place] [address] Ulises Dhillon, OMA [address] [place] [address] 04/14/2025 10:10 AM EST Office Visit [facility] Medicine Specialties [address] [place] [address] Arely Galvan, LEXIE [address] [place] [address] 04/20/2025 8:00 AM EST Office Visit [facility] [address] [facility] [address] [place] [address] 04/26/2025 11:00 AM EST Office Visit [facility] [address] [place] [address] Aracelis Patterson MD [address] [facility] [address] [place] [address] 11/01/2025 8:45 AM EDT Office Visit [facility] [address] [place] [address] Hiram Gutierrez MD [address] [place] [address] documented as of this encounter [...] documented as of this encounter Care Teams Steam Clothes Press Operator Relationship Specialty Start Date End Date Hiram Serna DO [address] [place] [address] PCP - General 03/30/24 [place] [address] [place] [address] Consulting Physician Infectious Diseases 09/16/22 Barbara Redding Machine Inker Building Maintenance Mechanic 07/20/24 documented as of this encounter
--- OUTSIDE RECORDS SUMMARY | 2024-11-24 10:36 | XMS_ITS | Encounter Summary ---
Author Organization [facility] Address [address] [place] [address] Care Team Providers Care Ux Visual Designer Name Role Phone Aracelis Patterson MD Unavailable + [phone] Hiram Serna DO Primary Care Provider [phone] Barbara Redding Unavailable Unavailable Reason for Visit * Reason Comments Case Management Encounter Details Date Type Department Care Team (Late st Contact Info) Description 11/07/2024 Patient Outreach [facility] [address] [place] [address] Barbara Redding Case Management Social History Tobacco [...] * Progress Notes - Barbara Redding - 11/07/2024 2:46 PM EDT P: DME/ Personal Care Items D: Coordinated Access, Support Services A: LUI received inbound vmm from patient requesting order for incontinence supplies. Patient endorsed shipment received in September was most ideal for her needs. [facility] sent secure email to [facility] [employer] requesting order for incontinence supplies, orders located in e-file. [facility] made OBC to patient HIPAA verified. MCM informed patient that personal care items were ordered on her behalf, patient thanked [facility] for the response. Patient would like to schedule a call with DCBSand LUI to assist with QMB application. [facility] tentatively set time for phone call on 11/10/24 at 8/830am. No other needs reported at this time. Duration: 30 minutes CIARA Fair documented in this encounter Plan of Treatment Upcoming Encounters Date Type Department Care Team (Late st Contact Info) Description 03/29/2025 12:40 PM EST Office Visit [facility] Medicine Specialties [address] 2[address] [place] [address] lUises Dhillon, PA [address] [place] [address] 04/14/2025 10:10 AM EST Office Visit [facility] Specialties [address] [place] [address] Arely Galvan, LEXIE [address] [place] [address] 04/20/2025 8:00 AM EST Office Visit [facility] [address] [facility] [address] [place] [address] 04/26/2025 11:00 AM EST Office Visit [facility] [address] [place] [address] Aracelis Patterson MD [address] [facility] [address] [place] [address] 11/01/2025 8:45 AM EDT Office Visit [facility] [address] [place] [address] Hiram Gutierrez MD [address] [place] [address] documented as of this encounter [...] documented as of this encounter Care Teams Ux Visual Designer Relationship Specialty Start Date End Date Hiram Serna DO [address] [place] [address] PCP - General 03/30/24 Aracelis Patterson MD [address] [facility] [address] [place] [address] Consulting Physician Infectious Diseases 09/16/22 Barbara Redding Disability Attorney Power Project Manager 07/20/24 documented as of this encounter
--- OUTSIDE RECORDS SUMMARY | 2024-11-24 10:36 | XMS_ITS | Encounter Summary ---
Author Organization [facility] Address [address] [place] [address] Care Team Providers Care Miller First Name Role Phone Aracelis Patterson MD Unavailable [phone] Hiram Serna DO Primary Care Provider [phone] Barbara Redding Unavailable Unavailable Encounter Details Date Type Department Care Team (Latest Contact Info) Description 10/18/2024 Travel Social History Tobacco Use Types Packs/Day [...] Description 03/29/2025 12:40 PM EST Office Visit [facility] [address] [place] [phone] Ulises Dhillon, PA [address] [place] [address] 04/14/2025 10:10 AM EST Office [facility] [address] [place] [address] Arely Galvan, VALET PARKER [address] [place] [address] 04/20/2025 8:00 AM EST Office Visit [facility] [address] [facility] [place] [address] [place] [address] 04/26/2025 11:00 AM EST Office Visit [facility] [address] [place] [address] Aracelis Patterson MD [address] [facility] [address] [place] [address] 11/01/2025 8:45 AM EDT Office [facility] [address] [facility] [place] [address] Hiram Gutierrez MD [address] [facility] [address] [place] [address] documented as of this encounter [...] documented as of this encounter Care Teams Miller First Relationship Specialty Start Date End Date Hiram Serna DO [address] [place] [address] PCP - General 03/30/24 Aracelis Patterson MD [address] [place] [phone] Consulting Physician Infectious Diseases 09/16/22 Barbara Redding Cupola Tender Java J2Ee Application Developer 07/20/24 documented as of this encounter
--- OUTSIDE RECORDS SUMMARY | 2024-11-24 10:36 | XMS_ITS | Encounter Summary ---
Author Organization [facility] Address [address] [place] [address] Care Team Providers Care Concrete Buildings Assembler Name Role Phone Aracelis Patterson MD Unavailable +- [phone] Hiram Serna DO Primary Care Provider +[phone] Barbara Redding Unavailable Unavailable Reason for Visit * Reason Comments Case Management Annual KADAP Recerti fication Encounter Details Date Type Department Care Team (Late st Contact Info) Description 10/19/2024 Patient Outreach [facility] [address] [place] [address] Rodolfo Schneider Case Management (Annual DAP Recertification) Social History Tobacco Use Types Packs/Day Years [...] encounter Miscellaneous Notes * Progress Notes - Wyatt, Maria Fernandanicho - 10/19/2024 2:47 PM EDT [facility] Visit Note Barrel Rifler Broach met with Светлана Rivera during clinic visit with: HIV Provider: dr. Hughes Primary Care Provider: Hiram Serna, DO Светлана Rivera's [facility] Eligibility expires on 10/23/2024 Assigned Barrel Rifler Broach: Barbara Casarez Part B Recertification Completed at this visit: Annual Recertification / Assessment Recertification Documents Provided: Proof of residency, Proof of insurance, and Proof of income Recertification Documents Needed: None Ayad Vera HIV Care Plan Completed? yes - Notes: P: Annual KADAP Recertification, Food insecurity, Blood pressure cuff. Duration: 75 minutes D/A: D/A. MCM met with pt today following her appointment with dr Hughes to complete her annualKADAP recertification. MCM completed acuity assessment and updated individualized care plan. Pt expressed food insecurity, MCM provided pt with grocery items from the pantry. per provider request, [facility] also provided pt with a blood pressure cuff. MCM reviewed KADAP recertification with pt and pt provided required documentation for recertification. MCM submitted to the [facility] portal for approval. Acuity Scale: 28 (Basic) - Care plan updated Medical Care: Pt reports consistent engagement in medical. Pt reports no problems accessing medicalcare at this time. [facility] provided treatment adherence counseling. Medication: Pt has Medicare and has no problems accessing her medications at this time. Pt is on Biktarvy and reports great adherence. Pt is virally suppressed. Dental Care: Pt reports consistent engagement in dental care. Pt receives dental care at [facility] dentalservices. She reports no problems accessing dental care at this time. Mental health: Pt denies any mental health issues at this time. Suicide Assessment: Pt denies SI/HI. Substance use: Pt denies substance use. Domestic Violence: Pt denies IPV/DV. Legal Issues: Pt denies any legal issues at this time. Basic needs: Pt lives in permanent, stable housing. He reports a household size of 1. Pt receives social security benefits. Pt reports being able to obtain her basic needs at this time. Pt is aware of [facility] EFA services. Transportation: Pt requires transportation assistance to her medical appointments. Education/Prevention: [facility] educated pt about HIV transmission, treatment options, and risk reductionstrategies. [facility] submitted KADAP application to the [employer] portal for approval. CIARA Cordova documented in this encounter Plan of Treatment Upcoming Encounters Date Type Department Care Team (Late st Contact Info) Description 03/29/2025 12:40 PM EST Office Visit [facility] Medicine Specialties [address] [place] [address] Ulises Dhillon PA [address] [place] [address] 04/14/2025 10:10 AM EST Office Visit [facility] Medicine Specialties [address] [place] [address] Arely Galvan APRN [address] [place] [address] 04/20/2025 8:00 AM EST Office Visit [facility] [address] [facility] [address] [place] [address] 04/26/2025 11:00 AM EST Office Visit [facility] [address] [place] [address] [place] [address] [place] [address] [address] [place] [address] 11/01/2025 8:45 AM EDT Office Visit [facility] [address] [place] [address] Hiram Gutierrez MD [address] [place] [address] documented as of this encounter Goals Goal Patient Goal Type Associated Problems Recent Progress Patient-Stated? Author Свелтана to remain active in HIV care Care [...] documented as of this encounter Care Teams Concrete Buildings Assembler Relationship Specialty Start Date End Date Hiram Serna DO [address] [place] [address] PCP - General 03/30/24 Aracelis Patterson MD [address] [facility] [address] [place] [address] Consulting Physician Infectious Diseases 09/16/22 Barbara Redding Skelp Processor Potato Sorter 07/20/24 documented as of this encounter
--- OUTSIDE RECORDS SUMMARY | 2024-11-24 10:36 | XMS_ITS | Encounter Summary ---
Author Organization [facility] Address [address] [place] [address] Care Team Providers Care Dynamite Reclaimer Name Role Phone Aracelis Patterson MD Unavailable [phone] Hiram Serna DO Primary Care Provider [phone] Barbara Redding Unavailable Unavailable Encounter Details Date Type Department Care Team (Latest Contact Info) Description 10/19/2024 Travel Social History Tobacco Use Types Packs/Day [...] Venessa Castillo documented as of this encounter Plan of Treatment Upcoming Encounters Date Type Department Care Team (Late st Contact Info) Description 03/29/2025 12:40 PM EST Office Visit [facility] Medicine Specialties [address] [place] [address] Ulises Dhillon, PA [address] [place] [address] 04/14/2025 10:10 AM EST Office Visit [facility] [address] [place] [address] Arely Galvan APRN [address] [place] [address] 04/20/2025 8:00 AM EST Office Visit [facility] [address] [facility] [address] [place] [address] 04/26/2025 11:00 AM EST Office Visit [facility] [address], [address] [place] [address] Aracelis Patterson MD [address] [facility] [address] [place] [address] 11/01/2025 8:45 AM EDT Office Visit [facility] [address] [facility] [place] [place] [address] Hiram Gutierrez MD [address] [facility] [address] [place] [address] documented as of this encounter Goals Goal Patient Goal Type Associated Problems Recent Progress Patient-Stated? Author Светлана to remain active in HIV care Care Plan RW Treatment Adherence No Nhi Jimenez SURVEILLANCE SENSOR OPERATOR Светлана to remain active on Part B [...] documented as of this encounter Care Teams Dynamite Reclaimer Relationship Specialty Start Date End Date Hiram Serna DO [address] [place] [address] PCP - General 03/30/24 Aracelis Patterson MD [address] [place] [address] [address] [place] [address] Consulting Physician Infectious Diseases 09/16/22 Barbara Redding Entry Level Manufacturing Engineer Telecommunications Field Technician 07/20/24 documented as of this encounter
--- OUTSIDE RECORDS SUMMARY | 2024-11-24 10:37 | XMS_ITS | Encounter Summary ---
Author Organization [facility] Address [address] [place] [address] Care Team Providers Care Public Health Name Role Phone Aracelis Patterson MD Unavailable [phone]- [phone] Hiram Serna DO Primary Care Provider [phone] Barbara Redding Unavailable Unavailable Reason for Visit * Reason Comments Med Refill Encounter Details Date Type Department Care Team (Late st Contact Info) Description 11/23/2024 Refill [facility] [address] [place] [address] Aracelis Patterson MD [address] [facility] [address] [place] [address] Tremor Social History Tobacco Use Types Packs/Day Years [...] Description 03/29/2025 12:40 PM EST Office Visit [facility] Medicine Specialties [address] [place] [address] Ulises Dhillon, PA [address] [place] [address] 04/14/2025 10:10 AM EST Office Visit [facility] Medicine Specialties [address] [place] [address] Arely Galvan, MANAGER CABLE [address] [place] [address] 04/20/2025 8:00 AM EST Office Visit [facility] [address] [facility] [address] [place] [address] 04/26/2025 11:00 AM EST Office Visit [facility] Clinic [address] [place] [address] Aracelis Patterson MD [address] [facility] [address] [place] [address] 11/01/2025 8:45 AM EDT Office Visit [facility] [address] [place] [address] Hiram Gutierrez MD [address] [place] [address] documented as of this encounter Goals Goal Patient Goal Type Associated Problems Recent Progress Patient-Stated? Author Светлана to remain active in HIV care Care Plan RW Treatment Adherence No Nhi Jimenez, BLOWER ROOM ATTENDANT Светлана to remain active on Part B services/RW jose-eligible Care Plan RW Treatment Adherence No Nhi Jimenez LCSW Christine to maintain undetectable viral load. Care Plan RW Treatment Adherence No Nhi Jimenez LCSW Reduce transportation barrier to medical appointments. Care Plan RW Transportation No Rodolfo Schneider documented as of this encounter Visit Diagnoses Diagnosis Tremor Abnormal involuntary movements documented in this encounter Additional Health Concerns [...] of this encounter Care Teams Public Health Relationship Specialty Start Date End Date Hiram Serna DO [address] [place] [address] PCP - General 03/30/24 Aracelis Patterson MD [address] [place] [address] Consulting Physician Infectious Diseases 09/16/22 Barbara Redding Sulfuric Acid Plant Operator Phosphorus Processing Supervisor 07/20/24 documented as of this encounter
--- OUTSIDE RECORDS SUMMARY | 2024-11-24 10:37 | XMS_ITS | Encounter Summary ---
Author Organization [facility] Address [address] [place] [address] Care Team Providers Care Paper Wrapping Machine Operator Name Role Phone Allan Hightower MD Primary Care Provider + [phone] Nikki Muniz Unavailable Unavailable Aracelis Patterson MD Unavailable + [phone] Hiram Serna DO Primary Care Provider [phone] Barbara Redding Unavailable Unavailable Reason for Visit * Reason Comments Med Refill Encounter Details Date Type Department Care Team (Late st Contact Info) Description 03/27/2022 [facility]ill [facility] Special[facility] [address] [place] [address] Ulises Dhillon, PA [address] [place] [address] Social History Tobacco Use Types [...] for 7 day supply with 6 refill(s) [facility]. documented in this encounter Plan of Treatment Upcoming Encounters Date Type Department Care Team (Late st Contact Info) Description 03/29/2025 12:40 PM EST Office Visit [facility] Medicine Specialties [address] [place] [address] Ulises Dhillon PA [address] [place] [address] 04/14/2025 10:10 AM EST Office Visit [facility] Specialties [address] [place] [address] Arely Galvan, CEO & CO FOUNDER [address] [place] [address] 04/20/2025 8:00 AM EST Office Visit [facility] [address] [facility] [address] [place] [address] 04/26/2025 11:00 AM EST Office Visit [facility] [address], [address] [place] [address] Aracelis Patterson MD [address] [facility] [address] [place] [address] 11/01/2025 8:45 AM EDT Office Visit [facility] [address] [facility] [place] [address] Hiram Gutierrez MD [address] [place] [address] documented as of this encounter Goals Goal [...] 10/30/2021 RW Transportation 10/30/2021 Assessment Noted Time A fall risk assessment has been complete d for the patient 06/11/2021 1:05 PM EDT documented as of this encounter Care Teams Paper Wrapping Machine Operator Relationship Specialty Start Date End Date Allan Hightower MD [address] [place] [address] PCP - General 07/06/20 03/29/24 Hiram Serna DO [address] [place] [address] PCP - General 03/30/24 Nikki Muniz Treasury Associate Director Of Student Financial Services 10/17/21 07/20/24 [place] [address] [place] [address] [address] [place] [address] Consulting Physician Infectious Diseases 09/16/22 Barbara Redding Treasury Associate Director Of Student Financial Services 07/20/24 documented as of this encounter
--- OUTSIDE RECORDS SUMMARY | 2024-11-24 10:37 | XMS_ITS | Encounter Summary ---
Author Organization [facility] Address [address] [place] [address] Care Team Providers Care Journeyman Pipe Welder Name Role Phone Alyssa Antonio SURFACE WATER TECHNICIAN Unavailable [phone] Allan Hightower MD Primary Care Provider + [phone] Nikki Muniz Unavailable Unavailable Aracelis Patterson MD Unavailable + [phone] Hiram Serna DO Primary Care Provider [phone] Barbara Redding Unavailable Unavailable Reason for Visit * Reason Comments Med Refill Encounter Details Date Type Department Care Team (Late st Contact Info) Description 07/31/2021 Refill [facility] Specialties [address] [place] [address] Ulises Dhillon, PA [address] [place] [address] Social History Tobacco Use Types [...] medication refill request([facility]) [facility]. Pt will need to follow up with clinic for any further refills of phenergan documented in this encounter Plan of Treatment Upcoming Encounters Date Type Department Care Team (Late st Contact Info) Description 03/29/2025 12:40 PM EST Office Visit [facility] Medicine Specialties [address] [place] [address] Ulises Dhillon PA [address] [place] [address] 04/14/2025 10:10 AM EST Office Visit [facility] Medicine Specialties [address] [place] [address] Arely Galvan APRN [address] [place] [address] 04/20/2025 8:00 AM EST Office Visit [facility] [address] [facility] [address] [place] [address] 04/26/2025 11:00 AM EST Office Visit [facility] Clinic [address], [address] [place] [address] Aracelis Patterson MD [address] [facility] [address] [place] [address] 11/01/2025 8:45 AM EDT Office Visit [facility] [address] [place] [address] Hiram Gutierrez MD [address] [facility] [address] [place] [address] documented as of this encounter Visit Diagnoses Not on filedocumented in this encounter Additional Health Concerns Assessment Noted Time A fall risk assessment has been complete d for the patient 06/11/2021 1:05 PM EDT documented as of this encounter Care Teams Journeyman Pipe Welder Relationship Specialty Start Date End Date Allan Hightower MD [address] [place] [address] PCP - General 07/06/20 03/29/24 Hiram Serna DO [address] [place] [address] PCP - General 03/30/24 Alyssa Antonio LCSW [address] [facility] [address] [place] [address] 11/25/07 10/17/21 Nikki Muniz Psychological Operations Officer Basket Person 10/17/21 07/20/24 Aracelis Patterson MD [address] [place] [address] [address] [place] [address] Consulting Physician Infectious Diseases 09/16/22 Barbara Redding Psychological Operations Officer Basket Person 07/20/24 documented as of this encounter
--- OUTSIDE RECORDS SUMMARY | 2024-11-24 10:37 | XMS_ITS | Encounter Summary ---
Author Organization [facility] Address [address] [place] [address] Care Team Providers Care Truck Hopper Name Role Phone Allan Hightower MD Primary Care Provider + [phone] Nikki Muniz Unavailable Unavailable Aracelis Patterson MD Unavailable + [phone] Hiram Serna DO Primary Care Provider [phone] Barbara Redding Unavailable Unavailable Reason for Visit * Reason Comments Med Refill Encounter Details Date Type Department Care Team (Late st Contact Info) Description 08/29/2022 Refill [facility] [address] [place] [address] Main Curtis MD [address] [facility] [address] [place] [address] Human immunodeficiency virus ([facility]) Social History Tobacco Use Types Packs/Day Years [...] Description 03/29/2025 12:40 PM EST Office Visit [facility] Medicine Specialties [address] [place] [address] Ulises Dhillon, PA [address] [place] [address] 04/14/2025 10:10 AM EST Office Visit [facility] Medicine Specialties [address] [place] [address] Arely Galvan, LEXIE [address] [place] [address] 04/20/2025 8:00 AM EST Office Visit [facility] [address] [facility] [address] [place] [address] 04/26/2025 11:00 AM EST Office [facility] Clinic [address] [place] [address] Aracelis Patterson MD [address] [facility] [address] [place] [address] 11/01/2025 8:45 AM EDT Office Visit [facility] Advanced Eye Care [address] [facility] [place] [address] Hiram Gutierrez MD [address] [place] [address] documented as of this encounter Goals Goal Patient Goal Type Associated Problems Recent Progress Patient-Stated? Author Светлана to remain active in HIV care Care Plan RW Treatment Adherence No Nhi Jimenez, [facility] Светлана to remain active on Part B services/RW jose-eligible Care Plan RW Treatment Adherence No Nhi Jimenez LCSW Christine to maintain undetectable viral load. Care Plan RW Treatment Adherence No Nhi Jimenez LCSW documented as of this encounter Visit Diagnoses Diagnosis Human immunodeficiency virus Human immunodeficiency virus [HIV] disease documented in [...] documented as of this encounter Care Teams Truck Hopper Relationship Specialty Start Date End Date Allan Hightower MD [address] [place] [address] PCP - General 07/06/20 03/29/24 Hiram Serna DO [address] [place] [address] PCP - General 03/30/24 Nikki Muniz Registered Dietetic Technician Looseleaf Binder Coverer 10/17/21 07/20/24 Aracelis Patterson MD [address] [place] [address] Consulting Physician Infectious Diseases 09/16/22 Barbara Redding Registered Dietetic Technician Looseleaf Binder Coverer 07/20/24 documented as of this encounter
== END 2024-11-23 23:59 ==
LOC: LAB.DROPOF 11-24 10:32
PROVIDERS: PCP Family Medicine; Visit Provider Family Medicine
DX: E53.8 Deficiency of other specified B group vitamins (principal); E11.9 Type 2 diabetes mellitus without complications; R53.83 Other fatigue; E55.9 Vitamin D deficiency, unspecified
CPT/HCPCS: 82306; 82607; 83036; 84443